=== PATIENT | male | born 1950 | race Caucasian/White ===

== ENCOUNTER 2016-11-29 18:50 | Emergency (ER) | payer OTHER, MEDICARE ==
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
--- NOTE | 2016-11-29 19:01 | CPEKG ---
Heart Rate: 78 RR Interval: 769 P-R Interval: 180 QRSD Interval: 124 QT Interval: 420 QTC Interval: 479 P [place]: 47 QRS [place]: -71 T Wave [place]: 99 EKG Severity - ABNORMAL ECG - EKG Impression: SINUS RHYTHM EKG Impression: LVH WITH IVCD, LAD AND SECONDARY REPOL ABNRM Electronically Signed By: Marie Terry 29-Nov-2016 21:36:01
[2016-11-29 19:08] LABS: % IMMATURE GRANULYOCYTES 0.2 % (0.0-1.1); ABSOLUTE IMMATURE GRANULOCYTES 0.01 10^3/uL (0.00-0.10); ADD DIFF? NO; ADD MORPH? NO; ADD SCAN? NO; ATYPICAL LYMPHOCYTE FLAG 0 (0-99); FRAGMENT RBC FLAG 0 (0-99); HEMATOCRIT 33.8 % (40.0-51.0); HEMOGLOBIN 10.9 g/dL (13.7-17.5); LEFT SHIFT FLG 0 (0-99); LIPEMIA HEMOLYSIS FLAG 80 (0-99); MEAN CELL HEMOGLOBIN 28.7 pg (27.9-34.1); MEAN CELL HEMOGLOBIN CONCENTR. 32.2 g/dL (32.4-36.7); MEAN CELL VOLUME 88.9 fL (81.5-99.8); MEAN PLATELET VOLUME 9.6 fL (8.7-11.7); PLATELET CLUMPS FLAG 20 (0-99); PLATELET COUNT 210 10^3/uL (150-400); RED CELL DISTRIBUTION WIDTH 14.6 % (11.5-15.2)
[2016-11-29 19:20] VITALS: RESP 16
[2016-11-29 19:22] LABS: ANION GAP 10 mEq/L (8-16); CALCIUM 8.4 mg/dL (8.5-10.4); CARBON DIOXIDE 24 mEq/l (22-31); CHLORIDE 105 mEq/L (97-110); CREATININE 3.5 mg/dL (0.7-1.3); GLOMERULAR FILTRATION RATE 18; GLUCOSE 154 mg/dL (70-100); POTASSIUM 4.8 mEq/L (3.5-5.2); SODIUM 139 mEq/L (134-144)
[2016-11-29] MEDS ORDERED: CYCLOBENZAPRINE 10 MG TAB PO ONE (19:53)
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
[2016-11-29 21:27] VITALS: BP 166/76; PULSE 68; TEMP 98.1; O2SAT 97
== END 2016-11-29 21:31 | disposition home or self-care (01) ==
LOC: EDUNIT#
DX: S09.90XA Unspecified injury of head, initial encounter (principal); E11.649 Type 2 diabetes mellitus with hypoglycemia without coma; I25.810 Atherosclerosis of coronary artery bypass graft(s) without angina pectoris; N18.9 Chronic kidney disease, unspecified; Z86.73 Personal history of transient ischemic attack (TIA), and cerebral infarction without residual deficits; Z87.891 Personal history of nicotine dependence; Z79.82 Long term (current) use of aspirin; Z79.4 Long term (current) use of insulin; V89.2XXA Person injured in unspecified motor-vehicle accident, traffic, initial encounter; Y92.410 Unspecified street and highway as the place of occurrence of the external cause
CPT/HCPCS: 82947-QW

== ENCOUNTER 2017-01-16 15:14 | Emergency (ER) | payer OTHER ==
[2017-01-16 15:29] VITALS: RESP 16; TEMP 97.9
--- NOTE | 2017-01-16 15:36 | EDPHY ---
H & P Stated Complaint: HIGH BLOOD SUGAR AND SOB FOR 5 DAYS HPI/ROS: CHIEF COMPLAINT: Short of breath HISTORY OF PRESENT ILLNESS: The patient is a 66-year-old man who comes to the emergency department by EMS complaining of dyspnea as well as ascites. He is convinced that he has Jeanie infection in his bloodstream. He states that he has [facility] to treat him for this and they did. He has a history of dementia, CVA, 4 vessel CABG, bioprosthetic aortic valve, chronic renal disease , hypertension, type 2 diabetes, hep C as well as and admission 6 months ago for Streptococcus mitis bacteremia and pneumonia. He denies recent fevers. He denies vomiting or diarrhea. He does complain of mild abdominal distention but no tenderness. He has a difficult time focusing and explaining with his chief complaint is. He does not appear to be in any distress but is saturating 87% on room air. REVIEW OF SYSTEMS: Constitutional: denies: chills, fever, recent illness, recent injury EENTM: denies: blurred vision, double vision, nose congestion Respiratory: See HPI Cardiac: denies: chest pain, irregular heart rate, lightheadedness, palpitations Gastrointestinal/Abdominal: distensiondenies: abdominal pain, diarrhea, nausea , vomiting, blood streaked stools Genitourinary: denies: dysuria, frequency, hematuria, pain Musculoskeletal: denies: joint pain, muscle pain Skin: denies: lesions, rash, jaundice, bruising Neurological: denies: headache, numbness, paresthesia, tingling, dizziness, weakness Hematologic/Lymphatic: denies: blood clots, easy bleeding, easy bruising Immunologic/allergic: denies: HIV/AIDS, transplant EXAM: GENERAL: Well-appearing, well-nourished and in no acute distress. HEAD: Atraumatic, normocephalic. EYES: Pupils equal round and reactive to light, extraocular movements intact, sclera anicteric, conjunctiva are normal. ENT: TMs normal, nares patent, oropharynx clear without exudates. Moist mucous membranes. NECK: Normal range of motion, supple without lymphadenopathy or JVD. LUNGS: Bilateral crackles HEART: Regular rate and rhythm without murmurs, rubs or gallops. ABDOMEN: distended, nontender, normoactive bowel sounds. No guarding, no rebound. No masses appreciated. BACK: No CVA tenderness, no spinal tenderness, step-offs or deformities EXTREMITIES: Normal range of motion, no pitting or edema. No clubbing or cyanosis. NEUROLOGICAL: Cranial nerves II through XII grossly intact. Normal speech, normal gait. 5/5 strength, normal movement in all extremities, normal sensation PSYCH: Normal mood, normal affect. SKIN: Warm, dry, normal turgor, no visible rashes or lesions. Source: Patient Exam Limitations: No limitations - Personal History Current Tetanus Diphtheria and Acellular Pertussis (TDAP): Unsure - Medical/Surgical History Hx Asthma: No Hx Chronic Respiratory Disease: Yes Hx Diabetes: Yes Hx Cardiac Disease: Yes Hx Renal Disease: Yes Hx Cirrhosis: Yes Hx Alcoholism: No Hx HIV/AIDS: No Hx Splenectomy or Spleen Trauma: No Other PMH: 1. Hepatitis C. 2. Coronary artery disease with bypass graft. 3. Aortic valve replacement. 4. Chronic kidney disease. 5. Diabetes. 6. CVA. 7. Vertigo. 8. Hospitalization for pneumonia in January of 2016 - Family History Significant Family History: Hypertension - Social History Smoking Status: Former smoker Alcohol Use: Sober Drug Use: None Constitutional: Initial Vital Signs Temperature (C) 36.6 C 01/16/17 15:15 Heart Rate 74 01/16/17 15:15 Respiratory Rate 16 01/16/17 15:15 Blood Pressure 161/91 H 01/16/17 15:15 O2 Sat (%) 96 01/16/17 15:15 O2 Delivery Mode Nasal Cannula O2 (L/minute) 2 Allergies/Adverse Reactions: Sulfa (Sulfonamide Antibiotics) [Sulfa(Sulfonamide Antibiotics)] Allergy (Severe , Verified 01/16/17 15:25) Hives furosemide [From Lasix] Allergy (Verified 01/16/17 15:25) Rash sulfamethoxazole [From Septra] Allergy (Verified 01/16/17 15:25) Other-Enter Comments trimethoprim [From Septra] Allergy (Verified 01/16/17 15:25) Other-Enter Comments Home Medications: Medication Instructions Recorded Cholecalciferol Vit D3 [Vitamin D3 5,000 units PO HS 07/01/15 2000 units] Omeprazole [Prilosec] 40 mg PO DAILY PRN 07/01/15 Vitamin B Complex [B Complex] 1 each PO DAILY 08/13/15 Aspirin EC [Aspirin EC 81 mg (*)] 81 mg PO DAILY 11/21/15 Ethacrynic Acid [Edecrin 25 MG (*)] 75 mg PO DAILY 11/21/15 Febuxostat [ULORIC] 40 mg PO HS 11/21/15 Labetalol HCl [Trandate 100 mg (*)] 200 mg PO BID 11/21/15 Atorvastatin Calcium [Lipitor 20 10 mg PO BID 01/27/16 mg (*)] Ascorbic Acid [Vitamin C 500 mg 500 mg PO DAILY 07/12/16 (*)] Insulin Lispro [Humalog] 0 - 14 unit SQ ACHS 07/12/16 Meclizine HCl [Meclizine HCl 25 mg 12.5 - 26 mg PO Q4 PRN #30 tab 07/13/16 (RX,OTC)] Cyclobenzaprine [Flexeril 10 MG 15 mg PO DAILY PRN 01/16/17 (*)] Ethacrynic Acid [Edecrin 25 MG (*)] 25 mg PO HS 01/16/17 Herbals/Supplements -Info Only 1 ea PO DAILY 01/16/17 Insulin Glargine [Lantus 100 12 units SC BID 01/16/17 UNITS/ML (*)] Mupirocin 2% [Bactroban 2%] 1 karlos TP DAILY 01/16/17 hydrALAZINE [Apresoline 50 mg (*)] 25 mg PO BID 01/16/17 levOFLOXACIN [levAQUIN] 750 mg PO DAILY #10 tab 01/16/17 oxyCODONE IR [Oxycodone Ir (*)] 5 mg PO DAILY PRN 01/16/17 Medical Decision Making - Diagnostics EKG Interpretation: An EKG obtained and was read and documented in trace view. Please see trace view for full reading and report. Sinus rhythm, LVH similar to previous Imaging: X-ray: chest x-ray was obtained. I viewed the images myself on the PACS system. My interpretation of the images is: Right lower lobe infiltrate. The radiologist interpretation is right lower lobe infiltrate. Procedures: Bedside ultrasound performed. Patient's proximal IVC identified and measured during inspiration at rest. No significant collapse. ED Course/Re-evaluation: Patient's x-ray has a new infiltrate in the right lower lobe. I will start him on antibiotics and initiate the sepsis workup. He is requiring oxygen to stay above 90% and will require admission. Chemistry still pending. The patient's elevated creatinine compared to baseline. He has pneumonia. He is not hypotensive or tachycardic. I will treat him with fluids and observed but will be cautious because of his chronic renal insufficiency status I will not give him the full 30 per kilos bolus if he meets criteria for severe sepsis. 4:45 p.m. I discussed the case with Dr. Alok Farah who will admit. We agreed to hold IV fluids at this point. Patient's IVC does not show evidence of dehydration On ultrasound. He has moist mucous membranes. 7:10 p.m. after being admitted and seen by the hospitalist physician the patient became angry because he did not like the food given to him his diet tray. He also is concerned because we are going to give him Humulin instead of Humalog. He stormed up and started getting dressed and leaving. I tried to have a discussion with him and have him sign an AMA form but he refused. I spoke with Dr. Farah. States the patient does not have pneumonia on CT scan and does not need antibiotic prescription only to continue taking his diuretic and follow up with his primary care doctor. Differential Diagnosis: Partial list of the Differential diagnosis considered include but were not limited to; pneumonia, CHF exacerbation pulmonary edema, pulmonary fusion and although unlikely based on the history and physical exam, I also considered PE, acute coronary disease, sepsis. - Data Points Laboratory Results: Laboratory Results 01/16/17 15:40 01/16/17 15:40 01/16/17 01/16/17 01/16/17 16:59 15:40 15:40 WBC RBC Hgb Hct MCV MCH MCHC RDW Plt Count MPV Neut % (Auto) Lymph % (Auto) Snyder % (Auto) Eos % (Auto) Baso % (Auto) Nucleat RBC Rel Count Absolute Neuts (auto) Absolute Lymphs (auto) Absolute Monos (auto) Absolute Eos (auto) Absolute Basos (auto) Absolute Nucleated RBC Immature Gran % Immature Gran # PT INR APTT VBG Lactic Acid 1.2 mmol/L mmol/L (0.7-2.1) Sodium 135 mEq/L mEq/L (134-144) Potassium 5.7 mEq/L H mEq/L (3.5-5.2) Chloride 102 mEq/L mEq/L (97-110) Carbon Dioxide 21 mEq/l L mEq/l (22-31) Anion Gap 12 mEq/L mEq/L (8-16) BUN 106 mg/dL H* mg/dL (7-23) Creatinine 4.4 mg/dL H mg/dL (0.7-1.3) Estimated GFR 14 Glucose 294 mg/dL H mg/dL (70-100) Calcium 7.9 mg/dL L mg/dL (8.5-10.4) Total Bilirubin 0.6 mg/dL mg/dL (0.1-1.4) Troponin I 0.050 ng/mL H ng/mL (0-0.034) NT-Pro-B Natriuret Pep 26296 pg/mL H pg/mL (0-125) Beta-Hydroxybutyrate 0.15 mmol/L mmol/L (0.02-0.27) 01/16/17 01/16/17 15:40 15:40 WBC 8.89 10^3/uL 10^3/uL (3.80-9.50) RBC 3.73 10^6/uL L 10^6/uL (4.40-6.38) Hgb 10.7 g/dL L g/dL (13.7-17.5) Hct 34.0 % L % (40.0-51.0) MCV 91.2 fL fL (81.5-99.8) MCH 28.7 pg pg (27.9-34.1) MCHC 31.5 g/dL L g/dL (32.4-36.7) RDW 14.0 % % (11.5-15.2) Plt Count 181 10^3/uL 10^3/uL (150-400) MPV 11.3 fL fL (8.7-11.7) Neut % (Auto) 81.0 % H % (39.3-74.2) Lymph % (Auto) 10.8 % L % (15.0-45.0) Snyder % (Auto) 6.7 % % (4.5-13.0) Eos % (Auto) 0.7 % % (0.6-7.6) Baso % (Auto) 0.1 % L % (0.3-1.7) Nucleat RBC Rel Count 0.0 % % (0.0-0.2) Absolute Neuts (auto) 7.20 10^3/uL H 10^3/uL (1.70-6.50) Absolute Lymphs (auto) 0.96 10^3/uL L 10^3/uL (1.00-3.00) Absolute Monos (auto) 0.60 10^3/uL 10^3/uL (0.30-0.80) Absolute Eos (auto) 0.06 10^3/uL 10^3/uL (0.03-0.40) Absolute Basos (auto) 0.01 10^3/uL L 10^3/uL (0.02-0.10) Absolute Nucleated RBC 0.00 10^3/uL 10^3/uL (0-0.01) Immature Gran % 0.7 % % (0.0-1.1) Immature Gran # 0.06 10^3/uL 10^3/uL (0.00-0.10) PT 14.9 SEC SEC (12.0-15.0) INR 1.17 H (0.83-1.16) APTT 27.1 SEC SEC (23.0-38.0) VBG Lactic Acid Sodium Potassium Chloride Carbon Dioxide Anion Gap BUN Creatinine Estimated GFR Glucose Calcium Total Bilirubin Troponin I NT-Pro-B Natriuret Pep Beta-Hydroxybutyrate Medications Given: Discontinued Medications Levofloxacin/Dextrose (Levaquin 750 Mg (Premix)) 150 mls @ 100 mls/hr IV EDNOW ONE PRN Reason: Protocol Stop: 01/16/17 17:51 Last Admin: 01/16/17 17:05 Dose: 150 mls Sodium Chloride (Ns) 1,000 mls @ 0 mls/hr IV ONCE ONE PRN Reason: Wide Open Stop: 01/16/17 16:34 Last Admin: 01/16/17 17:14 Dose: Not Given Insulin Human Regular (Humulin R) 10 unit IVP ONCE ONE Stop: 01/16/17 18:05 Last Admin: 01/16/17 18:30 Dose: Not Given Sodium Polystyrene Sulfonate (Kayexalate) 30 gm PO ONCE ONE Stop: 01/16/17 18:05 Last Admin: 01/16/17 18:30 Dose: Not Given Departure - Departure Disposition: Against Medical Advice Clinical Impression: Pulmonary edema Qualifiers: Chronicity: acute Qualified Code(s): J81.0 - Acute pulmonary edema Condition: Fair Referrals: Patient,NotPresent [Unknown] - As per Instructions Prescriptions: levOFLOXACIN [levAQUIN] 750 mg PO DAILY #10 tab
[2017-01-16 16:16] LABS: % IMMATURE GRANULYOCYTES 0.7 % (0.0-1.1); ABSOLUTE IMMATURE GRANULOCYTES 0.06 10^3/uL (0.00-0.10); ADD DIFF? NO; ADD MORPH? NO; ADD SCAN? NO; ATYPICAL LYMPHOCYTE FLAG 0 (0-99); FRAGMENT RBC FLAG 40 (0-99); HEMOGLOBIN 10.7 g/dL (13.7-17.5); LEFT SHIFT FLG 0 (0-99); LIPEMIA HEMOLYSIS FLAG 80 (0-99); MEAN CELL HEMOGLOBIN 28.7 pg (27.9-34.1); MEAN CELL HEMOGLOBIN CONCENTR. 31.5 g/dL (32.4-36.7); MEAN CELL VOLUME 91.2 fL (81.5-99.8); MEAN PLATELET VOLUME 11.3 fL (8.7-11.7); PLATELET CLUMPS FLAG 10 (0-99); PLATELET COUNT 181 10^3/uL (150-400); RED BLOOD CELL COUNT 3.73 10^6/uL (4.40-6.38)
--- NOTE | 2017-01-16 16:20 | CPEKG ---
Heart Rate: 72 RR Interval: 833 P-R Interval: 180 QRSD Interval: 122 QT Interval: 424 QTC Interval: 465 P [place]: 41 QRS [place]: -70 T Wave [place]: 109 EKG Severity - ABNORMAL ECG - EKG Impression: SINUS RHYTHM EKG Impression: NONSPECIFIC IVCD WITH LAD EKG Impression: SIMILAR TO PREVIOUS Electronically Signed By: Ba Pacheco 16-Jan-2017 16:21:04
[2017-01-16 16:23] LABS: ANION GAP 12 mEq/L (8-16); CALCIUM 7.9 mg/dL (8.5-10.4); CARBON DIOXIDE 21 mEq/l (22-31); CHLORIDE 102 mEq/L (97-110); CREATININE 4.4 mg/dL (0.7-1.3); GLOMERULAR FILTRATION RATE 14; GLUCOSE 294 mg/dL (70-100); POTASSIUM 5.7 mEq/L (3.5-5.2); SODIUM 135 mEq/L (134-144)
[2017-01-16 16:33] LABS: APTT 27.1 SEC (23.0-38.0)
[2017-01-16] MEDS ORDERED: NS 1,000 ML IV ONE (16:33)
[2017-01-16 16:40] LABS: INR 1.17 (0.83-1.16); PROTIME(PATIENT) 14.9 SEC (12.0-15.0)
[2017-01-16 16:49] LABS: BILIRUBIN,TOTAL 0.6 mg/dL (0.1-1.4)
[2017-01-16 16:59] LABS: B-HYDROXYBUTYRATE 0.15 mmol/L (0.02-0.27)
[2017-01-16] MEDS ORDERED: ONDANSETRON DISINTEGRATING 4 MG TAB PO PRN (17:40)
[2017-01-16] MEDS ORDERED: ACETAMINOPHEN 325 MG TAB PO PRN (17:40)
[2017-01-16] MEDS ORDERED: ONDANSETRON 4 MG/2 ML VIAL IVP PRN (17:40)
--- NOTE | 2017-01-16 17:49 | PDGENHP ---
History and Physical - Chief Complaint Acute shortness of breath - History of Present Illness PCP: [facility] HPI: 66-year-old male presenting with acute shortness of breath characterized as difficulty breathing with any level of physical activity, exacerbated with ambulation, with associated general myalgias as well as edema located in his abdomen and bilateral legs. Patient reports onset of symptoms approximately 4 days ago and duration has been persistent worsening thereafter. He reports that he has been adherent to his echarynic acid which she takes as his scheduled diuretic. He reports that he has also had experienced significant hyperglycemia for the past 4 days has been "slamming" insulin, although he is unable to objectively tell me exactly how much insulin he has been taking. He is unable to tell me exactly what his blood glucose levels have been. He reports that he has urinated on the day of presentation but he is unable to further characterize whether he has been oliguric. The patient is notably distraught, perseverating on how he perceives he has been unfairly treated by past medical providers at the [facility] as well as [facility]. He otherwise denies any fevers chills, endorses nonproductive cough. History Information - Allergies/Home Medication List Allergies/Adverse Reactions: Sulfa (Sulfonamide Antibiotics) [Sulfa(Sulfonamide Antibiotics)] Allergy (Severe , Verified 01/16/17 15:25) Hives furosemide [From Lasix] Allergy (Verified 01/16/17 15:25) Rash sulfamethoxazole [From Septra] Allergy (Verified 01/16/17 15:25) Other-Enter Comments trimethoprim [From Septra] Allergy (Verified 01/16/17 15:25) Other-Enter Comments Home Medications: Cholecalciferol Vit D3 [Vitamin D3 2000 units] 2,000 units PO HS 07/01/15 [Last Taken 01/26/16] Omeprazole [Prilosec] 40 mg PO DAILY 07/01/15 [Last Taken 01/26/16] Vitamin B Complex [B Complex] 1 each PO DAILY 07/01/15 [Last Taken 01/26/16] Aspirin EC [Aspirin EC 81 mg (*)] 81 mg PO HS 11/21/15 [Last Taken 01/26/16] Ethacrynic Acid [Edecrin 25 MG (*)] 50 mg PO BID 11/21/15 [Last Taken 01/26/16] Febuxostat [ULORIC] 40 mg PO HS 11/21/15 [Last Taken 01/26/16] Labetalol HCl [Trandate 100 mg (*)] 200 mg PO BID 11/21/15 [Last Taken 01/26/16] hydrALAZINE [Apresoline] 37.5 mg PO BID 11/21/15 [Last Taken 01/26/16] Atorvastatin Calcium [Lipitor 20 mg (*)] 10 mg PO HS 01/27/16 [Last Taken ] oxyCODONE HCL/ACETAMINOPHEN [Oxycodone-Acetaminophen 5-325] 1 - 2 tab PO DAILY PRN 01/27/16 [Last Taken 01/26/16] Ascorbic Acid [Vitamin C 500 mg (*)] 500 mg PO DAILY 07/12/16 [Last Taken Unknown] Insulin Detemir [Levemir] 25 unit SQ HS 07/12/16 [Last Taken Unknown] Insulin Lispro [Humalog] 0 unit SQ AC 07/12/16 [Last Taken Unknown] I have personally reviewed and updated: family history, medical history, social history, surgical history - Past Medical History coronary artery disease ( Status post CABG 4 vessel), CHF ( diastolic with last known echocardiogram June of 2016), CVA ( without known physical deficit) , hypertension, pneumonia ( left lower lobe) Additional medical history: Chronic kidney disease stage 4 baseline creatinine 3.5 x 3.7. Hepatitis-C virus. Previous episodes of streptococcal bacteremia - Surgical History Reports: coronary bypass surgery ( 4 vessel) Additional surgical history: Bioprosthetic aortic valve June of 2015. Fistula placement - Family History Additional family history: mother with aortic stenosis - Social History Smoking Status: Former smoker Alcohol Use: Sober Drug Use: None Additional social history: reportedly homeless, patient reports he lives in [place] Review of Systems ROS: 10pt was reviewed & negative except for what was stated in HPI & below Constitutional: Reports: weakness Cardiac: Reports: edema Respiratory: Reports: cough, shortness of breath Gastrointestinal: Reports: abdominal distention Muscolosketal: Reports: other ( myalgias) Physical Exam Temp Pulse Resp BP Pulse Ox 36.6 C 74 16 138/89 H 100 01/16/17 15:15 01/16/17 17:13 01/16/17 17:13 01/16/17 17:13 01/16/17 17:13 O2 (L/minute) 2 Constitutional: chronically ill appearing, obese, uncomfortable, No no apparent distress ( moderately distressed), No not in pain Eyes: PERRL, anicteric sclera, EOMI Ears, Nose, Mouth, Throat: moist mucous membranes, hearing normal, ears appear normal, no oral mucosal ulcers Cardiovascular: systolic murmur ( 2/6 systolic murmur at the right sternal border), JVD, edema ( 2+ bilateral lower extremity), No irregularly irregular, No tachycardia Respiratory: inspiratory crackles ( bilateral bases), No reduced air movement, No expiratory wheeze, No bronchial breath sounds, No respiratory distress Gastrointestinal: normoactive bowel sounds, tenderness ( mild to moderate palpation), distension ( moderately distended) Skin: other ( chronic stasis dermatitis bilateral lower extremities without open wounds) Musculoskeletal: other ( patient unwilling to perform musculoskeletal exam) Neurologic: AAOx3, sensation intact bilaterally, No facial droop Psychiatric: not encephalopathic, thought process linear, anxious, agitated, other ( concentration 7/7, intermittently tearful and irrate) Lab Data & Imaging Review 01/16/17 15:40 01/16/17 15:40 WBC 8.89 10^3/uL (3.80-9.50) 01/16/17 15:40 RBC 3.73 10^6/uL (4.40-6.38) L 01/16/17 15:40 Hgb 10.7 g/dL (13.7-17.5) L 01/16/17 15:40 Hct 34.0 % (40.0-51.0) L 01/16/17 15:40 MCV 91.2 fL (81.5-99.8) 01/16/17 15:40 MCH 28.7 pg (27.9-34.1) 01/16/17 15:40 MCHC 31.5 g/dL (32.4-36.7) L 01/16/17 15:40 RDW 14.0 % (11.5-15.2) 01/16/17 15:40 Plt Count 181 10^3/uL (150-400) 01/16/17 15:40 MPV 11.3 fL (8.7-11.7) 01/16/17 15:40 Neut % (Auto) 81.0 % (39.3-74.2) H 01/16/17 15:40 Lymph % (Auto) 10.8 % (15.0-45.0) L 01/16/17 15:40 [place] % (Auto) 6.7 % (4.5-13.0) 01/16/17 15:40 Eos % (Auto) 0.7 % (0.6-7.6) 01/16/17 15:40 Baso % (Auto) 0.1 % (0.3-1.7) L 01/16/17 15:40 Nucleat RBC Rel Count 0.0 % (0.0-0.2) 01/16/17 15:40 Absolute Neuts (auto) 7.20 10^3/uL (1.70-6.50) H 01/16/17 15:40 Absolute Lymphs (auto) 0.96 10^3/uL (1.00-3.00) L 01/16/17 15:40 Absolute Monos (auto) 0.60 10^3/uL (0.30-0.80) 01/16/17 15:40 Absolute Eos (auto) 0.06 10^3/uL (0.03-0.40) 01/16/17 15:40 Absolute Basos (auto) 0.01 10^3/uL (0.02-0.10) L 01/16/17 15:40 Absolute Nucleated RBC 0.00 10^3/uL (0-0.01) 01/16/17 15:40 Immature Gran % 0.7 % (0.0-1.1) 01/16/17 15:40 Immature Gran # 0.06 10^3/uL (0.00-0.10) 01/16/17 15:40 PT 14.9 SEC (12.0-15.0) 01/16/17 15:40 INR 1.17 (0.83-1.16) H 01/16/17 15:40 APTT 27.1 SEC (23.0-38.0) 01/16/17 15:40 VBG Lactic Acid 1.2 mmol/L (0.7-2.1) 01/16/17 16:59 Sodium 135 mEq/L (134-144) 01/16/17 15:40 Potassium 5.7 mEq/L (3.5-5.2) H 01/16/17 15:40 Chloride 102 mEq/L (97-110) 01/16/17 15:40 Carbon Dioxide 21 mEq/l (22-31) L 01/16/17 15:40 Anion Gap 12 mEq/L (8-16) 01/16/17 15:40 BUN 106 mg/dL (7-23) H* 01/16/17 15:40 Creatinine 4.4 mg/dL (0.7-1.3) H 01/16/17 15:40 Estimated GFR 14 01/16/17 15:40 Glucose 294 mg/dL (70-100) H 01/16/17 15:40 Calcium 7.9 mg/dL (8.5-10.4) L 01/16/17 15:40 Total Bilirubin 0.6 mg/dL (0.1-1.4) 01/16/17 15:40 Troponin I 0.050 ng/mL (0-0.034) H 01/16/17 15:40 NT-Pro-B Natriuret Pep 54199 pg/mL (0-125) H 01/16/17 15:40 Beta-Hydroxybutyrate 0.15 mmol/L (0.02-0.27) 01/16/17 15:40 Visualized and Interpreted Chest x-ray results: Yes Chest X-Ray results: other ( increased interstitial markings, possible right lower lobe infiltrate) Visualized and Interpreted EKG results: Yes EKG Interpretation: Positive for: other ( normal sinus rhythm, intraventricular conduction delay, Q-wave in lead V2) Assessment & Plan Assessment: 66-year-old male presenting with acute shortness of breath in the setting of suspected acute diastolic congestive heart failure exacerbation Plan: 1. Suspected acute diastolic congestive heart failure exacerbation. New problem this provider, further workup indicated. Suspect this is the cause of patient's symptoms as opposed to pneumonia is the patient does not have any fevers chills leukocytosis, although he may have a right lower lobe infiltrate - get noncontrast CT of the chest to either confirm or deny right lower lobe infiltrate (d/w Dr. Pacheco, he has reported to me that the patient has received 1 dose of IV levofloxacin in the emergency department, will hold on further antibiotics until chest [place] [address] which is lehman contrast to patient's most recent BMP of 9500 on 11/15/2016 - most recent echocardiogram June 2016 demonstrating diastolic dysfunction - get repeat echocardiogram at this time given his history of significant CAD and marginally elevated troponin level - the patient reports that he is allergic to Lasix and he has had anaphylaxis to this medication in the past, will consequently not use Lasix - the patient reports that he has experienced significant muscular cramps with torsemide in the past, patient is declining use of this medication at this time - I have offered the patient Bumex and since the patient has not heard of this medication before he is refusing at this time - I have offered to increase the patient's home Ecchrynic acid and the patient is declining any dose adjustments from at this time - consequently, the patient may require hemodialysis given his significant renal impairment, to remove volume and I have consulted with Nephrology to discuss with the patient further 2. Hyperkalemia. Secondary to renal impairment, will provide the patient with IV insulin and Kayexalate and then repeat level this evening - monitor on telemetry 3. Chronic kidney disease stage 4-5. Review of outside records demonstrates patient's baseline creatinine level is 3.5-3.7, his rise in creatinine level of 4.4 with a BUN of 106 and hyperkalemia 5.7 may be indication for initiation of dialysis - I have consulted with Dr. Heredia from Nephrology 4. Chronic coronary artery disease. Status post CABG, continue patient's home medications, suspect that marginally elevated troponin level is secondary to heart strain from CHF 5. Diabetes mellitus type 2 with hyperglycemia. Patient has had difficult to control hyperglycemia in the past, partially secondary to his retic usage of insulin and his insistence on dosing based on his own personal belief as well as his dietary intake - patient requesting regular diet at this time - will initiate patient's home dosing of insulin when available Diet. Regular Prophylaxis. High risk patient, heparin subcu Code status. Full per patient, the patient declined to have a medical power of personal injury attorney and if situation calls for, he would like a court-appointed MPOA Disposition. Anticipated discharge uncertain this time, anticipated length stay is greater than 48 hours warranting inpatient admission status for acute diastolic CHF exacerbation requiring further workup and inpatient treatment as outlined above. He has a high risk Patient with high risk medical comorbidities.
[2017-01-16] MEDS ORDERED: SODIUM POLY SULF 15 GM/60 ML BOTTLE PO ONE (18:04)
[2017-01-16] MEDS ORDERED: INSULIN REGULAR HUMAN 100 UNIT/ML IVP ONE (18:04)
[2017-01-16] MEDS ORDERED: D50W 25 GM/50 ML SYR IVP PRN (18:04)
[2017-01-16 18:38] VITALS: BP 169/82; PULSE 70; O2SAT 99
[2017-01-16] MEDS ORDERED: INSULIN LISPRO 100 UNIT/ML SC PRN (18:56)
[2017-01-16] MEDS ORDERED: INSULIN REGULAR HUMAN 100 UNIT/ML SC SCH (21:00)
[2017-01-16] MEDS ORDERED: HEPARIN 5,000 UNIT/0.5 ML SYR SC SCH (22:00)
== END 2017-01-16 19:27 | disposition left against medical advice (07) ==
LOC: EDUNIT# → UNDOADMOB 16:43
DX: J81.0 Acute pulmonary edema (principal); E11.9 Type 2 diabetes mellitus without complications; I25.810 Atherosclerosis of coronary artery bypass graft(s) without angina pectoris; Z79.82 Long term (current) use of aspirin; Z79.4 Long term (current) use of insulin; Z87.891 Personal history of nicotine dependence
CPT/HCPCS: 71020; 71250; 93005; 96374; 99285; J1815; J1956

== ENCOUNTER 2017-05-10 08:43 | Inpatient (IN) | payer OTHER ==
--- NOTE | 2017-05-10 09:36 | EDPHY ---
H & P Time Seen by Provider: 05/10/17 09:11 HPI/ROS: Chief complaint. Shortness of breath HPI. 66-year-old male here requesting thoracentesis. He has been short of breath for 2 months and he feels this is secondary to fluid buildup in his lungs. His breathing has been worse over the past month. His breathing is worse especially with exertion. Previous thoracentesis 6 months ago. His legs have been swollen for the past several month. No fever or cough. No chest discomfort. Patient also receives Sunday dialysis and his last dialysis was yesterday. ROS Constitutional. no fever/chills, no weakness Eyes. no problems with vision ENT. no sore throat, no nasal drainage Cardiovascular. no chest pain Respiratory. Shortness of breath Abdominal. no abdominal pain, no nausea/vomiting, no diarrhea . no problems urinating MS. Swollen legs Skin. no rash Lymph. no swollen glands Neuro. no headache, no dizziness, no difficulty walking or with speech Past Medical/Surgical History: Past medical history is significant for hepatitis-C, coronary artery disease with CABG, aortic valve replacement, chronic renal insufficiency, diabetes, CVA , vertigo, pneumonia Social History: Single, nonsmoker, no alcohol Smoking Status: Former smoker Physical Exam: General Appearance: Alert well-developed male mild distress vital signs stable. O2 saturation 94% room air Eyes: Pupils equal and round no pallor or injection. ENT, Mouth: Mucous membranes are moist. Respiratory: There are no retractions, lungs are clear to auscultation. Cardiovascular: Regular rate and rhythm. Gastrointestinal: Decreased breath sounds on the left Neurological: Awake and alert, sensory and motor exams grossly normal. Skin: Warm and dry, no rashes. Musculoskeletal: Neck is supple nontender. Extremities symmetrical, full range of motion. 2 to 3+ pedal edema both legs Psychiatric: Patient is oriented X 3, there is no agitation. Constitutional: Initial Vital Signs Temperature (C) 36.7 C 05/10/17 08:47 Heart Rate 75 05/10/17 08:47 Respiratory Rate 20 05/10/17 08:47 Blood Pressure 136/72 H 05/10/17 08:47 O2 Sat (%) 94 05/10/17 08:47 O2 Delivery Mode Room Air Allergies/Adverse Reactions: Sulfa (Sulfonamide Antibiotics) [Sulfa(Sulfonamide Antibiotics)] Allergy (Severe , Verified 05/10/17 08:45) Hives furosemide [From Lasix] Allergy (Verified 05/10/17 08:45) Rash sulfamethoxazole [From Septra] Allergy (Verified 05/10/17 08:45) Other-Enter Comments trimethoprim [From Septra] Allergy (Verified 05/10/17 08:45) Other-Enter Comments Home Medications: Medication Instructions Recorded Cholecalciferol Vit D3 [Vitamin D3 5,000 units PO HS 07/01/15 2000 units] Vitamin B Complex [B Complex] 1 each PO DAILY 07/01/15 Aspirin EC [Aspirin EC 81 mg (*)] 81 mg PO DAILY 11/21/15 Febuxostat [ULORIC] 40 mg PO HS 11/21/15 Labetalol HCl [Trandate 100 mg (*)] 200 mg PO DAILY PRN 11/21/15 Atorvastatin Calcium [Lipitor 20 10 mg PO BID 01/27/16 mg (*)] Ascorbic Acid [Vitamin C 500 mg 500 mg PO Q3D 07/12/16 (*)] Insulin Lispro [Humalog] 5 - 20 unit SQ TIDMEAL 07/12/16 Cyclobenzaprine [Flexeril 10 MG 15 mg PO DAILY PRN 01/16/17 (*)] Ethacrynic Acid [Edecrin 25 MG (*)] 25 - 75 mg PO DAILY PRN 01/16/17 Herbals/Supplements -Info Only 1 ea PO DAILY 01/16/17 Mupirocin 2% [Bactroban 2%] 1 karlos TP HS PRN 01/16/17 Omeprazole [Prilosec 20 mg] 20 mg PO DAILY 05/10/17 oxyCODONE IR [Oxycodone Ir (*)] 5 mg PO DAILY PRN 05/10/17 Medical Decision Making - Diagnostics EKG Interpretation: EKG reviewed by me shows normal sinus rhythm with normal interval. There is left axis deviation. QRS shows a left anterior fascicular block. No significant ST elevation. No significant depression. No arrhythmia. The rate is 71. EKG is unchanged from previous EKG 01/16/2017 Imaging Results: Imaging Impressions Chest X-Ray 05/10/17 09:11 Impression: 1. Suspect low-grade congestive heart failure without matthew pulmonary edema. 2. Persistent left pleural effusion and left basilar atelectasis or pleural- parenchymal change. 3. Lobular opacity in the periphery of the left lower lung is probably a loculated pleural fluid collection versus focal consolidation. Chest x-ray interpreted by me shows left pleural effusion. Procedures: IV normal saline, O2 monitor. ED Course/Re-evaluation: On re-evaluation patient remained stable. The patient and I discussed EKG, laboratory, imaging studies. We discussed treatment plan and recommendation for admission due to shortness of breath with pleural effusion as well as elevated troponin. He expresses understanding and agreement I consulted and discussed case with Dr. Farah, hospitalist, who agrees to the admission Differential Diagnosis: Patient has extensive coronary artery disease with coronary artery bypass graft. Elevated troponin. Chronic left pleural effusion that appears to be worsening as the patient is becoming more symptomatic. - Data Points Laboratory Results: Laboratory Results 05/10/17 09:37 05/10/17 09:37 05/10/17 05/10/17 05/10/17 09:37 09:37 09:37 WBC 6.74 10^3/uL 10^3/uL (3.80-9.50) RBC 4.23 10^6/uL L 10^6/uL (4.40-6.38) Hgb 10.8 g/dL L g/dL (13.7-17.5) Hct 35.9 % L % (40.0-51.0) MCV 84.9 fL fL (81.5-99.8) MCH 25.5 pg L pg (27.9-34.1) MCHC 30.1 g/dL L g/dL (32.4-36.7) RDW 19.0 % H % (11.5-15.2) Plt Count 173 10^3/uL 10^3/uL (150-400) MPV 10.5 fL fL (8.7-11.7) Neut % (Auto) 65.2 % % (39.3-74.2) Lymph % (Auto) 17.7 % % (15.0-45.0) [place] % (Auto) 15.0 % H % (4.5-13.0) Eos % (Auto) 1.0 % % (0.6-7.6) Baso % (Auto) 1.0 % % (0.3-1.7) Nucleat RBC Rel Count 0.0 % % (0.0-0.2) Absolute Neuts (auto) 4.39 10^3/uL 10^3/uL (1.70-6.50) Absolute Lymphs (auto) 1.19 10^3/uL 10^3/uL (1.00-3.00) Absolute Monos (auto) 1.01 10^3/uL H 10^3/uL (0.30-0.80) Absolute Eos (auto) 0.07 10^3/uL 10^3/uL (0.03-0.40) Absolute Basos (auto) 0.07 10^3/uL 10^3/uL (0.02-0.10) Absolute Nucleated RBC 0.00 10^3/uL 10^3/uL (0-0.01) Immature Gran % 0.1 % % (0.0-1.1) Immature Gran # 0.01 10^3/uL 10^3/uL (0.00-0.10) PT 15.3 SEC H SEC (12.0-15.0) INR 1.21 H (0.83-1.16) D-Dimer 1.66 ug/mLFEU H ug/mLFEU (0.00-0.50) Sodium 135 mEq/L mEq/L (134-144) Potassium 3.9 mEq/L mEq/L (3.5-5.2) Chloride 99 mEq/L mEq/L (97-110) Carbon Dioxide 26 mEq/l mEq/l (22-31) Anion Gap 10 mEq/L mEq/L (8-16) BUN 38 mg/dL H mg/dL (7-23) Creatinine 3.1 mg/dL H mg/dL (0.7-1.3) Estimated GFR 20 Glucose 182 mg/dL H mg/dL (70-100) Calcium 8.7 mg/dL mg/dL (8.5-10.4) Troponin I 0.054 ng/mL H ng/mL (0-0.034) NT-Pro-B Natriuret Pep 00726 pg/mL H pg/mL (0-125) Departure - Departure Disposition: [facility] Acute Clinical Impression: Pleural effusion, Elevated troponin Condition: Fair
--- NOTE | 2017-05-10 09:40 | CPEKG ---
Heart Rate: 71 RR Interval: 845 P-R Interval: 192 QRSD Interval: 120 QT Interval: 440 QTC Interval: 479 P [place]: 21 QRS [place]: -76 T Wave [place]: 111 EKG Severity - ABNORMAL ECG - EKG Impression: SINUS RHYTHM EKG Impression: LEFT ANTERIOR FASCICULAR BLOCK Electronically Signed By: Victor Manuel Mayer 10-May-2017 16:02:19
[2017-05-10 09:56] LABS: % IMMATURE GRANULYOCYTES 0.1 % (0.0-1.1); ABSOLUTE IMMATURE GRANULOCYTES 0.01 10^3/uL (0.00-0.10); ADD DIFF? NO; ADD MORPH? NO; ADD SCAN? NO; ATYPICAL LYMPHOCYTE FLAG 0 (0-99); FRAGMENT RBC FLAG 20 (0-99); HEMATOCRIT 35.9 % (40.0-51.0); HEMOGLOBIN 10.8 g/dL (13.7-17.5); LEFT SHIFT FLG 0 (0-99); LIPEMIA HEMOLYSIS FLAG 80 (0-99); MEAN CELL HEMOGLOBIN 25.5 pg (27.9-34.1); MEAN CELL HEMOGLOBIN CONCENTR. 30.1 g/dL (32.4-36.7); MEAN CELL VOLUME 84.9 fL (81.5-99.8); MEAN PLATELET VOLUME 10.5 fL (8.7-11.7); PLATELET CLUMPS FLAG 0 (0-99); PLATELET COUNT 173 10^3/uL (150-400); RED BLOOD CELL COUNT 4.23 10^6/uL (4.40-6.38)
[2017-05-10 10:06] LABS: INR 1.21 (0.83-1.16); PROTIME(PATIENT) 15.3 SEC (12.0-15.0)
[2017-05-10 10:14] LABS: TROPONIN I 0.054 ng/mL (0-0.034)
[2017-05-10 10:21] LABS: ANION GAP 10 mEq/L (8-16)
[2017-05-10 10:22] LABS: SODIUM 135 mEq/L (134-144)
[2017-05-10 10:23] LABS: CALCIUM 8.7 mg/dL (8.5-10.4); CARBON DIOXIDE 26 mEq/l (22-31); CHLORIDE 99 mEq/L (97-110); CREATININE 3.1 mg/dL (0.7-1.3); GLOMERULAR FILTRATION RATE 20; GLUCOSE 182 mg/dL (70-100); POTASSIUM 3.9 mEq/L (3.5-5.2)
--- NOTE | 2017-05-10 13:26 | WOCRNPDOC ---
[facility] Advanced Assessment Note - Skin Integrity Problem, Advanced Assess Right Anterior Lower Leg Dressing Type: Band Aid Dressing Description: Clean/Dry, Intact Exudate Amount: None Integumentary Issue Intervention: Dressing Removed Tania Wound Tissue: Lipodermatosclerosis, Hemosiderin Staining, Venous Dermatitis , Shiny, Taught Wound Bed Color: Yellow Wound Bed Constitution: Adhered Slough Wound Edges: Attached, Irregular Site Measurement - Head-to-Toe Length X Width X Depth (cm): 1.8x1x0.2 Skin Integrity Problem Comment: Wound surrounded by scar tissue from unknown etiology. May have been a traumatic wound originally that has become chronic. Advised RN to clean wound well with gauze and NS to mechanically debride wound. Patient had a tubigrip on one leg but did not know what size. When asked why he only had one compression sock on, he reported it being too difficult for him to put the other one on when he is wearing his knee brace. Right calf circumference 39 cm and left is 41.5. Tubigrip E will be sent down for medium compression for staff to apply to bilateral lower legs during the day. Jeanette WU in room for care. Left Pedal Foot Diabetic Ulcer Dressing Type: Coban, Kerlix, Non-Bordered Foam, Optilock Dressing Description: Clean/Dry, Intact Exudate Amount: Scant Exudate Characteristic(s): Serosanguinous Integumentary Issue Intervention: Dressing Removed Tania Wound Tissue: Macerated, Hyperkeratotic Wound Bed Color: [place] Site Measurement - Head-to-Toe Length X Width X Depth (cm): 1.7x1x0.3 Skin Integrity Problem Comment: Dressing was not placed correctly as aquacel that was at the base of the wound had been placed upside down (pink side to wound bed). Patient upset as he reports having changed the dressing today himself but that he didnt have adequete directions. 50% non granulating tissue/ 50% granulation. Will follow outpatient wound care plan to give patient continuity of care, and it is appropriate for his wounds. Alerted wound healing center that pateint has been admitted and will not be able to attend his 2 pm appointment today. Wound care will follow up in one week. Left Lateral Pedal Foot Dressing Type: [place], Kerlix, Non-Bordered Foam, Optilock Dressing Description: Clean/Dry, Intact Integumentary Issue Intervention: Dressing Removed Wound Bed Constitution: Granulation Tissue (100%) Site Measurement - Head-to-Toe Length X Width X Depth (cm): 1.5x1x0.2 Skin Integrity Problem Comment: Patient reports that wound is from a tape tear when he was changing his foot dressing.
[2017-05-10] MEDS ORDERED: ONDANSETRON 4 MG/2 ML VIAL IVP PRN (13:47)
[2017-05-10] MEDS ORDERED: ONDANSETRON DISINTEGRATING 4 MG TAB PO PRN (13:47)
[2017-05-10] MEDS ORDERED: ACETAMINOPHEN 325 MG TAB PO PRN (13:47)
[2017-05-10] MEDS ORDERED: LABETALOL HCL 100 MG TAB PO PRN (13:52)
[2017-05-10] MEDS ORDERED: CYCLOBENZAPRINE 10 MG TAB PO PRN (13:52)
[2017-05-10] MEDS ORDERED: MUPIROCIN 2% 22 GM OINT TP PRN (13:52)
[2017-05-10] MEDS ORDERED: HEPARIN 5,000 UNIT/0.5 ML SYR SC SCH (14:00)
--- NOTE | 2017-05-10 14:04 | PDGENHP ---
History and Physical - Chief Complaint Acute shortness of breath - History of Present Illness Primary care provider: Dr. hughes HPI: 66-year-old male presents with acute shortness of breath characterized as difficulty breathing, exacerbated by exertion and lying supine, associated with bilateral lower extremity edema, onset of symptoms approximately 2 months ago but progressively worsening over the past month and resulting in him being completely unable to sleep on the evening prior to this presentation. He reports that he has otherwise been afebrile, but he does experience a nonproductive cough, chest pain exacerbated by deep inspiration, and his symptoms are alleviated by sitting upright, resulting in him being completely unable to sleep on the evening prior. He has otherwise been going to hemodialysis 3 times weekly and he reports that he is consistently asking the dialysis center to pull off more volume. He is unclear as to what medications he is currently taking, revealing that he only has Tylenol and oxycodone in his bag. He reports that he has a pill box at home which contains all of his other medications. He is currently not taking any long-acting insulin secondary to cost restraints. He is also not seeing any doctors other than his primary care provider because he has become distrustful of them. History Information - Allergies/Home Medication List Allergies/Adverse Reactions: Sulfa (Sulfonamide Antibiotics) [Sulfa(Sulfonamide Antibiotics)] Allergy (Severe , Verified 05/10/17 08:45) Hives furosemide [From Lasix] Allergy (Verified 05/10/17 08:45) Rash sulfamethoxazole [From Septra] Allergy (Verified 05/10/17 08:45) Other-Enter Comments trimethoprim [From Septra] Allergy (Verified 05/10/17 08:45) Other-Enter Comments Home Medications: Cholecalciferol Vit D3 [Vitamin D3 2000 units] 5,000 units PO HS 07/01/15 [Last Taken 05/09/17] Vitamin B Complex [B Complex] 1 each PO DAILY 07/01/15 [Last Taken 01/16/17] Aspirin EC [Aspirin EC 81 mg (*)] 81 mg PO DAILY 11/21/15 [Last Taken 05/09/17] Febuxostat [ULORIC] 40 mg PO HS 11/21/15 [Last Taken 01/26/16] Labetalol HCl [Trandate 100 mg (*)] 200 mg PO DAILY PRN 11/21/15 [Last Taken ] Atorvastatin Calcium [Lipitor 20 mg (*)] 10 mg PO BID 01/27/16 [Last Taken 05/09 21:00] Ascorbic Acid [Vitamin C 500 mg (*)] 500 mg PO Q3D 07/12/16 [Last Taken 01/16/17 ] Insulin Lispro [Humalog] 5 - 20 unit SQ TIDMEAL 07/12/16 [Last Taken 05/10/17 20 units] Cyclobenzaprine [Flexeril 10 MG (*)] 15 mg PO DAILY PRN 01/16/17 [Last Taken ] Ethacrynic Acid [Edecrin 25 MG (*)] 25 - 75 mg PO DAILY PRN 01/16/17 [Last Taken 01/15/17] Herbals/Supplements -Info Only 1 ea PO DAILY 01/16/17 [Last Taken 01/16/17] Mupirocin 2% [Bactroban 2%] 1 karlos TP HS PRN 01/16/17 [Last Taken 01/16/17] Omeprazole [Prilosec 20 mg] 20 mg PO DAILY 05/10/17 [Last Taken 05/09/17] oxyCODONE IR [Oxycodone Ir (*)] 5 mg PO DAILY PRN 05/10/17 [Last Taken 05/09/17] I have personally reviewed and updated: family history, medical history, social history, surgical history - Past Medical History coronary artery disease ( Status post CABG 4 vessel), CHF ( diastolic with last known echocardiogram June of 2016), CVA ( without known physical deficit) , hypertension, pneumonia ( left lower lobe) Additional medical history: End-stage renal disease on Sunday hemodialysis, currently oliguric. Hepatitis-C virus. Previous episodes of streptococcal bacteremia - Surgical History Reports: coronary bypass surgery ( 4 vessel) Additional surgical history: Bioprosthetic aortic valve June of 2015. Fistula placement - Family History Additional family history: mother with aortic stenosis - Social History Smoking Status: Former smoker Additional social history: Patient reports that he lives in [facility] Review of Systems ROS: 10pt was reviewed & negative except for what was stated in HPI & below Cardiac: Reports: chest pain, edema Respiratory: Reports: cough, shortness of breath Physical Exam Temp Pulse Resp BP Pulse Ox 36.5 C 78 12 149/78 H 96 06/22/17 13:02 05/10/17 13:02 05/10/17 13:02 05/10/17 13:02 05/10/17 13:02 Constitutional: appears nourished, not in pain, chronically ill appearing, uncomfortable Eyes: PERRL, anicteric sclera, EOMI Ears, Nose, Mouth, Throat: moist mucous membranes, hearing normal, ears appear normal, no oral mucosal ulcers Cardiovascular: systolic murmur (106 at the sternum), JVD, edema (2+ bilateral lower extremities), No irregularly irregular, No tachycardia Respiratory: reduced air movement (Left base), inspiratory crackles (Bilateral lateral segment), No expiratory wheeze, No bronchial breath sounds Gastrointestinal: normoactive bowel sounds, soft, non-tender abdomen, no palpable masses, distension (Mildly) Skin: other (Small skin tears on his bilateral shins, hyperpigmentation distal lower extremities), No erythema Musculoskeletal: other (Mild tenderness to palpation over the sternum, sternal deformity) Neurologic: AAOx3, sensation intact bilaterally, No weakness (Motor 5/5 bilateral lower extremities) Psychiatric: not encephalopathic, thought process linear, anxious, agitated ( Easily), other (Very suspicious individual) Lab Data & Imaging Review 05/10/17 09:37 05/10/17 09:37 WBC 6.74 10^3/uL (3.80-9.50) 05/10/17 09:37 RBC 4.23 10^6/uL (4.40-6.38) L 05/10/17 09:37 Hgb 10.8 g/dL (13.7-17.5) L 05/10/17 09:37 Hct 35.9 % (40.0-51.0) L 05/10/17 09:37 MCV 84.9 fL (81.5-99.8) 05/10/17 09:37 MCH 25.5 pg (27.9-34.1) L 05/10/17 09:37 MCHC 30.1 g/dL (32.4-36.7) L 05/10/17 09:37 RDW 19.0 % (11.5-15.2) H 05/10/17 09:37 Plt Count 173 10^3/uL (150-400) 05/10/17 09:37 MPV 10.5 fL (8.7-11.7) 05/10/17 09:37 Neut % (Auto) 65.2 % (39.3-74.2) 05/10/17 09:37 Lymph % (Auto) 17.7 % (15.0-45.0) 05/10/17 09:37 [place] % (Auto) 15.0 % (4.5-13.0) H 05/10/17 09:37 Eos % (Auto) 1.0 % (0.6-7.6) 05/10/17 09:37 Baso % (Auto) 1.0 % (0.3-1.7) 05/10/17 09:37 Nucleat RBC Rel Count 0.0 % (0.0-0.2) 05/10/17 09:37 Absolute Neuts (auto) 4.39 10^3/uL (1.70-6.50) 05/10/17 09:37 Absolute Lymphs (auto) 1.19 10^3/uL (1.00-3.00) 05/10/17 09:37 Absolute Monos (auto) 1.01 10^3/uL (0.30-0.80) H 05/10/17 09:37 Absolute Eos (auto) 0.07 10^3/uL (0.03-0.40) 05/10/17 09:37 Absolute Basos (auto) 0.07 10^3/uL (0.02-0.10) 05/10/17 09:37 Absolute Nucleated RBC 0.00 10^3/uL (0-0.01) 05/10/17 09:37 Immature Gran % 0.1 % (0.0-1.1) 05/10/17 09:37 Immature Gran # 0.01 10^3/uL (0.00-0.10) 05/10/17 09:37 PT 15.3 SEC (12.0-15.0) H 05/10/17 09:37 INR 1.21 (0.83-1.16) H 05/10/17 09:37 D-Dimer 1.66 ug/mLFEU (0.00-0.50) H 05/10/17 09:37 Sodium 135 mEq/L (134-144) 05/10/17 09:37 Potassium 3.9 mEq/L (3.5-5.2) 05/10/17 09:37 Chloride 99 mEq/L (97-110) 05/10/17 09:37 Carbon Dioxide 26 mEq/l (22-31) 05/10/17 09:37 Anion Gap 10 mEq/L (8-16) 05/10/17 09:37 BUN 38 mg/dL (7-23) H 05/10/17 09:37 Creatinine 3.1 mg/dL (0.7-1.3) H 05/10/17 09:37 Estimated GFR 20 05/10/17 09:37 Glucose 182 mg/dL (70-100) H 05/10/17 09:37 POC Glucose 249 mg/dL (70-100) H 05/10/17 13:12 Calcium 8.7 mg/dL (8.5-10.4) 05/10/17 09:37 Troponin I 0.054 ng/mL (0-0.034) H 05/10/17 09:37 NT-Pro-B Natriuret Pep 83737 pg/mL (0-125) H 05/10/17 09:37 Visualized and Interpreted Chest x-ray results: Yes Chest X-Ray results: other (Left lower lobe effusion, atelectasis, mild pulmonary edema) Visualized and Interpreted EKG results: Yes EKG Interpretation: Positive for: other (Normal sinus mechanism, Q-wave in lead V2 and V3, left anterior fascicular block) Assessment & Plan Assessment: 66-year-old male presenting with worsening shortness of breath in the setting of acute diastolic congestive heart failure exacerbation and end-stage renal disease Plan: 1. Diastolic congestive heart failure exacerbation. Acute, new problem this provider, further workup indicated. Evidenced by pulmonary edema and effusion present on chest x-ray, visible hypovolemia and JVD, most likely secondary to end-stage renal disease and resultant hypovolemia. -get echocardiogram given that most recent 1 was in June of 2016 -get V/Q scan given elevated D-dimer, pleuritic chest pain component comma ensure that he has not developed DVT/PE -discussed with Dr. Cabrera, she agrees w/ volume removal w/ HD -the patient is averse to any diuretics outside of echycrinic acid, he is not familiar with acetazolamide and that may be alternative if the patient declines to use any of the other loop diuretics since he has had a severe allergic reaction to torsemide -although the patient is currently requesting a thoracentesis, there is inadequate volume in order to provide this procedure safely, review of outside records and discharge summary by Dr. French from 07/18/2016 demonstrates that the patient's left lower lobe effusion was actually therapeutically and diagnostically tapped to evaluate for parapneumonic effusion at that time 2. End-stage renal disease. Sunday hemodialysis, most likely dialyze tomorrow with volume removal 3. Diabetes mellitus type 2. Insulin dependent, the patient has responded well to Lantus in the past but he is not able to continue using this medication due to financial constraints, he has responded poorly to Levemir in the past and he is not willing to utilize this agent or NPH at this time -the patient is very particular about his Humalog dosing, recommend that nursing staff work with patient by providing him with his glucometer check number and then agreeing on a dosage between 5 and 20 units a.c. and HS 4. Coronary artery disease. Chronic, no ischemic changes on EKG, did not believe that his pleuritic chest component is her ischemic coronary disease but rather from CHF -continue aspirin and statin -patient is taking a beta-haily as needed, continue this unusual dosing 5. Atelectasis. Most likely secondary to chest discomfort with a poor inspiratory effort secondary to CHF, will encourage incentive spirometer if volume removal is successful 6. Chronic pain with continuous opiate dependency. The only medications that it is clear that the patient is currently taking are Tylenol and oxycodone, continue his once daily as needed oxycodone for pain relief in his right knee -placed on bowel regimen given constipation has been an issue for this patient Diet. Diabetic Prophylaxis. High risk patient, heparin subcu Code. Full code per patient, his mother is his MPOA Dispo. Anticipated discharge is uncertain this time, anticipated length stay is greater than 48 hours warranting inpatient admission status for acute diastolic CHF exacerbation in the setting of high risk comorbid end-stage renal disease and coronary artery disease. Of note, the patient's primary care provider has also requested that we evaluate the patient for decisional capacity and I will continue to include this in my daily encounters with the patient's that I am able to provide a well rounded assessment. Will also have a 2nd opinion rendered by the ethics team, order placed.
--- NOTE | 2017-05-10 14:50 | PDCONSULT ---
Orthotics Technician Note: Assessment/Plan: ESRD: on HD MWF. - Will do HD tomorrow per routine. - May need HD again on Sunday for more volume removal. Hypervolemia: marked swelling in both legs. - Will modulate with HD, may need additional HD on Sunday for more volume removal as he limits fluid removal due to cramping on HD. - Agree with obtaining Echo and r/o PE. Anemia: Hgb at goal at 10.8, will continue to monitor. Thank you for the interesting consult. Nephrology will continue to follow, please call if you have any additional questions or concerns. H & P Stated Complaint: pt thinks he needs a paracentesis/fluid removal by dr reagan/pcp won't schedul Time Seen by Provider: 05/10/17 09:11 HPI/ROS: Mr. Ritter is a 66 yo M with h/o ESRD on HD MWF at [facility] under Dr. Cueto who presents with dyspnea. Pt states that he has had progressive dyspnea for the past 2 months, seems to be getting much worse lately and has trouble sleeping as a result. He has also had edema in his legs in that time, is only able to get 3-3.4L off on HD because of cramping, not sure how much was being taken off at dialysis unit. He is on diuretics but notes that he takes them only on non-dialysis days due to cramping, which he decided to do on his own. He otherwise is not sure what meds he is supposed to be on. ROS: positive per HPI, rest of 10-point ROS negative Source: Patient Exam Limitations: No limitations - Personal History Current Tetanus/Diphtheria Vaccine: Yes - Medical/Surgical History Hx Asthma: No Hx Chronic Respiratory Disease: Yes Hx Diabetes: Yes Hx Cardiac Disease: Yes Hx Renal Disease: Yes Hx Cirrhosis: Yes Hx Alcoholism: No Hx HIV/AIDS: No Hx Splenectomy or Spleen Trauma: No Other PMH: 1. Hepatitis C. 2. Coronary artery disease with bypass graft. 3. Aortic valve replacement. 4. Chronic kidney disease. 5. Diabetes. 6. CVA. 7. Vertigo. 8. Hospitalization for pneumonia in January of 2016 - Family History Significant Family History: No pertinent family hx - Social History Smoking Status: Former smoker - Physical Exam Exam: General: alert and oriented, no acute distress Eyes; EOMI, PERRL OP: Clear, MMM Neck: supple, no thyromegaly CV: RRR, +3 edema BLE Resp: nonlabored respirations on RA, reduced air movement at bilateral bases, slight crackles bilateral bases Abd; Soft, NT Neuro: CN II-XII grossly intact, no asterixis Psych: cooperative, appropriate mood and affect Skin: C/D/I, no rash Access: LUE AVF with thrill and bruit appreciated Constitutional: Initial Vital Signs Temperature (C) 36.7 C 05/10/17 08:47 Heart Rate 75 05/10/17 08:47 Respiratory Rate 20 05/10/17 08:47 Blood Pressure 136/72 H 05/10/17 08:47 O2 Sat (%) 94 05/10/17 08:47 O2 Delivery Mode Room Air Allergies/Adverse Reactions: Sulfa (Sulfonamide Antibiotics) [Sulfa(Sulfonamide Antibiotics)] Allergy (Severe , Verified 05/10/17 08:45) Hives furosemide [From Lasix] Allergy (Verified 05/10/17 08:45) Rash sulfamethoxazole [From Septra] Allergy (Verified 05/10/17 08:45) Other-Enter Comments trimethoprim [From Septra] Allergy (Verified 05/10/17 08:45) Other-Enter Comments Home Medications: Medication Instructions Recorded Cholecalciferol Vit D3 [Vitamin D3 5,000 units PO HS 07/01/15 2000 units] Vitamin B Complex [B Complex] 1 each PO DAILY 07/01/15 Aspirin EC [Aspirin EC 81 mg (*)] 81 mg PO DAILY 11/21/15 Febuxostat [ULORIC] 40 mg PO HS 11/21/15 Labetalol HCl [Trandate 100 mg (*)] 200 mg PO DAILY PRN 11/21/15 Atorvastatin Calcium [Lipitor 20 10 mg PO BID 01/27/16 mg (*)] Ascorbic Acid [Vitamin C 500 mg 500 mg PO Q3D 07/12/16 (*)] Insulin Lispro [Humalog] 5 - 20 unit SQ TIDMEAL 07/12/16 Cyclobenzaprine [Flexeril 10 MG 15 mg PO DAILY PRN 01/16/17 (*)] Ethacrynic Acid [Edecrin 25 MG (*)] 25 - 75 mg PO DAILY PRN 01/16/17 Herbals/Supplements -Info Only 1 ea PO DAILY 01/16/17 Mupirocin 2% [Bactroban 2%] 1 karlos TP HS PRN 01/16/17 Omeprazole [Prilosec 20 mg] 20 mg PO DAILY 05/10/17 oxyCODONE IR [Oxycodone Ir (*)] 5 mg PO DAILY PRN 05/10/17 Lab and Imaging 05/10/17 09:37 05/10/17 09:37 WBC 6.74 10^3/uL (3.80-9.50) 05/10/17 09:37 RBC 4.23 10^6/uL (4.40-6.38) L 05/10/17 09:37 Hgb 10.8 g/dL (13.7-17.5) L 05/10/17 09:37 Hct 35.9 % (40.0-51.0) L 05/10/17 09:37 MCV 84.9 fL (81.5-99.8) 05/10/17 09:37 MCH 25.5 pg (27.9-34.1) L 05/10/17 09:37 MCHC 30.1 g/dL (32.4-36.7) L 05/10/17 09:37 RDW 19.0 % (11.5-15.2) H 05/10/17 09:37 Plt Count 173 10^3/uL (150-400) 05/10/17 09:37 MPV 10.5 fL (8.7-11.7) 05/10/17 09:37 Neut % (Auto) 65.2 % (39.3-74.2) 05/10/17 09:37 Lymph % (Auto) 17.7 % (15.0-45.0) 05/10/17 09:37 [place] % (Auto) 15.0 % (4.5-13.0) H 05/10/17 09:37 Eos % (Auto) 1.0 % (0.6-7.6) 05/10/17 09:37 Baso % (Auto) 1.0 % (0.3-1.7) 05/10/17 09:37 Nucleat RBC Rel Count 0.0 % (0.0-0.2) 05/10/17 09:37 Absolute Neuts (auto) 4.39 10^3/uL (1.70-6.50) 05/10/17 09:37 Absolute Lymphs (auto) 1.19 10^3/uL (1.00-3.00) 05/10/17 09:37 Absolute Monos (auto) 1.01 10^3/uL (0.30-0.80) H 05/10/17 09:37 Absolute Eos (auto) 0.07 10^3/uL (0.03-0.40) 05/10/17 09:37 Absolute Basos (auto) 0.07 10^3/uL (0.02-0.10) 05/10/17 09:37 Absolute Nucleated RBC 0.00 10^3/uL (0-0.01) 05/10/17 09:37 Immature Gran % 0.1 % (0.0-1.1) 05/10/17 09:37 Immature Gran # 0.01 10^3/uL (0.00-0.10) 05/10/17 09:37 PT 15.3 SEC (12.0-15.0) H 05/10/17 09:37 INR 1.21 (0.83-1.16) H 05/10/17 09:37 D-Dimer 1.66 ug/mLFEU (0.00-0.50) H 05/10/17 09:37 Sodium 135 mEq/L (134-144) 05/10/17 09:37 Potassium 3.9 mEq/L (3.5-5.2) 05/10/17 09:37 Chloride 99 mEq/L (97-110) 05/10/17 09:37 Carbon Dioxide 26 mEq/l (22-31) 05/10/17 09:37 Anion Gap 10 mEq/L (8-16) 05/10/17 09:37 BUN 38 mg/dL (7-23) H 05/10/17 09:37 Creatinine 3.1 mg/dL (0.7-1.3) H 05/10/17 09:37 Estimated GFR 20 05/10/17 09:37 Glucose 182 mg/dL (70-100) H 05/10/17 09:37 POC Glucose 249 mg/dL (70-100) H 05/10/17 13:12 Calcium 8.7 mg/dL (8.5-10.4) 05/10/17 09:37 Troponin I 0.054 ng/mL (0-0.034) H 05/10/17 09:37 NT-Pro-B Natriuret Pep 77179 pg/mL (0-125) H 05/10/17 09:37
[2017-05-10] MEDS ORDERED: POLYETHYLENE GLYCOL 3350 17 GM PKT PO PRN (15:43)
[2017-05-10] MEDS ORDERED: HEPARIN 10,000 UNIT/10 ML MDV IVP ONE (15:43)
[2017-05-10] MEDS ORDERED: BISACODYL 10 MG SUPP PR PRN (15:43)
[2017-05-10] MEDS ORDERED: LACTULOSE 20 GM/30 ML UDCUP PO PRN (15:43)
[2017-05-10] MEDS ORDERED: HEPARIN 10,000 UNIT/10 ML MDV IVP PRN (15:43)
[2017-05-10] MEDS ORDERED: HEPARIN/DEXTROSE 500 ML IV SCH (15:45)
[2017-05-10] MEDS: SENNOSIDES/DOCUSATE SODIUM TAB PO SCH ×2 (16:04→22:09)
--- NOTE | 2017-05-10 16:40 | ECHO ---
[id number] + + [address] : : [place] [address] : : [phone] + + Adult Echocardiographic Report + -+ :Name: FAISAL WYNN Date: 05/10/2017 02:17 PM : : Hospital Admission Number: [id number] : :: 1950 Gender: Male Height: 68 in : :Age: 66 yrs Race: WH Weight: 169 lb : :Reason For Study: Eval LV Fx : : BSA: 1.9 meters 2: :History: SOB, Positive Troponins, Fluid retention, Dialysis : + -+ MMode/2D Measurements \T\ Calculations IVSd: 1.4 cm LVIDd: 3.8 cm FS: 37.9 % Ao root diam: 2.6 cm LVPWd: 1.5 cm LVIDs: 2.4 cm EDV(Teich): 61.8 ml ACS: 2.1 cm ESV(Teich): 19.3 ml EF(Teich): 68.8 % LVOT diam: 2.1 cm LVOT area: 3.5 cm2 Normal Measurement Values: + + :LVIDd (3.5-5.7cm) IVSd (0.6-1.1cm) LVPWd (0.6-1.1cm) Aortic Root (2.0-3.7cm)Left Atrium (1.5-4.0cm): :LV Vol(d) (76-115ml) LV Vol(s) (29-48ml) Ejec Fraction (50-65%)PV Eris (0.6- 1.2m/s) TV Eris (0.4-1.0m/s) : :MV E Eris (0.8-1.0m/s)MV A Eris (0.3-1.0m/s)LVOT Eris (0.7-1.2m/s) Asc Ao Eris ( 0.9-1.8m/s) : + + Doppler Measurements \T\ Calculations MV E max eris: Ao mean PG: LV V1 mean PG: SV(LVOT): 170.3 cm/sec 17.1 mmHg 3.5 mmHg 98.8 ml MV A max eris: Ao V2 mean: LV V1 mean: 140.7 cm/sec 189.3 cm/sec 85.3 cm/sec MV E/A: 1.2 Ao V2 VTI: 61.3 cm LV V1 VTI: 28.5 cm LEN(I,D): 1.6 cm2 PA V2 max: TR max eris: 149.3 cm/sec 384.6 cm/sec PA max P.9 mmHg TR max P.2 mmHg RAP systole: 5.0 mmHg RVSP(TR): 64.2 mmHg Left Ventricle The left ventricle is normal in size. There is moderate concentric left ventricular hypertrophy. The left ventricular ejection fraction is normal. There is Doppler evidence for diastolic dysfunction. Ejection Fraction = 68%. There is subtle basilar inferolateral hypokinesis. Flattened septum is consistent with RV pressure/volume overload. Right Ventricle The right ventricle is mildly dilated. The right ventricular systolic function is mild to moderately reduced. Atria The left atrial size is normal. Right atrial size is normal. Mitral Valve The posterior mitral valve is heavily calcified and immobile. There is no mitral valve stenosis. There is mild mitral regurgitation. Tricuspid Valve There is mild tricuspid regurgitation. Right ventricular systolic pressure is 65mmHg. There is Doppler evidence for moderate to severe pulmonary hypertension. Aortic Valve There is a bioprosthetic aortic valve. The gradient is normal for this prosthetic aortic valve. Pulmonic Valve The pulmonic valve is normal in structure and function. There is no pulmonic valvular regurgitation. Great Vessels The aortic root is normal size. Pericardium/Pleural There is no pericardial effusion. Conclusion A complete two-dimensional transthoracic echocardiogram was performed (2D, M-mode, Doppler and color flow Doppler). There is moderate concentric left ventricular hypertrophy. The left ventricular ejection fraction is normal. There is Doppler evidence for diastolic dysfunction. Ejection Fraction = 68%. There is subtle basilar inferolateral hypokinesis. Flattened septum is consistent with RV pressure/volume overload. The right ventricle is mildly dilated. The right ventricular systolic function is mild to moderately reduced. The left atrial size is normal. The posterior mitral valve is heavily calcified and immobile. There is mild mitral regurgitation. There is mild tricuspid regurgitation. Right ventricular systolic pressure is 65mmHg. There is Doppler evidence for moderate to severe pulmonary hypertension. There is a bioprosthetic aortic valve. The gradient is normal for this prosthetic aortic valve. There is no pericardial effusion. Final Reading Physician: Geovanni Barrios signed on 05/10/2017 04:39 PM Ordering Physician: Catracho Farah Performed By: Turner Walter RDCS
[2017-05-10] MEDS: INSULIN LISPRO 100 UNIT/ML SC SCH ×2 (17:00→22:08)
[2017-05-10 17:14] LABS: INR 1.26 (0.83-1.16); PROTIME(PATIENT) 15.8 SEC (12.0-15.0)
[2017-05-10] MEDS ORDERED: NON-FORMULARY NEW DRUG (Insulin Lispro [Humalog] 0 UNIT) SQ SCH (17:30)
[2017-05-10] MEDS: oxyCODONE IR 5 MG TAB PO PRN (17:37)
[2017-05-10 17:46] LABS: APTT 30.3 SEC (23.0-38.0)
[2017-05-10] MEDS ORDERED: NON-FORMULARY NEW DRUG (Febuxostat [Uloric] 40 MG) PO SCH (21:00)
[2017-05-10] MEDS: ATORVASTATIN CALCIUM 20 MG TAB PO SCH (22:07)
[2017-05-10] MEDS: CHOLECALCIFEROL VIT D3 1,000 UNITS TAB PO SCH (22:08)
[2017-05-10] MEDS: (Febuxostat [Uloric] 40 MG) PO SCH (22:25)
[2017-05-11 04:25] LABS: ANION GAP 10 mEq/L (8-16); CALCIUM 8.5 mg/dL (8.5-10.4); CARBON DIOXIDE 24 mEq/l (22-31); CHLORIDE 98 mEq/L (97-110); CREATININE 3.3 mg/dL (0.7-1.3); GLOMERULAR FILTRATION RATE 19; GLUCOSE 241 mg/dL (70-100); MAGNESIUM 2.2 mg/dL (1.6-2.3); POTASSIUM 4.1 mEq/L (3.5-5.2); SODIUM 132 mEq/L (134-144)
[2017-05-11 04:37] LABS: TROPONIN I 0.033 ng/mL (0-0.034)
[2017-05-11] MEDS: INSULIN LISPRO 100 UNIT/ML SC SCH ×4 (08:55→21:37)
[2017-05-11] MEDS ORDERED: ETHACRYNIC ACID 25 MG TAB PO SCH (09:00)
[2017-05-11] MEDS ORDERED: Herbals/Supplements -Info Only PO SCH (09:00)
[2017-05-11] MEDS ORDERED: VITAMIN B COMPLEX 1 EA CAP/TAB PO SCH (09:00)
[2017-05-11] MEDS ORDERED: PANTOPRAZOLE SODIUM 40 MG TAB PO SCH (09:00)
[2017-05-11] MEDS ORDERED: NON-FORMULARY NEW DRUG (Omeprazole [Prilosec 20 Mg] 20 MG) PO SCH (09:00)
[2017-05-11] MEDS: ATORVASTATIN CALCIUM 20 MG TAB PO SCH ×2 (13:40→21:34)
[2017-05-11] MEDS: SENNOSIDES/DOCUSATE SODIUM TAB PO SCH ×2 (13:40→21:34)
[2017-05-11] MEDS: VITAMIN B COMPLEX 1 EA CAP/TAB PO SCH (13:46)
[2017-05-11] MEDS: ASPIRIN EC 81 MG TAB PO SCH (13:53)
[2017-05-11] MEDS: CHOLECALCIFEROL VIT D3 1,000 UNITS TAB PO SCH (13:53)
--- NOTE | 2017-05-11 14:35 | SOAPPROG ---
[facility] Progress Note Assessment/Plan: Assessment: ESRD Volume overload SOB Plan: HD today Ultrafiltration tomorrow Next HD on Sunday05/11/17 14:32 Subjective: Frustrated SOB better after HD today no cp nausea vomiting or pain eating OK energy OK Objective: Vital Signs Temp Pulse Resp BP Pulse Ox 36.4 C 72 13 138/72 H 98 05/11/17 12:00 05/11/17 12:00 05/11/17 12:00 05/11/17 12:00 05/11/17 12:00 Laboratory Results 05/11/17 03:46 05/10/17 05/11/17 05/12/17 05:59 05:59 05:59 Intake Total 900 Balance 900 PT 15.8 SEC (12.0-15.0) H 05/10/17 16:51 INR 1.26 (0.83-1.16) H 05/10/17 16:51 Physical Exam - Physical Exam General Appearance: alert, no apparent distress Respiratory: other (no rh or wh, occasional rales) Cardiac/Chest: regular rate, rhythm, edema (trace-+1) Abdomen: normal bowel sounds, non-tender, soft Skin: normal color Extremities: swelling Neuro/Psych: alert, oriented x 3 ICD10 Worksheet Patient Problems: Problems Problem Status Onset Elevated troponin Acute Pleural effusion Acute CODY (acute kidney injury) Acute Acute on chronic renal failure Acute CAD, multiple vessel Acute Chronic Disease Mgmt/Transitional Care Acute Coagulopathy Acute Decubitus ulcer of heel, stage 1 Acute Dehiscence of closure of skin Acute Elevated troponin Acute Fever Acute Hyperkalemia Acute Hypoglycemia Acute Moderate aortic valve stenosis Acute Pleural effusion on left Acute Pneumonia Acute Renal insufficiency Acute S/P CABG x 4 Acute S/P aortic valve replacement with bioprosthetic valve Acute Shortness of breath Acute Shortness of breath on exertion Acute CKD (chronic kidney disease) Chronic Diabetes Chronic Osteomyelitis Chronic Posterior circulation stroke Chronic
--- NOTE | 2017-05-11 16:40 | HOSPPROG ---
Hospitalist Progress Note Assessment/Plan: Assessment: 66-year-old male presenting with worsening shortness of breath in the setting of acute diastolic congestive heart failure exacerbation and end-stage renal disease, c/b suspected personality disorder vs. mood disorder Plan: 1. Systolic (right) and Diastolic (left) congestive heart failure exacerbation. Acute, evidenced by pulmonary edema and effusion present on chest x-ray, visible hypovolemia and JVD, most likely secondary to end-stage renal disease and resultant hypovolemia. -Echo w/ significant RV dilation and moderately reduced function, likely 2/2 untreated SASHA (pt refuses to wear CPAP) and dCHF -VQ w/o PE -symptomatically improving w/ volume removal HD, UF tomorrow -counseled patient that diuretics would also be of added value, and he has agreed to take HCTZ (patient averse to loop diuretics) on NON-HD days 2. End-stage renal disease. Sunday hemodialysis, HD today, UF tomorrow 3. Diabetes mellitus type 2. Insulin dependent, the patient has responded well to Lantus in the past but he is not able to continue using this medication due to financial constraints, he has responded poorly to Levemir in the past and he is not willing to utilize this agent or NPH at this time -the patient is very particular about his Humalog dosing, recommend that nursing staff work with patient by providing him with his glucometer check number and then agreeing on a dosage between 5 and 20 units a.c. and HS 4. Coronary artery disease. Chronic -continue aspirin and statin -patient is taking a beta-haily as needed, continue this unusual dosing 5. Atelectasis. Most likely secondary to chest discomfort with a poor inspiratory effort secondary to CHF, will encourage incentive spirometer if volume removal is successful 6. Chronic pain with continuous opiate dependency. The only medications that it is clear that the patient is currently taking are Tylenol and oxycodone, continue his once daily as needed oxycodone for pain relief in his right knee -placed on bowel regimen given constipation has been an issue for this patient 7. 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 Also potential mood disorder, patient is quite contrary, particular, and controlling - evaluated w/ Ethics application development consultant, patient seems to demonstrate decisional capacity - he appears to have a strong behavioral component - PCP office requested psych consult b/c it has been very difficult to get patient triaged to a behavioral health provider, due to his lack of insight - psych consult by Dr. Robertson appreciated today Diet. Diabetic Prophylaxis. High risk patient, heparin subcu declined by patient, SCDs Code. Full code per patient, his mother is his MPOA Dispo. Anticipated discharge is uncertain this time, possibly 05/12 if euvolemic Subjective: Patient is angry and suspicious, does not want to answer questions Objective: Vital Signs Temp Pulse Resp BP Pulse Ox 36.6 C 75 22 H 145/74 H 100 05/11/17 15:32 05/11/17 15:32 05/11/17 15:32 05/11/17 15:32 05/11/17 15:32 Laboratory Results 05/11/17 03:46 05/10/17 05/11/17 05/12/17 05:59 05:59 05:59 Intake Total 900 Balance 900 PT 15.8 SEC (12.0-15.0) H 05/10/17 16:51 INR 1.26 (0.83-1.16) H 05/10/17 16:51 - Time Spent With Patient Time Spent with Patient: greater than 35 minutes Time Spent with Patient: Greater than 35 minutes spent on this patients care, greater than 50% of time spent counseling, educating, and coordinating care regarding the above mentioned plan. - Pending Discharge Pending Discharge Within 24 Hours: Yes Pending Discharge Date: 05/12/17 Pending Discharge Time: 11:00 - Physical Exam Constitutional: not in pain, chronically ill appearing, No uncomfortable Cardiovascular: systolic murmur (106 at the sternum), edema (1+ bilateral lower extremity), No irregularly irregular Respiratory: inspiratory crackles (Bilateral bases), No expiratory wheeze, No bronchial breath sounds Psychiatric: flat affect, agitated, other (Suspicious, easily agitated, able to answer questions appropriately if he so chooses) ICD10 Worksheet Patient Problems: Problems Problem Status Onset Posterior circulation stroke Chronic Diabetes Chronic Shortness of breath Acute Osteomyelitis Chronic Chronic Disease Mgmt/Transitional Care Acute CAD, multiple vessel Acute Moderate aortic valve stenosis Acute CODY (acute kidney injury) Acute CKD (chronic kidney disease) Chronic S/P CABG x 4 Acute S/P aortic valve replacement with bioprosthetic valve Acute Coagulopathy Acute Hypoglycemia Acute Dehiscence of closure of skin Acute Decubitus ulcer of heel, stage 1 Acute Shortness of breath on exertion Acute Renal insufficiency Acute Pleural effusion on left Acute Hyperkalemia Acute Fever Acute Pneumonia Acute Elevated troponin Acute Acute on chronic renal failure Acute Pleural effusion Acute Elevated troponin Acute
[2017-05-11] MEDS: (Febuxostat [Uloric] 40 MG) PO SCH (21:35)
[2017-05-12 04:38] LABS: ANION GAP 10 mEq/L (8-16); CALCIUM 8.4 mg/dL (8.5-10.4); CARBON DIOXIDE 23 mEq/l (22-31); CHLORIDE 100 mEq/L (97-110); CREATININE 2.4 mg/dL (0.7-1.3); GLOMERULAR FILTRATION RATE 27; GLUCOSE 160 mg/dL (70-100); MAGNESIUM 2.2 mg/dL (1.6-2.3); SODIUM 133 mEq/L (134-144)
[2017-05-12] MEDS: INSULIN LISPRO 100 UNIT/ML SC SCH ×2 (07:31→12:12)
[2017-05-12] MEDS: VITAMIN B COMPLEX 1 EA CAP/TAB PO SCH (08:35)
[2017-05-12] MEDS: ASPIRIN EC 81 MG TAB PO SCH (08:36)
[2017-05-12] MEDS: ATORVASTATIN CALCIUM 20 MG TAB PO SCH (08:36)
[2017-05-12] MEDS: oxyCODONE IR 5 MG TAB PO PRN (08:50)
[2017-05-12] MEDS ORDERED: CHOLECALCIFEROL VIT D3 1,000 UNITS TAB PO SCH (09:00)
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
[2017-05-12 11:51] VITALS: BP 148/79; PULSE 77; RESP 11; TEMP 97.8; O2SAT 96
[2017-05-12] MEDS: SENNOSIDES/DOCUSATE SODIUM TAB PO SCH (11:53)
--- NOTE | 2017-05-12 14:48 | PDDCSUM ---
Discharge Summary Discharge Summary: DISCHARGE SUMMARY FOLLOW-UP ITEMS: Arrange outpatient mental health follow-up DATE OF ADMISSION: 05/10/2017 DATE OF DISCHARGE: 05/12/2017 DISCHARGE DIAGNOSES: 1. Acute systolic and diastolic congestive heart failure exacerbation 2. End-stage renal disease 3. Diabetes mellitus type 2 4. Chronic coronary artery disease 5. Acute atelectasis 6. Chronic pain with continuous opiate dependency 7. Depressive disorder NOS 8. Probable primary anxiety disorder CONSULTATIONS: Psychiatry, ethics, Nephrology PROCEDURES / IMAGING: Echocardiogram demonstrating mild to moderate reduced systolic function of right ventricle with moderate dilation of right ventricle and elevated RVSP, V/ Q scan demonstrating low probability of pulmonary embolism CHIEF COMPLAINT: Acute shortness of breath SUBJECTIVE: Patient reports he is feeling well, he would like to get on a flight to [place] PHYSICAL EXAM ON DISCHARGE: Systolic blood pressure is 120-150, heart rate 80 to 90, afebrile overnight, satting well on room air, freed ultrafiltrate weight is 74.8 kg, alert awake oriented x3, mood is good, patient is interactive and cooperative, lower extremity edema is mild bilaterally LABS ON DISCHARGE: Sodium 133, potassium 4, creatinine 2.4 HOSPITAL COURSE BY PROBLEM: 1. Acute systolic and diastolic congestive heart failure exacerbation. Patient has a combination of right-sided and left-sided heart failure notably with systolic dysfunction in the right ventricle and diastolic dysfunction in the left ventricle as confirmed on echocardiogram. His presenting symptoms were shortness of breath, paroxysmal nocturnal dyspnea, as well as signs including elevated BNP and pulmonary edema and effusion on chest x-ray. Most likely cause is patient's refusal to utilize diuretics as well as possible under treatment at hemodialysis. The patient reports that he is consistently debating with his dialysis nursing team the concept volume removal. The patient refuses to take any diuretics other than ethnacrynic acid and he will only take this medication on non hemodialysis days. Given the elevated right- sided heart pressures V/Q scan was performed to rule out pulmonary embolism, which it did. I suspect the patient has underlying sleep apnea which warrants further workup the patient would ultimately object to CPAP therapy, so the utility of such testing may be somewhat limited. Attempted to strength and conditioning coach the patient to utilize other diuretics other than his home 1 but he remains adamant that he will only take it on non hemodialysis days and he will not adjust to any other diuretic. After receiving volume removal and ultrafiltrate, the patient's symptoms have improved and he is safe for discharge home. 2. End-stage renal disease. Patient will resume regular Sunday hemodialysis. 3. Diabetes mellitus type 2. Patient is insulin dependent and he has responded well to Lantus in the past but is not able to continue using this medication due to financial constraints. He is able to access Levemir [address] [place] [address] the patient is not 1 utilize this medication secondary to an episode of hypoglycemia in the past. Consequently, the patient uses only Humalog insulin and his blood sugar management is suboptimal but this is all the patient is willing to perform at this time. 4. Coronary artery disease. Chronic, continue patient's aspirin and statin patient is taking a beta-haily as needed and he not amenable to scheduled dosing. 5. Acute atelectasis. Secondary to poor inspiratory effort in the setting of CHF, patient utilize incentive spirometer. 6. Chronic pain with continuous opiate dependency. Patient will continue taking as needed oxycodone and Tylenol for his arthritic pains. 7. Depressive disorder NOS and probable primary anxiety disorder. Patient was seen in consultation by Dr. Elizabeth Robertson from Psychiatry as well as our ethics consult. The patient was deemed to have capacity to make medical decisions and psychiatric evaluation revealed the possibility of underlying, under treated depression and anxiety. He also has strong personality traits which are expressed as fear and distress, resulting in challenges receiving appropriate care. Dr. Robertson discussed pharmacotherapy with the patient and the patient would like to hold off on initiating pharmacotherapy until he is able to establish outpatient psychiatric care. This seems very reasonable. Dr. Robertson will reach out to the Dr. Akbar's school social worker Sunday in an attempt to establish care for this patient. DISCHARGE MEDICATIONS: Please see official discharge medication reconciliation sheet in chart , all home medications no changes. DISCHARGE INSTRUCTIONS: Please follow up Dr. akbar next week. TIME SPENT: Greater than 30 minutes were spent on direct patient care, as well as discharge planning and preparation.
[2017-05-13] MEDS ORDERED: ASCORBIC ACID 500 MG TAB PO SCH (08:00)
[2017-05-13] MEDS ORDERED: HYDROCHLOROTHIAZIDE 25 MG TAB PO SCH (09:00)
== END 2017-05-12 16:38 | disposition home or self-care (01) | DRG 291 ==
LOC: F2W 12:50
PROVIDERS: ADMIT Internal Medicine; ATTEND Internal Medicine
PROC: 5A1D60Z (ICD-10-PCS; principal; 2017-05-11)
DX: I50.41 Acute combined systolic (congestive) and diastolic (congestive) heart failure (principal); N18.6 End stage renal disease; E11.22 Type 2 diabetes mellitus with diabetic chronic kidney disease; J98.11 Atelectasis; G89.29 Other chronic pain; F11.20 Opioid dependence, uncomplicated; F32.9 Major depressive disorder, single episode, unspecified; F41.9 Anxiety disorder, unspecified; B19.20 Unspecified viral hepatitis C without hepatic coma; I25.10 Atherosclerotic heart disease of native coronary artery without angina pectoris; Z95.1 Presence of aortocoronary bypass graft; Z95.2 Presence of prosthetic heart valve
CPT/HCPCS: A9540; A9558; J1815

== ENCOUNTER 2017-05-17 10:35 | Inpatient (IN) | payer OTHER ==
--- NOTE | 2017-05-17 11:21 | EDPHY ---
HPI/HX/ROS/PE/MDM Narrative: CHIEF COMPLAINT: Left foot infection. HPI: The patient is a 66-year-old male with history of diabetes, CHF, and is dialysis dependent, who complains of left foot infection. The patient has a diabetic ulcer to his left foot. He reports increased pain and swelling of the foot. He was able to drain "two jiggers of pus" from his left index toe this morning. However, he continues to have severe pain. He missed his appointment with his line repairer tower because he was recently admitted for CHF. He has not been taking his prescribed oxycodone for pain. He spoke to his clin application specialist this morning who told him to come to the ED for further assessment. He denies fever, abdominal pain, nausea, vomiting, or diarrhea. REVIEW OF SYSTEMS: Aside from elements discussed in the HPI, a comprehensive 10-point review of systems was reviewed and is negative. PMH: Hepatitis C, CAD with bypass graft, Aortic valve replacement, CKD, DM, CVA , Vertigo. SOCIAL HISTORY: Single. Lives in [place]. PHYSICAL EXAM: General: Patient is alert, in no acute distress. ENT: Eyes are normal to inspection. ENT inspection normal. Neck: Normal inspection. Full range of motion. Respiratory: No respiratory distress. Breath sounds normal bilaterally. Cardiovascular: Regular rate and rhythm. Strong peripheral pulses. Abdomen: The abdomen is nontender to palpation. There are no peritoneal signs. There are normal bowel sounds. Back: Normal to inspection. No tenderness to palpation. Skin: Normal color. No rash. Warm and dry. Extremities: Left foot index toe is inflamed, fluctuant, and red with purulent discharge. Left diabetic foot ulcer packed on plantar surface. Neuro: Oriented x3. Normal motor function. Normal sensory function. ED Course: Lab work and foot x-ray ordered. 1120: I spoke to Dr. Sanjana Lowe, General surgery. 1140: I spoke to Dr. Molina, Podiatry, he recommends admission and will consult on the patient. I spoke to the hospitalist team, the patient will be admitted to Dr. Bowen. MDM: This patient presents with multiple chronic medical issues and what appears to be severe acute on chronic active foot infection. I spoke to the patient's line repairer tower who recommends admission so we will proceed with that plan. The patient is afebrile, so I will withhold antibiotics at this time pending definitive plan of treatment. - Data Points Imaging Results: Imaging Impressions Foot X-Ray 05/17/17 11:45 Impression: New large cyst in the proximal phalanx of the great toe. Chronic osteomyelitis cannot be excluded. Recommend MRI without and with contrast for further evaluation. Imaging: Discussed imaging studies w/ call center manager Radiologist Laboratory Results: Laboratory Results 05/17/17 11:36 05/17/17 11:36 05/17/17 05/17/17 11:36 11:36 WBC 10.03 10^3/uL H 10^3/uL (3.80-9.50) RBC 4.51 10^6/uL 10^6/uL (4.40-6.38) Hgb 11.7 g/dL L g/dL (13.7-17.5) Hct 37.2 % L % (40.0-51.0) MCV 82.5 fL fL (81.5-99.8) MCH 25.9 pg L pg (27.9-34.1) MCHC 31.5 g/dL L g/dL (32.4-36.7) RDW 18.0 % H % (11.5-15.2) Plt Count 195 10^3/uL 10^3/uL (150-400) MPV 11.1 fL fL (8.7-11.7) Neut % (Auto) 79.6 % H % (39.3-74.2) Lymph % (Auto) 7.3 % L % (15.0-45.0) Irwin % (Auto) 11.2 % % (4.5-13.0) Eos % (Auto) 0.7 % % (0.6-7.6) Baso % (Auto) 0.4 % % (0.3-1.7) Nucleat RBC Rel Count 0.0 % % (0.0-0.2) Absolute Neuts (auto) 7.99 10^3/uL H 10^3/uL (1.70-6.50) Absolute Lymphs (auto) 0.73 10^3/uL L 10^3/uL (1.00-3.00) Absolute Monos (auto) 1.12 10^3/uL H 10^3/uL (0.30-0.80) Absolute Eos (auto) 0.07 10^3/uL 10^3/uL (0.03-0.40) Absolute Basos (auto) 0.04 10^3/uL 10^3/uL (0.02-0.10) Absolute Nucleated RBC 0.00 10^3/uL 10^3/uL (0-0.01) Immature Gran % 0.8 % % (0.0-1.1) Immature Gran # 0.08 10^3/uL 10^3/uL (0.00-0.10) Sodium 132 mEq/L L mEq/L (134-144) Potassium 4.5 mEq/L mEq/L (3.5-5.2) Chloride 96 mEq/L L mEq/L (97-110) Carbon Dioxide 21 mEq/l L mEq/l (22-31) Anion Gap 15 mEq/L mEq/L (8-16) BUN 46 mg/dL H mg/dL (7-23) Creatinine 3.7 mg/dL H mg/dL (0.7-1.3) Estimated GFR 17 Glucose 131 mg/dL H mg/dL (70-100) Calcium 8.9 mg/dL mg/dL (8.5-10.4) Medications Given: Discontinued Medications Hydromorphone HCl (Dilaudid) 0.5 mg IVP EDNOW ONE Stop: 05/17/17 11:45 Last Admin: 05/17/17 11:45 Dose: 0.5 mg Meclizine HCl (Meclizine Hcl) 12.5 mg PO EDNOW ONE Stop: 05/17/17 12:11 Last Admin: 05/17/17 12:12 Dose: 12.5 mg Ondansetron HCl (Zofran) 4 mg IVP EDNOW ONE Stop: 05/17/17 11:50 Last Admin: 05/17/17 12:06 Dose: 4 mg General Time Seen by Provider: 05/17/17 10:53 Initial Vital Signs: Initial Vital Signs Temperature (C) 37 C 05/17/17 10:42 Heart Rate 92 05/17/17 10:42 Respiratory Rate 18 05/17/17 10:42 Blood Pressure 131/75 H 05/17/17 10:42 O2 Sat (%) 91 L 05/17/17 10:42 O2 Delivery Mode Nasal Cannula O2 (L/minute) 2 Allergies/Adverse Reactions: Sulfa (Sulfonamide Antibiotics) [Sulfa(Sulfonamide Antibiotics)] Allergy (Severe , Verified 05/17/17 10:41) Hives torsemide Allergy (Severe, Verified 05/17/17 10:41) Other-Enter Comments furosemide [From Lasix] Allergy (Verified 05/17/17 10:41) Rash sulfamethoxazole [From Septra] Allergy (Verified 05/17/17 10:41) Other-Enter Comments trimethoprim [From Septra] Allergy (Verified 05/17/17 10:41) Other-Enter Comments Home Medications: Medication Instructions Recorded Cholecalciferol Vit D3 [Vitamin D3 2,000 units PO HS 07/01/15 2000 units] Vitamin B Complex [B Complex] 1 each PO DAILY 07/01/15 Aspirin EC [Aspirin EC 81 mg (*)] 81 mg PO DAILY 11/21/15 Febuxostat [ULORIC] 40 mg PO HS 11/21/15 Ascorbic Acid [Vitamin C 500 mg 500 mg PO Q3D 07/12/16 (*)] Insulin Lispro [Humalog] 5 - 20 unit SQ TIDMEAL 07/12/16 Cyclobenzaprine [Flexeril 10 MG 15 mg PO DAILY PRN 01/16/17 (*)] Herbals/Supplements -Info Only 1 ea PO DAILY 01/16/17 Mupirocin 2% [Bactroban 2%] 1 karlos TP HS PRN 01/16/17 Omeprazole [Prilosec 20 mg] 40 mg PO DAILY 05/10/17 oxyCODONE IR [Oxycodone Ir (*)] 5 mg PO BID PRN 05/10/17 Atorvastatin Calcium [Lipitor 10 10 mg PO BID 05/17/17 mg (*)] Ethacrynic Acid [Edecrin 25 MG (*)] 125 mg PO SUTUTHSA 05/17/17 Departure - Departure Disposition: [facility] Acute Clinical Impression: Cellulitis of foot Diabetic foot ulcer Qualifiers: Diabetic foot ulcer location: midfoot Diabetes mellitus type: type 1 Laterality : left Non-pressure ulcer stage: unspecified non-pressure ulcer stage Qualified Code(s): E10.621 - Type 1 diabetes mellitus with foot ulcer Condition: Fair Report Scribed for: Obinna Martin Report Scribed by: Jocelyn Jones Date of Report: 05/17/17 Time of Report: 11:15 Physician Review and Approval Statement: Portions of this note were transcribed by a pediatrician/medical doctor. I personally performed a history, physical exam, medical decision making, and confirmed accuracy of information the transcribed note.
[2017-05-17 11:44] LABS: % IMMATURE GRANULYOCYTES 0.8 % (0.0-1.1); ABSOLUTE IMMATURE GRANULOCYTES 0.08 10^3/uL (0.00-0.10); ADD DIFF? NO; ADD MORPH? NO; ADD SCAN? NO; ATYPICAL LYMPHOCYTE FLAG 0 (0-99); FRAGMENT RBC FLAG 20 (0-99); HEMATOCRIT 37.2 % (40.0-51.0); HEMOGLOBIN 11.7 g/dL (13.7-17.5); LEFT SHIFT FLG 10 (0-99); LIPEMIA HEMOLYSIS FLAG 80 (0-99); MEAN CELL HEMOGLOBIN 25.9 pg (27.9-34.1); MEAN CELL HEMOGLOBIN CONCENTR. 31.5 g/dL (32.4-36.7); MEAN CELL VOLUME 82.5 fL (81.5-99.8); MEAN PLATELET VOLUME 11.1 fL (8.7-11.7); PLATELET CLUMPS FLAG 10 (0-99); PLATELET COUNT 195 10^3/uL (150-400); RED BLOOD CELL COUNT 4.51 10^6/uL (4.40-6.38)
[2017-05-17] MEDS ORDERED: HYDROmorphONE/DILAUDID 1 MG/ML SYR IVP ONE (11:44)
[2017-05-17] MEDS ORDERED: ONDANSETRON 4 MG/2 ML VIAL IVP ONE (11:49)
[2017-05-17] MEDS ORDERED: MECLIZINE HCL 25 MG TAB ONE (11:54)
[2017-05-17 12:03] LABS: ANION GAP 15 mEq/L (8-16); CALCIUM 8.9 mg/dL (8.5-10.4); CARBON DIOXIDE 21 mEq/l (22-31); CHLORIDE 96 mEq/L (97-110); CREATININE 3.7 mg/dL (0.7-1.3); GLOMERULAR FILTRATION RATE 17; GLUCOSE 131 mg/dL (70-100); POTASSIUM 4.5 mEq/L (3.5-5.2); SODIUM 132 mEq/L (134-144)
[2017-05-17] MEDS ORDERED: MECLIZINE HCL 25 MG TAB PO ONE (12:10)
[2017-05-17 12:12] VITALS: RESP 20
[2017-05-17] MEDS ORDERED: oxyCODONE IR 5 MG TAB PO PRN ×2 (14:19→14:30)
[2017-05-17] MEDS ORDERED: ONDANSETRON 4 MG/2 ML VIAL IVP PRN (14:30)
[2017-05-17] MEDS ORDERED: ACETAMINOPHEN 325 MG TAB PO PRN (14:30)
--- NOTE | 2017-05-17 14:32 | WOCRNPDOC ---
WOCRN Advanced Assessment Note - Skin Integrity Problem, Advanced Assess Left Foot Dressing Type: Open to Air Exudate Characteristic(s): Purulent Tania Wound Tissue: Erythema, Hot, Macerated Site Odor: Moderate, Foul Skin Integrity Problem Comment: Patient with diabetic foot ulcer on left plantar foot which is approx 1.5x1.5x0.1. Area was not palpated, nor assessed in depth as surgical consultation is pending. Left second digit is also swollen with pus, purple and grossly infected. Wound care will follow up tomorrow.
[2017-05-17] MEDS ORDERED: D50W 25 GM/50 ML SYR IVP PRN (14:33)
--- NOTE | 2017-05-17 15:15 | GHP ---
[f rep st] HISTORY AND PHYSICAL DATE OF ADMISSION: 05/17/2017 CHIEF COMPLAINT: Pus draining from foot. HISTORY: The patient is a 66-year-old male who has had an ulceration on the bottom of his left foot for many months for which [facility]. This has been doing well until 2 days ago. It acutely developed worsening pain and swelling. It suddenly blew up like a balloon and is now draining pus. He squeezed a shot glass and a half of pus out of it this morning. He has no t had any fever. He has otherwise not felt systemically ill. He is still able to ambulate. He is agitated regarding his need to come into the hospital as he does not understand why he cannot just g o home and deal with this as an outpatient since he is still able to ambulate. PAST MEDICAL HISTORY: 1. End-stage renal disease; Sunday, Sunday, Sunday dialysis. 2. Congestive heart failure. 3. Diabetes type 2. 4. Coronary artery disease, status post CABG. 5. Anxiety. 6. Bioprosthetic aortic valve replacement. 7. Hepatitis C, status post treatment. MEDICATIONS: Please see computer record for full detailed list. ALLERGIES: Sulfa, torsemide, furosemide. SOCIAL HISTORY: No smoking. No alcohol. He lives in an apartment. He was previously homeless. REVIEW OF SYSTEMS: Complete review of systems obtained. Review of systems is negative on constitut ional, HEENT, GI, pulmonary, cardiovascular, , hematology, skin, musculoskeletal, endocrine, psych except for positives and negatives as noted in HPI. FAMILY HISTORY: Reviewed, noncontributory to presenting complaint. PHYSICAL EXAMINATION: GENERAL: Well-developed, well-nourished male, in no acute distress. VITAL S IGNS: Temperature is 37.9, pulse 104, blood pressure 97/78, satting 92% on 2 L. EYES: Normal conj unctivae. Pupils equal and reactive to light. ENT: Normal ears and nose. Hearing intact. Normal lips and teeth. Oropharynx moist. NECK: Trachea midline. No thyromegaly. CHEST: Normal respir atory effort. Lungs clear to auscultation bilaterally. CARDIOVASCULAR: Regular rate and rhythm. No murmur. No lower extremity edema. ABDOMEN: Soft, nontender. No hepatosplenomegaly. SKIN: Wa rm, dry, intact. He has minimal surrounding cellulitis around this toe although the 2nd toe on the left is massively swollen, distended with visible pus under the skin. MUSCULOSKELETAL: No cyanosis or clubbing. Strength 5/5 upper and lower extremities. NEUROLOGIC: Cranial nerves intact. Marcelina l sensation to light touch. PSYCH ASSESSMENT: Alert and oriented x3. He is easily agitated, seems quite impatient, limited insight, good memory. LABORATORY DATA: White count 10.03, hematocrit 37.2, platelets 195. Sodium 132, potassium 4.5, chl oride 96, bicarb 21, BUN 46, creatinine 3.7, glucose 131. X-ray of the left foot shows a cyst in th e left great toe and concerns for osteomyelitis. ASSESSMENT/PLAN: 1. Diabetic foot infection, draining large amounts of pus, very high suspicion for underlying acute osteomyelitis. Surgery has been consulted as well as Podiatry, and he will need some kind of surgi karyna debridement. I have also spoken with Dr. Sonali Pal of Infectious Disease. He does not have m uch in the way of surrounding cellulitis, and he is otherwise nontoxic-appearing without any signs o r symptoms of sepsis, so we will hold off on antibiotics at this time so we can get good culture stefani a. Infectious Disease will see him in consultation and start antibiotics when appropriate. We will check an MRI of his foot to see how deep the pus goes and to confirm extensive osteomyelitis. 2. End-stage renal disease. I have spoken with Dr. Garcia and notified Nephrology regarding admiss ion. He will be due for his usual hemodialysis in the morning. 3. Coronary artery disease, status post previous CABG and bioprosthetic aortic valve. This is stab le. 4. Diabetes type 2. We will place him on insulin sliding scale. He does not appear to be on much in the way of diabetes medication. We will check a hemoglobin A1c. CODE STATUS: Full. ADMISSION STATUS: We will admit to inpatient. Clearly greater than 2 midnights will be required fo r management of this severe infection. DVT PROPHYLAXIS: He is high risk. We will place him on subcu heparin. /[id number]/MODL
[2017-05-17] MEDS ORDERED: VANCOMYCIN HCL/NORMAL SALINE 250 ML IV ONE (15:38)
[2017-05-17] MEDS: ETHACRYNIC ACID 25 MG TAB PO SCH ×2 (15:56→16:01)
--- NOTE | 2017-05-17 16:02 | PCMIDPN ---
Assessment/Plan: Assessment/Plan: * Left-sided diabetic foot infection: Suspect has underlying osteomyelitis of the 2nd toe and likely metatarsal based on chronic ulceration. Does have mild superimposed cellulitis. Most likely will be due to Gram-positive arsen such as Staphylococcus aureus or beta-hemolytic streptococci. Will give vancomycin 1 g IV x1 given presence of cellulitis. Likely to require debridement or amputation as part of definitive therapy. MRI of the foot has been ordered and this will help guide further treatment. Follow up blood cultures as available. Was not able to express any purulence for culture at time of examination. Time spent, greater than 35 minutes, of which greater than half was spent in education/counseling/coordination of care related to left-sided diabetic foot infection, further diagnostic evaluation, and continued plan of care including antibiotics and possibly surgery. 05/17/17 15:56 Subjective: Asked to see patient for left-sided diabetic foot infection. Patient previously seen by our service in 2016 for Streptococcus oralis/Mitis bacteremia. Received treatment with 2 weeks of ceftriaxone at that point in time with probable source felt to be pneumonia. Patient recently seen [facility] by Dr. Molina for chronic left plantar ulceration. Difficult for patient to recall duration of ulceration. Recent hospitalization for CHF also reviewed. Patient notes that he developed rapid swelling, erythema and tenderness of the 2nd toe yesterday. He describes having a shot glass and a half of pus drain from the toe. No associated fever or chills. Does not recall any injury to his foot. Does feel like his foot wrap was too tight recently. Patient with notable sulfa allergy which he states "will kill me" and describes having throat swelling and rash. He is now seen for further infectious disease care. Objective: Vital Signs Temp Pulse Resp BP Pulse Ox 37.4 C 95 20 97/78 L 92 05/17/17 13:18 05/17/17 13:18 05/17/17 13:18 05/17/17 13:18 05/17/17 13:18 05/16/17 05/17/17 05/18/17 05:59 05:59 05:59 Intake Total 20 Balance 20 Laboratory Tests 05/17/17 05/17/17 05/17/17 11:36 11:36 15:47 WBC 10.03 H Neut % (Auto) 79.6 H Creatinine 3.7 H POC Glucose 292 H X-ray of foot showing large cystic lesion in proximal phalanx of great toe - Physical Exam General Appearance: alert, no apparent distress, non-toxic EENT: No scleral icterus, No thrush Respiratory: lungs clear, No respiratory distress Cardiac/Chest: regular rate, rhythm, systolic murmur (1/6 left and right upper sternal borders) Extremities: inflammation (Left foot showing 2nd toe with sausage digit deformity; superficial ulceration present at base of toe; no expressible purulence currently; no ulceration of great toe or erythema; erythema with edema at base of toes across foot; chronic plantar ulceration present at base of 2nd metatarsal without expressible purulence or surrounding erythema) Abdomen: non-tender, No distended ICD10 Worksheet Patient Problems: Problems Problem Status Onset Cellulitis of foot Acute Diabetic foot ulcer Acute CODY (acute kidney injury) Acute Acute on chronic renal failure Acute CAD, multiple vessel Acute Chronic Disease Mgmt/Transitional Care Acute Coagulopathy Acute Decubitus ulcer of heel, stage 1 Acute Dehiscence of closure of skin Acute Elevated troponin Acute Elevated troponin Acute Fever Acute Hyperkalemia Acute Hypoglycemia Acute Moderate aortic valve stenosis Acute Pleural effusion Acute Pleural effusion on left Acute Pneumonia Acute Renal insufficiency Acute S/P CABG x 4 Acute S/P aortic valve replacement with bioprosthetic valve Acute Shortness of breath Acute Shortness of breath on exertion Acute CKD (chronic kidney disease) Chronic Diabetes Chronic Osteomyelitis Chronic Posterior circulation stroke Chronic
[2017-05-17] MEDS ORDERED: INSULIN REGULAR HUMAN 100 UNIT/ML SC SCH (17:30)
[2017-05-17 17:54] VITALS: BP 126/67; PULSE 80; TEMP 98; O2SAT 89
--- NOTE | 2017-05-17 20:16 | GCON ---
[f rep st] CONSULTATION DATE OF CONSULTATION: 05/17/2017 REFERRING PHYSICIAN: Christina Bowen MD REQUESTING PHYSICIAN: Dr. Christina Bowen. REASON FOR CONSULTATION: Osteomyelitis. HISTORY OF PRESENT ILLNESS: The patient is a 66-year-old man, who is a patient of Dr. Molina. He has been followed for a foot ulcer. He developed worsening pain and swelling about 2 days ago. He reports that it blew up and has drained "a shot glass and a half of pus this morning." He reports that there was some blood mixed in it. He denies fevers. He presented to the hospital. He reports that he has had difficulty being seen. PAST MEDICAL HISTORY: End-stage renal disease, congestive heart failure, type 2 diabetes, coronary artery disease, anxiety, aortic valve replacement, hepatitis C. MEDICATIONS: Available on [employer]. ALLERGIES: Sulfa, torsemide, furosemide. SOCIAL HISTORY: Denies tobacco or alcohol use. He currently lives in an apartment. FAMILY HISTORY: Not contributory to osteomyelitis. REVIEW OF SYSTEMS: Is negative for weight loss, weight gain, fevers, chills, shortness of breath, chest pain, bowel or bladder changes. PHYSICAL EXAMINATION: VITAL SIGNS: 37.4, 95, 97/78, 92 on 2 L nasal cannula. GENERAL: Initially pleasant well-groomed, well-nourished man sitting on bed. Throughout the interview and exam he became agitated. PSYCH: Upset. HEENT: Normocephalic. No gross hearing deficits. Mucous membranes moist. Pupils equal and round. No scleral icterus. LUNGS: No increased work of breathing. CARDIAC: He does not have palpable pulses. His feet are edematous. ABDOMEN: Deferred. SKIN: The 2nd left toe is markedly edematous and there is an ulceration on the plantar surface of the foot. In between the digits, there was also a small pinpoint hole that when I palpate the toe, purulent material is expressed. RESULTS: Reviewed. He had an x-ray obtained this afternoon, which showed chronic osteomyelitis and a cyst in the proximal phalanx of the great toe. MRI results are pending. His white count is 10,000. Creatinine 3.7, glucose 292. IMPRESSION AND PLAN: The patient is a 66-year-old with purulent material and a very edematous 2nd toe. He has an ulcer on the plantar aspect of the foot. I believe he has osteomyelitis and I do not think that this will improve without any surgical intervention, whether that start with an incision and drainage and/ or amputation of the toe. As I was discussing this with him, he became very agitated and began cursing and explaining how dissatisfied he was with his treatment and access to medical care. I explained to him that we would not do any surgical treatment this evening, but that I thought it was important for me to be honest with what my assessment was. Due to him raising his voice and expressing dissatisfaction, I then asked the patient sales training representative to speak with him about his areas where he has been dissatisfied with his care. I will continue to follow. This is a patient of Dr. Molina who is out of town ( possibly back tomorrow). I will continue to follow or someone from my group unless Dr. Molina is available. Addendum: Patient left AMA. If represents, see if Dr. Molina is available or call surgeon general production worker /[id number]/MODL MTDD
[2017-05-17] MEDS ORDERED: Febuxostat [Uloric] 40 MG PO SCH (21:00)
[2017-05-17] MEDS ORDERED: ATORVASTATIN CALCIUM 10 MG TAB PO SCH (21:00)
[2017-05-17] MEDS ORDERED: HEPARIN 5,000 UNIT/0.5 ML SYR SC SCH (22:00)
--- NOTE | 2017-05-18 08:11 | HOSPPROG ---
Hospitalist Progress Note Assessment/Plan: patient left AMA last itzel i was informed of high grade staph bacteremia this AM called patient ([phone]) no answer, and not clearly his phone so no message left called [place] police, explained life threatening nature of his illness and asked they do a a welfare check and encourage him to come to hospital I will call him again this AM Objective: Vital Signs Temp Pulse Resp BP Pulse Ox 36.7 C 80 20 126/67 H 89 L 05/17/17 17:52 05/17/17 17:52 05/17/17 17:52 05/17/17 17:52 05/17/17 17:52 05/17/17 05/18/17 05/19/17 05:59 05:59 05:59 Output Total 0 Balance 0 ICD10 Worksheet Patient Problems: Problems Problem Status Onset CODY (acute kidney injury) Acute Acute on chronic renal failure Acute CAD, multiple vessel Acute Cellulitis of foot Acute Chronic Disease Mgmt/Transitional Care Acute Coagulopathy Acute Decubitus ulcer of heel, stage 1 Acute Dehiscence of closure of skin Acute Diabetic foot ulcer Acute Elevated troponin Acute Elevated troponin Acute Fever Acute Hyperkalemia Acute Hypoglycemia Acute Moderate aortic valve stenosis Acute Pleural effusion Acute Pleural effusion on left Acute Pneumonia Acute Renal insufficiency Acute S/P CABG x 4 Acute S/P aortic valve replacement with bioprosthetic valve Acute Shortness of breath Acute Shortness of breath on exertion Acute CKD (chronic kidney disease) Chronic Diabetes Chronic Osteomyelitis Chronic Posterior circulation stroke Chronic
[2017-05-18] MEDS ORDERED: ASPIRIN EC 81 MG TAB PO SCH (09:00)
[2017-05-18] MEDS ORDERED: PANTOPRAZOLE SODIUM 40 MG TAB PO SCH (09:00)
[2017-05-18] MEDS ORDERED: NON-FORMULARY NEW DRUG (Omeprazole [Prilosec 20 Mg] 40 MG) PO SCH (09:00)
== END 2017-05-17 19:35 | disposition left against medical advice (07) | DRG 638 ==
LOC: F3E 13:13 → OBSVTOIN 14:30
PROVIDERS: ADMIT Internal Medicine; ATTEND Internal Medicine
DX: E11.621 Type 2 diabetes mellitus with foot ulcer (principal); E11.69 Type 2 diabetes mellitus with other specified complication; M86.172 Other acute osteomyelitis, left ankle and foot; E11.22 Type 2 diabetes mellitus with diabetic chronic kidney disease; N18.6 End stage renal disease; I50.9 Heart failure, unspecified; I25.10 Atherosclerotic heart disease of native coronary artery without angina pectoris; B19.20 Unspecified viral hepatitis C without hepatic coma; Z99.2 Dependence on renal dialysis; Z79.4 Long term (current) use of insulin; Z95.2 Presence of prosthetic heart valve; Z95.1 Presence of aortocoronary bypass graft
CPT/HCPCS: 96374; J1170; J1815; J2405; J3370

== ENCOUNTER 2017-05-18 13:30 | Inpatient (IN) | payer OTHER ==
--- NOTE | 2017-05-18 14:00 | EDPHY ---
H & P Stated Complaint: "I went to dialysis and doctor told me to be admitted" D/D'd [facility] 05/17/17 HPI/ROS: CHIEF COMPLAINT: "I went to dialysis and doctor told me to be admitted" HISTORY OF PRESENT ILLNESS: This patient is a 66 year old male with end stage renal disease on dialysis presenting today with multiple complaints. He states that he was advised by his dialysis facility to come to the emergency department for hospitalization. He was admitted yesterday for management of a left foot ulceration, but left yesterday evening against medical advice. He states this is due to lack of proper renal menu options. He reports he went for his routine dialysis this morning, but was refused and instructed to return to the hospital. He states he is having hiccoughs currently as well, and that this is his primary concern. No fever, chills, nausea, vomiting, or other associated symptoms reported. REVIEW OF SYSTEMS: A ten point review of systems was performed and is negative with the exception of the items mentioned in the HPI. He was only minimally cooperative with my questioning. I had to question him several times to obtain information from him. Source: Patient, Old records - Personal History Current Tetanus Diphtheria and Acellular Pertussis (TDAP): Unsure - Medical/Surgical History PMH: 1. End-stage renal disease 2. Congestive heart failure 3. Type II diabetes 4. Coronary artery disease, CABG 5. Anxiety 6. Bioprosthetic aortic valve replacement 7. Hepatitis C Hx Asthma: No Hx Chronic Respiratory Disease: Yes Hx Diabetes: Yes Hx Cardiac Disease: Yes Hx Renal Disease: Yes Hx Cirrhosis: Yes Hx Alcoholism: No Hx HIV/AIDS: No Hx Splenectomy or Spleen Trauma: No Other PMH: 1. Hepatitis C. 2. Coronary artery disease with bypass graft. 3. Aortic valve replacement. 4. Chronic kidney disease. 5. Diabetes. 6. CVA. 7. Vertigo. 8. Hospitalization for pneumonia in January of 2016 - Social History Smoking Status: Former smoker Additional Social History: Lives in apartment in [place]. Dr. Cueto is his digital media analyst. Former smoker. - Physical Exam Exam: General Appearance: Alert. Vital signs reviewed. He has not had coping. Eyes: Pupils equal and round, no conjunctival injection, no discharge. Anicteric. ENT, Mouth: Mucous membranes are moist, no oropharyngeal erythema or edema. Neck: No lymphadenopathy, supple. Respiratory: Lungs are clear to auscultation; no wheezes, rales, or rhonchi. Cardiovascular: Regular rate and rhythm; no murmur, rub, or gallop. Gastrointestinal: Abdomen is soft and nontender, no masses or organomegaly, bowel sounds normal. Skin: Warm and dry, no rashes on exposed skin, normal color. Back: Nontender to palpation over the thoracolumbar spine. No CVAT. Extremities: Left foot with purulent drainage on the plantar aspect and ulceration of the 2nd digit. Dorsum of the foot is warm and erythematous. No lower extremity edema, no calf tenderness or swelling. Neurological: Alert and oriented. Moving all four extremities easily and equally. Psychiatric: Slightly agitated and uncooperative. Constitutional: Initial Vital Signs Temperature (C) 36.5 C 05/18/17 13:33 Heart Rate 65 05/18/17 13:33 Respiratory Rate 18 05/18/17 13:33 Blood Pressure 120/76 05/18/17 13:33 O2 Sat (%) 92 05/18/17 13:33 O2 Delivery Mode Room Air Allergies/Adverse Reactions: Sulfa (Sulfonamide Antibiotics) [Sulfa(Sulfonamide Antibiotics)] Allergy (Severe , Verified 05/19/17 14:26) Hives torsemide Allergy (Severe, Verified 05/18/17 13:33) Other-Enter Comments heparin Allergy (Unknown, Unverified 05/19/17 14:26) furosemide [From Lasix] Allergy (Verified 05/18/17 13:33) Rash sulfamethoxazole [From Septra] Allergy (Verified 05/18/17 13:33) Other-Enter Comments trimethoprim [From Septra] Allergy (Verified 05/18/17 13:33) Other-Enter Comments Home Medications: Medication Instructions Recorded Cholecalciferol Vit D3 [Vitamin D3 2,000 units PO HS 07/01/15 2000 units] Vitamin B Complex [B Complex] 1 each PO DAILY 07/01/15 Aspirin EC [Aspirin EC 81 mg (*)] 81 mg PO DAILY 11/21/15 Febuxostat [ULORIC] 40 mg PO HS 11/21/15 Ascorbic Acid [Vitamin C 500 mg 500 mg PO Q3D 07/12/16 (*)] Insulin Lispro [Humalog] 5 - 20 unit SQ TIDMEAL 07/12/16 Cyclobenzaprine [Flexeril 10 MG 15 mg PO DAILY PRN 01/16/17 (*)] Herbals/Supplements -Info Only 1 ea PO DAILY 01/16/17 Mupirocin 2% [Bactroban 2%] 1 karlos TP HS PRN 01/16/17 Omeprazole [Prilosec 20 mg] 40 mg PO DAILY 05/10/17 oxyCODONE IR [Oxycodone Ir (*)] 5 mg PO BID PRN 05/10/17 Atorvastatin Calcium [Lipitor 10 10 mg PO BID 05/17/17 mg (*)] Ethacrynic Acid [Edecrin 25 MG (*)] 125 mg PO SUTUTHSA 05/17/17 Medical Decision Making ED Course/Re-evaluation: Plan to readmit for continued management of foot infection as well as dialysis. 14:43 Spoke with Nephrology. Church Secretary will review his labs and determine timing of in-hospital dialysis. He is being admitted to the hospitalist service. He will require IV antibiotics for treatment of his foot ulceration/ cellulitis and bacteremia that was discovered during yesterday's evaluation. He is known to be somewhat difficult in terms of his behavior but has agreed to hospitalization today. Differential Diagnosis: I considered a differential diagnosis that includes but is not limited to cellulitis, abscess, bacteremia, and sepsis. - Data Points Medications Given: Discontinued Medications Cefazolin Sodium/Dextrose (Ancef 1 Gm (Premix)) 50 mls @ 200 mls/hr IV DAILY YEMI PRN Reason: Protocol Stop: 06/17/17 16:59 Last Admin: 05/19/17 15:33 Dose: Not Given Departure - Departure Disposition: [facility] Acute Clinical Impression: Bacteremia, Foot infection Condition: Fair Report Scribed for: Sarita Bey Report Scribed by: Patito Sandhu Date of Report: 05/18/17 Time of Report: 14:15 Physician Review and Approval Statement: 05/18/17 13:59 Portions of this note were transcribed by the medical professionals. I, Dr. Sarita Bey, personally performed the history, physical exam, and medical decision- making; and confirmed the accuracy of the information in the transcribed note.
[2017-05-18] MEDS ORDERED: ACETAMINOPHEN 325 MG TAB PO PRN (14:20)
[2017-05-18] MEDS ORDERED: ONDANSETRON DISINTEGRATING 4 MG TAB PO PRN (14:20)
[2017-05-18] MEDS ORDERED: ONDANSETRON 4 MG/2 ML VIAL IVP PRN (14:20)
[2017-05-18 14:56] LABS: HEMATOCRIT 36.1 % (40.0-51.0); HEMOGLOBIN 10.9 g/dL (13.7-17.5); MEAN CELL HEMOGLOBIN 25.3 pg (27.9-34.1); MEAN CELL HEMOGLOBIN CONCENTR. 30.2 g/dL (32.4-36.7); MEAN CELL VOLUME 83.8 fL (81.5-99.8); RED BLOOD CELL COUNT 4.31 10^6/uL (4.40-6.38); RED CELL DISTRIBUTION WIDTH 17.4 % (11.5-15.2)
[2017-05-18 15:13] LABS: ANION GAP 18 mEq/L (8-16); CALCIUM 8.8 mg/dL (8.5-10.4); CARBON DIOXIDE 19 mEq/l (22-31); CHLORIDE 92 mEq/L (97-110); CREATININE 5.9 mg/dL (0.7-1.3); GLOMERULAR FILTRATION RATE 10; GLUCOSE 238 mg/dL (70-100); POTASSIUM 5.3 mEq/L (3.5-5.2); SODIUM 129 mEq/L (134-144)
[2017-05-18] MEDS ORDERED: MUPIROCIN 2% 22 GM OINT TP PRN (15:52)
[2017-05-18] MEDS ORDERED: D50W 25 GM/50 ML SYR IVP PRN (16:01)
--- NOTE | 2017-05-18 16:28 | GHP ---
[f rep st] HISTORY AND PHYSICAL DATE OF ADMISSION: 05/18/2017 CHIEF COMPLAINT: Needs dialysis. HISTORY OF PRESENT ILLNESS: A 66-year-old male who was admitted on 05/17/2017 with concerns for pus draining from his foot on the left. The patient was admitted, initiated on IV antibiotics, seen by Infectious Disease, General Medicine and anticipating hemodialysis when the patient decided that he would leave against medical advice because he did not like the diet he was being offered. The bijal ent left, prepared himself some food at home, took care of what he describes as some necessary paper work, and then presented to his outpatient dialysis facility, who refused to dialyze him and told ricardo sotelo to return to the emergency department for rehospitalization for his previous complaints. The bijal ent was brought to the emergency department and is in a very disagreeable mood during my evaluation. He reports that oxycodone is adequately treating his left lower extremity. He denies any nausea o r vomiting. Denies any changes in his scant urination. Denies any new diarrhea, new blood in his s tools. Denies any headaches, any vision changes, any difficulty swallowing. Does report pain of th e left lower extremity which has been adequately treated with pain medications. Denies any chest pa in. Denies any shortness of breath but does describe a sensation of his air flap closing on him int ermittently. PAST MEDICAL HISTORY: 1. End-stage renal disease, hemodialysis dependent on Sunday, Sunday, Sunday. 2. Chronic heart failure. 3. Diabetes type 2. 4. Coronary artery disease, status post CABG. 5. Anxiety. 6. Bioprosthetic aortic valve replacement. 7. Hepatitis C. SOCIAL HISTORY: Negative for tobacco, alcohol or illicit drugs. He lives in an apartment. FAMILY HISTORY: His mother had aortic stenosis. REVIEW OF SYSTEMS: A 10-point review of systems is negative with the exception of that reported in the HPI. ADVANCED DIRECTIVES: Patient is full cor, full tube. His mother is his MD ALCARAZ. PHYSICAL EXAMINATION: VITAL SIGNS: Blood pressure 120/76, heart rate 65, respiratory rate 18, 92% on room air, 36.5. GENERAL: This is a middle-aged male, in mild distress. HEENT: Notable for norbert st mucous membranes. Eye exam is negative for any icterus. CARDIAC: Patient is regular rate and r hythm. A systolic murmur is appreciated. PULMONARY: Good respiratory effort. Clear to auscultati on bilaterally. GASTROINTESTINAL: Positive bowel sounds. Abdomen is soft and nontender. MUSCULOS KELETAL: Negative for any lower extremity edema. SKIN: Patient has very large infected appearing 2nd digit of the left foot. He has an open wound on the sole of that left foot that is draining pus . Clear base is seen, it is quite deep, has associated cellulitis on the dorsum of the foot which i s warm to the touch. NEUROLOGIC: He is alert and oriented x3. PSYCHIATRIC: He is agitated. DATA: MRI of the lower extremity, which I personally reviewed and interpreted, shows cellulitis, pr obable abscess around the 2nd toe, as well as osteomyelitis of the 2nd metatarsal head. LABORATORY: White count 10.6, hematocrit 36.1, platelets of 191. Sodium 129, creatinine 5.9, blood glucose of 238, phosphorus is 7.1. ASSESSMENT AND PLAN: This is a 66-year-old male with end-stage renal disease and serious infection of the left foot, gram-positive cocci bacteremia, certainly concerning for Staph aureus. 1. Acute osteomyelitis of the left lower extremity. The patient had been seen and initiated on van comycin. We will order a random vancomycin level now to make decisions related to re-dosing. Blood cultures which were drawn 05/17/2017 are growing a gram-positive cocci in clusters. We will restar t vancomycin and make Infectious Disease aware the patient is back. It appears that this may be met hicillin-susceptible and the patient can be started on something different than vancomycin. 2. End-stage renal disease. The patient requires hemodialysis today. I have ordered basic labs, N ephrology has been made aware from the emergency department. 3. Coronary artery disease. Patient is without chest pain complaints at this time. We will reinit iate his home medications without change. 4. Diabetes. Patient's glycemic control is poor. We will continue sliding scale insulin and follo w blood sugars a.c. and h.s.; suspect hyperglycemia in the setting of an acute infection as we are s eeing. 5. Vitamin D deficiency. Will continue patient's supplementation. 6. Prophylaxis with heparin subcu. 7. Diet: Renal. DISPOSITION: I am expecting greater than 2 midnights as the patient is presenting with gram-positiv e cocci bacteremia and osteomyelitis/cellulitis of the left lower extremity. I have discussed the c ase with the emergency room physician. Patient will be triaged to the medical-surgical floor for ca re. /[id number]/MODL
[2017-05-18] MEDS: oxyCODONE IR 5 MG TAB PO PRN (17:08)
[2017-05-18] MEDS: INSULIN LISPRO 100 UNIT/ML SC SCH (19:24)
[2017-05-18] MEDS ORDERED: NON-FORMULARY NEW DRUG (Febuxostat [Uloric] 40 MG) PO SCH (21:00)
[2017-05-18] MEDS: ATORVASTATIN CALCIUM 10 MG TAB PO SCH (21:28)
[2017-05-18] MEDS: CHOLECALCIFEROL VIT D3 1,000 UNITS TAB PO SCH (21:28)
[2017-05-18] MEDS: FEBUXOSTAT 40 MG PO SCH (22:07)
[2017-05-18] MEDS: HEPARIN 5,000 UNIT/0.5 ML SYR SC SCH (22:07)
[2017-05-18] MEDS: PANTOPRAZOLE SODIUM 40 MG TAB PO SCH (23:27)
[2017-05-19 04:46] LABS: % IMMATURE GRANULYOCYTES 0.4 % (0.0-1.1); ABSOLUTE IMMATURE GRANULOCYTES 0.03 10^3/uL (0.00-0.10); ADD DIFF? NO; ADD MORPH? NO; ADD SCAN? NO; ATYPICAL LYMPHOCYTE FLAG 80 (0-99); FRAGMENT RBC FLAG 20 (0-99); HEMATOCRIT 35.4 % (40.0-51.0); HEMOGLOBIN 10.9 g/dL (13.7-17.5); LEFT SHIFT FLG 0 (0-99); LIPEMIA HEMOLYSIS FLAG 80 (0-99); MEAN CELL HEMOGLOBIN 25.5 pg (27.9-34.1); MEAN CELL HEMOGLOBIN CONCENTR. 30.8 g/dL (32.4-36.7); MEAN CELL VOLUME 82.9 fL (81.5-99.8); MEAN PLATELET VOLUME 11.2 fL (8.7-11.7); PLATELET CLUMPS FLAG 10 (0-99); PLATELET COUNT 177 10^3/uL (150-400); RED BLOOD CELL COUNT 4.27 10^6/uL (4.40-6.38); RED CELL DISTRIBUTION WIDTH 17.6 % (11.5-15.2)
[2017-05-19 04:51] LABS: ANION GAP 20 mEq/L (8-16); CALCIUM 8.5 mg/dL (8.5-10.4); CARBON DIOXIDE 17 mEq/l (22-31); CHLORIDE 95 mEq/L (97-110); CREATININE 6.5 mg/dL (0.7-1.3); GLOMERULAR FILTRATION RATE 9; GLUCOSE 180 mg/dL (70-100); POTASSIUM 5.1 mEq/L (3.5-5.2); SODIUM 132 mEq/L (134-144)
[2017-05-19] MEDS: HEPARIN 5,000 UNIT/0.5 ML SYR SC SCH ×3 (06:25→21:48)
[2017-05-19] MEDS: INSULIN LISPRO 100 UNIT/ML SC SCH ×4 (08:43→21:46)
[2017-05-19] MEDS ORDERED: Herbals/Supplements -Info Only PO SCH (09:00)
[2017-05-19] MEDS ORDERED: PANTOPRAZOLE SODIUM 40 MG TAB PO SCH (09:00)
[2017-05-19] MEDS ORDERED: NON-FORMULARY NEW DRUG (Omeprazole [Prilosec 20 Mg] 40 MG) PO SCH (09:00)
[2017-05-19] MEDS: oxyCODONE IR 5 MG TAB PO PRN (09:49)
--- NOTE | 2017-05-19 13:46 | PCMIDPN ---
Assessment/Plan: Assessment/Plan: 1. MSSA bacteremia/sepsis likely secondary to 2nd toe abscess/Osteomyelitis: - MRI reviewed: 2nd MT head/phalanges/OM with likely absces --Currently on renal dose Ancef. -Previous surgical consult noted. patient regularly follows with Dr. 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 They recommend general surgery consult. spoke with surgery - Patient likely needs amputation but at the very least some I &d done to help with source control. -had TTE on 05/10/17 and at that time, no obvious vegetations noted. Pt has hx of bioprosthetic AV. -will check f/u blood cx in AM. -plan of care reivewed with patient ,along with culture data, etc. Explained difficulty in treating bone infection with antibiotics alone and discussed principles behind co medical surgical care. Meds ancef 1g daily- 05/18/17 Subjective: Afebrile. seen in HD today. Denies sob, abd pain or diarrhea. pt would does not want amputation. Objective: Vital Signs Temp Pulse Resp BP Pulse Ox 36.3 C 71 12 158/85 H 94 05/19/17 12:00 05/19/17 12:00 05/19/17 12:00 05/19/17 12:00 05/19/17 12:00 Laboratory Results 05/19/17 03:38 05/19/17 03:38 05/18/17 05/19/17 05/20/17 05:59 05:59 05:59 Intake Total 555 Balance 555 - Physical Exam General Appearance: alert, no apparent distress Respiratory: lungs clear Cardiac/Chest: regular rate, rhythm Extremities: swelling (left leg/foot/2nd toe swelling. fluctuance appreciated in 2nd toe. maceration of 2nd toe. plantar ulcer with some serous drainage noted. nontender. ) - Time Spent With Patient Time Spent with Patient: greater than 35 minutes Time Spent with Patient: Greater than 35 minutes spent on this patients care, greater than 50% of time spent counseling, educating, and coordinating care regarding the above mentioned plan. ICD10 Worksheet Patient Problems: Problems Problem Status Onset Bacteremia Acute Foot infection Acute CODY (acute kidney injury) Acute Acute on chronic renal failure Acute CAD, multiple vessel Acute Cellulitis of foot Acute Chronic Disease Mgmt/Transitional Care Acute Coagulopathy Acute Decubitus ulcer of heel, stage 1 Acute Dehiscence of closure of skin Acute Diabetic foot ulcer Acute Elevated troponin Acute Elevated troponin Acute Fever Acute Hyperkalemia Acute Hypoglycemia Acute Moderate aortic valve stenosis Acute Pleural effusion Acute Pleural effusion on left Acute Pneumonia Acute Renal insufficiency Acute S/P CABG x 4 Acute S/P aortic valve replacement with bioprosthetic valve Acute Shortness of breath Acute Shortness of breath on exertion Acute CKD (chronic kidney disease) Chronic Diabetes Chronic Osteomyelitis Chronic Posterior circulation stroke Chronic
--- NOTE | 2017-05-19 14:11 | PDCONSULT ---
[employer] Dean Note: Assessment/Plan: ESRD: on HD MWF, missed HD yesterday. - HD done today off schedule. - Next HD on Sunday per routine. Hyperkalemia; will modulate on HD. Metabolic acidosis; will modulate on HD. Anemia: Hgb at goal, no need for epo at this time. Bacteremia: likely due to foot ulcer, appreciate ID and surgery involvement. Thank you for the interesting consult. Nephrology will continue to follow, please call if you have any additional questions or concerns. H & P Stated Complaint: "I went to dialysis and doctor told me to be admitted" D/D'd [facility] 05/17/17 Time Seen by Provider: 05/18/17 13:52 HPI/ROS: HPI: Mr. Ritter is a 66 yo M with ESRD on HD MWF at [facility] under Dr. Cueto, who was admitted after being sent in from dialysis center yesterday. He was in ER on Sunday night with complaints about drainage from foot. He states that the foot had a blister on it that was being treated for weeks, then started to get worse and then had pus drainage from it. He was admitted for IV abx and even saw surgery to discuss possibility of amputation. He left AMA due to being put on a renal diet. He went to dialysis on Sunday for his routine HD , was not dialyzed and sent back to ER. He states he feels frustrated about his care. He had HD today with no issues. Blood cultures already growing GPCs. ROS: Positive per HPI and for gasping intermittently, rest of 10-point ROS negative - Personal History Current Tetanus Diphtheria and Acellular Pertussis (TDAP): Unsure - Medical/Surgical History Hx Asthma: No Hx Chronic Respiratory Disease: Yes Hx Diabetes: Yes Hx Cardiac Disease: Yes Hx Renal Disease: Yes Hx Cirrhosis: Yes Hx Alcoholism: No Hx HIV/AIDS: No Hx Splenectomy or Spleen Trauma: No Other PMH: 1. Hepatitis C. 2. Coronary artery disease with bypass graft. 3. Aortic valve replacement. 4. Chronic kidney disease. 5. Diabetes. 6. CVA. 7. Vertigo. 8. Hospitalization for pneumonia in January of 2016 - Family History Significant Family History: No pertinent family hx - Social History Smoking Status: Former smoker - Physical Exam Exam: General: alert and oriented, no acute distress Eyes; EOMI, PERRL OP: Clear, MMM Neck: supple, no thyromegaly CV: RRR, +1 edema BLE Resp: CTA bilat, on room air, intermittent gasping for air Abd; Soft, NT/ND Neuro; CN II-XII grossly intact, no asterixis Psych: cooperative, appropriate mood and affect Skin: ulceration on L foot bandaged Access: LUE AVF with thrill and bruit appreciated Constitutional: Initial Vital Signs Temperature (C) 36.5 C 05/18/17 13:33 Heart Rate 65 05/18/17 13:33 Respiratory Rate 18 05/18/17 13:33 Blood Pressure 120/76 05/18/17 13:33 O2 Sat (%) 92 05/18/17 13:33 O2 Delivery Mode Room Air Allergies/Adverse Reactions: Sulfa (Sulfonamide Antibiotics) [Sulfa(Sulfonamide Antibiotics)] Allergy (Severe , Verified 05/18/17 13:33) Hives torsemide Allergy (Severe, Verified 05/18/17 13:33) Other-Enter Comments furosemide [From Lasix] Allergy (Verified 05/18/17 13:33) Rash sulfamethoxazole [From Septra] Allergy (Verified 05/18/17 13:33) Other-Enter Comments trimethoprim [From Septra] Allergy (Verified 05/18/17 13:33) Other-Enter Comments Home Medications: Medication Instructions Recorded Cholecalciferol Vit D3 [Vitamin D3 2,000 units PO HS 07/01/15 2000 units] Vitamin B Complex [B Complex] 1 each PO DAILY 07/01/15 Aspirin EC [Aspirin EC 81 mg (*)] 81 mg PO DAILY 11/21/15 Febuxostat [ULORIC] 40 mg PO HS 11/21/15 Ascorbic Acid [Vitamin C 500 mg 500 mg PO Q3D 07/12/16 (*)] Insulin Lispro [Humalog] 5 - 20 unit SQ TIDMEAL 07/12/16 Cyclobenzaprine [Flexeril 10 MG 15 mg PO DAILY PRN 01/16/17 (*)] Herbals/Supplements -Info Only 1 ea PO DAILY 01/16/17 Mupirocin 2% [Bactroban 2%] 1 karlos TP HS PRN 01/16/17 Omeprazole [Prilosec 20 mg] 40 mg PO DAILY 05/10/17 oxyCODONE IR [Oxycodone Ir (*)] 5 mg PO BID PRN 05/10/17 Atorvastatin Calcium [Lipitor 10 10 mg PO BID 05/17/17 mg (*)] Ethacrynic Acid [Edecrin 25 MG (*)] 125 mg PO SUTUTHSA 05/17/17 Lab and Imaging 05/19/17 03:38 05/19/17 03:38 WBC 8.41 10^3/uL (3.80-9.50) 05/19/17 03:38 RBC 4.27 10^6/uL (4.40-6.38) L 05/19/17 03:38 Hgb 10.9 g/dL (13.7-17.5) L 05/19/17 03:38 Hct 35.4 % (40.0-51.0) L 05/19/17 03:38 MCV 82.9 fL (81.5-99.8) 05/19/17 03:38 MCH 25.5 pg (27.9-34.1) L 05/19/17 03:38 MCHC 30.8 g/dL (32.4-36.7) L 05/19/17 03:38 RDW 17.6 % (11.5-15.2) H 05/19/17 03:38 Plt Count 177 10^3/uL (150-400) 05/19/17 03:38 MPV 11.2 fL (8.7-11.7) 05/19/17 03:38 Neut % (Auto) 72.8 % (39.3-74.2) 05/19/17 03:38 Lymph % (Auto) 14.4 % (15.0-45.0) L 05/19/17 03:38 [place] % (Auto) 10.6 % (4.5-13.0) 05/19/17 03:38 Eos % (Auto) 1.4 % (0.6-7.6) 05/19/17 03:38 Baso % (Auto) 0.4 % (0.3-1.7) 05/19/17 03:38 Nucleat RBC Rel Count 0.0 % (0.0-0.2) 05/19/17 03:38 Absolute Neuts (auto) 6.13 10^3/uL (1.70-6.50) 05/19/17 03:38 Absolute Lymphs (auto) 1.21 10^3/uL (1.00-3.00) 05/19/17 03:38 Absolute Monos (auto) 0.89 10^3/uL (0.30-0.80) H 05/19/17 03:38 Absolute Eos (auto) 0.12 10^3/uL (0.03-0.40) 05/19/17 03:38 Absolute Basos (auto) 0.03 10^3/uL (0.02-0.10) 05/19/17 03:38 Absolute Nucleated RBC 0.00 10^3/uL (0-0.01) 05/19/17 03:38 Immature Gran % 0.4 % (0.0-1.1) 05/19/17 03:38 Immature Gran # 0.03 10^3/uL (0.00-0.10) 05/19/17 03:38 Sodium 132 mEq/L (134-144) L 05/19/17 03:38 Potassium 5.1 mEq/L (3.5-5.2) 05/19/17 03:38 Chloride 95 mEq/L (97-110) L 05/19/17 03:38 Carbon Dioxide 17 mEq/l (22-31) L 05/19/17 03:38 Anion Gap 20 mEq/L (8-16) H 05/19/17 03:38 BUN 83 mg/dL (7-23) H 05/19/17 03:38 Creatinine 6.5 mg/dL (0.7-1.3) H 05/19/17 03:38 Estimated GFR 9 05/19/17 03:38 Glucose 180 mg/dL (70-100) H 05/19/17 03:38 POC Glucose 136 mg/dL (70-100) H 05/19/17 12:16 Calcium 8.5 mg/dL (8.5-10.4) 05/19/17 03:38 Phosphorus 7.1 mg/dL (2.5-4.5) H 05/18/17 14:47 Random Vancomycin 13.1 mcg/mL (0.0-40.0) 05/18/17 14:47
[2017-05-19] MEDS: ASPIRIN EC 81 MG TAB PO SCH (15:15)
[2017-05-19] MEDS: ATORVASTATIN CALCIUM 10 MG TAB PO SCH ×2 (15:15→21:40)
[2017-05-19] MEDS: ETHACRYNIC ACID 25 MG TAB PO SCH (15:16)
[2017-05-19] MEDS: VITAMIN B COMPLEX 1 EA CAP/TAB PO SCH (15:16)
[2017-05-19] MEDS: CHOLECALCIFEROL VIT D3 1,000 UNITS TAB PO SCH (15:21)
--- NOTE | 2017-05-19 18:18 | HOSPPROG ---
Hospitalist Progress Note Assessment/Plan: 1. MSSA bacteremia/sepsis likely secondary to 2nd toe abscess/osteomyelitis: - MRI reviewed with him at length: 2nd MT head/phalanges/OM with abscess -renal dose Ancef per ID, appreciate assistance and discussed care plan -regularly follows with Dr. Molina (DPM). Dr Lowe saw him prior to his leaving AMA yesterday, spoke with Dr Miller- he will eval pt in AM, pt is agreeable to surgery at this point. -had TTE on 05/10/17 and at that time, no obvious vegetations noted. Pt has hx of bioprosthetic AV, + blood cx, repeat cultures planned per ID 2. ESRD: on HD MWF - HD done today off schedule. - Next HD on Sunday per routine. -appreciate nephrology assistance 3. Hyperkalemia/met acidosis -per renal/HD. 4. Anemia -Hgb at goal/no need for epo at this time per nephro 5. DM -SSI for now, add long acting depending upon trends (?takes 25u at home per reports) 6. hx hep C -s/p treatment at [facility] per his report 7. hx CAD, s/p CABG and bioprosthetic aortic valve -no acute cardiac issues, has seen [facility] prev but fired them per outpt records at new PCP Dr Akbar 8. DVT prophy -heparin FULL CODE, PCP Dr Yazan Akbar DISPO- > 2 mdnts due to complexity of care, bacteremia, pending surgery Subjective: Pretty upset re possibility of amputation, but willing to discuss with Dr Miller. Denies CP/SOB. No n/v/d. Objective: Vital Signs Temp Pulse Resp BP Pulse Ox 97.4 F 89 11 L 104/75 94 05/19/17 15:26 05/19/17 15:26 05/19/17 15:26 05/19/17 15:26 05/19/17 15:26 Laboratory Results 05/19/17 03:38 05/19/17 03:38 05/18/17 05/19/17 05/20/17 11:59 11:59 11:59 Intake Total 555 460 Balance 555 460 - Time Spent With Patient Time Spent with Patient: greater than 35 minutes Time Spent with Patient: Greater than 35 minutes spent on this patients care, greater than 50% of time spent counseling, educating, and coordinating care regarding the above mentioned plan. - Pending Discharge Pending Discharge Within 24 Hours: No Pending Discharge Within 48 Hours: No - Physical Exam Constitutional: no apparent distress, appears nourished Eyes: PERRL, anicteric sclera, EOMI Ears, Nose, Mouth, Throat: moist mucous membranes, hearing normal Cardiovascular: regular rate and rhythym, no murmur, rub, or gallop, edema (B JH) Respiratory: no respiratory distress, no rales or rhonchi, clear to auscultation Gastrointestinal: normoactive bowel sounds, soft, non-tender abdomen, no palpable masses Skin: other (L foot with open ulceration at 2nd MTP plantar surface, swollen/ fluctuant L 2nd toe, marked erythema/edema) Neurologic: other (non focal) Psychiatric: anxious, agitated, poor insight, poor judgement ICD10 Worksheet Patient Problems: Problems Problem Status Onset Bacteremia Acute Foot infection Acute CODY (acute kidney injury) Acute Acute on chronic renal failure Acute CAD, multiple vessel Acute Cellulitis of foot Acute Chronic Disease Mgmt/Transitional Care Acute Coagulopathy Acute Decubitus ulcer of heel, stage 1 Acute Dehiscence of closure of skin Acute Diabetic foot ulcer Acute Elevated troponin Acute Elevated troponin Acute Fever Acute Hyperkalemia Acute Hypoglycemia Acute Moderate aortic valve stenosis Acute Pleural effusion Acute Pleural effusion on left Acute Pneumonia Acute Renal insufficiency Acute S/P CABG x 4 Acute S/P aortic valve replacement with bioprosthetic valve Acute Shortness of breath Acute Shortness of breath on exertion Acute CKD (chronic kidney disease) Chronic Diabetes Chronic Osteomyelitis Chronic Posterior circulation stroke Chronic
[2017-05-19] MEDS: PANTOPRAZOLE SODIUM 40 MG TAB PO SCH (21:40)
[2017-05-19] MEDS: FEBUXOSTAT 40 MG PO SCH (21:48)
[2017-05-20 04:38] LABS: HEMATOCRIT 36.6 % (40.0-51.0); MEAN CELL HEMOGLOBIN 25.1 pg (27.9-34.1); MEAN CELL HEMOGLOBIN CONCENTR. 30.1 g/dL (32.4-36.7); MEAN CELL VOLUME 83.4 fL (81.5-99.8); RED BLOOD CELL COUNT 4.39 10^6/uL (4.40-6.38); RED CELL DISTRIBUTION WIDTH 17.6 % (11.5-15.2)
[2017-05-20 04:45] LABS: ANION GAP 15 mEq/L (8-16); CALCIUM 8.1 mg/dL (8.5-10.4); CARBON DIOXIDE 23 mEq/l (22-31); CHLORIDE 96 mEq/L (97-110); CREATININE 5.1 mg/dL (0.7-1.3); GLOMERULAR FILTRATION RATE 11; GLUCOSE 176 mg/dL (70-100); POTASSIUM 4.3 mEq/L (3.5-5.2); SODIUM 134 mEq/L (134-144)
[2017-05-20] MEDS: HEPARIN 5,000 UNIT/0.5 ML SYR SC SCH ×3 (06:15→22:09)
[2017-05-20] MEDS: oxyCODONE IR 5 MG TAB PO PRN ×4 (07:35→21:46)
[2017-05-20] MEDS: INSULIN LISPRO 100 UNIT/ML SC SCH ×3 (09:00→16:32)
[2017-05-20] MEDS ORDERED: BUPIVACAINE 0.5% 30 ML SDV ONE (09:23)
[2017-05-20] MEDS ORDERED: ceFAZolin 2 GM/DEXTROSE 100 ML IV ONE (11:15)
--- NOTE | 2017-05-20 11:19 | SOAPPROG ---
SOAP Progress Note Assessment/Plan: Assessment: 66-YEAR-OLD MALE DIABETIC WITH OSTEOMYELITIS OF HIS 2ND METATARSAL HEAD ON HIS LEFT FOOT/RECENTLY DRAINING PUS/CULTURE SHOWED STAPH AUREUS PAST HISTORY INCLUDES DIABETES, CHRONIC RENAL FAILURE, CORONARY ARTERY DISEASE. HE HAS HAD A PREVIOUS TOE AMPUTATION ON HIS OTHER FOOT RISKS AND OPTIONS BEEN FULLY DISCUSSED AND HE AGREES WITH PROCEEDING WITH A LEFT 2ND TOE RAY AMPUTATION AND POSSIBLE WOUND VAC PLACED Plan: 2ND TOE RAY AMPUTATION LEFT FOOT 05/20/17 11:17 Objective: Vital Signs Temp Pulse Resp BP Pulse Ox 35.5 C L 74 16 116/70 91 L 05/20/17 06:59 05/20/17 06:59 05/20/17 06:59 05/20/17 06:59 05/20/17 06:59 Laboratory Results 05/20/17 04:05 05/20/17 04:05 05/19/17 05/20/17 05/21/17 05:59 05:59 05:59 Intake Total 555 760 Output Total 2500 Balance 555 -4128 ICD10 Worksheet Patient Problems: Problems Problem Status Onset Bacteremia Acute Foot infection Acute CODY (acute kidney injury) Acute Acute on chronic renal failure Acute CAD, multiple vessel Acute Cellulitis of foot Acute Chronic Disease Mgmt/Transitional Care Acute Coagulopathy Acute Decubitus ulcer of heel, stage 1 Acute Dehiscence of closure of skin Acute Diabetic foot ulcer Acute Elevated troponin Acute Elevated troponin Acute Fever Acute Hyperkalemia Acute Hypoglycemia Acute Moderate aortic valve stenosis Acute Pleural effusion Acute Pleural effusion on left Acute Pneumonia Acute Renal insufficiency Acute S/P CABG x 4 Acute S/P aortic valve replacement with bioprosthetic valve Acute Shortness of breath Acute Shortness of breath on exertion Acute CKD (chronic kidney disease) Chronic Diabetes Chronic Osteomyelitis Chronic Posterior circulation stroke Chronic
[2017-05-20] MEDS: ASPIRIN EC 81 MG TAB PO SCH (11:48)
[2017-05-20] MEDS: ETHACRYNIC ACID 25 MG TAB PO SCH (11:48)
[2017-05-20] MEDS: VITAMIN B COMPLEX 1 EA CAP/TAB PO SCH (11:48)
[2017-05-20] MEDS: ATORVASTATIN CALCIUM 10 MG TAB PO SCH ×2 (11:48→21:41)
--- NOTE | 2017-05-20 11:57 | GCON ---
[f rep st] CONSULTATION DATE OF CONSULTATION: 05/20/2017 HPI: A 66-year-old male diabetic, who presents with a pus-draining infection of his left 2nd toe. MRI is consistent with osteomyelitis of the metatarsal head. He has a chronic plantar ulcer over th at metatarsal head, although he does not appear to have a dense neuropathy. Risks and options have been fully discussed, and he agrees with left 2nd toe ray amputation. PAST MEDICAL HISTORY: Includes: 1. Coronary artery disease. 2. Diabetes, insulin dependent. 3. Chronic renal failure, on dialysis. 4. Hepatitis C. 5. Anxiety. 6. Aortic valve replacement. REVIEW OF SYSTEMS: Reveals no other major problems on a 10-point review of systems. SOCIAL HISTORY: He does not smoke. FAMILY HISTORY: Noncontributory. PHYSICAL EXAMINATION: GENERAL: An alert, cooperative, 66-year-old male, in no acute distress. HEA D AND NECK: No icterus. No adenopathy. No bruits. CHEST: Clear and symmetric. CARDIAC: Regula r rhythm. ABDOMEN: Soft, and nontender. EXTREMITIES: Decreased pedal pulses. On the left foot, he has a plantar ulcer over the metatarsal head, with gross purulence and some erythema extending up over the metatarsal head. NEUROLOGIC: Physiologic. IMPRESSION: Osteomyelitis, left 2nd metatarsal. PLAN: Ray amputation. Risks and options have been fully discussed, including failure to heal, hemo rrhage, infection, and other problems, and requests that we proceed. His vascularity has not been f ully evaluated at this point, but he has no other option, other than long-term antibiotics, for his foot infection. /[id number]/MODL
[2017-05-20] MEDS ORDERED: CEFAZOLIN 2 GM/DEXTROSE/100 ML BAG IV ONE (12:39)
[2017-05-20] MEDS ORDERED: MIDAZOLAM 2 MG/2 ML VIAL IVP ONE ×2 (13:07→13:15)
[2017-05-20] MEDS ORDERED: MIDAZOLAM 2 MG/2 ML VIAL ONE (13:10)
[2017-05-20] MEDS ORDERED: PROPOFOL 200 MG/20 ML VIAL ONE (13:11)
[2017-05-20] MEDS ORDERED: NALOXONE HCL 0.4 MG/ML INJ IVP PRN (13:56)
--- NOTE | 2017-05-20 13:56 | PDANEPAE ---
ANE History of Present Illness infected second toe left foot, diabetes ANE Past Medical History - Cardiovascular History Hx Hypertension: Yes Hx Arrhythmias: No Hx CHF / Valvular Disease: Yes - Pulmonary History Hx COPD: No Hx Asthma/Reactive Airway Disease: No Hx Oxygen in Use at Home: Yes Hx Sleep Apnea: No Sleep Apnea Screening Result - Last Documented: Positive Pulmonary History Comment: vocal cord disfunction status post stroke - Chronic Pain History Chronic Pain: Yes (right shoulder) ANE Patient History - Allergies Allergies/Adverse Reactions: Sulfa (Sulfonamide Antibiotics) [Sulfa(Sulfonamide Antibiotics)] Allergy (Severe , Verified 05/19/17 14:26) Hives torsemide Allergy (Severe, Verified 05/18/17 13:33) Other-Enter Comments heparin Allergy (Unknown, Unverified 05/19/17 14:26) furosemide [From Lasix] Allergy (Verified 05/18/17 13:33) Rash sulfamethoxazole [From Septra] Allergy (Verified 05/18/17 13:33) Other-Enter Comments trimethoprim [From Septra] Allergy (Verified 05/18/17 13:33) Other-Enter Comments - Home Medications Home Medications: Cholecalciferol Vit D3 [Vitamin D3 2000 units] 2,000 units PO HS 07/01/15 [Last Taken 05/09/17] Vitamin B Complex [B Complex] 1 each PO DAILY 07/01/15 [Last Taken 01/16/17] Aspirin EC [Aspirin EC 81 mg (*)] 81 mg PO DAILY 11/21/15 [Last Taken 05/16/17] Febuxostat [ULORIC] 40 mg PO HS 11/21/15 [Last Taken 01/26/16] Ascorbic Acid [Vitamin C 500 mg (*)] 500 mg PO Q3D 07/12/16 [Last Taken 01/16/17 ] Insulin Lispro [Humalog] 5 - 20 unit SQ TIDMEAL 07/12/16 [Last Taken 05/17/17 14 UNITS] Cyclobenzaprine [Flexeril 10 MG (*)] 15 mg PO DAILY PRN 01/16/17 [Last Taken ] Herbals/Supplements -Info Only 1 ea PO DAILY 01/16/17 [Last Taken 01/16/17] Mupirocin 2% [Bactroban 2%] 1 karlso TP HS PRN 01/16/17 [Last Taken 01/16/17] Omeprazole [Prilosec 20 mg] 40 mg PO DAILY 05/10/17 [Last Taken 05/16/17] oxyCODONE IR [Oxycodone Ir (*)] 5 mg PO BID PRN 05/10/17 [Last Taken 05/16/17] Atorvastatin Calcium [Lipitor 10 mg (*)] 10 mg PO BID 05/17/17 [Last Taken 05/16 21:00] Ethacrynic Acid [Edecrin 25 MG (*)] 125 mg PO SUTUTHSA 05/17/17 [Last Taken ] - NPO status NPO Since - Liquids (Date): 05/20/17 NPO Since - Liquids (Time): 00:01 NPO Since - Solids (Date): 05/20/17 NPO Since - Solids (Time): 00:01 - Smoking Hx Smoking Status: Former smoker ANE Labs/Vital Signs - Labs Result Diagrams: 05/20/17 04:05 05/20/17 04:05 - Vital Signs Blood Pressure: 138/91 Heart Rate: 89 Respiratory Rate: 12 O2 Sat (%): 94 Height: 172.72 cm Weight: 69.1 kg
[2017-05-20] MEDS ORDERED: THROMBIN (BOVINE) 5,000 UNIT VIAL TP ONE (13:59)
--- NOTE | 2017-05-20 13:59 | PCMIDPN ---
Assessment/Plan: Assessment/Plan: 1. MSSA bacteremia/sepsis likely secondary to 2nd toe abscess/Osteomyelitis: - MRI reviewed: 2nd MT head/phalanges/OM with likely absces --Currently on renal dose Ancef. -Appreciate Dr. Paul chan. -Pt in surgery at present for amputation. labs reviewed. -had TTE on 05/10/17 and at that time, no obvious vegetations noted. Pt has hx of bioprosthetic AV. -will check f/u blood cx in AM. -plan of care reveiwed with patient yesterday ,along with culture data, etc. Explained difficulty in treating bone infection with antibiotics alone and discussed principles behind co medical surgical care. Meds ancef 1g daily- 05/18/17 Subjective: pt in surgery. Objective: Vital Signs Temp Pulse Resp BP Pulse Ox 36.3 C 89 12 138/91 H 94 05/20/17 12:30 05/20/17 13:56 05/20/17 13:56 05/20/17 13:56 05/20/17 13:56 Laboratory Results 05/20/17 04:05 05/20/17 04:05 05/19/17 05/20/17 05/21/17 05:59 05:59 05:59 Intake Total 555 760 Output Total 2500 Balance 555 -2892 ICD10 Worksheet Patient Problems: Problems Problem Status Onset Bacteremia Acute Foot infection Acute CODY (acute kidney injury) Acute Acute on chronic renal failure Acute CAD, multiple vessel Acute Cellulitis of foot Acute Chronic Disease Mgmt/Transitional Care Acute Coagulopathy Acute Decubitus ulcer of heel, stage 1 Acute Dehiscence of closure of skin Acute Diabetic foot ulcer Acute Elevated troponin Acute Elevated troponin Acute Fever Acute Hyperkalemia Acute Hypoglycemia Acute Moderate aortic valve stenosis Acute Pleural effusion Acute Pleural effusion on left Acute Pneumonia Acute Renal insufficiency Acute S/P CABG x 4 Acute S/P aortic valve replacement with bioprosthetic valve Acute Shortness of breath Acute Shortness of breath on exertion Acute CKD (chronic kidney disease) Chronic Diabetes Chronic Osteomyelitis Chronic Posterior circulation stroke Chronic
[2017-05-20] MEDS ORDERED: FLUMAZENIL 0.5 MG/5 ML MDV IVP ONE (14:09)
[2017-05-20] MEDS ORDERED: HYDROCODONE/APAP 5/325 TAB ONE (14:39)
[2017-05-20] MEDS ORDERED: oxyCODONE IR 5 MG TAB ONE (14:43)
--- NOTE | 2017-05-20 14:46 | POSTOPPROG ---
Post Op Note Date of Operation: 05/20/17 Surgeon: Evan Miller Anesthesiologist: GABRIEL Anesthesia: IV Sedation, Local (Specify) Pre-op Diagnosis: OSTEOMYELITIS LEFT 2CD TOE Post-op Diagnosis: SAME Indication: INFECTION, SEPSIS Procedure: RAY AMPUTATION LEFT SECOND TOE Findings: OSTEO AND PURULENCE IN JOINT Inf/Abcess present in the surg proc area at time of surgery?: Yes Depth: Deep Incisional (Fascial) EBL: Minimal Complications: 0 Specimen(s): LEFT 2CD TOE AND METETARSAL HEAD
[2017-05-20] MEDS ORDERED: HYDROmorphONE/DILAUDID 1 MG/ML SYR IVP PRN (15:35)
--- NOTE | 2017-05-20 18:08 | SOAPPROG ---
SOAP Progress Note Assessment/Plan: Assessment/Plan: ESRD: on HD MWF, last dialyzed on Sunday off schedule. - Will do HD on Sunday per routine. Anemia: Hgb 11.0 at goal, no need for inpatient epo, will monitor. Subjective: No acute events overnight. Pt went for toe amputation today, pain controlled with pain meds currently. Objective: Vital Signs Temp Pulse Resp BP Pulse Ox 35.3 C L 62 17 120/70 100 05/20/17 15:16 05/20/17 15:16 05/20/17 15:16 05/20/17 15:16 05/20/17 15:16 Laboratory Results 05/20/17 04:05 05/20/17 04:05 05/19/17 05/20/17 05/21/17 05:59 05:59 05:59 Intake Total 555 760 400 Output Total 2500 25 Balance 555 -7670 375 General: alert and oriented, no acute distress Eyes; EOMI, pERRL OP: clear CV: RRR Resp: nonlabored respirations Abd; Soft, NT/ND Ext: +1 edema BLE, s/p L 2nd toe amputation with wound vac in place Neuro; CN II-XII grossly intact, no asterixis Psych; cooperative, appropriate mood and affect ICD10 Worksheet Patient Problems: Problems Problem Status Onset Bacteremia Acute Foot infection Acute CODY (acute kidney injury) Acute Acute on chronic renal failure Acute CAD, multiple vessel Acute Cellulitis of foot Acute Chronic Disease Mgmt/Transitional Care Acute Coagulopathy Acute Decubitus ulcer of heel, stage 1 Acute Dehiscence of closure of skin Acute Diabetic foot ulcer Acute Elevated troponin Acute Elevated troponin Acute Fever Acute Hyperkalemia Acute Hypoglycemia Acute Moderate aortic valve stenosis Acute Pleural effusion Acute Pleural effusion on left Acute Pneumonia Acute Renal insufficiency Acute S/P CABG x 4 Acute S/P aortic valve replacement with bioprosthetic valve Acute Shortness of breath Acute Shortness of breath on exertion Acute CKD (chronic kidney disease) Chronic Diabetes Chronic Osteomyelitis Chronic Posterior circulation stroke Chronic
--- NOTE | 2017-05-20 19:01 | GOP ---
[f rep st] OPERATIVE REPORT DATE OF OPERATION: 05/20/2017 SURGEON: Evan Miller MD FOREST ECONOMIST: There was no assistant athletic trainer. ANESTHESIOLOGIST: Dr. Calderon. PREOPERATIVE DIAGNOSIS: Osteomyelitis of the left 2nd metatarsal head. POSTOPERATIVE DIAGNOSIS: Osteomyelitis of the left 2nd metatarsal head. PROCEDURE PERFORMED: A ray amputation of the 2nd toe and metatarsal head of the left foot. FINDINGS: Patient was found to have purulent material coming out of the joint space and adjacent to the head of the 2nd metatarsal. DESCRIPTION OF PROCEDURE: The patient was taken to the operating room where he received satisfactor y general endotracheal anesthesia, made a satisfactory ankle block by Dr. Calderon and some IV sedatio n. He was prepped and draped in the usual sterile fashion. The ankle block was supplemented with s ome additional Marcaine infiltration. A tennis racquet type incision was made around the base of th e 2nd toe extending on the dorsum of the foot. Dissection extended down through the soft tissue and to the head of the metatarsal. This was divided with a saw and a 2nd toe and distal metatarsal wer e removed. Hemostasis was carefully obtained with electrocautery. He did have adequate blood flow and good vascularity. Wound was further debrided. The plantar ulcer was included in the previous e xcision. The wound was partially closed with interrupted 3-0 nylon sutures. The end of the metatars al head had been trimmed back further with a rongeur and smoothed out with a rasp. The tissue over the metatarsal was partially closed with interrupted 3-0 nylon sutures. A wound VAC system was esta blished for the foot. This was dressed and appeared to operate normally with a minimal leak. The w ound was further infiltrated with 0.5% Marcaine prior to placement of a wound VAC. He tolerated the procedure well. He was taken to the recovery room in good condition. There were no complications. /[id number]/MODL
--- NOTE | 2017-05-20 20:32 | HOSPPROG ---
Hospitalist Progress Note Assessment/Plan: 1. MSSA bacteremia/sepsis likely secondary to 2nd toe abscess/osteomyelitis: - 2nd MT head/phalanges/OM with abscess, s/p amputation Dr Miller this AM, pain meds adjusted, discussed care plan with Dr Miller -renal dose Ancef per ID, appreciate assistance and discussed care plan with Dr Ayala -regularly follows with Dr. Molina ([facility]) as outpatient -had TTE on 05/10/17 and at that time, no obvious vegetations noted. Pt has hx of bioprosthetic AV, + blood cx, repeat cultures pending, may need repeat echo if pos 2. ESRD: on HD MWF - Next HD tomorrow per routine. -appreciate nephrology assistance 3. Hyperkalemia/met acidosis -per renal/HD. 4. Anemia -Hgb at goal/no need for epo at this time per nephro 5. DM -SSI , add long acting depending upon trends (?takes 25u at home per reports) 6. hx hep C -s/p treatment at [facility] per his report 7. hx CAD, s/p CABG and bioprosthetic aortic valve -no acute cardiac issues, has seen [facility] prev but fired them per outpt records at new PCP Dr Akbar -says take B haily, started po med, watch BP closely 8. DVT prophy -heparin FULL CODE, PCP Dr Yazan Akbar DISPO- > 2 mdnts due to complexity of care, bacteremia, post op surgery Subjective: Starting to have more pain, hungry (seeing him post-op). Denies n/v/ CP/SOB/abd pain. Objective: Vital Signs Temp Pulse Resp BP Pulse Ox 97.9 F 88 18 120/70 90 L 05/20/17 20:00 05/20/17 20:00 05/20/17 20:00 05/20/17 20:00 05/20/17 20:00 Laboratory Results 05/20/17 04:05 05/20/17 04:05 05/19/17 05/20/17 05/21/17 11:59 11:59 11:59 Intake Total 555 745 600 Output Total 2500 25 Balance [phone] -[phone] - Time Spent With Patient Time Spent with Patient: greater than 35 minutes Time Spent with Patient: Greater than 35 minutes spent on this patients care, greater than 50% of time spent counseling, educating, and coordinating care regarding the above mentioned plan. - Pending Discharge Pending Discharge Within 24 Hours: No Pending Discharge Within 48 Hours: No - Physical Exam Constitutional: no apparent distress, appears nourished Eyes: PERRL, anicteric sclera, EOMI Ears, Nose, Mouth, Throat: moist mucous membranes Cardiovascular: regular rate and rhythym, no murmur, rub, or gallop, edema Respiratory: no respiratory distress, no rales or rhonchi, clear to auscultation Gastrointestinal: normoactive bowel sounds, soft, non-tender abdomen, no palpable masses Skin: other (wound drain/post surgical dressings in place L foot) Musculoskeletal: other (MOORE) Neurologic: other (non focal) Psychiatric: interacting appropriately, not encephalopathic, poor insight ICD10 Worksheet Patient Problems: Problems Problem Status Onset Bacteremia Acute Foot infection Acute CODY (acute kidney injury) Acute Acute on chronic renal failure Acute CAD, multiple vessel Acute Cellulitis of foot Acute Chronic Disease Mgmt/Transitional Care Acute Coagulopathy Acute Decubitus ulcer of heel, stage 1 Acute Dehiscence of closure of skin Acute Diabetic foot ulcer Acute Elevated troponin Acute Elevated troponin Acute Fever Acute Hyperkalemia Acute Hypoglycemia Acute Moderate aortic valve stenosis Acute Pleural effusion Acute Pleural effusion on left Acute Pneumonia Acute Renal insufficiency Acute S/P CABG x 4 Acute S/P aortic valve replacement with bioprosthetic valve Acute Shortness of breath Acute Shortness of breath on exertion Acute CKD (chronic kidney disease) Chronic Diabetes Chronic Osteomyelitis Chronic Posterior circulation stroke Chronic
[2017-05-20] MEDS: PANTOPRAZOLE SODIUM 40 MG TAB PO SCH (21:41)
[2017-05-20] MEDS: LABETALOL HCL 100 MG TAB PO SCH (21:42)
[2017-05-20] MEDS: FEBUXOSTAT 40 MG PO SCH (21:49)
[2017-05-21] MEDS: oxyCODONE IR 5 MG TAB PO PRN ×2 (05:07→18:16)
[2017-05-21] MEDS: HEPARIN 5,000 UNIT/0.5 ML SYR SC SCH ×3 (05:09→20:12)
[2017-05-21 05:56] LABS: HEMATOCRIT 35.3 % (40.0-51.0); HEMOGLOBIN 10.5 g/dL (13.7-17.5); MEAN CELL HEMOGLOBIN 25.1 pg (27.9-34.1); MEAN CELL HEMOGLOBIN CONCENTR. 29.7 g/dL (32.4-36.7); MEAN CELL VOLUME 84.4 fL (81.5-99.8); RED BLOOD CELL COUNT 4.18 10^6/uL (4.40-6.38); RED CELL DISTRIBUTION WIDTH 17.7 % (11.5-15.2)
[2017-05-21 06:05] LABS: APTT 29.1 SEC (23.0-38.0); INR 1.21 (0.83-1.16); PROTIME(PATIENT) 15.3 SEC (12.0-15.0)
[2017-05-21 06:08] LABS: ANION GAP 18 mEq/L (8-16); CARBON DIOXIDE 23 mEq/l (22-31); CHLORIDE 93 mEq/L (97-110); CREATININE 6.5 mg/dL (0.7-1.3); GLOMERULAR FILTRATION RATE 9; GLUCOSE 297 mg/dL (70-100); MAGNESIUM 2.2 mg/dL (1.6-2.3); POTASSIUM 4.8 mEq/L (3.5-5.2); SODIUM 134 mEq/L (134-144)
[2017-05-21] MEDS ORDERED: ASCORBIC ACID 500 MG TAB PO SCH (08:00)
[2017-05-21 08:23] LABS: GLUCOSE 355 mg/dL (70-100)
[2017-05-21] MEDS ORDERED: INSULIN LISPRO 100 UNIT/ML SC ONE (08:30)
[2017-05-21] MEDS: CHOLECALCIFEROL VIT D3 2,000 UNITS TAB/CAP PO SCH (08:52)
[2017-05-21] MEDS: VITAMIN B COMPLEX 1 EA CAP/TAB PO SCH (08:57)
[2017-05-21] MEDS: ASPIRIN EC 81 MG TAB PO SCH (08:57)
[2017-05-21] MEDS: ASCORBIC ACID 500 MG TAB PO SCH (08:58)
[2017-05-21] MEDS: ATORVASTATIN CALCIUM 10 MG TAB PO SCH ×2 (08:58→20:09)
--- NOTE | 2017-05-21 09:03 | PCMIDPN ---
Assessment/Plan: Assessment: Left foot 2nd toe abscess with met head osteomyelitis status post resection. Resection date on 05/20/2017. Patient states that incision site is healing well. Patient also has bacteremia with methicillin sensitive Staph aureus. He does receive dialysis through a fistula on his left upper extremity. This is not been causing him any problems. The fistula is quite functional. He is receiving cefazolin once daily. Plan: 1. Continue daily cefazolin (renally adjusted dose) 2. Follow repeat blood cultures. 3. Follow left amp site wound healing. Subjective: Patient resting in his hospital room. He is ambulatory at times. Denies any pain in his left lower extremity. Denies any fevers or chills. Tolerating cefazolin without issue. Objective: Cefazolin # 3 Vital Signs Temp Pulse Resp BP Pulse Ox 36.8 C 73 18 95/49 L 93 05/21/17 04:00 05/21/17 07:39 05/21/17 07:39 05/21/17 07:39 05/21/17 07:39 Laboratory Results 05/21/17 04:55 05/21/17 Unknown 05/20/17 05/21/17 05/22/17 05:59 05:59 05:59 Intake Total 760 950 Output Total 2500 25 Balance -3417 925 - Physical Exam General Appearance: WD/WN, alert, no apparent distress, non-toxic Respiratory: lungs clear, normal breath sounds, No respiratory distress Cardiac/Chest: regular rate, rhythm, No tachycardia Extremities: non-tender, No normal inspection Skin: normal color, warm/dry, No rash Neuro/Psych: alert, normal mood/affect, oriented x 3 ICD10 Worksheet Patient Problems: Problems Problem Status Onset Bacteremia Acute Foot infection Acute CODY (acute kidney injury) Acute Acute on chronic renal failure Acute CAD, multiple vessel Acute Cellulitis of foot Acute Chronic Disease Mgmt/Transitional Care Acute Coagulopathy Acute Decubitus ulcer of heel, stage 1 Acute Dehiscence of closure of skin Acute Diabetic foot ulcer Acute Elevated troponin Acute Elevated troponin Acute Fever Acute Hyperkalemia Acute Hypoglycemia Acute Moderate aortic valve stenosis Acute Pleural effusion Acute Pleural effusion on left Acute Pneumonia Acute Renal insufficiency Acute S/P CABG x 4 Acute S/P aortic valve replacement with bioprosthetic valve Acute Shortness of breath Acute Shortness of breath on exertion Acute CKD (chronic kidney disease) Chronic Diabetes Chronic Osteomyelitis Chronic Posterior circulation stroke Chronic
[2017-05-21] MEDS: LABETALOL HCL 100 MG TAB PO SCH ×2 (11:23→20:09)
[2017-05-21] MEDS: INSULIN GLARGINE 100 UNITS/ML SYRINGE SC SCH (11:23)
[2017-05-21] MEDS: INSULIN LISPRO 100 UNIT/ML SC SCH ×3 (11:31→18:20)
[2017-05-21] MEDS ORDERED: NON-FORMULARY NEW DRUG (Insulin Lispro [Humalog] 0 UNIT) SQ SCH (12:00)
--- NOTE | 2017-05-21 14:31 | HOSPPROG ---
Hospitalist Progress Note Assessment/Plan: 66 yo M w esrd, dm admitted w mssa bacteremia from LE wound 1. MSSA bacteremia/sepsis likely secondary to 2nd toe abscess/osteomyelitis: 2nd MT head/phalanges/OM with abscess, s/p amputation Dr Miller this 05/20 renal dose Ancef per ID, appreciate assistance and discussed care plan with Dr Ayala regularly follows with Dr. Molina ([facility]) as outpatient had TTE on 05/10/17 and at that time, no obvious vegetations noted. Pt has hx of bioprosthetic AV, + blood cx, cx neg thus far 2. ESRD: on HD MWF Next HD tomorrow per routine. 3. Hyperkalemia/met acidosis resolved w hd 4. Anemia Hgb at goal/no need for epo at this time per nephro 5. DM SSI sugars > goal i advised he would benefit from long acting insulin, he refused 6. hx hep C s/p treatment at [facility] per his report 7. hx CAD, s/p CABG and bioprosthetic aortic valve no acute cardiac issues, has seen [facility] prev but fired them per outpt records at new PCP Dr Akbar says take B haily, started po med, watch BP closely 8. DVT prophy -heparin FULL CODE, PCP Dr Yazan Akbar DISPO- > 2 mdnts due to complexity of care, bacteremia, post op surgery Subjective: tele: no events (interp by me). case d/w dr natarajan Objective: Vital Signs Temp Pulse Resp BP Pulse Ox 36.8 C 73 18 95/49 L 93 05/21/17 04:00 05/21/17 07:39 05/21/17 07:39 05/21/17 07:39 05/21/17 07:39 Microbiology 05/18/17 17:25 Blood Culture - Final Blood Staphylococcus Aureus Laboratory Results 05/21/17 04:55 05/21/17 Unknown 05/20/17 05/21/17 05/22/17 05:59 05:59 05:59 Intake Total 760 950 Output Total 2500 25 Balance -1740 925 PT 15.3 SEC (12.0-15.0) H 05/21/17 04:55 INR 1.21 (0.83-1.16) H 05/21/17 04:55 - Physical Exam Constitutional: no apparent distress, appears nourished Eyes: PERRL, anicteric sclera Ears, Nose, Mouth, Throat: moist mucous membranes, hearing normal Cardiovascular: regular rate and rhythym, no murmur, rub, or gallop Respiratory: no respiratory distress, no rales or rhonchi Gastrointestinal: normoactive bowel sounds, soft, non-tender abdomen Genitourinary: no bladder fullness, No uriarte in urethra Skin: warm, normal color Musculoskeletal: other (L foot bandaged w wound vac) Neurologic: AAOx3 ICD10 Worksheet Patient Problems: Problems Problem Status Onset Bacteremia Acute Foot infection Acute CODY (acute kidney injury) Acute Acute on chronic renal failure Acute CAD, multiple vessel Acute Cellulitis of foot Acute Chronic Disease Mgmt/Transitional Care Acute Coagulopathy Acute Decubitus ulcer of heel, stage 1 Acute Dehiscence of closure of skin Acute Diabetic foot ulcer Acute Elevated troponin Acute Elevated troponin Acute Fever Acute Hyperkalemia Acute Hypoglycemia Acute Moderate aortic valve stenosis Acute Pleural effusion Acute Pleural effusion on left Acute Pneumonia Acute Renal insufficiency Acute S/P CABG x 4 Acute S/P aortic valve replacement with bioprosthetic valve Acute Shortness of breath Acute Shortness of breath on exertion Acute CKD (chronic kidney disease) Chronic Diabetes Chronic Osteomyelitis Chronic Posterior circulation stroke Chronic
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
--- NOTE | 2017-05-21 18:51 | SOAPPROG ---
SOAP Progress Note Assessment/Plan: Assessment: 1. esrd: cont hd on typical [facility] schedule. 2. bacteremia: on ancef, afebrile, repeat cx pending. 3. anemia: hgb in range. Plan: 05/21/17 18:49 Subjective: S/p hd earlier today, uneventful. Upset over possible loss of housing. Objective: Vital Signs Temp Pulse Resp BP Pulse Ox 36.7 C 72 14 126/63 H 90 L 05/21/17 15:38 05/21/17 15:38 05/21/17 15:38 05/21/17 15:38 05/21/17 15:38 Microbiology 05/18/17 17:25 Blood Culture - Final Blood Staphylococcus Aureus Laboratory Results 05/21/17 04:55 05/21/17 Unknown 05/20/17 05/21/17 05/22/17 05:59 05:59 05:59 Intake Total 760 950 600 Output Total 2500 25 Balance -1740 925 600 PT 15.3 SEC (12.0-15.0) H 05/21/17 04:55 INR 1.21 (0.83-1.16) H 05/21/17 04:55 Physical Exam - Physical Exam General Appearance: no apparent distress Respiratory: lungs clear Cardiac/Chest: regular rate, rhythm Extremities: pedal edema, other (+patent LUE avf) ICD10 Worksheet Patient Problems: Problems Problem Status Onset Bacteremia Acute Foot infection Acute CODY (acute kidney injury) Acute Acute on chronic renal failure Acute CAD, multiple vessel Acute Cellulitis of foot Acute Chronic Disease Mgmt/Transitional Care Acute Coagulopathy Acute Decubitus ulcer of heel, stage 1 Acute Dehiscence of closure of skin Acute Diabetic foot ulcer Acute Elevated troponin Acute Elevated troponin Acute Fever Acute Hyperkalemia Acute Hypoglycemia Acute Moderate aortic valve stenosis Acute Pleural effusion Acute Pleural effusion on left Acute Pneumonia Acute Renal insufficiency Acute S/P CABG x 4 Acute S/P aortic valve replacement with bioprosthetic valve Acute Shortness of breath Acute Shortness of breath on exertion Acute CKD (chronic kidney disease) Chronic Diabetes Chronic Osteomyelitis Chronic Posterior circulation stroke Chronic
[2017-05-21] MEDS: PANTOPRAZOLE SODIUM 40 MG TAB PO SCH (20:10)
[2017-05-21] MEDS: FEBUXOSTAT 40 MG PO SCH (20:10)
[2017-05-22] MEDS: oxyCODONE IR 5 MG TAB PO PRN ×3 (00:02→21:11)
[2017-05-22] MEDS: CYCLOBENZAPRINE 10 MG TAB PO PRN ×3 (00:04→21:10)
[2017-05-22] MEDS: HEPARIN 5,000 UNIT/0.5 ML SYR SC SCH ×3 (06:23→22:15)
[2017-05-22] MEDS: INSULIN LISPRO 100 UNIT/ML SC SCH ×3 (10:57→17:53)
[2017-05-22] MEDS: ASCORBIC ACID 500 MG TAB PO SCH (10:58)
[2017-05-22] MEDS: CHOLECALCIFEROL VIT D3 2,000 UNITS TAB/CAP PO SCH (10:59)
[2017-05-22] MEDS: VITAMIN B COMPLEX 1 EA CAP/TAB PO SCH (10:59)
[2017-05-22] MEDS: ASPIRIN EC 81 MG TAB PO SCH (11:00)
[2017-05-22] MEDS: ATORVASTATIN CALCIUM 10 MG TAB PO SCH ×2 (11:00→21:10)
[2017-05-22] MEDS: INSULIN GLARGINE 100 UNITS/ML SYRINGE SC SCH (11:00)
[2017-05-22] MEDS: LABETALOL HCL 100 MG TAB PO SCH ×2 (11:01→21:12)
--- NOTE | 2017-05-22 14:10 | PCMIDPN ---
Assessment/Plan: Assessment/Plan: 1. MSSA bacteremia/sepsis likely secondary to 2nd toe abscess/Osteomyelitis: - MRI reviewed: 2nd MT head/phalanges/OM with likely abscess --Currently on renal dose Ancef. -s/p left 2nd toe ray amputation along with head of MT.. -had TTE on 05/10/17 and at that time, no obvious vegetations noted. Pt has hx of bioprosthetic AV. -wif/u blood cx form 05/19/17 ngtd -continue current antibiotics. Meds ancef 1g daily- 05/18/17 Subjective: pt feels ok. patient did not want to answer any questions at this time. he is searching for some letter which the nurses are helping him with. Objective: Vital Signs Temp Pulse Resp BP Pulse Ox 36.8 C 62 16 124/65 H 91 L 05/22/17 12:00 05/22/17 12:00 05/22/17 12:00 05/22/17 12:00 05/22/17 12:00 Microbiology 05/18/17 17:25 Blood Culture - Final Blood Staphylococcus Aureus Laboratory Results 05/21/17 04:55 05/21/17 Unknown 05/21/17 05/22/17 05/23/17 05:59 05:59 05:59 Intake Total 950 900 Output Total 25 0 Balance 925 900 - Physical Exam General Appearance: alert, no apparent distress, other (patient refused exam) ICD10 Worksheet Patient Problems: Problems Problem Status Onset Bacteremia Acute Foot infection Acute CODY (acute kidney injury) Acute Acute on chronic renal failure Acute CAD, multiple vessel Acute Cellulitis of foot Acute Chronic Disease Mgmt/Transitional Care Acute Coagulopathy Acute Decubitus ulcer of heel, stage 1 Acute Dehiscence of closure of skin Acute Diabetic foot ulcer Acute Elevated troponin Acute Elevated troponin Acute Fever Acute Hyperkalemia Acute Hypoglycemia Acute Moderate aortic valve stenosis Acute Pleural effusion Acute Pleural effusion on left Acute Pneumonia Acute Renal insufficiency Acute S/P CABG x 4 Acute S/P aortic valve replacement with bioprosthetic valve Acute Shortness of breath Acute Shortness of breath on exertion Acute CKD (chronic kidney disease) Chronic Diabetes Chronic Osteomyelitis Chronic Posterior circulation stroke Chronic
--- NOTE | 2017-05-22 14:23 | HOSPPROG ---
Hospitalist Progress Note Assessment/Plan: 66 yo M w esrd, dm admitted w mssa bacteremia from LE wound 1. MSSA bacteremia/sepsis likely secondary to 2nd toe abscess/osteomyelitis: 2nd MT head/phalanges/OM with abscess, s/p amputation Dr Miller this 05/20 renal dose Ancef per ID, appreciate assistance and discussed care plan with Dr Early regularly follows with Dr. Molina ([facility]) as outpatient had TTE on 05/10/17 and at that time, no obvious vegetations noted. Pt has hx of bioprosthetic AV, + blood cx, cx neg thus far (05/22) 2. ESRD: on HD MWF Next HD tomorrow per routine. 3. Hyperkalemia/met acidosis resolved w hd 4. Anemia Hgb at goal/no need for epo at this time per nephro 5. DM SSI sugars > goal i advised he would benefit from long acting insulin, he refused 6. hx hep C s/p treatment at [facility] per his report 7. hx CAD, s/p CABG and bioprosthetic aortic valve no acute cardiac issues, has seen [facility] prev but fired them per outpt records at new PCP Dr Akbar says take B haily, started po med, watch BP closely 8. DVT prophy -heparin FULL CODE, PCP Dr Yazan Akbar DISPO- > 2 mdnts due to complexity of care, bacteremia, post op surgery I told him leaving AMA would be limb threatening Subjective: case d/w dr early. threatening to leave AMA 12/21 some rent issues that appear to have been adequately addressed Objective: Vital Signs Temp Pulse Resp BP Pulse Ox 36.8 C 62 16 124/65 H 91 L 05/22/17 12:00 05/22/17 12:00 05/22/17 12:00 05/22/17 12:00 05/22/17 12:00 Microbiology 05/18/17 17:25 Blood Culture - Final Blood Staphylococcus Aureus Laboratory Results 05/21/17 04:55 05/21/17 Unknown 05/21/17 05/22/17 05/23/17 05:59 05:59 05:59 Intake Total 950 900 Output Total 25 0 Balance 925 900 PT 15.3 SEC (12.0-15.0) H 05/21/17 04:55 INR 1.21 (0.83-1.16) H 05/21/17 04:55 - Physical Exam Constitutional: no apparent distress, appears nourished Eyes: PERRL, anicteric sclera Ears, Nose, Mouth, Throat: moist mucous membranes, hearing normal Cardiovascular: regular rate and rhythym, no murmur, rub, or gallop Respiratory: no respiratory distress, no rales or rhonchi Gastrointestinal: normoactive bowel sounds, soft, non-tender abdomen Genitourinary: No uriarte in urethra Skin: warm, normal color Musculoskeletal: full muscle strength, no muscle tenderness, other (wound vac lower extremity) Neurologic: AAOx3 Psychiatric: interacting appropriately ICD10 Worksheet Patient Problems: Problems Problem Status Onset Bacteremia Acute Foot infection Acute CODY (acute kidney injury) Acute Acute on chronic renal failure Acute CAD, multiple vessel Acute Cellulitis of foot Acute Chronic Disease Mgmt/Transitional Care Acute Coagulopathy Acute Decubitus ulcer of heel, stage 1 Acute Dehiscence of closure of skin Acute Diabetic foot ulcer Acute Elevated troponin Acute Elevated troponin Acute Fever Acute Hyperkalemia Acute Hypoglycemia Acute Moderate aortic valve stenosis Acute Pleural effusion Acute Pleural effusion on left Acute Pneumonia Acute Renal insufficiency Acute S/P CABG x 4 Acute S/P aortic valve replacement with bioprosthetic valve Acute Shortness of breath Acute Shortness of breath on exertion Acute CKD (chronic kidney disease) Chronic Diabetes Chronic Osteomyelitis Chronic Posterior circulation stroke Chronic
[2017-05-22] MEDS: ETHACRYNIC ACID 25 MG TAB PO SCH ×2 (17:10→17:24)
--- NOTE | 2017-05-22 18:13 | SOAPPROG ---
SOAP Progress Note Assessment/Plan: Assessment: 1. esrd: hd tomorrow on typical [facility] schedule. 2. bacteremia: on ancef, afebrile, repeat cx ngtd. 3. anemia: hgb in range. Plan: 05/21/17 18:49 05/22/17 18:09 Subjective: Eating dinner, no particular c/o. Objective: Vital Signs Temp Pulse Resp BP Pulse Ox 36.6 C 62 16 120/58 L 93 05/22/17 15:49 05/22/17 15:49 05/22/17 15:49 05/22/17 15:49 05/22/17 15:49 Laboratory Results 05/21/17 04:55 05/21/17 Unknown 05/21/17 05/22/17 05/23/17 05:59 05:59 05:59 Intake Total 950 900 500 Output Total 25 0 Balance 925 900 500 PT 15.3 SEC (12.0-15.0) H 05/21/17 04:55 INR 1.21 (0.83-1.16) H 05/21/17 04:55 Physical Exam - Physical Exam General Appearance: no apparent distress Respiratory: lungs clear Cardiac/Chest: regular rate, rhythm Extremities: pedal edema, other (wound vac L foot) ICD10 Worksheet Patient Problems: Problems Problem Status Onset Bacteremia Acute Foot infection Acute CODY (acute kidney injury) Acute Acute on chronic renal failure Acute CAD, multiple vessel Acute Cellulitis of foot Acute Chronic Disease Mgmt/Transitional Care Acute Coagulopathy Acute Decubitus ulcer of heel, stage 1 Acute Dehiscence of closure of skin Acute Diabetic foot ulcer Acute Elevated troponin Acute Elevated troponin Acute Fever Acute Hyperkalemia Acute Hypoglycemia Acute Moderate aortic valve stenosis Acute Pleural effusion Acute Pleural effusion on left Acute Pneumonia Acute Renal insufficiency Acute S/P CABG x 4 Acute S/P aortic valve replacement with bioprosthetic valve Acute Shortness of breath Acute Shortness of breath on exertion Acute CKD (chronic kidney disease) Chronic Diabetes Chronic Osteomyelitis Chronic Posterior circulation stroke Chronic
[2017-05-22] MEDS: PANTOPRAZOLE SODIUM 40 MG TAB PO SCH (21:11)
[2017-05-22] MEDS: FEBUXOSTAT 40 MG PO SCH (22:15)
[2017-05-23] MEDS: HEPARIN 5,000 UNIT/0.5 ML SYR SC SCH ×3 (05:43→20:28)
[2017-05-23 07:43] LABS: ANION GAP 18 mEq/L (8-16); CARBON DIOXIDE 20 mEq/l (22-31); CHLORIDE 99 mEq/L (97-110); CREATININE 6.6 mg/dL (0.7-1.3); GLOMERULAR FILTRATION RATE 8; GLUCOSE 246 mg/dL (70-100); POTASSIUM 4.7 mEq/L (3.5-5.2); SODIUM 137 mEq/L (134-144)
[2017-05-23] MEDS: INSULIN LISPRO 100 UNIT/ML SC SCH ×3 (08:45→17:46)
--- NOTE | 2017-05-23 09:30 | SOAPPROG ---
SOAP Progress Note Assessment/Plan: Assessment: 1. ESRD Seen on HD today. Stable. May need to back off on UF due to cramping 2. Staph Aureus Bacteremia ID following. 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 3. Anemia This is at [place] 4. L 1st MT abscess s/p amputation 5. HTN BP ok 05/23/17 10:21 Objective: Vital Signs Temp Pulse Resp BP Pulse Ox 36.5 C 63 16 121/61 H 92 05/23/17 00:00 05/23/17 00:00 05/23/17 00:00 05/23/17 00:00 05/23/17 00:00 Laboratory Results 05/21/17 04:55 05/23/17 07:06 05/22/17 05/23/17 05/24/17 05:59 05:59 05:59 Intake Total 900 500 Output Total 0 Balance 900 500 PT 15.3 SEC (12.0-15.0) H 05/21/17 04:55 INR 1.21 (0.83-1.16) H 05/21/17 04:55 Physical Exam - Physical Exam General Appearance: other (a bit agitated) Respiratory: lungs clear Cardiac/Chest: regular rate, rhythm Extremities: pedal edema Neuro/Psych: oriented x 3 ICD10 Worksheet Patient Problems: Problems Problem Status Onset Bacteremia Acute Foot infection Acute CODY (acute kidney injury) Acute Acute on chronic renal failure Acute CAD, multiple vessel Acute Cellulitis of foot Acute Chronic Disease Mgmt/Transitional Care Acute Coagulopathy Acute Decubitus ulcer of heel, stage 1 Acute Dehiscence of closure of skin Acute Diabetic foot ulcer Acute Elevated troponin Acute Elevated troponin Acute Fever Acute Hyperkalemia Acute Hypoglycemia Acute Moderate aortic valve stenosis Acute Pleural effusion Acute Pleural effusion on left Acute Pneumonia Acute Renal insufficiency Acute S/P CABG x 4 Acute S/P aortic valve replacement with bioprosthetic valve Acute Shortness of breath Acute Shortness of breath on exertion Acute CKD (chronic kidney disease) Chronic Diabetes Chronic Osteomyelitis Chronic Posterior circulation stroke Chronic
[2017-05-23] MEDS ORDERED: HYDROmorphONE/DILAUDID 2 MG/ML INJ IVP PRN (11:29)
[2017-05-23] MEDS: HYDROmorphONE/DILAUDID 1 MG/ML SYR IVP PRN (11:56)
[2017-05-23] MEDS: INSULIN GLARGINE 100 UNITS/ML SYRINGE SC SCH (12:01)
--- NOTE | 2017-05-23 12:04 | HOSPPROG ---
Hospitalist Progress Note Assessment/Plan: 66 yo M w esrd, dm admitted w mssa bacteremia from LE wound 1. MSSA bacteremia/sepsis likely secondary to 2nd toe abscess/osteomyelitis: 2nd MT head/phalanges/OM with abscess, s/p amputation Dr Miller this 05/20 renal dose Ancef per ID, appreciate assistance and discussed care plan with Dr Ayala regularly follows with Dr. Molina (DPM) as outpatient had TTE on 05/10/17 and at that time, no obvious vegetations noted. Pt has hx of bioprosthetic AV, + blood cx, cx neg thus far (05/23) 2. ESRD: on HD MWF Next HD tomorrow per routine. 3. Hyperkalemia/met acidosis resolved w hd 4. Anemia Hgb at goal/no need for epo at this time per nephro 5. DM SSI sugars > goal i advised he would benefit from long acting insulin, he refused 6. hx hep C s/p treatment at [facility] per his report 7. hx CAD, s/p CABG and bioprosthetic aortic valve no acute cardiac issues, has seen [facility] prev but fired them per outpt records at new PCP Dr Akbar says take B haily, started po med, watch BP closely 8. DVT prophy -heparin FULL CODE, PCP Dr Yazan Akbar DISPO- > 2 mdnts due to complexity of care, bacteremia, post op surgery I told him leaving AMA would be limb threatening Subjective: wound vac change today. case d/w dr hager Objective: Vital Signs Temp Pulse Resp BP Pulse Ox 36.5 C 60 16 122/61 H 94 05/23/17 00:00 05/23/17 11:38 05/23/17 00:00 05/23/17 11:38 05/23/17 11:38 Laboratory Results 05/21/17 04:55 05/23/17 07:06 05/22/17 05/23/17 05/24/17 05:59 05:59 05:59 Intake Total 900 500 Output Total 0 2800 Balance 900 -2300 PT 15.3 SEC (12.0-15.0) H 05/21/17 04:55 INR 1.21 (0.83-1.16) H 05/21/17 04:55 - Physical Exam Constitutional: no apparent distress, appears nourished Eyes: PERRL, anicteric sclera Ears, Nose, Mouth, Throat: moist mucous membranes, hearing normal Cardiovascular: regular rate and rhythym, no murmur, rub, or gallop, systolic murmur Respiratory: no respiratory distress, no rales or rhonchi Gastrointestinal: normoactive bowel sounds, soft, non-tender abdomen Genitourinary: no bladder fullness, No uriarte in urethra Skin: warm, normal color Musculoskeletal: full muscle strength, no muscle tenderness Neurologic: AAOx3 ICD10 Worksheet Patient Problems: Problems Problem Status Onset Bacteremia Acute Foot infection Acute CODY (acute kidney injury) Acute Acute on chronic renal failure Acute CAD, multiple vessel Acute Cellulitis of foot Acute Chronic Disease Mgmt/Transitional Care Acute Coagulopathy Acute Decubitus ulcer of heel, stage 1 Acute Dehiscence of closure of skin Acute Diabetic foot ulcer Acute Elevated troponin Acute Elevated troponin Acute Fever Acute Hyperkalemia Acute Hypoglycemia Acute Moderate aortic valve stenosis Acute Pleural effusion Acute Pleural effusion on left Acute Pneumonia Acute Renal insufficiency Acute S/P CABG x 4 Acute S/P aortic valve replacement with bioprosthetic valve Acute Shortness of breath Acute Shortness of breath on exertion Acute CKD (chronic kidney disease) Chronic Diabetes Chronic Osteomyelitis Chronic Posterior circulation stroke Chronic
--- NOTE | 2017-05-23 12:16 | WOCRNPDOC ---
WOCRN Advanced Assessment Note - Skin Integrity Problem, Advanced Assess Left Second Toe Surgical Wound/Incision Dressing Type: Black Vac Foam (x1), Wound Vac Dressing Description: Intact, Saturated Closure Description: Sutures (covered with contact layer), Approximated Exudate Amount: Moderate Exudate Characteristic(s): Bloody Integumentary Issue Intervention: Dressing Changed, Silver Nitrate Application ( to tissue area around 9 oclock to acheive hemostasis) Sue Wound Tissue: Macerated (under drape), Altered Sensitivity Wound Bed Constitution: Granulation Tissue (50%), Smooth Tissue (50%), Subcutaneous Fat Site Measurement - Head-to-Toe Length X Width X Depth (cm): 3.5x1.5x1 Skin Integrity Problem Comment: Flushed with ns and gauze. Drape applied sue wound. One piece of black foam applied to wound bed and a second above it where the bridge suction attached. Bridge dressing used and tubing/extension extended to below the knee. Vac restarted at -125 mm Hg continuous suction with no leaks. Patient tolerated procedure well and seemed to have quite a bit of neuropathy in the area. Huy Deal in room for care. Next vac change Sunday. Reported to [facility] J[facility]NSON.
[2017-05-23] MEDS: CHOLECALCIFEROL VIT D3 2,000 UNITS TAB/CAP PO SCH (12:19)
[2017-05-23] MEDS: ATORVASTATIN CALCIUM 10 MG TAB PO SCH ×2 (12:19→20:07)
[2017-05-23] MEDS: ASCORBIC ACID 500 MG TAB PO SCH (12:19)
[2017-05-23] MEDS: ASPIRIN EC 81 MG TAB PO SCH (12:19)
[2017-05-23] MEDS: VITAMIN B COMPLEX 1 EA CAP/TAB PO SCH (12:20)
[2017-05-23] MEDS: LABETALOL HCL 100 MG TAB PO SCH ×2 (12:20→20:07)
[2017-05-23] MEDS: oxyCODONE IR 5 MG TAB PO PRN ×2 (14:26→20:06)
[2017-05-23] MEDS: CYCLOBENZAPRINE 10 MG TAB PO PRN (14:27)
[2017-05-23] MEDS ORDERED: ceFAZolin 2 GM/DEXTROSE 100 ML IV SCH (17:00)
--- NOTE | 2017-05-23 17:18 | PCMIDPN ---
Assessment/Plan: # MSSA bacteremia , source LEFT 2nd toe s/p ray amp 05/20 with obvious clinic osteo and purulence in joint, wound without purulence, erythema today, healthy bleeding tissue. Blood cx 05/21 demonstrate clearance --plan 2 weeks (06/04) or 4 weeks (06/18) IV cefazolin. Duration depends on ECHO. --Change to outpatient renal dosing cefazolin 2gm after HD MWF. --h/o prosthetic AV and Ca++ of MV, will repeat TTE in light of bacteremia. # ESRD microbiology 05/17, 05/18: blood cx (2/2) MSSA 05/21: blood cx (2) NGTD Meds, Abx #7 cefazolin 1gm IV daily #6 Subjective: denies diarrhea chronic itching no foot pain Objective: Vital Signs Temp Pulse Resp BP Pulse Ox 36.5 C 60 16 122/61 H 94 05/23/17 00:00 05/23/17 11:38 05/23/17 00:00 05/23/17 11:38 05/23/17 11:38 Laboratory Results 05/21/17 04:55 05/23/17 07:06 05/22/17 05/23/17 05/24/17 05:59 05:59 05:59 Intake Total 900 500 Output Total 0 2800 Balance 900 -2300 - Physical Exam General Appearance: alert, no apparent distress Respiratory: lungs clear, No accessory muscle use Cardiac/Chest: regular rate, rhythm, systolic murmur Extremities: other (pictures of wound examined: size 3.5x1.5x1cm, healthy appearing granulation tissue in base , no erythema, no purulence, some mild bleeding) ICD10 Worksheet Patient Problems: Problems Problem Status Onset Bacteremia Acute Foot infection Acute CODY (acute kidney injury) Acute Acute on chronic renal failure Acute CAD, multiple vessel Acute Cellulitis of foot Acute Chronic Disease Mgmt/Transitional Care Acute Coagulopathy Acute Decubitus ulcer of heel, stage 1 Acute Dehiscence of closure of skin Acute Diabetic foot ulcer Acute Elevated troponin Acute Elevated troponin Acute Fever Acute Hyperkalemia Acute Hypoglycemia Acute Moderate aortic valve stenosis Acute Pleural effusion Acute Pleural effusion on left Acute Pneumonia Acute Renal insufficiency Acute S/P CABG x 4 Acute S/P aortic valve replacement with bioprosthetic valve Acute Shortness of breath Acute Shortness of breath on exertion Acute CKD (chronic kidney disease) Chronic Diabetes Chronic Osteomyelitis Chronic Posterior circulation stroke Chronic
--- NOTE | 2017-05-23 17:50 | SOAPPROG ---
SOAP Progress Note Assessment/Plan: Assessment: 66-YEAR-OLD MALE DIABETIC WITH OSTEOMYELITIS OF HIS 2ND METATARSAL HEAD ON HIS LEFT FOOT/RECENTLY DRAINING PUS/CULTURE SHOWED STAPH AUREUS PAST HISTORY INCLUDES DIABETES, CHRONIC RENAL FAILURE, CORONARY ARTERY DISEASE. HE HAS HAD A PREVIOUS TOE AMPUTATION ON HIS OTHER FOOT RISKS AND OPTIONS BEEN FULLY DISCUSSED AND HE AGREES WITH PROCEEDING WITH A LEFT 2ND TOE RAY AMPUTATION AND POSSIBLE WOUND VAC PLACED Plan: 2ND TOE RAY AMPUTATION LEFT FOOT 05/20/17 11:17 05/23/17 17:49 WOUND GRANULATING WELL/ VAC CHANGED/ TO SNF SOON Objective: Vital Signs Temp Pulse Resp BP Pulse Ox 36.5 C 60 16 122/61 H 94 05/23/17 00:00 05/23/17 11:38 05/23/17 00:00 05/23/17 11:38 05/23/17 11:38 Laboratory Results 05/21/17 04:55 05/23/17 07:06 05/22/17 05/23/17 05/24/17 05:59 05:59 05:59 Intake Total 900 500 500 Output Total 0 2800 Balance 900 -2300 500 PT 15.3 SEC (12.0-15.0) H 05/21/17 04:55 INR 1.21 (0.83-1.16) H 05/21/17 04:55 ICD10 Worksheet Patient Problems: Problems Problem Status Onset Bacteremia Acute Foot infection Acute CODY (acute kidney injury) Acute Acute on chronic renal failure Acute CAD, multiple vessel Acute Cellulitis of foot Acute Chronic Disease Mgmt/Transitional Care Acute Coagulopathy Acute Decubitus ulcer of heel, stage 1 Acute Dehiscence of closure of skin Acute Diabetic foot ulcer Acute Elevated troponin Acute Elevated troponin Acute Fever Acute Hyperkalemia Acute Hypoglycemia Acute Moderate aortic valve stenosis Acute Pleural effusion Acute Pleural effusion on left Acute Pneumonia Acute Renal insufficiency Acute S/P CABG x 4 Acute S/P aortic valve replacement with bioprosthetic valve Acute Shortness of breath Acute Shortness of breath on exertion Acute CKD (chronic kidney disease) Chronic Diabetes Chronic Osteomyelitis Chronic Posterior circulation stroke Chronic
[2017-05-23] MEDS: PANTOPRAZOLE SODIUM 40 MG TAB PO SCH (20:07)
[2017-05-23] MEDS: FEBUXOSTAT 40 MG PO SCH (20:28)
[2017-05-24] MEDS: HEPARIN 5,000 UNIT/0.5 ML SYR SC SCH ×3 (07:14→21:43)
[2017-05-24] MEDS: VITAMIN B COMPLEX 1 EA CAP/TAB PO SCH (07:52)
[2017-05-24] MEDS: CHOLECALCIFEROL VIT D3 2,000 UNITS TAB/CAP PO SCH (07:52)
[2017-05-24] MEDS: ASPIRIN EC 81 MG TAB PO SCH (07:52)
[2017-05-24] MEDS: ATORVASTATIN CALCIUM 10 MG TAB PO SCH ×2 (07:52→21:39)
[2017-05-24] MEDS: INSULIN LISPRO 100 UNIT/ML SC SCH ×3 (07:52→16:19)
[2017-05-24] MEDS: ASCORBIC ACID 500 MG TAB PO SCH (07:52)
[2017-05-24] MEDS: LABETALOL HCL 100 MG TAB PO SCH ×2 (07:56→21:39)
[2017-05-24] MEDS ORDERED: ETHACRYNIC ACID 25 MG TAB PO SCH (09:00)
--- NOTE | 2017-05-24 09:40 | SOAPPROG ---
SOAP Progress Note Assessment/Plan: Assessment:Plan: ESRD-stable -for Hd tomorrow -typically on MWF at [facility] under the care of Dr. Cueto, [facility] Fluid overload-had cramping with attempts to take 3kg off yesterday, will reduce goal to 2.5 -may need PUF to help with edema and wound healing Access-patient LUE AVF s/p surgery-wound vac in place MSSA-on abx -Cefazolin Dispo-pending 05/24/17 09:39 Subjective: stable overnite Objective: Vital Signs Temp Pulse Resp BP Pulse Ox 36.3 C 61 17 116/62 91 L 05/24/17 07:18 05/24/17 07:18 05/24/17 07:18 05/24/17 07:18 05/24/17 07:18 Microbiology 05/18/17 17:05 Blood Culture - Final Blood Staphylococcus Aureus Laboratory Results 05/21/17 04:55 05/23/17 07:06 05/23/17 05/24/17 05/25/17 05:59 05:59 05:59 Intake Total 500 675 Output Total 2800 Balance -2300 675 PT 15.3 SEC (12.0-15.0) H 05/21/17 04:55 INR 1.21 (0.83-1.16) H 05/21/17 04:55 Physical Exam - Physical Exam General Appearance: WD/WN, alert, no apparent distress EENT: normal ENT inspection Neck: normal inspection Respiratory: lungs clear, normal breath sounds, No respiratory distress Cardiac/Chest: regular rate, rhythm, systolic murmur Abdomen: normal bowel sounds, non-tender Extremities: swelling (2-3+ edema to thighs) ICD10 Worksheet Patient Problems: Problems Problem Status Onset Bacteremia Acute Foot infection Acute CODY (acute kidney injury) Acute Acute on chronic renal failure Acute CAD, multiple vessel Acute Cellulitis of foot Acute Chronic Disease Mgmt/Transitional Care Acute Coagulopathy Acute Decubitus ulcer of heel, stage 1 Acute Dehiscence of closure of skin Acute Diabetic foot ulcer Acute Elevated troponin Acute Elevated troponin Acute Fever Acute Hyperkalemia Acute Hypoglycemia Acute Moderate aortic valve stenosis Acute Pleural effusion Acute Pleural effusion on left Acute Pneumonia Acute Renal insufficiency Acute S/P CABG x 4 Acute S/P aortic valve replacement with bioprosthetic valve Acute Shortness of breath Acute Shortness of breath on exertion Acute CKD (chronic kidney disease) Chronic Diabetes Chronic Osteomyelitis Chronic Posterior circulation stroke Chronic
[2017-05-24] MEDS: INSULIN GLARGINE 100 UNITS/ML SYRINGE SC SCH (10:44)
[2017-05-24] MEDS: oxyCODONE IR 5 MG TAB PO PRN ×2 (10:52→23:05)
--- NOTE | 2017-05-24 12:08 | ECHO ---
[id number] + + [address] : : [place] [address] : : [phone] + + Adult Echocardiographic Report + ------+ :Name: FAISAL WYNN Date: 05/24/2017 09:32 AM : : Hospital Admission Number: [id number] Locatio n: 220: :: 1950 Gender: Male Height: 68 in : :Age: 66 yrs Race: WH Weight: 154 lb : :Reason For Study: MSSA bacteremia/eval for endocarditis : : BSA: 1.8 meters 2 : :History: Prosthetic AV/Ca++MV : + ------+ MMode/2D Measurements \\T\\ Calculations IVSd: 1.2 cm LVIDd: 4.9 cm FS: 23.2 % Ao root diam: 3.1 cm LVPWd: 1.2 cm LVIDs: 3.8 cm EDV(Teich): 112.2 ml LA dimension: 4.8 cm ESV(Teich): 60.3 ml EF(Teich): 46.3 % LVOT diam: 2.0 cm LVOT area: 3.3 cm2 Normal Measurement Values: + + :LVIDd (3.5-5.7cm) IVSd (0.6-1.1cm) LVPWd (0.6-1.1cm) Aortic Root (2.0-3.7cm)Left Atrium (1.5-4.0cm): :LV Vol(d) (76-115ml) LV Vol(s) (29-48ml) Ejec Fraction (50-65%)PV Eris (0.6- 1.2m/s) TV Eris (0.4-1.0m/s) : :MV E Eris (0.8-1.0m/s)MV A Eris (0.3-1.0m/s)LVOT Eris (0.7-1.2m/s) Asc Ao Eris ( 0.9-1.8m/s) : + + Doppler Measurements \\T\\ Calculations MV E max eris: Ao mean PG: LV V1 mean PG: MR max eris: 177.7 cm/sec 16.2 mmHg 3.1 mmHg 518.3 cm/sec MV A max eris: Ao V2 mean: LV V1 mean: MR max P.2 cm/sec 188.0 cm/sec 80.5 cm/sec 107.4 mmHg MV E/A: 1.9 Ao V2 VTI: 62.9 cm LV V1 VTI: 28.3 cm MV dec time: 0.32 sec LEN(I,D): 1.5 cm2 SV(LVOT): 93.2 ml TR max eris: 318.4 cm/sec TR max P.5 mmHg RAP systole: 10.0 mmHg RVSP(TR): 50.5 mmHg Left Ventricle The left ventricle is normal in size. There is mild to moderate concentric left ventricular hypertrophy. There is Doppler evidence for diastolic dysfunction. Ejection Fraction = 65-70%. Septal motion is consistent with post-operative state. Right Ventricle The right ventricle is mildly dilated. Atria The left atrium is mildly dilated. The right atrium is moderately dilated. Mitral Valve The posterior mitral leaflet is heavily calcified and immobile. There is moderate mitral regurgitation. Tricuspid Valve Normal tricuspid valve. There is moderate tricuspid regurgitation. Right ventricular systolic pressure is 51mmHg. There is Doppler evidence for mild pulmonary hypertension. Aortic Valve Trace aortic regurgitation. There is a bioprosthetic aortic valve. AV mean PG is 17mmHG. The gradient is normal for this prosthetic aortic valve. Pulmonic Valve The pulmonic valve is not well visualized. There is no pulmonic valvular regurgitation. Great Vessels The aortic root is normal size. Pericardium/Pleural There is no pericardial effusion. Conclusion A complete two-dimensional transthoracic echocardiogram was performed (2D, M-mode, Doppler and color flow Doppler). Compared to the echo of 05/10/17, the amount of mitral regurgitation has increased. Also an echodensity possible visualized in the region of the LVOT. (1) Left ventricular systolic ejection fraction was normal (65-70%) - septal wall motion suggestive of post operative state (2) Mild to moderate concentric left ventricular hypertrophy (3) Diastolic dysfunction was present (4) Mild dilation of the right ventricular chamber (5) Mild left atrial dilation with moderate right atrial dilation (6) Moderate mitral regurgitation (7) Bioprosthetic aortic valve with mean gradient of 17 mm Hg. Physiologic insufficiency was noted (8) Moderate tricuspid regurgitation - RVSP was estimated to be 50-55 mm Hg (9) Poor visualization of the pulmonic valve (10) No pericardial effusion (11) In comparison to prior echocardiogram from 05-10-17, there has been some progression to both the mitral and tricuspid regurgitation (from "mild" to more "moderate"), and the RVSP is 10-15 mm Hg LESS than than noted on prior). Final Reading Physician: Geovanni Delong signed on 05/24/2017 12:07 PM Ordering Physician: Sonali Pal Performed By: Christina Ortega RDCS
--- NOTE | 2017-05-24 13:01 | HOSPPROG ---
Hospitalist Progress Note Assessment/Plan: 66 yo M w esrd, dm admitted w mssa bacteremia from LE wound 1. MSSA bacteremia/sepsis likely secondary to 2nd toe abscess/osteomyelitis: 2nd MT head/phalanges/OM with abscess, s/p amputation Dr Miller this 05/20 renal dose Ancef per ID, appreciate assistance and discussed care plan with Dr Ayala regularly follows with Dr. Molina (DP) as outpatient had TTE on 05/10/17 and at that time, no obvious vegetations noted. Pt has hx of bioprosthetic AV, + blood cx, cx neg thus far (05/23) repeat TTE (05/23) w possibility of echodensity in LVOT 2. ESRD: on HD MWF Next HD tomorrow per routine. 3. Hyperkalemia/met acidosis resolved w hd 4. Anemia Hgb at goal/no need for epo at this time per nephro 5. DM SSI sugars > goal i advised he would benefit from long acting insulin, he refused 6. hx hep C s/p treatment at [facility] per his report 7. hx CAD, s/p CABG and bioprosthetic aortic valve no acute cardiac issues, has seen [facility] prev but fired them per outpt records at new PCP Dr Akbar says take B haily, started po med, watch BP closely 8. DVT prophy refusng sc heparin daily (. constipation- add senna FULL CODE, PCP Dr Yazan Akbar DISPO- best served by SNF adamantly refusing I suspect he would be dc'd from SNF given frequent yelling outbursts and verbal abuse of staff will pursue outpt wound vac Subjective: case d/w dr natarajan. no events tele (interp by me). yelling and angry when dc to snf mentioned Objective: Vital Signs Temp Pulse Resp BP Pulse Ox 36.5 C 62 18 118/57 L 93 05/24/17 11:04 05/24/17 11:04 05/24/17 11:04 05/24/17 11:04 05/24/17 11:04 Microbiology 05/18/17 17:05 Blood Culture - Final Blood Staphylococcus Aureus Laboratory Results 05/21/17 04:55 05/23/17 07:06 05/23/17 05/24/17 05/25/17 05:59 05:59 05:59 Intake Total 500 675 Output Total 2800 Balance -2300 675 PT 15.3 SEC (12.0-15.0) H 05/21/17 04:55 INR 1.21 (0.83-1.16) H 05/21/17 04:55 - Physical Exam Constitutional: no apparent distress, appears nourished Eyes: PERRL, anicteric sclera Ears, Nose, Mouth, Throat: moist mucous membranes, hearing normal Cardiovascular: regular rate and rhythym, no murmur, rub, or gallop, systolic murmur Respiratory: no respiratory distress, no rales or rhonchi Gastrointestinal: normoactive bowel sounds, soft, non-tender abdomen Genitourinary: no bladder fullness, No uriarte in urethra Skin: warm, normal color Musculoskeletal: full muscle strength, no muscle tenderness Neurologic: AAOx3 ICD10 Worksheet Patient Problems: Problems Problem Status Onset Bacteremia Acute Foot infection Acute CODY (acute kidney injury) Acute Acute on chronic renal failure Acute CAD, multiple vessel Acute Cellulitis of foot Acute Chronic Disease Mgmt/Transitional Care Acute Coagulopathy Acute Decubitus ulcer of heel, stage 1 Acute Dehiscence of closure of skin Acute Diabetic foot ulcer Acute Elevated troponin Acute Elevated troponin Acute Fever Acute Hyperkalemia Acute Hypoglycemia Acute Moderate aortic valve stenosis Acute Pleural effusion Acute Pleural effusion on left Acute Pneumonia Acute Renal insufficiency Acute S/P CABG x 4 Acute S/P aortic valve replacement with bioprosthetic valve Acute Shortness of breath Acute Shortness of breath on exertion Acute CKD (chronic kidney disease) Chronic Diabetes Chronic Osteomyelitis Chronic Posterior circulation stroke Chronic
[2017-05-24] MEDS: SENNOSIDES 1 TAB PO SCH ×3 (13:07→21:43)
[2017-05-24] MEDS: HYDROmorphONE/DILAUDID 1 MG/ML SYR IVP PRN (17:44)
--- NOTE | 2017-05-24 17:47 | PCMIDPN ---
Assessment/Plan: Assessment: Left foot 2nd toe abscess with met head osteomyelitis status post resection. Resection date on 05/20/2017. Patient states that incision site is healing well. Patient also has bacteremia with methicillin sensitive Staph aureus. He does receive dialysis through a fistula on his left upper extremity. This is not been causing him any problems. The fistula is quite functional. he is receiving cefazolin but will transition to cefazolin dosed after dialysis 3 times a week. Plan: 1. Transition to 3 times weekly cefazolin (renally adjusted dose) 2. Follow repeat blood cultures. 3. Follow left amp site wound healing. 05/24/17 19:37 Subjective: patient is resting comfortably in his hospital room. No new complaints. Objective: Cefazolin # 7 Vital Signs Temp Pulse Resp BP Pulse Ox 36.6 C 63 17 138/68 H 91 L 05/24/17 15:16 05/24/17 15:16 05/24/17 15:16 05/24/17 15:16 05/24/17 15:16 Microbiology 05/18/17 17:05 Blood Culture - Final Blood Staphylococcus Aureus Laboratory Results 05/21/17 04:55 05/23/17 07:06 05/23/17 05/24/17 05/25/17 05:59 05:59 05:59 Intake Total 642 399 4439 Output Total 2800 Balance -2300 675 1250 - Physical Exam General Appearance: WD/WN, alert, no apparent distress, non-toxic Respiratory: lungs clear, normal breath sounds, No respiratory distress Cardiac/Chest: regular rate, rhythm, No tachycardia Skin: normal color, warm/dry, No rash Neuro/Psych: alert, normal mood/affect, oriented x 3 ICD10 Worksheet Patient Problems: Problems Problem Status Onset Bacteremia Acute Foot infection Acute CODY (acute kidney injury) Acute Acute on chronic renal failure Acute CAD, multiple vessel Acute Cellulitis of foot Acute Chronic Disease Mgmt/Transitional Care Acute Coagulopathy Acute Decubitus ulcer of heel, stage 1 Acute Dehiscence of closure of skin Acute Diabetic foot ulcer Acute Elevated troponin Acute Elevated troponin Acute Fever Acute Hyperkalemia Acute Hypoglycemia Acute Moderate aortic valve stenosis Acute Pleural effusion Acute Pleural effusion on left Acute Pneumonia Acute Renal insufficiency Acute S/P CABG x 4 Acute S/P aortic valve replacement with bioprosthetic valve Acute Shortness of breath Acute Shortness of breath on exertion Acute CKD (chronic kidney disease) Chronic Diabetes Chronic Osteomyelitis Chronic Posterior circulation stroke Chronic
--- NOTE | 2017-05-24 19:03 | SOAPPROG ---
SOAP Progress Note Assessment/Plan: Assessment: 66-YEAR-OLD MALE DIABETIC WITH OSTEOMYELITIS OF HIS 2ND METATARSAL HEAD ON HIS LEFT FOOT/RECENTLY DRAINING PUS/CULTURE SHOWED STAPH AUREUS PAST HISTORY INCLUDES DIABETES, CHRONIC RENAL FAILURE, CORONARY ARTERY DISEASE. HE HAS HAD A PREVIOUS TOE AMPUTATION ON HIS OTHER FOOT RISKS AND OPTIONS BEEN FULLY DISCUSSED AND HE AGREES WITH PROCEEDING WITH A LEFT 2ND TOE RAY AMPUTATION AND POSSIBLE WOUND VAC PLACED Plan: 2ND TOE RAY AMPUTATION LEFT FOOT 05/20/17 11:17 05/23/17 17:49 WOUND GRANULATING WELL/ VAC CHANGED/ TO SNF SOON 05/24/17 19:02 WOUND IS CLEAN AND GRANULATING WELL/AFEBRILE/PROBABLE SNF SOON FOLLOW-UP IN THE OFFICE NEXT WEEK/WOUND SHOULD BE ABLE TO BE CLOSED ALMOST DIRECTLY NEXT WEEK Objective: Vital Signs Temp Pulse Resp BP Pulse Ox 36.6 C 63 17 138/68 H 91 L 05/24/17 15:16 05/24/17 15:16 05/24/17 15:16 05/24/17 15:16 05/24/17 15:16 Microbiology 05/18/17 17:05 Blood Culture - Final Blood Staphylococcus Aureus Laboratory Results 05/21/17 04:55 05/23/17 07:06 05/23/17 05/24/17 05/25/17 05:59 05:59 05:59 Intake Total 312 554 8745 Output Total 2800 Balance -2300 675 1250 PT 15.3 SEC (12.0-15.0) H 05/21/17 04:55 INR 1.21 (0.83-1.16) H 05/21/17 04:55 ICD10 Worksheet Patient Problems: Problems Problem Status Onset Bacteremia Acute Foot infection Acute CODY (acute kidney injury) Acute Acute on chronic renal failure Acute CAD, multiple vessel Acute Cellulitis of foot Acute Chronic Disease Mgmt/Transitional Care Acute Coagulopathy Acute Decubitus ulcer of heel, stage 1 Acute Dehiscence of closure of skin Acute Diabetic foot ulcer Acute Elevated troponin Acute Elevated troponin Acute Fever Acute Hyperkalemia Acute Hypoglycemia Acute Moderate aortic valve stenosis Acute Pleural effusion Acute Pleural effusion on left Acute Pneumonia Acute Renal insufficiency Acute S/P CABG x 4 Acute S/P aortic valve replacement with bioprosthetic valve Acute Shortness of breath Acute Shortness of breath on exertion Acute CKD (chronic kidney disease) Chronic Diabetes Chronic Osteomyelitis Chronic Posterior circulation stroke Chronic
[2017-05-24] MEDS: PANTOPRAZOLE SODIUM 40 MG TAB PO SCH (21:39)
[2017-05-24] MEDS: FEBUXOSTAT 40 MG PO SCH (21:43)
[2017-05-25 04:47] LABS: ALBUMIN 2.8 g/dL (3.5-5.0); ANION GAP 12 mEq/L (8-16); CALCIUM 8.4 mg/dL (8.5-10.4); CARBON DIOXIDE 22 mEq/l (22-31); CHLORIDE 100 mEq/L (97-110); CREATININE 5.6 mg/dL (0.7-1.3); GLOMERULAR FILTRATION RATE 10; GLUCOSE 165 mg/dL (70-100); POTASSIUM 4.7 mEq/L (3.5-5.2); SODIUM 134 mEq/L (134-144)
[2017-05-25 05:57] VITALS: O2SAT 91
[2017-05-25] MEDS: HEPARIN 5,000 UNIT/0.5 ML SYR SC SCH ×2 (06:26→13:58)
[2017-05-25] MEDS: INSULIN LISPRO 100 UNIT/ML SC SCH ×2 (07:34→13:56)
[2017-05-25] MEDS: ATORVASTATIN CALCIUM 10 MG TAB PO SCH (07:37)
[2017-05-25] MEDS: ASPIRIN EC 81 MG TAB PO SCH (07:37)
[2017-05-25] MEDS: CHOLECALCIFEROL VIT D3 2,000 UNITS TAB/CAP PO SCH (07:37)
[2017-05-25] MEDS: ASCORBIC ACID 500 MG TAB PO SCH (07:37)
[2017-05-25] MEDS: INSULIN GLARGINE 100 UNITS/ML SYRINGE SC SCH (07:38)
[2017-05-25] MEDS: LABETALOL HCL 100 MG TAB PO SCH (07:39)
[2017-05-25] MEDS: SENNOSIDES 1 TAB PO SCH (07:40)
[2017-05-25] MEDS: VITAMIN B COMPLEX 1 EA CAP/TAB PO SCH (07:40)
--- NOTE | 2017-05-25 08:57 | SOAPPROG ---
SOAP Progress Note Assessment/Plan: Assessment: 66-YEAR-OLD MALE DIABETIC WITH OSTEOMYELITIS OF HIS 2ND METATARSAL HEAD ON HIS LEFT FOOT/RECENTLY DRAINING PUS/CULTURE SHOWED STAPH AUREUS PAST HISTORY INCLUDES DIABETES, CHRONIC RENAL FAILURE, CORONARY ARTERY DISEASE. HE HAS HAD A PREVIOUS TOE AMPUTATION ON HIS OTHER FOOT RISKS AND OPTIONS BEEN FULLY DISCUSSED AND HE AGREES WITH PROCEEDING WITH A LEFT 2ND TOE RAY AMPUTATION AND POSSIBLE WOUND VAC PLACED Plan: 2ND TOE RAY AMPUTATION LEFT FOOT 05/20/17 11:17 05/23/17 17:49 WOUND GRANULATING WELL/ VAC CHANGED/ TO SNF SOON 05/24/17 19:02 WOUND IS CLEAN AND GRANULATING WELL/AFEBRILE/PROBABLE SNF SOON FOLLOW-UP IN THE OFFICE NEXT WEEK/WOUND SHOULD BE ABLE TO BE CLOSED ALMOST DIRECTLY NEXT WEEK 05/25/17 08:57 WOUND OK/ HOME TODAY WITH VAC/ OFFICE NEXT WEEK Objective: Vital Signs Temp Pulse Resp BP Pulse Ox 36.6 C 70 16 138/78 H 91 L 05/25/17 04:00 05/25/17 04:00 05/25/17 04:00 05/25/17 04:00 05/25/17 04:00 Microbiology 05/18/17 17:05 Blood Culture - Final Blood Staphylococcus Aureus Laboratory Results 05/21/17 04:55 05/25/17 03:37 05/24/17 05/25/17 05/26/17 05:59 05:59 05:59 Intake Total 675 1500 Balance 675 1500 PT 15.3 SEC (12.0-15.0) H 05/21/17 04:55 INR 1.21 (0.83-1.16) H 05/21/17 04:55 ICD10 Worksheet Patient Problems: Problems Problem Status Onset Bacteremia Acute Foot infection Acute CODY (acute kidney injury) Acute Acute on chronic renal failure Acute CAD, multiple vessel Acute Cellulitis of foot Acute Chronic Disease Mgmt/Transitional Care Acute Coagulopathy Acute Decubitus ulcer of heel, stage 1 Acute Dehiscence of closure of skin Acute Diabetic foot ulcer Acute Elevated troponin Acute Elevated troponin Acute Fever Acute Hyperkalemia Acute Hypoglycemia Acute Moderate aortic valve stenosis Acute Pleural effusion Acute Pleural effusion on left Acute Pneumonia Acute Renal insufficiency Acute S/P CABG x 4 Acute S/P aortic valve replacement with bioprosthetic valve Acute Shortness of breath Acute Shortness of breath on exertion Acute CKD (chronic kidney disease) Chronic Diabetes Chronic Osteomyelitis Chronic Posterior circulation stroke Chronic
[2017-05-25 09:07] VITALS: BP 134/73; PULSE 69; RESP 18; TEMP 97.5
--- NOTE | 2017-05-25 09:12 | SOAPPROG ---
SOAP Progress Note Assessment/Plan: Assessment: 1. ESRD Dialysis Today. 2. Staph Aureus Bacteremia ID following. MSSA. Recent cultures negative. Will discuss length of treatment with dialysis unit. 3. Anemia Stable. 4. L 1st MT abscess s/p amputation. Plan is to go to SNF then come back for wound closure. 5. HTN BP ok Subjective: Doing ok this am Objective: Vital Signs Temp Pulse Resp BP Pulse Ox 36.6 C 70 16 138/78 H 91 L 05/25/17 04:00 05/25/17 04:00 05/25/17 04:00 05/25/17 04:00 05/25/17 04:00 Microbiology 05/18/17 17:05 Blood Culture - Final Blood Staphylococcus Aureus Laboratory Results 05/21/17 04:55 05/25/17 03:37 05/24/17 05/25/17 05/26/17 05:59 05:59 05:59 Intake Total 675 1500 Balance 675 1500 PT 15.3 SEC (12.0-15.0) H 05/21/17 04:55 INR 1.21 (0.83-1.16) H 05/21/17 04:55 Physical Exam - Physical Exam General Appearance: no apparent distress Respiratory: lungs clear Cardiac/Chest: regular rate, rhythm, systolic murmur, extra beats Extremities: pedal edema (L foot wrapped, wound vac in place on L juares) Neuro/Psych: normal mood/affect, oriented x 3 ICD10 Worksheet Patient Problems: Problems Problem Status Onset Bacteremia Acute Foot infection Acute CODY (acute kidney injury) Acute Acute on chronic renal failure Acute CAD, multiple vessel Acute Cellulitis of foot Acute Chronic Disease Mgmt/Transitional Care Acute Coagulopathy Acute Decubitus ulcer of heel, stage 1 Acute Dehiscence of closure of skin Acute Diabetic foot ulcer Acute Elevated troponin Acute Elevated troponin Acute Fever Acute Hyperkalemia Acute Hypoglycemia Acute Moderate aortic valve stenosis Acute Pleural effusion Acute Pleural effusion on left Acute Pneumonia Acute Renal insufficiency Acute S/P CABG x 4 Acute S/P aortic valve replacement with bioprosthetic valve Acute Shortness of breath Acute Shortness of breath on exertion Acute CKD (chronic kidney disease) Chronic Diabetes Chronic Osteomyelitis Chronic Posterior circulation stroke Chronic
--- NOTE | 2017-05-25 09:50 | HOSPPROG ---
Hospitalist Progress Note Assessment/Plan: 66 yo M w esrd, dm admitted w mssa bacteremia from LE wound 1. MSSA bacteremia/sepsis likely secondary to 2nd toe abscess/osteomyelitis: 2nd MT head/phalanges/OM with abscess, s/p amputation Dr Miller this 05/20 renal dose Ancef per ID, appreciate assistance and discussed care plan with Dr Ayala regularly follows with Dr. Molina (DP) as outpatient had TTE on 05/10/17 and at that time, no obvious vegetations noted. Pt has hx of bioprosthetic AV, + blood cx, cx neg thus far (05/23) repeat TTE (05/23) w possibility of echodensity in LVOT 2. ESRD: on HD MWF Next HD tomorrow per routine. 3. Hyperkalemia/met acidosis resolved w hd 4. Anemia Hgb at goal/no need for epo at this time per nephro 5. DM SSI sugars > goal i advised he would benefit from long acting insulin, he refused 6. hx hep C s/p treatment at [facility] per his report 7. hx CAD, s/p CABG and bioprosthetic aortic valve no acute cardiac issues, has seen [facility] prev but fired them per outpt records at new PCP Dr Akbar says take B haily, started po med, watch BP closely 8. DVT prophy refusng sc heparin daily (. constipation- add senna FULL CODE, PCP Dr Yazan Akbar DISPO- best served by [facility] adamantly refusing I suspect he would be dc'd from SNF given frequent yelling outbursts and verbal abuse of staff will pursue outpt wound vac home today > 30 minutes Subjective: home wound vac arranged. can get cefazolin post HD. plan to dc today Objective: Vital Signs Temp Pulse Resp BP Pulse Ox 36.4 C 69 18 134/73 H 91 L 05/25/17 08:00 05/25/17 08:00 05/25/17 08:00 05/25/17 08:00 05/25/17 08:00 Microbiology 05/18/17 17:05 Blood Culture - Final Blood Staphylococcus Aureus Laboratory Results 05/21/17 04:55 05/25/17 03:37 05/24/17 05/25/17 05/26/17 05:59 05:59 05:59 Intake Total 675 1500 Balance 675 1500 PT 15.3 SEC (12.0-15.0) H 05/21/17 04:55 INR 1.21 (0.83-1.16) H 05/21/17 04:55 - Physical Exam Constitutional: no apparent distress, appears nourished Eyes: PERRL, anicteric sclera Ears, Nose, Mouth, Throat: moist mucous membranes, hearing normal Cardiovascular: regular rate and rhythym, no murmur, rub, or gallop Respiratory: no respiratory distress, no rales or rhonchi Gastrointestinal: normoactive bowel sounds, soft, non-tender abdomen Genitourinary: no bladder fullness, No uriarte in urethra Skin: warm, normal color Musculoskeletal: full muscle strength Neurologic: AAOx3 ICD10 Worksheet Patient Problems: Problems Problem Status Onset Bacteremia Acute Foot infection Acute CODY (acute kidney injury) Acute Acute on chronic renal failure Acute CAD, multiple vessel Acute Cellulitis of foot Acute Chronic Disease Mgmt/Transitional Care Acute Coagulopathy Acute Decubitus ulcer of heel, stage 1 Acute Dehiscence of closure of skin Acute Diabetic foot ulcer Acute Elevated troponin Acute Elevated troponin Acute Fever Acute Hyperkalemia Acute Hypoglycemia Acute Moderate aortic valve stenosis Acute Pleural effusion Acute Pleural effusion on left Acute Pneumonia Acute Renal insufficiency Acute S/P CABG x 4 Acute S/P aortic valve replacement with bioprosthetic valve Acute Shortness of breath Acute Shortness of breath on exertion Acute CKD (chronic kidney disease) Chronic Diabetes Chronic Osteomyelitis Chronic Posterior circulation stroke Chronic
--- NOTE | 2017-05-25 10:27 | PDIAF ---
- Diagnosis Diagnosis: MSSA bactermia Code Status: Full Code - Medication Management Discharge Medications: Medications to Continue on Transfer Cholecalciferol Vit D3 [Vitamin D3 2000 units] 2,000 units PO HS 07/01/15 [Last Taken 05/09/17] Vitamin B Complex [B Complex] 1 each PO DAILY 07/01/15 [Last Taken 01/16/17] Aspirin EC [Aspirin EC 81 mg (*)] 81 mg PO DAILY 11/21/15 [Last Taken 05/16/17] Febuxostat [ULORIC] 40 mg PO HS 11/21/15 [Last Taken 01/26/16] Ascorbic Acid [Vitamin C 500 mg (*)] 500 mg PO Q3D 07/12/16 [Last Taken 01/16/17 ] Insulin Lispro [Humalog] 5 - 20 unit SQ TIDMEAL 07/12/16 [Last Taken 05/17/17 14 UNITS] Cyclobenzaprine [Flexeril 10 MG (*)] 15 mg PO DAILY PRN 01/16/17 [Last Taken ] Herbals/Supplements -Info Only 1 ea PO DAILY 01/16/17 [Last Taken 01/16/17] Mupirocin 2% [Bactroban 2%] 1 karlos TP HS PRN 01/16/17 [Last Taken 01/16/17] Omeprazole [Prilosec 20 mg] 40 mg PO DAILY 05/10/17 [Last Taken 05/16/17] oxyCODONE IR [Oxycodone Ir (*)] 5 mg PO BID PRN 05/10/17 [Last Taken 05/16/17] Atorvastatin Calcium [Lipitor 10 mg (*)] 10 mg PO BID 05/17/17 [Last Taken 05/16 21:00] Ethacrynic Acid [Edecrin 25 MG (*)] 125 mg PO SUTUTHSA 05/17/17 [Last Taken ] Truck Terminal Manager Antibiotics: cefazolin 2gm IV MWF after HD Truck Terminal Manager Antibiotic Stop Date: 06/18/17 Discharge Medications: Refer to the Discharge Home Medication list for PRN reason. PICC Care - Routine: N/A - Labs/Radiology CBC Date: 05/28/17 (weekly Sunday) CMP Date: 05/28/17 (weekly Sunday) Call or Fax Lab and Imaging Results to: [phone] [place] - Follow Up Care Current Providers and Referrals: Evan Miller MD [Medical Doctor] - Myra Akbar MD [Primary Care Provider] - As per Instructions Gagan Núñez MD [Medical Doctor] - follow up in 10 days
--- NOTE | 2017-05-25 10:35 | PDIAF ---
- Diagnosis Diagnosis: MSSA bactermia Code Status: Full Code - Medication Management Discharge Medications: Medications to Continue on Transfer Cholecalciferol Vit D3 [Vitamin D3 2000 units] 2,000 units PO HS 07/01/15 [Last Taken 05/09/17] Vitamin B Complex [B Complex] 1 each PO DAILY 07/01/15 [Last Taken 01/16/17] Aspirin EC [Aspirin EC 81 mg (*)] 81 mg PO DAILY 11/21/15 [Last Taken 05/16/17] Febuxostat [ULORIC] 40 mg PO HS 11/21/15 [Last Taken 01/26/16] Ascorbic Acid [Vitamin C 500 mg (*)] 500 mg PO Q3D 07/12/16 [Last Taken 01/16/17 ] Insulin Lispro [Humalog] 5 - 20 unit SQ TIDMEAL 07/12/16 [Last Taken 05/17/17 14 UNITS] Cyclobenzaprine [Flexeril 10 MG (*)] 15 mg PO DAILY PRN 01/16/17 [Last Taken ] Herbals/Supplements -Info Only 1 ea PO DAILY 01/16/17 [Last Taken 01/16/17] Mupirocin 2% [Bactroban 2%] 1 karlos TP HS PRN 01/16/17 [Last Taken 01/16/17] Omeprazole [Prilosec 20 mg] 40 mg PO DAILY 05/10/17 [Last Taken 05/16/17] oxyCODONE IR [Oxycodone Ir (*)] 5 mg PO BID PRN 05/10/17 [Last Taken 05/16/17] Atorvastatin Calcium [Lipitor 10 mg (*)] 10 mg PO BID 05/17/17 [Last Taken 05/16 21:00] Ethacrynic Acid [Edecrin 25 MG (*)] 125 mg PO SUTUTHSA 05/17/17 [Last Taken ] Special Procedures Technologist Antibiotics: cefazolin 2gm IV MWF after HD Special Procedures Technologist Antibiotic Stop Date: 06/18/17 Discharge Medications: Refer to the Discharge Home Medication list for PRN reason. PICC Care - Routine: N/A - Orders Services needed: Home Care, Registered Nurse Home Care Face to Face: I certify that this patient was under my care and that I had the required [id number] encounter meeting the encounter requirements on the discharge day. My findings support the fact that the patient is homebound as defined in CMS Chapter 7 Medicare Benefits Manual 30.1.1, The condition of the patient is such that there exists a normal inability to leave home and consequently, leaving home would require a considerable and taxing effort. - Labs/Radiology CBC Date: 05/28/17 (weekly Sunday) CMP Date: 05/28/17 (weekly Sunday) Call or Fax Lab and Imaging Results to: [phone] [place] - Follow Up Care Current Providers and Referrals: Evan Miller MD [Medical Doctor] - Myra Akbar MD [Primary Care Provider] - As per Instructions Gagan Núñez MD [Medical Doctor] - follow up in 10 days
--- NOTE | 2017-05-25 11:26 | GDS ---
[f rep st] DISCHARGE SUMMARY DISCHARGE DIAGNOSES: 1. Osteomyelitis of the left 2nd metatarsal head, status post surgical resection; now with wound VA C. 2. End-stage renal disease. 3. Diabetes with poor control. 4. Medical noncompliance. 5. History of bioprosthetic aortic valve with an echocardiogram without evidence of endocarditis. 6. Coronary disease, status post coronary artery bypass graft. 7. Anxiety. 8. History of hepatitis C. Please see admission history and physical by Dr. Tiesha French. The patient was admitted on the 30t h after he had left AMA prior with positive blood cultures. He went to the operating room on the 2n d with Dr. Ranulfo Miller for resection (please see that op note for complete details). He is growin g MSSA. Blood cultures were positive on the 30th, but on the 3rd day, they remained negative. He h as been afebrile while here. The patient refuses SNF so is being sent home with a wound VAC. He wi ll be dosed cefazolin following dialysis. He has been followed by Infectious Disease who will see h im in followup. He is discharged home today. /[id number]/MODL
[2017-05-25 11:59] LABS: ALBUMIN 2.7 g/dL (3.5-5.0); BILIRUBIN,TOTAL 0.9 mg/dL (0.1-1.4); BILIRUBIN-CONJUGATED 0.7 mg/dL (0.0-0.5); BILIRUBIN-UNCONJUGATED 0.2 mg/dL (0.0-1.1); TOTAL PROTEIN 6.4 g/dL (6.3-8.2)
--- NOTE | 2017-05-25 12:25 | WOCRNPDOC ---
WOCRN Advanced Assessment Note - Skin Integrity Problem, Advanced Assess Left Second Toe Diabetic Ulcer Dressing Type: Black Vac Foam, Wound Vac Dressing Description: Intact Closure Description: Sutures (intact sutures noted on both dorsum and plantar aspect of L foot, adjacent to wound bed.) Exudate Amount: Minimal Exudate Color: Reddish/Yellow Exudate Characteristic(s): Serosanguinous Integumentary Issue Intervention: Dressing Changed Tania Wound Tissue: Erythema, Macerated, Swollen Tania Wound Swelling: Mild Wound Bed Color: Red, Yellow Wound Bed Constitution: Granulation Tissue (95%), Mixed Loose & Adhered Slough/ Eschar (5%) Site Odor: Slight Site Measurement - Head-to-Toe Length X Width X Depth (cm): [id number] Skin Integrity Problem Comment: Well-granulating surgical wound noted at amputation site of L 2nd toe, w/ 95% granulation tissue and trace scattered slough. Mild maceration noted along sutures on plantar aspect. Patient c/o 10/ 10 pain at beginning of dressing change, and was administered PRN IV Dilaudid by oxygen tank filler Monica; he reported this was effective, and tolerated remainder of dressing change w/out complaint. [employer] NPWT system applied in place of [employer]. Tania -wound skin draped for protection and one piece of green Avance foam placed into wound bed. Two additional pieces of foam used to bridge dressing onto patient's L dorsal foot. Vac set at 125mmHg, low, continuous suction, w/ no leaks. Patient to DC today w/ vac changes performed by home stager. Scheduled f /u with surgeon outpatient.
--- NOTE | 2017-05-25 14:07 | PCMIDPN ---
Assessment/Plan: # MSSA bacteremia , source LEFT 2nd toe s/p ray amp 05/20 with obvious osteo and purulence in joint in OR, wound continues to be without purulence, erythema today, healthy bleeding tissue. Blood cx 05/21 demonstrate clearance --plan 4 weeks (06/18) IV cefazolin. --outpatient renal dosing cefazolin 2gm after HD MWF. -- interagency completed H/o Prosthetic AV and Ca++MV # ESRD microbiology 05/17, 05/18: blood cx (2/2) MSSA 05/21: blood cx (2) NGTD Meds, Abx #8 cefazolin 1gm IV daily #7 Subjective: fairly conversational reports pain L foot Objective: Vital Signs Temp Pulse Resp BP Pulse Ox 36.4 C 69 18 134/73 H 91 L 05/25/17 08:00 05/25/17 08:00 05/25/17 08:00 05/25/17 08:00 05/25/17 08:00 Laboratory Results 05/21/17 04:55 05/25/17 03:37 05/24/17 05/25/17 05/26/17 05:59 05:59 05:59 Intake Total 675 1500 Balance 675 1500 - Physical Exam General Appearance: alert, no apparent distress, other ( examined in dialysis) Respiratory: lungs clear Neck: supple Cardiac/Chest: regular rate, rhythm, systolic murmur Extremities: pedal edema, other ( left foot 2nd digit wound healthy-appearing without necrotic material. Granulation in the base) Skin: No rash Neuro/Psych: alert, oriented x 3 ICD10 Worksheet Patient Problems: Problems Problem Status Onset CODY (acute kidney injury) Acute Acute on chronic renal failure Acute Bacteremia Acute CAD, multiple vessel Acute Cellulitis of foot Acute Chronic Disease Mgmt/Transitional Care Acute Coagulopathy Acute Decubitus ulcer of heel, stage 1 Acute Dehiscence of closure of skin Acute Diabetic foot ulcer Acute Elevated troponin Acute Elevated troponin Acute Fever Acute Foot infection Acute Hyperkalemia Acute Hypoglycemia Acute Moderate aortic valve stenosis Acute Pleural effusion Acute Pleural effusion on left Acute Pneumonia Acute Renal insufficiency Acute S/P CABG x 4 Acute S/P aortic valve replacement with bioprosthetic valve Acute Shortness of breath Acute Shortness of breath on exertion Acute CKD (chronic kidney disease) Chronic Diabetes Chronic Osteomyelitis Chronic Posterior circulation stroke Chronic
--- NOTE | 2017-06-15 20:06 | GPROG ---
[f rep st] PROGRESS NOTE POST ANESTHETIC EVALUATION The patient was brought to the post anesthetic care unit following an amputation of his left 2nd toe under general intravenous anesthesia. Upon arrival, his cardiovascular status was similar to his p reop condition. His respiratory status was normal and stable. His level of consciousness showed hi m able to participate in the evaluation. His pain control was adequate. He did not complain of adam sea and vomiting, and there were no complications to the anesthetic care. /[id number]/MODL
--- NOTE | 2017-06-29 16:23 | PQFORM ---
PHYSICIAN QUERY FORM Needs Your Response This query form is being sent to you to assure this patient record is coded properly. Please respond to the question below: OPERATIONS CLERK QUESTION: Dear Dr. Johnson, In reviewing this patient medical record the patient was reported to have a diagnosis of Sepsis. Diagnosed in the Infectious Disease progress notes dated 05/19-05/22 as "MSSA bacteremia/sepsis secondary to toe osteomyelitis," on Ancef but also in the Infectious Disease progress notes dated 05/21,05/23-05/25 patient had the diagnosis of 'bacteremia with MSSA.' In the H&P it is stated Patient presented with 'acute osteomyelitis' only. In the SOAP progress notes it is stated that the patient only had 'Bacteremia.' Since each of these condition are coded differently, can it be further clarified whether the patient has? Bacteremia ___Y__ Sepsis ___Y__ Other more appropriate diagnosis Unable to determine Thank you OLIVIA Ruvalcaba HIM/Coding Dept. [phone] INSTRUCTIONS FOR RESPONSE: Answer question by clicking on the "Edit Document" button. Move cursor to area below the stars. When complete, hit "Save." Click on the "Sign" button, then click "Sign" again. Type in your PIN and hit "Enter." MTDD
== END 2017-05-25 15:59 | disposition home health service (06) | DRG 853 ==
LOC: SUPCPDRO 13:30 → F2W 17:47
PROVIDERS: ADMIT Hospitalist; ATTEND Hospitalist
PROC: 5A1D60Z (ICD-10-PCS; 2017-05-19)
PROC: 0Y6N0ZB Detachment at Left Foot, Partial 2nd Ray, Open Approach (ICD-10-PCS; principal; 2017-05-20 08:54)
DX: A41.01 Sepsis due to Methicillin susceptible Staphylococcus aureus (principal); E11.69 Type 2 diabetes mellitus with other specified complication; M86.172 Other acute osteomyelitis, left ankle and foot; I12.0 Hypertensive chronic kidney disease with stage 5 chronic kidney disease or end stage renal disease; N18.6 End stage renal disease; B95.61 Methicillin susceptible Staphylococcus aureus infection as the cause of diseases classified elsewhere; F41.9 Anxiety disorder, unspecified; I25.10 Atherosclerotic heart disease of native coronary artery without angina pectoris; E11.65 Type 2 diabetes mellitus with hyperglycemia; E87.5 Hyperkalemia; E55.9 Vitamin D deficiency, unspecified; D64.9 Anemia, unspecified; Z95.1 Presence of aortocoronary bypass graft; Z95.2 Presence of prosthetic heart valve; Z79.4 Long term (current) use of insulin; Z99.2 Dependence on renal dialysis
CPT/HCPCS: 82947-QW; 97116-GP; 97162-GP; 97165-GO; 97168-GO; 97535-GO; G8978-GP-CI; G8979-GP-CI; G8980-GP-CI; G8987-GO-CI; G8988-GO-CI; G8989-GO-CI; J0690; J1170; J1815; J2250; J2704

== ENCOUNTER 2017-06-04 07:55 | Emergency (ER) | payer OTHER ==
[2017-06-04 08:02] VITALS: BP 170/81; PULSE 101; RESP 16; TEMP 97.5; O2SAT 90
--- NOTE | 2017-06-04 08:13 | EDPHY ---
H & P Time Seen by Provider: 06/04/17 08:01 HPI/ROS: CHIEF COMPLAINT: Red spot on left forearm HISTORY OF PRESENT ILLNESS: 66-year-old man has a history of end-stage renal disease on dialysis with recent admission for foot infection. He tells me that "they tore up my arm" last time he had dialysis. He presents because this morning he noted some redness on his left forearm which is now almost gone. He did put some topical Ellerbe balm ointment on it. He called dialysis and they referred him to the ER for evaluation to make sure that his fistula was not infected. REVIEW OF SYSTEMS: Denies fever or chills, denies local injury or trauma. PAST MEDICAL HISTORY: Includes hepatitis, coronary artery disease, prosthetic aortic valve, diabetes, stroke, end-stage renal disease on dialysis. General Appearance: Alert and conversant, cooperative. The patient has a 1 cm diameter slight erythema on his mid forearm on the dorsal side. This is clearly not near or adjacent to his fistula. He is not warm to the touch. There is no fluctuance or crepitus or induration. No blisters or eschar. No lymphangitis or surrounding skin abnormalities. This is the area the patient says is improving since this morning. His dialysis fistula appears intact with a thrill. There is no redness or warmth over the dialysis fistula. He is able to have sensation intact to light touch in all fingers. Normal capillary refill and normal geophysics teacher strength in the left hand. On exam is pulse appears to be 80-90 instead of 100 when he was 1st triaged. He is quite anxious. Emergency Department course/MDM: 806: Discussed with Shraddha at dialysis, the patient is currently receiving Ancef 2 g IV with each run. I think that acute cellulitis or infection of his dialysis fistula is unlikely. The local redness over his left forearm appears to be unlikely to be acute cellulitis, as it is improving spontaneously since this morning. He does not have findings to suggest high likelihood for deep space infection or fasciitis or abscess. Plan to go to dialysis, follow up clinically. Smoking Status: Former smoker Constitutional: Initial Vital Signs Temperature (C) 36.4 C 06/04/17 07:56 Heart Rate 101 H 06/04/17 07:56 Respiratory Rate 16 06/04/17 07:56 Blood Pressure 170/81 H 06/04/17 07:56 O2 Sat (%) 90 L 06/04/17 07:56 O2 Delivery Mode Room Air Allergies/Adverse Reactions: Sulfa (Sulfonamide Antibiotics) [Sulfa(Sulfonamide Antibiotics)] Allergy (Severe , Verified 05/19/17 14:26) Hives torsemide Allergy (Severe, Verified 05/18/17 13:33) Other-Enter Comments heparin Allergy (Unknown, Verified 05/20/17 22:09) "it almost killed me" furosemide [From Lasix] Allergy (Verified 05/18/17 13:33) Rash sulfamethoxazole [From Septra] Allergy (Verified 05/18/17 13:33) Other-Enter Comments trimethoprim [From Septra] Allergy (Verified 05/18/17 13:33) Other-Enter Comments Home Medications: Medication Instructions Recorded Cholecalciferol Vit D3 [Vitamin D3 2,000 units PO HS 07/01/15 2000 units] Vitamin B Complex [B Complex] 1 each PO DAILY 07/01/15 Aspirin EC [Aspirin EC 81 mg (*)] 81 mg PO DAILY 11/21/15 Febuxostat [ULORIC] 40 mg PO HS 11/21/15 Ascorbic Acid [Vitamin C 500 mg 500 mg PO Q3D 07/12/16 (*)] Insulin Lispro [Humalog] 5 - 20 unit SQ TIDMEAL 07/12/16 Cyclobenzaprine [Flexeril 10 MG 15 mg PO DAILY PRN 01/16/17 (*)] Herbals/Supplements -Info Only 1 ea PO DAILY 01/16/17 Mupirocin 2% [Bactroban 2%] 1 karlos TP HS PRN 01/16/17 Omeprazole [Prilosec 20 mg] 40 mg PO DAILY 05/10/17 Atorvastatin Calcium [Lipitor 10 10 mg PO BID 05/17/17 mg (*)] Ethacrynic Acid [Edecrin 25 MG (*)] 125 mg PO SUTUTHSA 05/17/17 ceFAZolin 2 GM/DEXTROSE [Ancef 2 1 mg IV MWF@1700 #0 bag 05/25/17 gm (Premix)] oxyCODONE IR [Oxycodone Ir (*)] 5 mg PO BID PRN #20 tab 05/25/17 Departure - Departure Disposition: Home, Routine, Self-Care Clinical Impression: Left forearm pain Condition: Good Instructions: End Stage Kidney Disease (ED) Referrals: Myra Akbar MD [Primary Care Provider] - As per Instructions
== END 2017-06-04 08:27 | disposition home or self-care (01) ==
DX: M79.632 Pain in left forearm (principal); I25.10 Atherosclerotic heart disease of native coronary artery without angina pectoris; E11.9 Type 2 diabetes mellitus without complications; Z79.82 Long term (current) use of aspirin; Z87.891 Personal history of nicotine dependence

== ENCOUNTER 2017-08-08 20:36 | Emergency (ER) | payer OTHER ==
--- NOTE | 2017-08-08 20:50 | EDPHY ---
H & P Time Seen by Provider: 08/08/17 20:42 HPI/ROS: Chief Complaint: Altered mental status HPI: 66-year-old male with a history of diabetes and end-stage renal disease was completing his dialysis with became confused. EMS was called. On arrival they found that his blood sugar was 31. EMS had a difficult time place skin IV and were only able to give about a half an amp of D50. The patient did not lose consciousness. He is awake and alert. ROS: 10 point Review of Systems is negative except as noted in the HPI. PMH: End-stage renal disease, diabetes Social History: No smoking, no alcohol, no recreational drug use Family History: non-contributory Physical Exam: Gen: Awake, Alert, No Distress HEENT: Nose: no rhinorrhea Eyes: PERRLA, EOMI Mouth: Moist mucosa Neck: Supple, no JVD Chest: nontender, lungs clear to auscultation Heart: S1, S2 normal, no murmur Abd: Soft, non-tender, no guarding Back: no CVA tenderness, no midline tenderness Ext: no edema, non-tender Skin: no rash Neuro: CN II-XII intact, Sensation grossly intact, Strength 5/5 in bilateral upper and lower extremities - Medical/Surgical History Hx Asthma: No Hx Chronic Respiratory Disease: Yes Hx Diabetes: Yes Hx Cardiac Disease: Yes Hx Renal Disease: Yes Hx Cirrhosis: Yes Hx Alcoholism: No Hx HIV/AIDS: No Hx Splenectomy or Spleen Trauma: No Other PMH: 1. Hepatitis C. 2. Coronary artery disease with bypass graft. 3. Aortic valve replacement. 4. Chronic kidney disease. 5. Diabetes. 6. CVA. 7. Vertigo. 8. Hospitalization for pneumonia in January of 2016 - Social History Smoking Status: Former smoker Constitutional: Initial Vital Signs Temperature (C) 36.4 C 08/08/17 20:51 Heart Rate 76 08/08/17 20:51 Respiratory Rate 18 08/08/17 20:51 Blood Pressure 146/76 H 08/08/17 20:51 O2 Sat (%) 94 08/08/17 20:51 O2 Delivery Mode Room Air Allergies/Adverse Reactions: Sulfa (Sulfonamide Antibiotics) [Sulfa(Sulfonamide Antibiotics)] Allergy (Severe , Verified 05/19/17 14:26) Hives torsemide Allergy (Severe, Verified 05/18/17 13:33) Other-Enter Comments heparin Allergy (Unknown, Verified 05/20/17 22:09) "it almost killed me" furosemide [From Lasix] Allergy (Verified 05/18/17 13:33) Rash sulfamethoxazole [From Septra] Allergy (Verified 05/18/17 13:33) Other-Enter Comments trimethoprim [From Septra] Allergy (Verified 05/18/17 13:33) Other-Enter Comments Home Medications: Medication Instructions Recorded Cholecalciferol Vit D3 [Vitamin D3 2,000 units PO HS 07/01/15 2000 units] Vitamin B Complex [B Complex] 1 each PO DAILY 07/01/15 Aspirin EC [Aspirin EC 81 mg (*)] 81 mg PO DAILY 11/21/15 Febuxostat [ULORIC] 40 mg PO HS 11/21/15 Ascorbic Acid [Vitamin C 500 mg 500 mg PO Q3D 07/12/16 (*)] Insulin Lispro [Humalog] 5 - 20 unit SQ TIDMEAL 07/12/16 Cyclobenzaprine [Flexeril 10 MG 15 mg PO DAILY PRN 01/16/17 (*)] Herbals/Supplements -Info Only 1 ea PO DAILY 01/16/17 Mupirocin 2% [Bactroban 2%] 1 karlos TP HS PRN 01/16/17 Omeprazole [Prilosec 20 mg] 40 mg PO DAILY 05/10/17 Atorvastatin Calcium [Lipitor 10 10 mg PO BID 05/17/17 mg (*)] Ethacrynic Acid [Edecrin 25 MG (*)] 125 mg PO SUTUTHSA 05/17/17 ceFAZolin 2 GM/DEXTROSE [Ancef 2 1 mg IV MWF@1700 #0 bag 05/25/17 gm (Premix)] oxyCODONE IR [Oxycodone Ir (*)] 5 mg PO BID PRN #20 tab 05/25/17 Medical Decision Making ED Course/Re-evaluation: Repeat blood glucose 118. Patient is eating. He is mentating normally. He is asking to go home. Will be discharged with instructions to make sure to monitor his blood glucose carefully. Departure - Departure Disposition: Home, Routine, Self-Care Clinical Impression: Hypoglycemia Condition: Good Instructions: Hypoglycemia in a Person with Diabetes (ED) Additional Instructions: Follow up with primary care physician in 2-3 days for re-evaluation. Return emergency department for weakness, fevers, chills, nausea, vomiting, or any other concerns. Referrals: Patient,NotPresent [Unknown] - As per Instructions
[2017-08-08 20:53] VITALS: BP 146/76; PULSE 76; RESP 18; TEMP 97.5; O2SAT 94
== END 2017-08-08 21:49 | disposition home or self-care (01) ==
LOC: EDUNIT#
DX: E11.649 Type 2 diabetes mellitus with hypoglycemia without coma (principal); I25.810 Atherosclerosis of coronary artery bypass graft(s) without angina pectoris; Z79.4 Long term (current) use of insulin; Z79.82 Long term (current) use of aspirin; Z87.891 Personal history of nicotine dependence

== ENCOUNTER 2017-09-02 06:39 | Inpatient (IN) | payer OTHER ==
--- NOTE | 2017-09-02 07:19 | CPEKG ---
Heart Rate: 74 RR Interval: 811 P-R Interval: 184 QRSD Interval: 116 QT Interval: 440 QTC Interval: 489 P Willard: 20 QRS Willard: -75 T Wave Willard: 116 EKG Severity - ABNORMAL ECG - EKG Impression: SINUS RHYTHM EKG Impression: LEFT ANTERIOR FASCICULAR BLOCK EKG Impression: PROBABLE LEFT VENTRICULAR HYPERTROPHY Electronically Signed By: Victor Manuel Mayer 02-Sep-2017 09:22:15
--- NOTE | 2017-09-02 07:33 | EDPHY ---
H & P Time Seen by Provider: 09/02/17 07:06 HPI/ROS: Chief complaint. Needs dialysis HPI. 66-year-old male with Sunday dialysis presents with leg swelling and requesting further dialysis. On Sunday his dialysis was interrupted because he had cramping in his legs. The dialysis apparently was accidentally not restarted and he only had partial dialysis. He has significant leg swelling. Last night he had some chest discomfort that he describes as "prickly ". Not having chest pain now. He has some shortness of breath. He called the dialysis center and physician and was referred to the emergency department for dialysis ROS Constitutional. no fever/chills, no weakness Eyes. no problems with vision ENT. no sore throat, no nasal drainage Cardiovascular. Chest pain last night Respiratory. Slight shortness of breath Abdominal. no abdominal pain, no nausea/vomiting, no diarrhea . no problems urinating MS. legs swollen Skin. no rash Lymph. no swollen glands Neuro. no headache, no dizziness, no difficulty walking or with speech Past Medical/Surgical History: Past medical history significant for hepatitis-C, coronary artery bypass graft. Aortic valve replacement, chronic kidney disease on dialysis, insulin- dependent diabetes, CVA, vertigo Social History: Single, nonsmoker, no alcohol Smoking Status: Former smoker Physical Exam: General Appearance: Alert well-developed male mild distress vital signs are stable Eyes: Pupils equal and round no pallor or injection. ENT, Mouth: Mucous membranes are moist. Respiratory: There are no retractions, lungs are clear to auscultation. Cardiovascular: Regular rate and rhythm. Gastrointestinal: Abdomen is soft and nontender, no masses, bowel sounds normal. Neurological: Awake and alert, sensory and motor exams grossly normal. Skin: Warm and dry, no rashes. Use bruising to left chest and arms from a fall about 1 week ago Musculoskeletal: Neck is supple nontender. Extremities good range of motion 4+ edema to both legs. AV fistula left upper arm that appears to be patent Psychiatric: Patient is oriented X 3, there is no agitation. Constitutional: Initial Vital Signs Temperature (C) 36.4 C 09/02/17 06:43 Heart Rate 74 09/02/17 06:43 Respiratory Rate 18 09/02/17 06:43 Blood Pressure 126/67 H 09/02/17 06:43 O2 Sat (%) 96 09/02/17 06:43 O2 Delivery Mode Room Air Allergies/Adverse Reactions: Sulfa (Sulfonamide Antibiotics) [Sulfa(Sulfonamide Antibiotics)] Allergy (Severe , Verified 05/19/17 14:26) Hives torsemide Allergy (Severe, Verified 05/18/17 13:33) Other-Enter Comments heparin Allergy (Unknown, Verified 05/20/17 22:09) "it almost killed me" furosemide [From Lasix] Allergy (Verified 05/18/17 13:33) Rash sulfamethoxazole [From Septra] Allergy (Verified 05/18/17 13:33) Other-Enter Comments trimethoprim [From Septra] Allergy (Verified 05/18/17 13:33) Other-Enter Comments Home Medications: Medication Instructions Recorded Cholecalciferol Vit D3 [Vitamin D3 2,000 units PO HS 07/01/15 2000 units] Vitamin B Complex [B Complex] 1 each PO DAILY 07/01/15 Aspirin EC [Aspirin EC 81 mg (*)] 81 mg PO DAILY 11/21/15 Febuxostat [ULORIC] 40 mg PO HS 11/21/15 Ascorbic Acid [Vitamin C 500 mg 500 mg PO Q3D 07/12/16 (*)] Insulin Lispro [Humalog] 5 - 20 unit SQ TIDMEAL 07/12/16 Cyclobenzaprine [Flexeril 10 MG 15 mg PO DAILY PRN 01/16/17 (*)] Herbals/Supplements -Info Only 1 ea PO DAILY 01/16/17 Mupirocin 2% [Bactroban 2%] 1 karlos TP HS PRN 01/16/17 Omeprazole [Prilosec 20 mg] 40 mg PO DAILY 05/10/17 Atorvastatin Calcium [Lipitor 10 10 mg PO BID 05/17/17 mg (*)] Ethacrynic Acid [Edecrin 25 MG (*)] 125 mg PO SUTUTHSA 05/17/17 ceFAZolin 2 GM/DEXTROSE [Ancef 2 1 mg IV MWF@1700 #0 bag 05/25/17 gm (Premix)] oxyCODONE IR [Oxycodone Ir (*)] 5 mg PO BID PRN #20 tab 05/25/17 Medical Decision Making - Diagnostics EKG Interpretation: EKG interpreted by me shows normal sinus rhythm with normal interval. There is left axis deviation. There is a left anterior fascicular block present. QRS is otherwise normal. There is no significant ST elevation or depression. No arrhythmia. The rate is 74 Procedures: IV normal saline, monitor ED Course/Re-evaluation: Re-evaluation 8:20 a.m.. Patient is stable. He and I discussed imaging lab EKG results. We discussed treatment plan including recommendation for admission for evaluation dialysis. He expresses understanding and agreement I consulted and discussed the case with Dr. Franklin, hospitalist, who agrees to the admission I consulted and discussed the case with Dr. Cabrera, nephrology, who will see the patient in consultation Differential Diagnosis: Patient apparently received partial dialysis. Evidence of congestive heart failure and dependent pedal edema. Also has elevated troponin which is likely is due to his renal failure. I considered electrolyte abnormalities especially hyperkalemia. Plan is admission and dialysis as well as serial cardiac enzymes - Data Points Laboratory Results: Laboratory Results 09/02/17 07:30 09/02/17 07:30 09/02/17 09/02/17 07:30 07:30 WBC 6.46 10^3/uL 10^3/uL (3.80-9.50) RBC 4.03 10^6/uL L 10^6/uL (4.40-6.38) Hgb 10.9 g/dL L g/dL (13.7-17.5) Hct 35.5 % L % (40.0-51.0) MCV 88.1 fL fL (81.5-99.8) MCH 27.0 pg L pg (27.9-34.1) MCHC 30.7 g/dL L g/dL (32.4-36.7) RDW 16.4 % H % (11.5-15.2) Plt Count 123 10^3/uL L 10^3/uL (150-400) MPV 11.2 fL fL (8.7-11.7) Neut % (Auto) 64.9 % % (39.3-74.2) Lymph % (Auto) 20.6 % % (15.0-45.0) [place] % (Auto) 11.1 % % (4.5-13.0) Eos % (Auto) 1.9 % % (0.6-7.6) Baso % (Auto) 1.2 % % (0.3-1.7) Nucleat RBC Rel Count 0.0 % % (0.0-0.2) Absolute Neuts (auto) 4.19 10^3/uL 10^3/uL (1.70-6.50) Absolute Lymphs (auto) 1.33 10^3/uL 10^3/uL (1.00-3.00) Absolute Monos (auto) 0.72 10^3/uL 10^3/uL (0.30-0.80) Absolute Eos (auto) 0.12 10^3/uL 10^3/uL (0.03-0.40) Absolute Basos (auto) 0.08 10^3/uL 10^3/uL (0.02-0.10) Absolute Nucleated RBC 0.00 10^3/uL 10^3/uL (0-0.01) Immature Gran % 0.3 % % (0.0-1.1) Immature Gran # 0.02 10^3/uL 10^3/uL (0.00-0.10) Sodium 139 mEq/L mEq/L (134-144) Potassium 4.4 mEq/L mEq/L (3.5-5.2) Chloride 99 mEq/L mEq/L (97-110) Carbon Dioxide 26 mEq/l mEq/l (22-31) Anion Gap 14 mEq/L mEq/L (8-16) BUN 44 mg/dL H mg/dL (7-23) Creatinine 5.5 mg/dL H mg/dL (0.7-1.3) Estimated GFR 10 Glucose 129 mg/dL H mg/dL (70-100) Calcium 7.6 mg/dL L mg/dL (8.5-10.4) Troponin I 0.090 ng/mL H ng/mL (0.000-0.034) NT-Pro-B Natriuret Pep 97199 pg/mL H pg/mL (0-125) Departure - Departure Disposition: [facility] Inpatient Acute Clinical Impression: Elevated troponin Congestive heart failure Qualifiers: Congestive heart failure type: combined Congestive heart failure chronicity: acute on chronic Qualified Code(s): I50.43 - Acute on chronic combined systolic (congestive) and diastolic (congestive) heart failure Condition: Fair Referrals: Myra Akbar MD [Primary Care Provider] - As per Instructions
[2017-09-02 07:37] LABS: % IMMATURE GRANULYOCYTES 0.3 % (0.0-1.1); ABSOLUTE IMMATURE GRANULOCYTES 0.02 10^3/uL (0.00-0.10); ADD DIFF? NO; ADD MORPH? NO; ADD SCAN? NO; ATYPICAL LYMPHOCYTE FLAG 0 (0-99); FRAGMENT RBC FLAG 0 (0-99); HEMATOCRIT 35.5 % (40.0-51.0); HEMOGLOBIN 10.9 g/dL (13.7-17.5); LEFT SHIFT FLG 0 (0-99); LIPEMIA HEMOLYSIS FLAG 80 (0-99); MEAN CELL HEMOGLOBIN CONCENTR. 30.7 g/dL (32.4-36.7); MEAN CELL VOLUME 88.1 fL (81.5-99.8); MEAN PLATELET VOLUME 11.2 fL (8.7-11.7); PLATELET CLUMPS FLAG 0 (0-99); PLATELET COUNT 123 10^3/uL (150-400); RED BLOOD CELL COUNT 4.03 10^6/uL (4.40-6.38); RED CELL DISTRIBUTION WIDTH 16.4 % (11.5-15.2)
[2017-09-02 07:47] LABS: ANION GAP 14 mEq/L (8-16); CALCIUM 7.6 mg/dL (8.5-10.4); CARBON DIOXIDE 26 mEq/l (22-31); CHLORIDE 99 mEq/L (97-110); CREATININE 5.5 mg/dL (0.7-1.3); GLOMERULAR FILTRATION RATE 10; GLUCOSE 129 mg/dL (70-100); POTASSIUM 4.4 mEq/L (3.5-5.2); SODIUM 139 mEq/L (134-144)
[2017-09-02] MEDS ORDERED: ONDANSETRON 4 MG/2 ML VIAL IVP PRN (08:55)
[2017-09-02] MEDS ORDERED: ONDANSETRON DISINTEGRATING 4 MG TAB PO PRN (08:55)
[2017-09-02] MEDS ORDERED: ACETAMINOPHEN 325 MG TAB PO PRN (08:55)
[2017-09-02 09:33] VITALS: BP 142/79; PULSE 71; RESP 18; TEMP 98.2; O2SAT 92
--- NOTE | 2017-09-02 12:35 | ASDISCHSUM ---
Discharge Information Plan Status: Medically Cleared to Leave:09/02/2017 Discharge Date:09/02/2017 12:13 PM CM D/C Disposition: ADT D/C Disposition:Against Medical Advice Projected Discharge Date:09/02/2017 12:00 AM Transportation at D/C: Discharge Delay Reason: Follow-Up Date:09/02/2017 12:00 AM Discharge Slot: Final Diagnosis: Placement Information Patient Contact Information Contact Name:NENA Relationship:Mother Address: Work Phone: City: [facility] Phone: State/Zip Code:[place] Email: Financial Information Financial Class:Medicare Advantage Plans Primary Plan Desc:[facility] ADVANTAGE PLANS Primary Plan Number:[id number] Secondary Plan Desc: Secondary Plan Number: Assessment Information Intervention Information
--- NOTE | 2017-09-02 12:38 | GHP ---
[f rep st] HISTORY AND PHYSICAL DATE OF ADMISSION: 09/02/2017 CHIEF COMPLAINT: Lower extremity swelling, pain. HISTORY OF PRESENT ILLNESS: A 66-year-old male with end-stage renal disease, on dialysis Sunday//Sunday, CAD status post CABG, anxiety, and aortic valve replacement, presenting with leg swelli ng and pain. He is requesting more dialysis. He said he went to dialysis on Sunday but was interrup artie because he had cramping in his legs and then dialysis was not restarted per his report. He says the swelling is significant today and very painful. He did complain of mild prickly chest pain last night that did not radiate or with associated shortness of breath, nausea, or vomiting. He does not endorse shortness of breath with me; he did to the ER physician. No nausea, vomiting, diarrhea. No dysuria. No cough, fevers, chills, or sweats. He also says he fell 2 weeks ago; he passed out in hi s shower. At that time, he developed right shoulder pain with a laceration that has persisted. REVIEW OF SYSTEMS: I completed a 10-point review of systems; negative except as noted in HPI. PAST MEDICAL HISTORY: 1. End-stage renal disease, on dialysis Sunday/Sunday/Sunday. 2. Diabetes, type 2. 3. Coronary disease, status post CABG. 4. Anxiety. 5. Bioprosthetic aortic valve. 6. Hepatitis C. 7. Osteomyelitis of the 2nd metatarsal head, status post surgical resection in April 2017. 8. Medical noncompliance. 9. Echocardiogram showed LV EF 65%, mild LVH, diastolic dysfunction, and bioprosthetic aortic valve. PAST SURGICAL HISTORY: 1. Fistula. 2. Toe amputation this year. FAMILY HISTORY: Noncontributory. SOCIAL HISTORY: Lives here in [place] alone in an apartment. No alcohol, tobacco, or illicit's. HOME MEDICATIONS: Oxycodone 5 mg twice daily p.r.n., Renagel 800 mg daily p.r.n., Renagel 2400 t.i.d . with meals, omeprazole 40 mg daily, labetalol 100 mg b.i.d., Lispro 5-20 units sliding scale over s upplement, ethacrynic acid 75 mg Sunday/Sunday//Sunday, vitamin D3 2000 units daily, atorv astatin 10 mg b.i.d., aspirin 81, vitamin C. ALLERGIES: Sulfa, torsemide, heparin, Lasix, sulfamethoxazole, trimethoprim PHYSICAL EXAMINATION: VITAL SIGNS: Temperature 36.8, blood pressure 142/79, heart rate 70, respirat ions 18, and 92% on room air. GENERAL: Sitting in chair, eating breakfast. No acute distress but m ildly agitated. HEENT: PERRLA. Moist mucous membranes. CV: Regular rate and rhythm. Soft murmur . +3 pitting edema to knees bilaterally. LUNGS: Diminished but no overt crackles or wheezing. ABD OMEN: Soft, nontender, nondistended. Positive bowel sounds. : No suprapubic tenderness. MUSCUL OSKELETAL: 5/5 upper and lower extremity strength. Right shoulder with a scabbed wound. No surroun ding erythema suggestive of cellulitis. No purulence. NEURO: 2 through 12 intact. PSYCH: Alert a nd oriented x3. Very anxious. Keeps exclaiming he needs dialysis. LABORATORY DATA: WBC 6, hemoglobin 10, hematocrit 35, platelets 123. Sodium 139, potassium 4.4, chl oride 99, creatinine 5.5, glucose 129, calcium 7.6, phos 6.5. Troponin 0.090. BNP is 26,800. IMAGING: X-ray personally reviewed by me: Mild blunting of left costophrenic angle. No diffuse lizzeth ma. Normal sinus rhythm; ST flattening inferior and anterior leads, which is more pronounced than previou s EKGs. ASSESSMENT AND PLAN: 1. Lower extremity swelling/pain: He states dialysis was cut short on Sunday. Nephrology has been consulted here for dialysis. 2. End-stage renal disease: On hemodialysis Sunday/Sunday/Sunday. Contacted Nephrology. 3. Indeterminate troponin: Chest pain-free now. Known coronary artery disease. Echocardiogram in April 2017 showing normal left ventricular ejection fraction with some diastolic dysfunction. No wall motion abnormalities. Would repeat, as slightly more ST flattening on EKG. 4. Hyperphosphatemia: Renagel. 5. Anemia of renal disease: Hemoglobin and hematocrit stable. No active bleeding. 6. Right shoulder pain secondary to fall a couple weeks ago: No evidence of infection over the scab bed lesion. Will check an x-ray. 7. History of osteomyelitis: Status post partial resection in April, as well as antibiotics. 8. Coronary artery disease: Aspirin, statin, and beta-haily. 9. Diabetes: Sliding scale insulin. 10. Bioprosthetic aortic valve. 11. History of hepatitis C. DIET: Renal cardiac. DISPOSITION: Patient warrants inpatient admission given acute lower extremity swelling on dialysis. /[id number]/MODL
--- NOTE | 2017-09-02 16:45 | PDMN ---
Medical Necessity Medical necessity: Patient meets INPT criteria per physician note and CMS guidelines: on scheduled M/W/Fr dialysis. Sunday's dialysis was interrupted/ partial dialysis d/t pt leg cramps. now c/o shortness of breath and chest pain last night, resolved, and increasing leg edema/pain. Creat 5.5/BUN 44; troponin indeterminate at 0.09; CXR shows sm L effusion consistent with mild CHF; anticipated LOS > 2 midnights for dialysis and ongoing care.
--- NOTE | 2017-09-03 04:41 | GDS ---
[f rep st] DISCHARGE SUMMARY DISCHARGE DIAGNOSES: 1. Lower extremity swelling/pain. 2. End-stage renal disease, on dialysis. 3. Type 2 diabetes. 4. Coronary artery disease, status post CABG. 5. Anxiety. 6. Bioprosthetic aortic valve. 7. Hepatitis C. 8. Osteomyelitis. 9. Medical noncompliance. 10. Diastolic dysfunction. BRIEF HISTORY OF PRESENT ILLNESS: A 66-year-old male with end-stage renal disease on dialysis Sunday , Sunday, Sunday, who is not medically compliant, presenting wanting dialysis because of chronic l eg swelling. Please see HPI dated today for full details. Patient became very agitated and angry be cause he wanted the minute he walked in the door. I explained to him that Nephrology was standing ov er nursing staff, but he was not willing to wait, so he left AMA without signing the paperwork. /[id number]/MODL
== END 2017-09-02 12:13 | disposition left against medical advice (07) | DRG 683 ==
LOC: F2W 09:28
PROVIDERS: ADMIT Internal Medicine; ATTEND Internal Medicine
DX: N18.6 End stage renal disease (principal); I50.30 Unspecified diastolic (congestive) heart failure; E11.9 Type 2 diabetes mellitus without complications; I25.10 Atherosclerotic heart disease of native coronary artery without angina pectoris; F41.9 Anxiety disorder, unspecified; B19.20 Unspecified viral hepatitis C without hepatic coma; Z91.15 Patient's noncompliance with renal dialysis; Z95.1 Presence of aortocoronary bypass graft; Z95.3 Presence of xenogenic heart valve; Z79.4 Long term (current) use of insulin; D63.1 Anemia in chronic kidney disease; M25.511 Pain in right shoulder

== ENCOUNTER 2018-01-12 21:56 | Emergency (ER) | payer OTHER ==
[2018-01-12 22:05] VITALS: PULSE 80; RESP 18; TEMP 97.9
--- NOTE | 2018-01-12 22:51 | EDPHY ---
General - History Smoking Status: Former smoker Time Seen by Provider: 01/12/18 22:29 Narrative: CHIEF COMPLAINT: Laceration to foot HISTORY OF PRESENT ILLNESS: Patient complains of an acute laceration to the top of the left foot. This is overlying the 1st metatarsal. This happened while changing the dressing from a chronic wound to the plantar surface. The plantar wound has been present for nearly 2 years. He changes the dressing daily. While doing so this evening, he accidentally toward the scan overlying the distal 1st metatarsal of the left foot. Bleeding has not stopped. It is not pulsatile. He has no change in his baseline neuropathy distal to this. No foreign body to this. He is up-to-date on his tetanus. He is currently taking Augmentin for the plantar surface ulcerations/wound. He has no complaints otherwise. No other associated complaints or modifying factors REVIEW OF SYSTEMS: Ten systems reviewed and are negative unless otherwise noted in the HPI PCP: Dr. Akbar, [facility] SPECIALISTS: None PAST MEDICAL HISTORY: Type 2 diabetic with poorly controlled glucose, chronic kidney disease on Sunday dialysis, dyslipidemia, hypertension, Hep C SOCIAL HISTORY: Nonsmoker. Lives here locally independently FAMILY HISTORY: Noncontributory EXAMINATION General Appearance: Alert, no distress Head: normocephalic, atraumatic Eyes: Pupils equal and round, no conjunctival pallor or injection Cardiovascular: Regular rate. Symmetric DP and PT pulses at 1+. Neurological: Reportedly baseline sensation to the feet bilaterally. No footdrop. Skin: Warm and dry, no rash. Chronic ulceration of the plantar surface of the left foot without signs of active infection. There is a 3 cm curvilinear laceration on the dorsum of the left foot overlying the distal 1st metatarsal. No involvement of the great toe or toenail on the great toe Extremities: Significantly tender to the bottom of the left foot and to the dorsum of the left foot overlying the laceration. Range of motion of lower extremities is symmetric. Psychiatric: Mood and affect normal DIFFERENTIAL DIAGNOSES: Including but not limited to acute laceration, superficial laceration, laceration complication, chronic non-healing wound MDM: 10:40 p.m. Acute laceration to the dorsum of the left foot overlying the 1st metatarsal. No involvement of the hallux. No pulsatile bleeding or foreign body. This is a very complex scenario as the patient is a diabetic with chronic wound to the plantar surface of the same foot. Would like to avoid suturing this given his poor wound healing, but there is no way to approximate these Wound borders are close the wound otherwise. I do not feel that Steri-Strips would stay adhere to this wound, nor do I feel this would be sufficient closure. I discussed this with Dr. Ferguson and she is in agreement. I will anesthetize the wound and proceed with irrigation. 11:10 p.m. Laceration to the top of the left foot that has been repaired without difficulty. I discussed the delicate nature of this wound given his diabetes and baseline neuropathy. We discussed mandatory 48 hr wound evaluation. He informs that he will contact his primary care physician to do so. If not he can come to this emergency department for re-evaluation of 48 hr. Sutures will need to be removed in 7-10 days. He is already on Augmentin and will continue this. Strict ED precautions for any signs of infection. He is comfortable with this plan and discharged home stable condition. PROCEDURE: Laceration repair Consent: Verbal Location: Dorsum of left foot over the 1st metatarsal Length of repair: 3 cm Complexity: Complex Layer involvement: Single Anesthesia: Local. 1% lidocaine plain. 6 mL Irrigation: Extensive Debridement: None Procedure description: Following good anesthesia, the wound was copiously irrigated. Wound bed was explored with a sterile glove, and there is no foreign body noted. No foreign body. No tendon injury. Wound borders were approximated well with good hemostasis. Tolerated well without complication. Suture/Staple material: 4-0 Prolene, 5 simple ruptured sutures Wound care: Routine as discussed Suture/Staple removal: 7-10 Days SUPERVISION: Patient was independently examined, but I discussed the case with my secondary supervising physician Dr. Ferguson ([facility]) PHYSICIAN DOCUMENTATION: The patient was evaluated and managed by the Physician Hearing Aid Fitter. My co- signature indicates that I have reviewed this chart and I agree with the findings and plan of care as documented. I am the secondary supervising physician. (Myra Ferguson) - Objective Vital Signs: Initial Vital Signs Temperature (C) 36.6 C 01/12/18 22:03 Heart Rate 80 01/12/18 22:03 Respiratory Rate 18 01/12/18 22:03 Blood Pressure 145/70 H 01/12/18 22:03 O2 Sat (%) 94 01/12/18 22:03 O2 Delivery Mode Room Air Allergies/Adverse Reactions: Sulfa (Sulfonamide Antibiotics) [Sulfa(Sulfonamide Antibiotics)] Allergy (Severe , Verified 05/19/17 14:26) Hives torsemide Allergy (Severe, Verified 05/18/17 13:33) Other-Enter Comments heparin Allergy (Unknown, Verified 05/20/17 22:09) "it almost killed me" furosemide [From Lasix] Allergy (Verified 05/18/17 13:33) Rash sulfamethoxazole [From Septra] Allergy (Verified 05/18/17 13:33) Other-Enter Comments trimethoprim [From Septra] Allergy (Verified 05/18/17 13:33) Other-Enter Comments Home Medications: Medication Instructions Recorded Cholecalciferol Vit D3 [Vitamin D3 2,000 units PO HS 07/01/15 2000 units] Aspirin EC [Aspirin EC 81 mg (*)] 81 mg PO DAILY 11/21/15 Ascorbic Acid [Vitamin C 500 mg 500 mg PO Q3D 07/12/16 (*)] Insulin Lispro [Humalog] 5 - 20 unit SQ TIDMEAL 07/12/16 Cyclobenzaprine [Flexeril 10 MG 15 mg PO DAILY PRN 01/16/17 (*)] Herbals/Supplements -Info Only 1 ea PO DAILY 01/16/17 Mupirocin 2% [Bactroban 2%] 1 karlos TP HS PRN 01/16/17 Omeprazole [Prilosec 20 mg] 40 mg PO DAILY18 PRN 05/10/17 Atorvastatin Calcium [Lipitor 10 10 mg PO BID 05/17/17 mg (*)] Ethacrynic Acid [Edecrin 25 MG (*)] 75 mg PO SUTUTHSA 05/17/17 oxyCODONE IR [Oxycodone Ir (*)] 5 mg PO BID PRN #20 tab 05/25/17 Labetalol HCl [Trandate 100 mg (*)] 100 mg PO BID 09/02/17 Sevelamer HCl [Renagel 800mg (*)] 2,400 mg PO TIDMEAL 09/02/17 Sevelamer HCl [Renagel] 800 mg PO DAILY PRN 09/02/17 oxyCODONE IR [Oxycodone Ir (*)] 5 - 10 mg PO BID PRN #11 tab 01/12/18 Departure - Departure Disposition: Home, Routine, Self-Care Clinical Impression: Laceration of dorsum of foot, Diabetic foot ulcer associated with diabetes mellitus due to underlying condition Condition: Good Instructions: Care For Your Stitches (ED), Laceration (ED), Foot Care for People with Diabetes (ED), Diabetic Foot Ulcers (ED) Additional Instructions: 1. Re-evaluation of the laceration in 48 hr with primary care physician or in this emergency department without fail 2. Suture removal in 7-10 days from primary care physician or this emergency department 3. ED precautions for return of bleeding, worsening pain, redness, warmth or signs of infection as discussed Referrals: Myra Akbar MD [Primary Care Provider] - As per Instructions Prescriptions: oxyCODONE IR [Oxycodone Ir (*)] 5 - 10 mg PO BID PRN #11 tab PRN Reason: Pain, Severe
[2018-01-12 23:43] VITALS: BP 154/85; O2SAT 90
== END 2018-01-12 23:43 | disposition home or self-care (01) ==
LOC: EDUNIT#
PROC: 0HQNXZZ Repair Left Foot Skin, External Approach (ICD-10-PCS; principal; 2018-01-12)
DX: S91.312A Laceration without foreign body, left foot, initial encounter (principal); E11.621 Type 2 diabetes mellitus with foot ulcer; L97.529 Non-pressure chronic ulcer of other part of left foot with unspecified severity; I12.9 Hypertensive chronic kidney disease with stage 1 through stage 4 chronic kidney disease, or unspecified chronic kidney disease; N18.9 Chronic kidney disease, unspecified; Z79.4 Long term (current) use of insulin; Z79.82 Long term (current) use of aspirin; Z87.891 Personal history of nicotine dependence; X58.XXXA Exposure to other specified factors, initial encounter; Y93.89 Activity, other specified

== ENCOUNTER → 2018-02-21 | Outpatient (CLI) | payer OTHER | LOC: FIMAGING 16:31 | PROVIDERS: ATTEND Surgery | DX: Z13.828 Encounter for screening for other musculoskeletal disorder (principal); M19.072 Primary osteoarthritis, left ankle and foot; M85.472 Solitary bone cyst, left ankle and foot; M77.32 Calcaneal spur, left foot; K42.9 Umbilical hernia without obstruction or gangrene; Z89.422 Acquired absence of other left toe(s) ==

== ENCOUNTER 2018-02-28 14:33 | Emergency (ER) | payer OTHER ==
--- NOTE | 2018-02-28 14:51 | EDPHY ---
H & P Stated Complaint: dizziness SOB starting a few days ago Time Seen by Provider: 02/28/18 14:44 HPI/ROS: CHIEF COMPLAINT: Dizziness HISTORY OF PRESENT ILLNESS: Patient is a 67-year-old man with history of diabetes with end-stage renal disease on dialysis Sunday also history of CHF and coronary artery disease post CABG and aortic stenosis post bioprosthetic aortic valve. He also has hepatitis C and history of anxiety. He did receive dialysis yesterday at [facility] with Dr. Villatoro. Paramedics state that he called today because he was dizzy but they found him outside of his apartment walking with his walker and was able to walk to the ambulance without difficulty. The patient tells me he has a spinning sensation and it began last night and has been constant. It does not worsen with positioning or movement. He also states that he has been slightly short of breath for the last week ever since they started raising his dry weight which they are doing because he was having muscle cramping. He has chronic edema in his lower extremities which is a baseline. No recent fevers. He denies chest pain. Denies focal weakness REVIEW OF SYSTEMS: Constitutional: denies: chills, fever, recent illness, recent injury EENTM: denies: blurred vision, double vision, nose congestion Respiratory: denies: cough, shortness of breath Cardiac: denies: chest pain, irregular heart rate, lightheadedness, palpitations Gastrointestinal/Abdominal: denies: abdominal pain, diarrhea, nausea, vomiting, blood streaked stools Genitourinary: denies: dysuria, frequency, hematuria, pain Musculoskeletal: denies: joint pain, muscle pain Skin: denies: lesions, rash, jaundice, bruising Neurological: See HPI denies: headache, numbness, paresthesia, tingling, weakness Hematologic/Lymphatic: denies: blood clots, easy bleeding, easy bruising Immunologic/allergic: denies: HIV/AIDS, transplant EXAM: GENERAL: Well-appearing, well-nourished and in no acute distress. HEAD: Atraumatic, normocephalic. EYES: Pupils equal round and reactive to light, extraocular movements intact, sclera anicteric, conjunctiva are normal. ENT: TMs normal, nares patent, oropharynx clear without exudates. Moist mucous membranes. NECK: Normal range of motion, supple without lymphadenopathy or JVD. LUNGS: Breath sounds clear to auscultation bilaterally and equal. No wheezes rales or rhonchi. HEART: Regular rate and rhythm without murmurs, rubs or gallops. ABDOMEN: Soft, nontender, normoactive bowel sounds. No guarding, no rebound. No masses appreciated. BACK: No CVA tenderness, no spinal tenderness, step-offs or deformities EXTREMITIES: Left arm fistula, Normal range of motion, significant chronic edema. No clubbing or cyanosis. NEUROLOGICAL: Cranial nerves II through XII grossly intact. Normal speech, normal gait. 5/5 strength, normal movement in all extremities, normal sensation normal finger to nose, normal cerebellar exam, no pronator drift PSYCH: Normal mood, normal affect. SKIN: Warm, dry, normal turgor, no visible rashes or lesions. Source: Patient Exam Limitations: No limitations - Personal History Current Tetanus/Diphtheria Vaccine: Unsure Current Tetanus Diphtheria and Acellular Pertussis (TDAP): Unsure - Medical/Surgical History Hx Asthma: No Hx Chronic Respiratory Disease: Yes Hx Diabetes: Yes Hx Cardiac Disease: Yes Hx Renal Disease: Yes Hx Cirrhosis: Yes Hx Alcoholism: No Hx HIV/AIDS: No Hx Splenectomy or Spleen Trauma: No Other PMH: ESRD, HTN, DM, , CABG - Social History Smoking Status: Former smoker Constitutional: Initial Vital Signs Temperature (C) 35.9 C L 02/28/18 14:33 Heart Rate 69 02/28/18 14:33 Respiratory Rate 18 02/28/18 14:33 Blood Pressure 134/74 H 02/28/18 14:33 O2 Sat (%) 91 L 02/28/18 14:33 O2 Delivery Mode Room Air Allergies/Adverse Reactions: Sulfa (Sulfonamide Antibiotics) [Sulfa(Sulfonamide Antibiotics)] Allergy (Severe , Verified 02/28/18 14:43) Hives torsemide Allergy (Severe, Verified 02/28/18 14:43) Other-Enter Comments heparin Allergy (Unknown, Verified 02/28/18 14:43) "it almost killed me" furosemide [From Lasix] Allergy (Verified 02/28/18 14:43) Rash sulfamethoxazole [From Septra] Allergy (Verified 02/28/18 14:43) Other-Enter Comments trimethoprim [From Septra] Allergy (Verified 02/28/18 14:43) Other-Enter Comments Home Medications: Medication Instructions Recorded Cholecalciferol Vit D3 [Vitamin D3 2,000 units PO HS 07/01/15 2000 units] Aspirin EC [Aspirin EC 81 mg (*)] 81 mg PO DAILY 11/21/15 Ascorbic Acid [Vitamin C 500 mg 500 mg PO Q3D 07/12/16 (*)] Insulin Lispro [Humalog] 5 - 20 unit SQ TIDMEAL 07/12/16 Cyclobenzaprine [Flexeril 10 MG 15 mg PO DAILY PRN 01/16/17 (*)] Herbals/Supplements -Info Only 1 ea PO DAILY 01/16/17 Mupirocin 2% [Bactroban 2%] 1 karlos TP HS PRN 01/16/17 Omeprazole [Prilosec 20 mg] 40 mg PO DAILY18 PRN 05/10/17 Atorvastatin Calcium [Lipitor 10 10 mg PO BID 05/17/17 mg (*)] Ethacrynic Acid [Edecrin 25 MG (*)] 75 mg PO SUTUTHSA 05/17/17 oxyCODONE IR [Oxycodone Ir (*)] 5 mg PO BID PRN #20 tab 05/25/17 Labetalol HCl [Trandate 100 mg (*)] 100 mg PO BID 09/02/17 Sevelamer HCl [Renagel 800mg (*)] 2,400 mg PO TIDMEAL 09/02/17 Sevelamer HCl [Renagel] 800 mg PO DAILY PRN 09/02/17 Aspirin EC [Aspirin EC 81 mg (*)] 81 mg PO DAILY 01/21/18 Atorvastatin Calcium [Atorvastatin 20 mg PO DAILY 01/21/18 Calcium] Cholecalciferol Vit D3 [Vitamin D3 2,000 units PO DAILY 01/21/18 (*)] Ethacrynic Acid [Edecrin 25 MG (*)] 75 mg PO MOWEFR@1800 01/21/18 Ethacrynic Acid [Edecrin 25 MG (*)] 150 mg PO SUTUTHSA@1800 01/21/18 Herbals/Supplements -Info Only 1 ea PO DAILY 01/21/18 Insulin Lispro [Humalog] 15 unit SQ TIDMEAL 01/21/18 Labetalol HCl [Trandate 100 mg (*)] 100 mg PO BID 01/21/18 Sevelamer Carbonate [Renvela] 2,400 mg PO TIDMEAL 01/21/18 Sevelamer Carbonate [Renvela] 800 mg PO TID PRN 01/21/18 oxyCODONE IR [Oxycodone Ir (*)] 5 mg PO DAILY PRN 01/21/18 Medical Decision Making - Diagnostics EKG Interpretation: An EKG obtained and was read and documented in trace view. Please see trace view for full reading and report. Sinus rhythm, no acute ischemic changes, LVH Imaging: Discussed imaging studies w/ yardage caller Radiologist ED Course/Re-evaluation: 5:20 p.m. the patient's imaging and lab work and EKG are all very reassuring. I spoke with him and offered him admission for further testing. He declines and states that he would prefer to go home. He states he is feeling much better. I asked how he poses to get home he states that he typically takes a cab. I will give him a road test . 5:30 p.m. the patient did very well and was able to ambulate without any difficulty at all. He continues to wish to go home and declines further workup testing or observation. Differential Diagnosis: Partial list of the Differential diagnosis considered include but were not limited to; vertigo, CVA, electrolyte abnormality, hypoglycemia, fluid overload and although unlikely based on the history and physical exam, I also considered acute coronary disease, CHF exacerbation, infection. I discussed these differential diagnoses and the plan with the patient as well as the usual and expected course. The patient understands that the diagnosis is provisional and that in medicine we are not always correct and that further workup is often warranted. Usual and customary warnings were given. All of the patient's questions were answered. The patient was instructed to return to the emergency department should the symptoms at all worsen or return, otherwise to followup with the physician as we discussed. - Data Points Laboratory Results: Laboratory Results 02/28/18 14:40 02/28/18 14:40 Departure - Departure Disposition: Home, Routine, Self-Care Clinical Impression: Dizziness Condition: Fair Instructions: Dizziness (ED) Referrals: Patient,NotPresent [Primary Care Provider] - As per Instructions
[2018-02-28 14:55] LABS: PLATELET COUNT 161 10^3/uL (150-400)
--- NOTE | 2018-02-28 14:58 | CPEKG ---
Heart Rate: 74 RR Interval: 811 P-R Interval: 196 QRSD Interval: 124 QT Interval: 468 QTC Interval: 520 P [place]: 36 QRS [place]: -71 T Wave [place]: 128 EKG Severity - ABNORMAL ECG - EKG Impression: SINUS RHYTHM EKG Impression: NONSPECIFIC IVCD WITH LAD EKG Impression: LEFT VENTRICULAR HYPERTROPHY Electronically Signed By: Ba Pacheco 28-Feb-2018 15:23:48
[2018-02-28 15:04] LABS: INR 1.12 (0.83-1.16); PROTIME(PATIENT) 14.6 SEC (12.0-15.0)
[2018-02-28 17:29] VITALS: BP 164/97
== END 2018-02-28 17:55 | disposition home or self-care (01) ==
LOC: EDUNIT#
DX: R42 Dizziness and giddiness (principal); I12.0 Hypertensive chronic kidney disease with stage 5 chronic kidney disease or end stage renal disease; N18.6 End stage renal disease; E11.9 Type 2 diabetes mellitus without complications; Z79.82 Long term (current) use of aspirin; Z79.4 Long term (current) use of insulin; Z95.1 Presence of aortocoronary bypass graft; Z87.891 Personal history of nicotine dependence

== ENCOUNTER → 2018-04-11 | Outpatient (CLI) | payer OTHER | LOC: FIMAGING 07:45 | PROVIDERS: ATTEND Internal Medicine | DX: M23.221 Derangement of posterior horn of medial meniscus due to old tear or injury, right knee (principal); M23.211 Derangement of anterior horn of medial meniscus due to old tear or injury, right knee; M94.8X6 Other specified disorders of cartilage, lower leg; M94.261 Chondromalacia, right knee ==

== ENCOUNTER 2018-05-10 11:57 | Inpatient (IN) | payer OTHER ==
[2018-05-10] MEDS ORDERED: LR 1,000 ML IV ONE (12:15)
--- NOTE | 2018-05-10 12:58 | PDHPUP ---
History & Physical Update H&P update statement: This history and physical update is based on an assessment of the patient which was completed after admission or registration (within 24 hours), but prior to the surgery/procedure. H&P update: H&P reviewed & patient examined, no change in patient's condition since H&P completed
--- NOTE | 2018-05-10 13:07 | PDANEPAE ---
ANE History of Present Illness lengthening of Achilles tendon ANE Past Medical History - Cardiovascular History Hx Hypertension: Yes Hx Arrhythmias: No Hx Chest Pain: No Hx Coronary Artery / Peripheral Vascular Disease: Yes Hx CHF / Valvular Disease: Yes Hx Palpitations: No Cardiovascular History Comment: CHF. SD. GABG. AORTIC VALVE REPLACEMENT - Pulmonary History Hx COPD: No Hx Asthma/Reactive Airway Disease: No Hx Recent Upper Respiratory Infection: No Hx Oxygen in Use at Home: No Hx Sleep Apnea: No Sleep Apnea Screening Result - Last Documented: Negative Pulmonary History Comment: vocal cord disfunction status post stroke - Neurologic History Hx Cerebrovascular Accident: Yes Hx Seizures: No Hx Dementia: No Neurologic History Comment: SEVERAL - Endocrine History Hx Diabetes: Yes Hypothyroid: No Hyperthyroid: No Obesity: mild - Renal History Hx Renal Disorders: Yes Renal History Comment: ESRD. DIALYSIS 3X WEEK - Liver History Hx Hepatic Disorders: Yes Hepatic History Comment: HEP C/TREATMENT PROGRAM 2016 - Neurological & Psychiatric Hx Hx Neurological and Psychiatric Disorders: No - GI History Hx Gastrointestinal Disorders: Yes Gastrointestinal History Comment: WAS ON PRIOR RX STOPPED ON HIS OWN. DYSPHAGIA - Other Health History Other Health History: LT FOOT DIABETIC ULCER NON HEALING. RASH ENTIRE BODY. RT KNEE INJECTION 05/02/18. RT SHLDR - Chronic Pain History Chronic Pain: Yes (LT LEG) - Surgical History Prior Surgeries: LT AV FISTULA. AORTIC VALVE REPAIR. GABGX4. FREDDY FOOT TOE AMPUTATION ANE Review of Systems Review of Systems: - Exercise capacity METS (RN): 3 METS ANE Patient History - Allergies Allergies/Adverse Reactions: Sulfa (Sulfonamide Antibiotics) [Sulfa(Sulfonamide Antibiotics)] Allergy (Severe , Verified 02/28/18 14:43) Hives torsemide Allergy (Severe, Verified 02/28/18 14:43) Other-Enter Comments heparin Allergy (Unknown, Verified 02/28/18 14:43) "it almost killed me" allopurinol Allergy (Verified 05/10/18 14:00) Rash furosemide [From Lasix] Allergy (Verified 02/28/18 14:43) Rash sulfamethoxazole [From Septra] Allergy (Verified 05/03/18 16:04) HYPERKALEMIA trimethoprim [From Septra] Allergy (Verified 05/03/18 16:04) HYPERKALEMIA - Home Medications Home Medications: Aspirin EC [Aspirin EC 81 mg (*)] 81 mg PO DAILY 01/03/16 [Last Taken 05/10/18 05:00] Ascorbic Acid [Vitamin C 500 mg (*)] 500 mg PO Q3D 07/12/16 [Last Taken 05/09/18 ] Insulin Lispro [Humalog] 5 - 20 unit SQ TIDMEAL 07/12/16 [Last Taken 05/10/18 4 units] Cyclobenzaprine [Flexeril 10 MG (*)] 10 - 20 mg PO TID PRN 01/16/17 [Last Taken 05/10/18 20mg] Herbals/Supplements -Info Only 1 ea PO DAILY 01/16/17 [Last Taken 05/08/18] Mupirocin 2% [Bactroban 2%] 1 karlos TP HS PRN 01/16/17 [Last Taken 05/09/18] Atorvastatin Calcium [Atorvastatin Calcium] 20 mg PO DAILY 01/21/18 [Last Taken 05/10/18] Ethacrynic Acid [Edecrin 25 MG (*)] 25 - 100 mg PO SUTUTHSA PRN 01/21/18 [Last Taken 05/09/18 50mg] Herbals/Supplements -Info Only 1 ea PO DAILY 01/21/18 [Last Taken Unknown] Labetalol HCl [Trandate 100 mg (*)] 100 - 600 mg PO TID PRN 01/21/18 [Last Taken 05/10/18 100mg] Sevelamer Carbonate [Renvela] 800 mg PO TID PRN 01/21/18 [Last Taken 05/09/18] oxyCODONE IR [Oxycodone Ir (*)] 5 - 10 mg PO DAILY PRN 01/21/18 [Last Taken 10:00 5mg] Cholecalciferol Vit D3 [Vitamin D3 (*)] 5,000 units PO DAILY 05/10/18 [Last Taken 05/10/18] - Anes Hx Anes Hx: no prior problems - Smoking Hx Smoking Status: Former smoker Marijuana use: No - Alcohol Use Alcohol Use: None - Family Anes Hx Family Anes Hx: none ANE Labs/Vital Signs - Labs Result Diagrams: 05/10/18 13:20 - Vital Signs Height: 172.72 cm Weight: 72.575 kg ANE Physical Exam - Airway Neck exam: FROM (complains of pain on R lateral rotation) Mallampati Score: Class 2 Mouth exam: poor dentition - Pulmonary Pulmonary: clear to auscultation - Cardiovascular Cardiovascular: regular rate and rhythym - ASA Status ASA Status: III ANE Anesthesia Plan Anesthesia Plan: GA w LMA
[2018-05-10] MEDS ORDERED: BUPIVACAINE 0.25% 30 ML SDV ONE ×2 (14:44→15:37)
[2018-05-10] MEDS ORDERED: CYCLOBENZAPRINE 10 MG TAB PO ONE (15:00)
[2018-05-10] MEDS ORDERED: D50W 25 GM/50 ML SYR IVP PRN (15:28)
[2018-05-10] MEDS ORDERED: D50W 25 GM/50 ML SYR IVP ONE (15:29)
[2018-05-10] MEDS ORDERED: MIDAZOLAM 2 MG/2 ML VIAL IVP ONE (15:30)
[2018-05-10] MEDS ORDERED: PROPOFOL 200 MG/20 ML VIAL ONE (15:35)
[2018-05-10] MEDS ORDERED: fentaNYL 100 MCG/2 ML INJ ONE ×2 (15:35→16:35)
[2018-05-10] MEDS ORDERED: DEXAMETHASONE 4 MG/ML VIAL ONE (15:37)
[2018-05-10] MEDS ORDERED: MIDAZOLAM 2 MG/2 ML VIAL ONE (15:39)
[2018-05-10] MEDS ORDERED: NS 1,000 ML IV ONE (15:42)
[2018-05-10] MEDS ORDERED: ceFAZolin 1 GM VIAL ONE (16:02)
[2018-05-10] MEDS ORDERED: ONDANSETRON 4 MG/2 ML VIAL ONE (16:06)
[2018-05-10] MEDS ORDERED: ONDANSETRON 4 MG/2 ML VIAL IVP PRN ×2 (16:11→16:30)
[2018-05-10] MEDS ORDERED: NALOXONE HCL 0.4 MG/ML INJ IVP PRN (16:11)
[2018-05-10] MEDS ORDERED: ETHACRYNIC ACID 25 MG TAB PO PRN (16:28)
[2018-05-10] MEDS ORDERED: oxyCODONE IR 5 MG TAB PO PRN (16:28)
[2018-05-10] MEDS ORDERED: LABETALOL HCL 100 MG TAB PO PRN ×3 (16:28→21:08)
[2018-05-10] MEDS ORDERED: MUPIROCIN 2% 22 GM OINT TP PRN (16:28)
[2018-05-10] MEDS ORDERED: CYCLOBENZAPRINE 10 MG TAB PO PRN (16:28)
--- NOTE | 2018-05-10 16:28 | POSTOPPROG ---
Post Op Note Date of Operation: 05/10/18 Surgeon: Reno Ramirez Anesthesiologist: feliciano Anesthesia: GET(General Endotracheal) Pre-op Diagnosis: Left achilles contracture and diabetic foot ulcer Post-op Diagnosis: same Indication: above Procedure: SUSY, diabetic ulcer debridement Inf/Abcess present in the surg proc area at time of surgery?: No Depth: Deep Incisional (Fascial) EBL: Minimal
[2018-05-10] MEDS ORDERED: HYDROmorphONE/DILAUDID 1 MG/ML INJ IVP PRN (16:30)
[2018-05-10] MEDS: fentaNYL 100 MCG/2 ML INJ IVP PRN ×2 (16:37→16:43)
--- NOTE | 2018-05-10 16:46 | POSTANESTH ---
Post Anesthetic Evaluation Cardiovascular Status: Similar to Pre-Op Cond Respiratory Status: Normal, Stable Level of Consciousness/Mental Status: Can Participate in Eval Pain Control: Adequate, Prn Tx Ordered Nausea/Vomiting Control: Adequate, Prn Tx Ordered Complications Possibly Related to Anesthesia: None Noted
[2018-05-10] MEDS ORDERED: HYDROmorphONE/DILAUDID 1 MG/ML INJ ONE (16:47)
[2018-05-10] MEDS: HYDROmorphONE/DILAUDID 1 MG/ML INJ IVP PRN ×3 (17:08→17:50)
--- NOTE | 2018-05-10 19:03 | GOP ---
[f rep st] OPERATIVE REPORT DATE OF OPERATION: 05/10/2018 SURGEON: Reno Ramirez MD SAND WHEELER: None. ANESTHESIA: General. PREOPERATIVE DIAGNOSIS: 1. Left diabetic forefoot ulcer stage II. 2. Achilles tendon contracture. POSTOPERATIVE DIAGNOSIS: 1. Left diabetic forefoot ulcer stage II. 2. Achilles tendon contracture. PROCEDURE PERFORMED: 1. Left tendo Achilles lengthening, percutaneous triple step cut. 2. Debridement with cultures of diabetic stage II ulcer. FINDINGS: SPECIMENS: None. ESTIMATED BLOOD LOSS: 5 mL. INDICATIONS: This is a 67-year-old male with multiple medical problems including severe diabetes, ki dney failure being on dialysis, recurrent ulcers, and diabetic forefoot problems. He had an ulcer, w hich was being treated by the wound care clinic on his left forefoot. He had previously had a 2nd ra y resection amputation. This ulcer does not appear infected, but he could not get it to heal. Diagn osed in the clinic with the ulcer and the Achilles contracture, I felt the abnormal loading of his fo refoot was contributing significantly to the ulcer. By off weighting this, did have attempt to heal the ulcer. I ordered an MRI on him, but he refused this. I thought given the superficial nature of the ulcer and the fact that it is not probed deep to bone, was not draining significantly or appearin g grossly infected, this was reasonable to proceed. He elected for surgery. He did cancel surgery; however, when I talked to him again and he better understood this, he elected for surgery again. We discussed risks of continued ulcer, worsening ulcer, and need for further procedures including ray re sections or forefoot amputations, need to off weight this, need to be nonweightbearing, the splint fo llowed by the cast that he would necessitate, as well as need for antibiotics, and he elected to proc eed. Informed consent obtained, questions answered, marked preoperatively. DESCRIPTION OF PROCEDURE: Antibiotics were held. He was taken to the operating suite. He was given general anesthesia. Sterilely prepped and draped in the usual fashion. Time-out was performed veri fying the patient, side, site, location, with agreement of the team. I began the procedure by the as sistant holding him in dorsiflexion. I performed triple step cut with a 15 blade and relieved about 15 degrees of his Achilles contracture, achieving good dorsiflexion. These were Dermabonded. I then debrided the ulcer and sent the superficial layer for culture. I got this down to bleeding healthy tissue. This did not probe deep in any place. There was no probing to bone or significant drainage. I removed the callus around the ulcer with a knife. I thoroughly irrigated this. I put a dressing with Betadine. I placed a dressing around the ulcer, leaving the ulcer free, placed him in a splint . He will be admitted to the hospital. COMPLICATIONS: None. DRAINS: None. CONDITION: Stable. /[id number]/MODL
[2018-05-10] MEDS ORDERED: HALOPERIDOL 1 MG TAB PO PRN (20:08)
[2018-05-10] MEDS: Sevelamer Carbonate [Renvela] 800 MG PO PRN (20:25)
[2018-05-10] MEDS ORDERED: HALOPERIDOL LACT 5 MG/ML INJ ONE (20:31)
[2018-05-10] MEDS: INSULIN LISPRO 100 UNIT/ML SC SCH (20:59)
[2018-05-10] MEDS ORDERED: HALOPERIDOL LACT 5 MG/ML INJ IVP PRN (21:01)
[2018-05-10] MEDS: HALOPERIDOL 1 MG TAB PO PRN (21:30)
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
[2018-05-11] MEDS: ceFAZolin 2 GM/DEXTROSE 100 ML IV SCH ×2 (01:08→06:32)
--- NOTE | 2018-05-11 07:38 | PDMN ---
Medical Necessity Medical necessity: GRG M590- delirium- 2 days post op delirium, uncertain etiology following sgy for : SUSY w/ diabetic ulcer debridement for left Achilles contracture and diabetic foot ulcer.- pt is combative and agitated, further monitoring and tx needed.
[2018-05-11 07:45] VITALS: BP 122/58
[2018-05-11] MEDS: INSULIN LISPRO 100 UNIT/ML SC SCH (07:51)
[2018-05-11] MEDS: Sevelamer Carbonate [Renvela] 800 MG PO PRN (07:53)
[2018-05-11] MEDS ORDERED: ATORVASTATIN CALCIUM 20 MG TAB PO SCH (09:00)
[2018-05-11] MEDS ORDERED: ASPIRIN EC 81 MG TAB PO SCH (09:00)
[2018-05-11] MEDS ORDERED: CHOLECALCIFEROL VIT D3 1,000 UNITS TAB PO SCH (09:00)
[2018-05-11] MEDS ORDERED: INSULIN LISPRO 100 UNIT/ML SC ONE (09:51)
--- NOTE | 2018-05-11 10:05 | SOAPPROG ---
SOAP Progress Note Assessment/Plan: Assessment: Left foot ulcer s/p SUSY and I and D delirium Plan: Extremely agitated and aggressive today with all staff demanding to leave AMA will allow him to leave with abx script for keflex as ulcer not deep and likely colonized and not infected recommend nwb though he states he will be non complaint I will still see him in my office he is leaving against medical advice 05/11/18 10:02 Subjective: agitated and agressive Objective: Vital Signs Temp Pulse Resp BP Pulse Ox 36.4 C 63 12 122/58 H 91 L 05/11/18 07:43 05/11/18 07:43 05/11/18 07:43 05/11/18 07:43 05/11/18 07:43 Microbiology 05/10/18 16:00 Gram Stain - Final Foot - Tissue 05/10/18 16:00 Gram Stain - Final Foot - Eswab 05/10/18 16:00 Mycobacterial Smear (JOSE ALFREDO) - Final Foot - Eswab Mycobacterial Culture - Final Laboratory Results 05/10/18 13:20 05/10/18 05/11/18 05/12/18 05:59 05:59 05:59 Intake Total 580 Output Total 5 Balance 575 splint intact clean and dry ICD10 Worksheet Patient Problems: Problems Problem Status Onset CODY (acute kidney injury) Acute Acute on chronic renal failure Acute Bacteremia Acute CAD, multiple vessel Acute Cellulitis of foot Acute Chronic Disease Mgmt/Transitional Care Acute Coagulopathy Acute Congestive heart failure Acute Decubitus ulcer of heel, stage 1 Acute Dehiscence of closure of skin Acute Diabetic foot ulcer Acute Elevated troponin Acute Elevated troponin Acute Fever Acute Foot infection Acute Head trauma Acute Hyperkalemia Acute Hypoglycemia Acute Hypoglycemia Acute Hypothermia Acute Moderate aortic valve stenosis Acute Pleural effusion Acute Pleural effusion on left Acute Pneumonia Acute Renal insufficiency Acute S/P CABG x 4 Acute S/P aortic valve replacement with bioprosthetic valve Acute Scalp laceration Acute Shortness of breath Acute Shortness of breath on exertion Acute CKD (chronic kidney disease) Chronic Diabetes Chronic Osteomyelitis Chronic Posterior circulation stroke Chronic
--- NOTE | 2018-05-11 10:10 | HOSPPROG ---
Hospitalist Progress Note Assessment/Plan: #Agitation: no e/o delirium on exam. He clearly explained why in hospital, his surgery #Diabetic foot ulcer: Keflex. Rec NWB #ESRD: last HD Sunday #DM: resume home insulin #Disp: left James MTZ provided abx at DC Subjective: "get me out of here" Objective: Vital Signs Temp Pulse Resp BP Pulse Ox 36.4 C 63 12 122/58 H 91 L 05/11/18 07:43 05/11/18 07:43 05/11/18 07:43 05/11/18 07:43 05/11/18 07:43 Microbiology 05/10/18 16:00 Gram Stain - Final Foot - Tissue 05/10/18 16:00 Gram Stain - Final Foot - Eswab 05/10/18 16:00 Mycobacterial Smear (JOSE ALFREDO) - Final Foot - Eswab Mycobacterial Culture - Final Laboratory Results 05/10/18 13:20 05/10/18 05/11/18 05/12/18 05:59 05:59 05:59 Intake Total 580 Output Total 5 Balance 575 - Physical Exam Constitutional: other (agitated, yelling) Eyes: PERRL Ears, Nose, Mouth, Throat: moist mucous membranes Cardiovascular: regular rate and rhythym Respiratory: no respiratory distress Gastrointestinal: normoactive bowel sounds Genitourinary: no bladder fullness, No uriarte in urethra Musculoskeletal: other (left arm fistula with good thrill) Neurologic: AAOx3, CN II-XII Intact Psychiatric: anxious, agitated, other ICD10 Worksheet Patient Problems: Problems Problem Status Onset CODY (acute kidney injury) Acute Acute on chronic renal failure Acute Bacteremia Acute CAD, multiple vessel Acute Cellulitis of foot Acute Chronic Disease Mgmt/Transitional Care Acute Coagulopathy Acute Congestive heart failure Acute Decubitus ulcer of heel, stage 1 Acute Dehiscence of closure of skin Acute Diabetic foot ulcer Acute Elevated troponin Acute Elevated troponin Acute Fever Acute Foot infection Acute Head trauma Acute Hyperkalemia Acute Hypoglycemia Acute Hypoglycemia Acute Hypothermia Acute Moderate aortic valve stenosis Acute Pleural effusion Acute Pleural effusion on left Acute Pneumonia Acute Renal insufficiency Acute S/P CABG x 4 Acute S/P aortic valve replacement with bioprosthetic valve Acute Scalp laceration Acute Shortness of breath Acute Shortness of breath on exertion Acute CKD (chronic kidney disease) Chronic Diabetes Chronic Osteomyelitis Chronic Posterior circulation stroke Chronic
--- NOTE | 2018-05-12 09:13 | GDS ---
[f rep st] DISCHARGE SUMMARY REASON FOR HOSPITALIZATION: The patient was admitted to the hospital after a tendo-Achilles lengthening and ulcer debridement for a refractory stage II diabetic forefoot ulcer. This does not appear infected at the time of surgery but was obviously colonized in his chronic wound. He got to the floor. He was initially very combative and inappropriate. Did receive some Haldol, which helped him calm down. Hospitalist was consulted. The next morning, he was again more lucid, but extremely combative, demanding to be discharged AMA. However, he was lucid state of mind. I discussed the need for further hospitalization, including continued inpatient care along with transfer for a fpc facility, so he could remain nonweightbearing on this extremity. He refused all treatment, demanded to be discharged against medical advice and we complied with this. I did give him a prescription for antibiotics for Keflex. His wound was colonized and I had performed an ID for this. I did not think he required anything further and did discuss with the case with the Infectious Disease physician. They did not have time to see him given that he left AMA. He had also refused an MRI prior. However, I think the ulcer is superficial enough that with the tendo-Achilles lengthening and staying off this, he could heal this. I discussed the importance of nonweightbearing. He stated he is not going to comply with this. He left AMA. He was given a prescription for Keflex. He was started on previous home medications. The importance of continued dialysis was made clear to him and he seemed to understand this. He will follow up with me as an outpatient still for casting. His aspirin will serve as DVT prophylaxis. He refused any other medications. /[id number]/MODL MTDD
[2018-05-13] MEDS ORDERED: ASCORBIC ACID 500 MG TAB PO SCH (08:00)
== END 2018-05-11 11:10 | disposition left against medical advice (07) | DRG 503 ==
LOC: F3N 11:57 → F2N 05-11 00:33
PROVIDERS: ADMIT Orthopaedic Surgery; ATTEND Orthopaedic Surgery
DX: M67.02 Short Achilles tendon (acquired), left ankle (principal); E11.621 Type 2 diabetes mellitus with foot ulcer; L97.529 Non-pressure chronic ulcer of other part of left foot with unspecified severity; E11.22 Type 2 diabetes mellitus with diabetic chronic kidney disease; N18.6 End stage renal disease; R41.0 Disorientation, unspecified; I25.10 Atherosclerotic heart disease of native coronary artery without angina pectoris; F41.9 Anxiety disorder, unspecified; B19.20 Unspecified viral hepatitis C without hepatic coma; Z91.19 Patient's noncompliance with other medical treatment and regimen; Z79.4 Long term (current) use of insulin; Z99.2 Dependence on renal dialysis; Z95.1 Presence of aortocoronary bypass graft; Z95.3 Presence of xenogenic heart valve
CPT/HCPCS: 97165-GO; G8987-GO-CI; G8988-GO-CI; G8989-GO-CI; J0690; J1100; J1170; J1630; J1815; J2250; J2405; J2704; J3010

== ENCOUNTER 2018-08-05 08:00 | Emergency (ER) | payer OTHER ==
--- NOTE | 2018-08-05 08:41 | EDPHY ---
H & P Time Seen by Provider: 08/05/18 08:29 HPI/ROS: CHIEF COMPLAINT: Abrasion on the left heel HISTORY OF PRESENT ILLNESS: Patient said he sustained this left heel abrasion 2 days ago because he is walking around without shoes. He is concerned because he thinks it needs a dressing to avoid becoming infected. He does not have fever or chills. He did not sustain a fall or direct blow to the wound. There is no pus or other drainage. REVIEW OF SYSTEMS: Eye: no change in vision ENT: no sore throat Cardiac: no chest pain or syncope Pulmonary: no cough or SOB Abdomen: no vomiting, diarrhea, abdominal pain Musculoskeletal: Multiple areas of chronic pain unchanged Skin: HPI Neuro: no headache Constitutional: no fever : no urinary symptoms No trauma with this heel wound. A comprehensive 10 point review of systems is otherwise negative aside from elements mentioned in the history of present illness. PAST MEDICAL HISTORY: Includes dialysis with left arm fistula, diabetes, hypertension, bypass surgery Social history: Primary care is [facility] General Appearance: Alert and conversant, cooperative. Eyes: No scleral icterus. ENT, Mouth: Normal mucous membranes. Respiratory: Normal respiratory effort, breath sounds equal, lungs are clear to auscultation. Cardiovascular: Regular rate and rhythm. Left arm fistula present. Gastrointestinal: Abdomen is soft and non tender. Neurological: Patient is alert, normal motor in all extremities. He has sensation intact to both feet. Fluent speech. Skin: Left heel has 1 cm abrasion on the plantar surface. There is no pus or drainage from the wound. There is no surrounding redness erythema swelling blister or eschar. No lymphangitis. 2mm glass fragment on surface of skin removed. Musculoskeletal: Bilateral lower extremity edema but no calf tenderness. No bony tenderness on either foot or heel. Psychiatric: Not agitated. Emergency Department course/MDM: Patient presents with a heel abrasion without clinical evidence of infection. He wants a dressing and then some assistance with staying off of it with crutches, and then wants to be discharged to go to dialysis and to see his primary care doctor, which I think is reasonable. Does not clinically have evidence of foreign body, cellulitis, osteomyelitis or abscess, or diabetic foot infection at this time. Smoking Status: Former smoker Constitutional: Initial Vital Signs Temperature (C) 36.9 C 08/05/18 08:06 Heart Rate 72 08/05/18 08:06 Respiratory Rate 18 08/05/18 08:06 Blood Pressure 139/80 H 08/05/18 08:06 O2 Sat (%) 93 08/05/18 08:06 O2 Delivery Mode Room Air Allergies/Adverse Reactions: Sulfa (Sulfonamide Antibiotics) [Sulfa(Sulfonamide Antibiotics)] Allergy (Severe , Verified 02/28/18 14:43) Hives torsemide Allergy (Severe, Verified 02/28/18 14:43) Other-Enter Comments heparin Allergy (Unknown, Verified 02/28/18 14:43) "it almost killed me" allopurinol Allergy (Unverified 05/10/18 14:00) Rash furosemide [From Lasix] Allergy (Verified 02/28/18 14:43) Rash sulfamethoxazole [From Septra] Allergy (Verified 05/03/18 16:04) HYPERKALEMIA trimethoprim [From Septra] Allergy (Verified 05/03/18 16:04) HYPERKALEMIA Home Medications: Medication Instructions Recorded Aspirin EC [Aspirin EC 81 mg (*)] 81 mg PO DAILY 11/21/15 Ascorbic Acid [Vitamin C 500 mg 500 mg PO Q3D 07/12/16 (*)] Insulin Lispro [Humalog] 5 - 20 unit SQ TIDMEAL 07/12/16 Cyclobenzaprine [Flexeril 10 MG 10 - 20 mg PO TID PRN 01/16/17 (*)] Herbals/Supplements -Info Only 1 ea PO DAILY 01/16/17 Mupirocin 2% [Bactroban 2%] 1 karlos TP HS PRN 01/16/17 Atorvastatin Calcium 20 mg PO DAILY 01/21/18 Ethacrynic Acid [Edecrin 25 MG (*)] 25 - 100 mg PO SUTUTHSA PRN 01/21/18 Herbals/Supplements -Info Only 1 ea PO DAILY 01/21/18 Labetalol HCl [Trandate 100 mg (*)] 100 - 600 mg PO TID PRN 01/21/18 Sevelamer Carbonate [Renvela] 800 mg PO TID PRN 01/21/18 oxyCODONE IR [Oxycodone Ir (*)] 5 - 10 mg PO DAILY PRN 01/21/18 Cholecalciferol Vit D3 [Vitamin D3 5,000 units PO DAILY 05/10/18 (*)] Cephalexin [Keflex (*)] 500 mg PO TID #42 cap 05/11/18 Medical Decision Making - Diagnostics Imaging Results: Imaging Impressions Foot X-Ray 08/05/18 08:59 Impression: 1. No radiopaque foreign object. 2. Additional findings as above. Imaging: I viewed and interpreted images myself Departure - Departure Disposition: Home, Routine, Self-Care Clinical Impression: Abrasion of left heel Qualifiers: Encounter type: initial encounter Qualified Code(s): S90.812A - Abrasion, left foot, initial encounter Condition: Good Instructions: Abrasion (ED) Referrals: Myra Akbar MD [Primary Care Provider] - As per Instructions
[2018-08-05 09:16] VITALS: BP 140/78
== END 2018-08-05 09:41 | disposition home or self-care (01) ==
LOC: EDUNIT#
DX: S90.812A Abrasion, left foot, initial encounter (principal); Y93.01 Activity, walking, marching and hiking; Y92.9 Unspecified place or not applicable
CPT/HCPCS: 73630; 99283; L4386

== ENCOUNTER 2018-08-05 22:01 | Inpatient (IN) | payer OTHER ==
--- NOTE | 2018-08-05 22:17 | EDPHY ---
General - History Smoking Status: Former smoker Time Seen by Provider: 08/05/18 22:07 Narrative: CHIEF COMPLAINT: Heel pain, fever HISTORY OF PRESENT ILLNESS: Patient presents by EMS with complaints of leg pain. He cannot provide any details for this. No onset, duration, severity or modifying factors. He was seen earlier today and diagnosed with a left heel wound, for which he was prescribed to have Keflex. He states that he did not know this was a prescription did not fill this. He says that he has pain in both lower extremities. He says that he has no headache, neck pain, chest pain or shortness of breath. He says that he has felt warm today. He does not have any other modifying factors. Patient is very poor historian. REVIEW OF SYSTEMS: 10 systems were reviewed and negative with the exception of the elements mentioned in the history of present illness. PCP: Dr. Akbar SPECIALISTS: Does not recall PAST MEDICAL HISTORY: End-stage renal disease, hypertension, diabetes mellitus, aortic stenosis PAST SURGICAL HISTORY: No recent surgical history SOCIAL HISTORY: Nonsmoker. Lives at home alone. Does not work FAMILY HISTORY: Noncontributory EXAMINATION: General Appearance: Alert, no distress. Ill appearing. Head: normocephalic, atraumatic Eyes: Pupils equal and round, no conjunctival pallor or injection ENT, Mouth: Mucous membranes moist Neck: Normal inspection, supple, non-tender Respiratory: Mild rhonchi. No retractions or distress. Cardiovascular: Regular rate and rhythm. No murmur. DP and PT pulses are palpable but 1+. Gastrointestinal: Abdomen is soft and nontender. No guarding. No tympany rigidity. Back: non-tender, no bony abnormalities Neurological: GCS 15. Alert to person place and time. Disoriented to details of his visit. No pronator drift. Normal [id number] Skin: Warm and dry. Extensive venous stasis to bilateral lower extremities. There is symmetric bilateral significant pitting edema. Extremities: Nontender. Psychiatric: Mood and affect normal DIFFERENTIAL DIAGNOSES: Including but not limited to sepsis, pneumonia, DVT, cellulitis, infected wound , altered mental status, hepatic encephalopathy, MDM: 10:10 p.m. Complaints of heel pain lower extremity pain without any specific descriptors. Patient is alert, but has difficulty recalling events of the day. He is not formally altered, but he has difficulty providing specific details of his HPI. He does have a fever of 101.9 F. He is not tachycardic or tachypneic. He is somewhat hypoxemic on room air. Patient does appear to be ill to me, although he is not in extremis. He does not meet SIRS criteria but sepsis is possible for this patient. I will discuss with Dr. Dietrich and transfer care to him. 10:45 p.m. At this time I discussed case with Dr. Dietrich. I have transferred care to him for the possibility of sepsis. He is currently evaluating the patient. SUPERVISION: Patient was evaluated and examined in conjunction with my secondary supervising physician as documented. We have both examined the patient. (Kristian Thorne) Medical Decision Makin: Patient initially started being evaluated by Kristian JOHNSON, however due to the complexity of the patient and concern for sepsis and fever I am taking over the patient's care. The patient is here with fever, 38.8, additionally not feeling well. He has a very poor historian. The patient is on dialysis he received 4 hr of dialysis today. Of note he was seen earlier in the emergency room for foot pain. Presents back to the emergency room feeling ill, fever, fatigue. The patient states he has pain all over his body. Denies any chest pain or shortness of breath. Does complain of bilateral lower extremity pain. Of note on exam there is some redness around the left heel, and on the plantar region of the left foot. It is warm to touch. Does not streaking up his leg. Additionally it is noted the patient is hypoxic 88%. My differential includes sepsis, bacteremia, pneumonia, soft tissue skin infection, electrolyte disturbance, acute febrile illness EKG interpretation by me on record in [facility] [employer] system. Impression time of EKG 20, sinus rhythm rate of 78 no signs of acute ischemia. 1202: Patient been given broad-spectrum antibiotics, IV vancomycin IV Zosyn. Patient here with fever, stable vital signs. Lactic acid 2.1. Blood pressure stable. I believe the source to be the bacteremia given his dialysis, or left heel, foot infection with redness. Broad-spectrum antibiotics be given IV vancomycin IV Zosyn. Blood cultures pulled. Admitted to the hospitalist service Dr. Mcdaniel. (Remigio Dietrich) - Objective Vital Signs: Initial Vital Signs Temperature (C) 38.8 C H 08/05/18 22:11 Heart Rate 78 08/05/18 22:11 Respiratory Rate 20 08/05/18 22:11 Blood Pressure 146/70 H 08/05/18 22:11 O2 Sat (%) 88 L 08/05/18 22:11 O2 Delivery Mode Room Air O2 (L/minute) 1 Allergies/Adverse Reactions: allopurinol Allergy (Severe, Verified 08/06/18 16:44) Rash Sulfa (Sulfonamide Antibiotics) [Sulfa(Sulfonamide Antibiotics)] Allergy (Severe , Verified 08/05/18 22:11) Hives torsemide Allergy (Severe, Verified 08/05/18 22:11) Other-Enter Comments heparin Allergy (Unknown, Verified 08/05/18 22:11) "it almost killed me" acetaminophen [From Tylenol] Allergy (Verified 08/05/18 23:18) furosemide [From Lasix] Allergy (Verified 08/05/18 22:11) Rash sulfamethoxazole [From Septra] Allergy (Verified 08/05/18 22:11) HYPERKALEMIA trimethoprim [From Septra] Allergy (Verified 08/05/18 22:11) HYPERKALEMIA Home Medications: Medication Instructions Recorded Aspirin EC [Aspirin EC 81 mg (*)] 81 mg PO DAILY 11/21/15 Ascorbic Acid [Vitamin C 500 mg 500 mg PO Q3D 07/12/16 (*)] Insulin Lispro [Humalog] 0 - 17 unit SQ TIDMEAL 07/12/16 Cyclobenzaprine [Flexeril 10 MG 10 - 20 mg PO TID PRN 01/16/17 (*)] Herbals/Supplements -Info Only 1 ea PO DAILY 01/16/17 Ethacrynic Acid [Edecrin 25 MG (*)] 25 - 75 mg PO SUTUTHSA PRN 01/21/18 Sevelamer Carbonate [Renvela] 2,400 mg PO TIDMEAL 01/21/18 oxyCODONE IR [Oxycodone Ir (*)] 10 mg PO TID PRN 01/21/18 Cholecalciferol Vit D3 [Vitamin D3 5,000 units PO DAILY 05/10/18 (*)] Labetalol HCl [Trandate 100 mg (*)] 50 - 100 mg PO BID PRN 08/06/18 Multivitamins [Multivitamin (*)] 1 each PO DAILY 08/06/18 Sevelamer Carbonate [Renvela] 800 mg PO AD 08/06/18 Laboratory Results: Laboratory Results 08/07/18 05:40 08/07/18 05:40 Medications Given: Discontinued Medications Acetaminophen (Tylenol) 1,000 mg PO EDNOW ONE Stop: 08/05/18 23:06 Last Admin: 08/05/18 23:15 Dose: Not Given Aspirin Buffered (Aspirin Ec) 81 mg PO DAILY YEMI Stop: 02/02/19 10:44 Last Admin: 08/10/18 08:23 Dose: 81 mg Cyclobenzaprine HCl (Flexeril) 10 mg PO TID PRN PRN Reason: Spasms Stop: 02/02/19 08:59 Last Admin: 08/09/18 17:59 Dose: 10 mg Cyclobenzaprine HCl (Flexeril) 2.5 mg PO ONCE ONE Stop: 08/09/18 00:02 Last Admin: 08/08/18 23:07 Dose: 2.5 mg Dextrose (Dextrose 50% Vial) 25 gm IVP PRN PRN PRN Reason: Hypoglycemia Stop: 02/02/19 01:34 Last Admin: 08/09/18 17:56 Dose: 12 gm Ethacrynic Acid (Edecrin) 75 mg PO DAILY PRN PRN Reason: edema Stop: 02/04/19 11:07 Last Admin: 08/08/18 12:00 Dose: 75 mg Vancomycin/Sodium Chloride (Vancomycin 1 Gm (Premix)) 250 mls @ 250 mls/hr IV EDNOW ONE PRN Reason: Protocol Stop: 08/05/18 23:51 Last Admin: 08/05/18 23:09 Dose: 250 mls Sodium Chloride (Ns) 500 mls @ 0 mls/hr IV ONCE ONE PRN Reason: Wide Open Stop: 08/05/18 23:15 Last Admin: 08/05/18 23:24 Dose: 500 mls Piperacillin/Tazobactam/Dextrose (Zosyn (Premix)) 100 mls @ 200 mls/hr IV EDNOW ONE PRN Reason: Protocol Stop: 08/05/18 23:43 Last Admin: 08/06/18 00:39 Dose: 100 mls Piperacillin/Tazobactam/Dextrose (Zosyn 2.25 Gm (Premix)) 50 mls @ 100 mls/hr IV Q12H YEMI PRN Reason: Protocol Stop: 09/05/18 12:29 Last Admin: 08/08/18 11:41 Dose: 50 mls Vancomycin/Sodium Chloride (Vancomycin 1 Gm (Premix)) 250 mls @ 250 mls/hr IV ONCE ONE Stop: 08/06/18 23:59 Last Admin: 08/06/18 22:20 Dose: 250 mls Vancomycin/Sodium Chloride (Vancomycin 1 Gm (Premix)) 250 mls @ 250 mls/hr IV ONCE ONE Stop: 08/07/18 18:29 Last Admin: 08/07/18 18:07 Dose: 250 mls Cefepime HCl 2 gm/ Sodium (Chloride) 100 mls @ 200 mls/hr IV ONCE ONE PRN Reason: Protocol Stop: 08/08/18 12:10 Last Admin: 08/08/18 12:19 Dose: 100 mls Cefepime HCl 2 gm/ Sodium (Chloride) 100 mls @ 200 mls/hr IV MWF@1200 YEMI PRN Reason: Protocol Stop: 09/08/18 11:59 Last Admin: 08/09/18 18:08 Dose: 100 mls Insulin Human Lispro (Humalog Lispro) 0 unit SC TIDMEAL YEMI PRN Reason: Protocol Stop: 02/02/19 07:59 Last Admin: 08/10/18 13:30 Dose: 4 units Insulin Human Lispro (Humalog Lispro) 0 unit SC HS YEMI PRN Reason: Protocol Stop: 02/02/19 20:59 Last Admin: 08/09/18 20:46 Dose: 2 units Insulin Human Lispro (Humalog Lispro) 2 unit SC ONCE ONE Stop: 08/08/18 09:01 Last Admin: 08/08/18 08:55 Dose: 2 units Insulin Human Lispro (Humalog Lispro) 12 unit SC ONCE ONE Stop: 08/08/18 13:16 Last Admin: 08/08/18 13:10 Dose: 12 unit Labetalol HCl (Trandate) 50 mg PO BID PRN PRN Reason: HBP Stop: 02/04/19 11:07 Last Admin: 08/10/18 08:31 Dose: 50 mg Oxycodone HCl (Oxycodone Ir) 5 mg PO Q6HRS PRN PRN Reason: Pain, Moderate Able to Take PO Stop: 08/16/18 02:10 Last Admin: 08/06/18 02:22 Dose: 5 mg Oxycodone HCl (Oxycodone Ir) 5 - 10 mg PO Q6HRS PRN PRN Reason: Pain, Moderate Able to Take PO Stop: 08/16/18 02:10 Last Admin: 08/06/18 14:33 Dose: 5 mg Oxycodone HCl (Oxycodone Ir) 5 - 10 mg PO Q4HRS PRN PRN Reason: Pain, Moderate Able to Take PO Stop: 08/16/18 02:20 Last Admin: 08/10/18 13:31 Dose: 10 mg Sevelamer HCl (Renagel) 800 mg PO AD [facility] Stop: 02/02/19 11:59 Last Admin: 08/10/18 08:22 Dose: 800 mg Sevelamer HCl (Renagel) 800 mg PO TIDMEAL [facility] Stop: 02/02/19 11:59 Last Admin: 08/09/18 09:13 Dose: Not Given Sevelamer HCl (Renagel) 2,400 mg PO TIDMEAL [facility] Stop: 02/02/19 11:59 Last Admin: 08/10/18 12:43 Dose: 2,400 mg Point of Care Test Results: Chemistry 08/07/18 08/07/18 08/06/18 11:48 07:11 21:18 POC Glucose 170 mg/dL H mg/dL 152 mg/dL H mg/dL 177 mg/dL H mg/dL (70-100) (70-100) (70-100) 08/06/18 08/06/18 08/06/18 18:53 17:56 17:11 POC Glucose 156 mg/dL H mg/dL 61 mg/dL L mg/dL 60 mg/dL L mg/dL (70-100) (70-100) (70-100) 08/06/18 08/06/18 11:01 08:06 POC Glucose 187 mg/dL H mg/dL 188 mg/dL H mg/dL (70-100) (70-100) Departure - Departure Disposition: [facility] Acute Clinical Impression: Fever, Cellulitis Condition: Good
[2018-08-05 22:48] LABS: PLATELET COUNT 190 10^3/uL (150-400)
[2018-08-05] MEDS ORDERED: VANCOMYCIN HCL/NORMAL SALINE 250 ML IV ONE (22:52)
[2018-08-05 23:02] LABS: INR 1.29 (0.83-1.16); PROTIME(PATIENT) 16.3 SEC (12.0-15.0)
[2018-08-05] MEDS ORDERED: ACETAMINOPHEN 500 MG TAB PO ONE (23:05)
[2018-08-05] MEDS ORDERED: ACETAMINOPHEN 325 MG TAB ONE (23:06)
[2018-08-05] MEDS ORDERED: PIPERACILLIN/TAZO 4.5 GM/DEX 100 ML IV ONE (23:14)
[2018-08-05] MEDS ORDERED: NS 500 ML IV ONE (23:14)
[2018-08-06] MEDS ORDERED: ONDANSETRON 4 MG/2 ML VIAL IVP PRN (00:12)
[2018-08-06] MEDS ORDERED: ONDANSETRON DISINTEGRATING 4 MG TAB PO PRN (00:12)
[2018-08-06] MEDS ORDERED: D50W 25 GM/50 ML VIAL IVP PRN (01:35)
[2018-08-06] MEDS ORDERED: oxyCODONE IR 5 MG TAB PO PRN (02:11)
--- NOTE | 2018-08-06 02:56 | PDGENHP ---
History and Physical - Chief Complaint Left heel pain - History of Present Illness Source-patient overall is quite a poor historian. When I ask him open-ended questions he can't give me any answers. Asked him why he came to the hospital he said he was not sure. EMR was reviewed and case discussed with ED provider. HPI-this is a 67-year-old gentleman with past medical history significant for poorly controlled diabetes type 2, end-stage renal disease on dialysis Sunday with Dr. Villatoro at [facility], chronic pain, diastolic CHF, chronic lower extremity edema, history of diabetic foot wounds status post toe amputation, CAD with history of CABG, HTN, HLD who presents to the ED today with complaints of left heel pain. Patient was seen earlier in the day on for similar complaint and was reassured that there was no evidence of infection. He reports that 3 days ago he stepped on some glass or sharp object on the floor. At that time he called EMS for evaluation as it was not life threatening they recommended that patient follow up with his primary care provider. Patient reports persistent pain. He was discharged in the morning without any and medications and subsequently went to dialysis. It is unclear if he did follow up with his PCP but he returned to the emergency department this morning with complaints of severe left heel pain. Patient had described those feeling a little warm. In the emergency department he had a fever to greater than 101F. Patient denies any other injuries. He has a history of admissions for falls and hypoglycemia in the past. He was most recently in the hospital for elective Achilles tendon lengthening and left diabetic foot ulcer debridement. Patient reports that he has been having increasing swelling in his left lower extremity compared to the right. He has increased pain with walking such that he has more road a wheelchair. He normally walks with a cane or a walker. He has denied any drainage of his left foot. History Information - Allergies/Home Medication List Allergies/Adverse Reactions: Sulfa (Sulfonamide Antibiotics) [Sulfa(Sulfonamide Antibiotics)] Allergy (Severe , Verified 08/05/18 22:11) Hives torsemide Allergy (Severe, Verified 08/05/18 22:11) Other-Enter Comments heparin Allergy (Unknown, Verified 08/05/18 22:11) "it almost killed me" acetaminophen [From Tylenol] Allergy (Verified 08/05/18 23:18) allopurinol Allergy (Unverified 08/05/18 22:11) Rash furosemide [From Lasix] Allergy (Verified 08/05/18 22:11) Rash sulfamethoxazole [From Septra] Allergy (Verified 08/05/18 22:11) HYPERKALEMIA trimethoprim [From Septra] Allergy (Verified 08/05/18 22:11) HYPERKALEMIA Home Medications: Aspirin EC [Aspirin EC 81 mg (*)] 81 mg PO DAILY 11/21/15 [Last Taken 05/10/18 05:00] Ascorbic Acid [Vitamin C 500 mg (*)] 500 mg PO Q3D 07/12/16 [Last Taken 05/09/18 ] Insulin Lispro [Humalog] 5 - 20 unit SQ TIDMEAL 07/12/16 [Last Taken 05/10/18 4 units] Cyclobenzaprine [Flexeril 10 MG (*)] 10 - 20 mg PO TID PRN 01/16/17 [Last Taken 05/10/18 20mg] Herbals/Supplements -Info Only 1 ea PO DAILY 01/16/17 [Last Taken 05/08/18] Mupirocin 2% [Bactroban 2%] 1 karlos TP HS PRN 01/16/17 [Last Taken 05/09/18] Atorvastatin Calcium 20 mg PO DAILY 01/21/18 [Last Taken 05/10/18] Ethacrynic Acid [Edecrin 25 MG (*)] 25 - 100 mg PO SUTUTHSA PRN 01/21/18 [Last Taken 05/09/18 50mg] Herbals/Supplements -Info Only 1 ea PO DAILY 01/21/18 [Last Taken Unknown] Labetalol HCl [Trandate 100 mg (*)] 100 - 600 mg PO TID PRN 01/21/18 [Last Taken 05/10/18 100mg] Sevelamer Carbonate [Renvela] 800 mg PO TID PRN 01/21/18 [Last Taken 05/09/18] oxyCODONE IR [Oxycodone Ir (*)] 5 - 10 mg PO DAILY PRN 01/21/18 [Last Taken 10:00 5mg] Cholecalciferol Vit D3 [Vitamin D3 (*)] 5,000 units PO DAILY 05/10/18 [Last Taken 05/10/18] I have personally reviewed and updated: family history, medical history, social history, surgical history - Past Medical History coronary artery disease ( Status post CABG 4 vessel), CHF ( diastolic with last known echocardiogram June of 2016), CVA ( without known physical deficit) , hypertension, pneumonia ( left lower lobe) Additional medical history: End-stage renal disease on Sunday hemodialysis, currently oliguric. Hepatitis-C virus. Previous episodes of streptococcal bacteremia. Dm 2, HTN, HLD, CAD status post CABG. Diastolic CHF. History of diabetic foot ulcers status post debridement and several amputations. Aortic stenosis status post aortic valve replacement bioprosthesis. Osteoarthritis. Chronic lower extremity edema - Surgical History Reports: coronary bypass surgery ( 4 vessel) Additional surgical history: Bioprosthetic aortic valve June of 2015. AV Fistula placement. Toe amputation, with additional procedures for debridement. Achilles tendon lengthening on the left 05/08/2018 - Family History Additional family history: mother with aortic stenosis. Paternal aunt- diabetes. No family history of coronary artery disease. - Social History Smoking Status: Former smoker Alcohol Use: None Drug Use: None Additional social history: Patient was previously homeless now lives in an apartment alone. Review of Systems Review of Systems: ROS: 10pt was reviewed & negative except for what was stated in HPI & below Constitutional: Reports: fever. Denies: chills, malaise EENMT: Reports: no symptoms Cardiac: Reports: no symptoms Respiratory: Reports: no symptoms Gastrointestinal: Reports: no symptoms Genitourinary: Reports: no symptoms (Patient still makes a little urine) Muscolosketal: Reports: other (Leg and foot pain see HPI) Skin: Reports: rash (Buttocks patient has itching and scratching developed some scabs.) Neurological: Reports: no symptoms Hematologic/Lymphatic: Reports: no symptoms Physical Exam Physical Exam: Selected Entries 08/05/18 08/06/18 08/06/18 22:11 01:14 01:17 Heart Rate 78 70 69 Respiratory 20 16 16 Rate O2 Sat (%) 88 L 85 L 95 Temperature (C) 38.8 C H 36.6 C Blood Pressure 146/70 H 111/54 L Mean Arterial 95 80 Pressure (MAP) O2 (L/minute) 2 Activity During At Rest At Rest Vital Signs O2 Delivery Room Air Room Air Room Air Mode Blood Pressure Right Source Upper Arm Temperature Oral Source Heart Rate Heart Rate/ Heart Rate/ Source Monitor Monitor Temp Pulse Resp BP Pulse Ox 36.6 C 69 16 111/54 L 95 08/06/18 01:14 08/06/18 01:17 08/06/18 01:17 08/06/18 01:14 08/06/18 01:17 O2 (L/minute) 2 Constitutional: no apparent distress, chronically ill appearing, uncomfortable ( With movement of the left foot), other (NAD. Chronically ill-appearing gentleman is lying in bed. In no acute distress. Patient with some underlying irritability) Eyes: PERRL, anicteric sclera Ears, Nose, Mouth, Throat: moist mucous membranes, no oral mucosal ulcers, other (White discoloration to tongue without any visible thrush plaques), No poor dentition Cardiovascular: regular rate and rhythym, systolic murmur (3/6), edema (Two to 3 + pitting on the left greater than the right significantly noticeable on the foot. Chronic bilateral lower leg skin changes) Peripheral Pulses: 0: dorsalis-pedis (R) (Limited assessment secondary to edema) , dorsalis-pedis (L) (Limited assessment secondary to edema) Respiratory: no respiratory distress, no rales or rhonchi, clear to auscultation , other (Patient with occasional nonproductive cough during interview) Gastrointestinal: normoactive bowel sounds, soft, non-tender abdomen, no palpable masses, No distension Genitourinary: no bladder tenderness, No uriarte in urethra Skin: warm, normal color, rash (Patient with multiple excoriations to his buttocks bilaterally no surrounding erythema. Chronic lower extremity skin changes as noted above.), other (abrasion and wound to the left heel. Significant tenderness and patient has complained of this to stop limits exam. I am not able to assess for any fluctuance due to patient's complaint of pain. There is no evidence of drainage. There is no active bleeding from the wound.) , No mottled, No pressure ulcer Musculoskeletal: generalized weakness Neurologic: AAOx3 (Patient is oriented x3 however when asked regarding open- ended questions or regarding his medical history he is not able to provide significant information.), other (Grossly nonfocal), No facial droop Psychiatric: not anxious, not encephalopathic, poor insight, other (During portions of the interview patient with some variable irritability/temper but redirectable.), No poor memory Lab Data & Imaging Review 08/05/18 22:05 08/05/18 22:05 WBC 10.60 10^3/uL (3.80-9.50) H 08/05/18 22:05 RBC 4.10 10^6/uL (4.40-6.38) L 08/05/18 22:05 Hgb 11.9 g/dL (13.7-17.5) L 08/05/18 22:05 Hct 37.5 % (40.0-51.0) L 08/05/18 22:05 MCV 91.5 fL (81.5-99.8) 08/05/18 22:05 MCH 29.0 pg (27.9-34.1) 08/05/18 22:05 MCHC 31.7 g/dL (32.4-36.7) L 08/05/18 22:05 RDW 16.0 % (11.5-15.2) H 08/05/18 22:05 Plt Count 190 10^3/uL (150-400) 08/05/18 22:05 MPV 10.7 fL (8.7-11.7) 08/05/18 22:05 Neut % (Auto) 84.6 % (39.3-74.2) H 08/05/18 22:05 Lymph % (Auto) 6.0 % (15.0-45.0) L 08/05/18 22:05 Graves % (Auto) 8.0 % (4.5-13.0) 08/05/18 22:05 Eos % (Auto) 0.5 % (0.6-7.6) L 08/05/18 22:05 Baso % (Auto) 0.6 % (0.3-1.7) 08/05/18 22:05 Nucleat RBC Rel Count 0.0 % (0.0-0.2) 08/05/18 22:05 Absolute Neuts (auto) 8.97 10^3/uL (1.70-6.50) H 08/05/18 22:05 Absolute Lymphs (auto) 0.64 10^3/uL (1.00-3.00) L 08/05/18 22:05 Absolute Monos (auto) 0.85 10^3/uL (0.30-0.80) H 08/05/18 22:05 Absolute Eos (auto) 0.05 10^3/uL (0.03-0.40) 08/05/18 22:05 Absolute Basos (auto) 0.06 10^3/uL (0.02-0.10) 08/05/18 22:05 Absolute Nucleated RBC 0.00 10^3/uL (0-0.01) 08/05/18 22:05 Immature Gran % 0.3 % (0.0-1.1) 08/05/18 22:05 Immature Gran # 0.03 10^3/uL (0.00-0.10) 08/05/18 22:05 ESR 52 MM/HR (0-20) H 08/05/18 22:05 PT 16.3 SEC (12.0-15.0) H 08/05/18 22:05 INR 1.29 (0.83-1.16) H 08/05/18 22:05 APTT 30.9 SEC (23.0-38.0) 08/05/18 22:05 VBG Lactic Acid 2.1 mmol/L (0.7-2.1) 08/05/18 22:05 Sodium 133 mEq/L (135-145) L 08/05/18 22:05 Potassium 4.4 mEq/L (3.3-5.0) 08/05/18 22:05 Chloride 88 mEq/L (97-110) L 08/05/18 22:05 Carbon Dioxide 30 mEq/l (22-31) 08/05/18 22:05 Anion Gap 15 mEq/L (8-16) 08/05/18 22:05 BUN 31 mg/dL (7-23) H 08/05/18 22:05 Creatinine 4.1 mg/dL (0.7-1.3) H 08/05/18 22:05 Estimated GFR 15 08/05/18 22:05 Glucose 217 mg/dL (70-100) H 08/05/18 22:05 Calcium 7.9 mg/dL (8.5-10.4) L 08/05/18 22:05 Total Bilirubin 1.8 mg/dL (0.1-1.4) H 08/05/18 22:05 Conjugated Bilirubin 1.0 mg/dL (0.0-0.5) H 08/05/18 22:05 Unconjugated Bilirubin 0.8 mg/dL (0.0-1.1) 08/05/18 22:05 AST 38 IU/L (17-59) 08/05/18 22:05 ALT 29 IU/L (21-72) 08/05/18 22:05 Alkaline Phosphatase 117 IU/L (38-126) 08/05/18 22:05 Ammonia 10.0 uMOL/L (9.0-30.0) 08/05/18 22:49 C-Reactive Protein 158.2 mg/L (<10.0) H 08/05/18 22:05 Total Protein 6.9 g/dL (6.3-8.2) 08/05/18 22:05 Albumin 3.8 g/dL (3.5-5.0) 08/05/18 22:05 Procalcitonin 1.48 ng/mL (0.02-0.10) H 08/05/18 22:05 Imaging Review: Chest, One View Portable at 2258 hours History: Hypoxemia, fever . Comparison: February 2018 Findings: Cardiac silhouette is mildly enlarged. Mediastinal clips and median sternotomy wire noted. Valvuloplasty. Mild bilateral peribronchial thickening. Pleuroparenchymal scarring the left lung base again noted. No pneumonia, congestive heart failure, pleural effusion , or pneumothorax. Impression: 1. Postsurgical changes and mild cardiomegaly. 2. Mild bronchitis/airways disease. 3. Pleural parenchymal scarring left lower lobe again noted. 4. No definite pneumonia. Dictated By: Eduardo Azul Left Foot, Three Views History: Pain. Glass in hindfoot. Comparison: Left foot February 21, 2018. Findings: Amputation of the second toe at the level of the head of the second metatarsal is again noted. There is grossly stable severe degenerative change at the first metatarsophalangeal joint with joint space irregularity and periarticular erosions/lucencies. No fracture is identified. Atherosclerosis is noted. No definite radiopaque foreign object is identified. Impression: 1. No radiopaque foreign object. 2. Additional findings as above. Dictated By: Farzad Linn MD Visualized and Interpreted Chest x-ray results: Yes Chest X-Ray results: no infiltrate Visualized and Interpreted imaging results: Yes EKG additional interpertation: NSR in the 70s. LAFB, LVH, V6 with a T-wave inversion. QTC 518. Assessment & Plan Assessment: 67-year-old gentleman with a history of uncontrolled DM 2, ESRD on HD MWF, HTN, HLD, CAD status post CABG, chronic pain, diastolic CHF who presents to the emergency department today with complaints of worsening left foot pain and swelling. Patient found to be febrile in the emergency department. #Fever - patient without any significant surrounding erythema or exudate from the left heel wound. Patient sustained an injury stating that he stepped on glass or other such sharp object at home. He does have increased tenderness and more edema on the left compared to the right. He he was afebrile in the emergency department with a minimally elevated lactate. He denies any other infectious symptoms but does undergo dialysis 3 times weekly. Patient's chest x -ray does show some bronchitis he has a remote history of tobacco abuse. There is no evidence of consolidations. Patient denied any symptoms however during my interview he did have intermittent nonproductive cough. He does have a history of diabetic foot wounds and osteo resulting in amputation of his 2nd toe and distal metatarsal. Blood cultures x2 are pending. Procalcitonin was elevated greater than 1.0. White count minimally elevated but less than 12K. Patient was started on vancomycin and Zosyn given his chronic medical problems and history of infections. Will await blood cultures and continue antibiotics. His CRP and ESR were notably elevated. X-ray of the left foot did not reveal any gas. May consider additional imaging pending blood cultures however patient has declined MRIs in the past. #Left heel wound-wound Care has been consulted. Antibiotics as noted above. #Acute on chronic pain - continue patient's home medications listed oxy in baclofen. Will not escalate narcotic therapy at this time particularly in setting of ESRD. Patient appears to be resting comfortably when not moving his lower extremity. #Hyponatremia - likely secondary to component of hypernatremia. Patient is on a fluid restricted diet at home of 32 oz daily. He underwent dialysis day prior to admission. Chronic medical issues # dm 2 uncontrolled - continue with high-dose sliding scale and a low-dose at HS. Patient has had admissions in the past for hypoglycemia will monitor closely. Patient will be placed on a ADA renal diet. # ESRD patient typically with dialysis MWF. Patient underwent dialysis yesterday. Renal consult per day team if patient should stay additional days. # diastolic CHF # chronic lower extremity edema # benign essential HTN # HLD # CAD status post CABG # anemia of chronic kidney disease # hypocalcemia - likely related to secondary hypoparathyroidism FEN - s/p 500 mls in ED. hold further IV fluids. fluid restriction. PPX - SCD. no heparin products as pt reports adverse effects on allergy list. COR - FULL. patient without advanced directives desires his mother to be proxy. Dispo - patient admitted observation status
[2018-08-06 05:14] LABS: PLATELET COUNT 154 10^3/uL (150-400)
[2018-08-06] MEDS: INSULIN LISPRO 100 UNIT/ML SC SCH ×4 (08:43→22:40)
--- NOTE | 2018-08-06 09:37 | ASMTCASEMG ---
Living Arrangements What is your living Answers: Alone arrangement? Who do you live with? Type Of Residence What kind of residence do Answers: Apartment you live in? Discharge Plan Comments Coordination Status Comments Notes: Pt is a 67 y/o man admitted for a left heel pain. Pt has a hx of poorly controlled diabetes type 2, ESRD with dialysis on MWF at [facility], chronic pain, diastolic CHF, chronic lower extremity edema, hx of diabetic foot wounds status post toe amputation, CAD w/ hx of CABG, HTN and HLD. Pt uses a walker or a cane at baseline. Wound care is involved Needs are TBD at this time. CM to follow. Plan: TBD Date Signed: 08/06/2018 09:36 AM Electronically Signed By:TRINA Rocha
[2018-08-06] MEDS: ASPIRIN EC 81 MG TAB PO SCH (11:06)
[2018-08-06] MEDS: oxyCODONE IR 5 MG TAB PO PRN ×3 (11:06→16:04)
[2018-08-06] MEDS: SEVELAMER HCL 800 MG TAB PO SCH ×3 (11:07→17:57)
--- NOTE | 2018-08-06 11:57 | HOSPPROG ---
Hospitalist Progress Note Assessment/Plan: 67-year-old gentleman with a history of uncontrolled DM 2, ESRD on HD MWF, HTN, HLD, CAD status post CABG, chronic pain, diastolic CHF who presents to the emergency department today with complaints of worsening left foot pain and swelling. Patient found to be febrile in the emergency department. #Fever - Patient without any significant surrounding erythema or exudate from the left heel wound. Patient sustained an injury stating that he stepped on glass or other such sharp object at home. He does have increased tenderness and more edema on the left compared to the right. He he was febrile in the emergency department with a minimally elevated lactate. He denies any other infectious symptoms but does undergo dialysis 3 times weekly. Patient's chest x-ray does show some bronchitis he has a remote history of tobacco abuse. There is no evidence of consolidations. Patient denied any symptoms however during my interview he did have intermittent nonproductive cough. He does have a history of diabetic foot wounds and osteo resulting in amputation of his 2nd toe and distal metatarsal. Blood cultures x2 are pending. Procalcitonin was elevated greater than 1.0. White count minimally elevated but less than 12K. Patient was started on vancomycin and Zosyn given his chronic medical problems and history of infections. - Will await blood cultures and continue antibiotics. - His CRP and ESR were notably elevated. X-ray of the left foot did not reveal any gas. - May consider additional imaging pending blood cultures however patient has declined MRIs in the past. #Left heel wound -wound Care has been consulted. - Antibiotics as noted above - Consulted Surgery this AM to evaluate foot wound for possible debridement #Acute on chronic pain - continue patient's home medications listed oxy in baclofen. - Will not escalate narcotic therapy at this time particularly in setting of ESRD. #Hyponatremia - likely secondary to component of hypernatremia. Patient is on a fluid restricted diet at home of 32 oz daily. He underwent dialysis day prior to admission. Chronic medical issues # dm 2 uncontrolled - continue with high-dose sliding scale and a low-dose at HS. Patient has had admissions in the past for hypoglycemia will monitor closely. Patient will be placed on a ADA renal diet. # ESRD patient typically with dialysis MWF. Patient underwent dialysis yesterday. Consulted Renal this AM for HD tomorrow # diastolic CHF # chronic lower extremity edema # benign essential HTN # HLD # CAD status post CABG # anemia of chronic kidney disease # hypocalcemia - likely related to secondary hypoparathyroidism FEN - s/p 500 mls in ED. hold further IV fluids. fluid restriction. PPX - SCD. no heparin products as pt reports adverse effects on allergy list. COR - FULL. patient without advanced directives desires his mother to be proxy. Dispo - patient admitted observation status, pending clinical course Subjective: Patient reports pain in L heel Objective: Vital Signs Temp Pulse Resp BP Pulse Ox 37.0 C 68 16 119/64 85 L 08/06/18 08:10 08/06/18 08:10 08/06/18 08:10 08/06/18 08:10 08/06/18 08:10 Laboratory Results 08/06/18 04:17 08/06/18 04:17 08/05/18 08/06/18 08/07/18 05:59 05:59 05:59 Intake Total 1350 Output Total 0 Balance 1350 PT 16.3 SEC (12.0-15.0) H 08/05/18 22:05 INR 1.29 (0.83-1.16) H 08/05/18 22:05 - Physical Exam Constitutional: no apparent distress, unkempt Eyes: PERRL Ears, Nose, Mouth, Throat: moist mucous membranes Cardiovascular: regular rate and rhythym Respiratory: no respiratory distress Gastrointestinal: normoactive bowel sounds, soft, non-tender abdomen Genitourinary: no bladder tenderness Skin: warm, other (ulceration on L heel with miminal surrounding erythema ) Musculoskeletal: pain with ROM Neurologic: AAOx3 Psychiatric: poor memory ICD10 Worksheet Patient Problems: Problems Problem Status Onset Cellulitis Acute Fever Acute CODY (acute kidney injury) Acute Acute on chronic renal failure Acute Bacteremia Acute CAD, multiple vessel Acute Cellulitis of foot Acute Chronic Disease Mgmt/Transitional Care Acute Coagulopathy Acute Congestive heart failure Acute Decubitus ulcer of heel, stage 1 Acute Dehiscence of closure of skin Acute Diabetic foot ulcer Acute Elevated troponin Acute Elevated troponin Acute Foot infection Acute Head trauma Acute Hyperkalemia Acute Hypoglycemia Acute Hypoglycemia Acute Hypothermia Acute Moderate aortic valve stenosis Acute Pleural effusion Acute Pleural effusion on left Acute Pneumonia Acute Renal insufficiency Acute S/P CABG x 4 Acute S/P aortic valve replacement with bioprosthetic valve Acute Scalp laceration Acute Shortness of breath Acute Shortness of breath on exertion Acute CKD (chronic kidney disease) Chronic Diabetes Chronic Osteomyelitis Chronic Posterior circulation stroke Chronic
[2018-08-06] MEDS: PIPERACILLIN/TAZO 2.25 GM/DEX 50 ML IV SCH (12:57)
--- NOTE | 2018-08-06 14:31 | CPEKG ---
Test Reason : OPEN Blood Pressure : / mmHG Vent. Rate : 078 BPM Atrial Rate : 078 BPM P-R Int : 192 ms QRS Dur : 119 ms QT Int : 454 ms P-R-T Axes : 019 -71 154 degrees QTc Int : 518 ms Sinus rhythm Left anterior fascicular block Left ventricular hypertrophy Nonspecific T abnormalities, lateral leads Confirmed by Gagan Gleason [id number]), development editor Darvin Chen ([id number]) on 08/06/2018 2:30:39 PM Referred By: Confirmed By:Gagan Gleason
--- NOTE | 2018-08-06 17:12 | SOAPPROG ---
SOAP Progress Note Assessment/Plan: Assessment: 67 MALE WITH LEFT HEEL ULCER AND QUESTIONABLE GLASS PUNCTURE WOUND NO FEVER EXCELLENT PULSES/ DIABETIC/ HEP C/ RENAL FAILURE/ CHF NEEDS HEEL SUSPENSION BOOT MAY NEED I&D Plan:WILL FOLLOW 08/06/18 17:08 Objective: Vital Signs Temp Pulse Resp BP Pulse Ox 37.1 C 88 16 136/88 H 92 08/06/18 15:49 08/06/18 15:49 08/06/18 15:49 08/06/18 15:49 08/06/18 15:49 Laboratory Results 08/06/18 04:17 08/06/18 04:17 08/05/18 08/06/18 08/07/18 05:59 05:59 05:59 Intake Total 1350 Output Total 0 Balance 1350 PT 16.3 SEC (12.0-15.0) H 08/05/18 22:05 INR 1.29 (0.83-1.16) H 08/05/18 22:05 ICD10 Worksheet Patient Problems: Problems Problem Status Onset Cellulitis Acute Fever Acute CODY (acute kidney injury) Acute Acute on chronic renal failure Acute Bacteremia Acute CAD, multiple vessel Acute Cellulitis of foot Acute Chronic Disease Mgmt/Transitional Care Acute Coagulopathy Acute Congestive heart failure Acute Decubitus ulcer of heel, stage 1 Acute Dehiscence of closure of skin Acute Diabetic foot ulcer Acute Elevated troponin Acute Elevated troponin Acute Foot infection Acute Head trauma Acute Hyperkalemia Acute Hypoglycemia Acute Hypoglycemia Acute Hypothermia Acute Moderate aortic valve stenosis Acute Pleural effusion Acute Pleural effusion on left Acute Pneumonia Acute Renal insufficiency Acute S/P CABG x 4 Acute S/P aortic valve replacement with bioprosthetic valve Acute Scalp laceration Acute Shortness of breath Acute Shortness of breath on exertion Acute CKD (chronic kidney disease) Chronic Diabetes Chronic Osteomyelitis Chronic Posterior circulation stroke Chronic
[2018-08-06] MEDS ORDERED: VANCOMYCIN HCL/NORMAL SALINE 250 ML IV ONE (23:00)
[2018-08-07] MEDS: PIPERACILLIN/TAZO 2.25 GM/DEX 50 ML IV SCH ×2 (01:05→12:17)
[2018-08-07 05:52] LABS: PLATELET COUNT 188 10^3/uL (150-400)
[2018-08-07] MEDS: ASPIRIN EC 81 MG TAB PO SCH (07:44)
[2018-08-07] MEDS: INSULIN LISPRO 100 UNIT/ML SC SCH ×4 (07:44→21:49)
[2018-08-07] MEDS: SEVELAMER HCL 800 MG TAB PO SCH ×3 (07:44→16:30)
--- NOTE | 2018-08-07 09:14 | PDCONSULT ---
Research Food Technologist Note: Renal Consult Note - Chief Complaint Foot pain - History of Present Illness The patient is a 67 y/o M who presented to the hospital after dialysis on Sunday c/o L heel pain. He is ESRD with HD MWF at [facility] with Dr. Ford Cueto. In addition, he has a h/o diabetic foot ulcers with a previous toe amputation. He reports stepping on some glass last week. He thinks he has had fevers. Ambulates with wheelchair and walker. Currently on dialysis and states he has been having no issues with his fistula or otherwise. States that the striped shirt I am wearing "reminds him of nursing home." - Allergies/Home Medication List Allergies/Adverse Reactions: Sulfa (Sulfonamide Antibiotics) [Sulfa(Sulfonamide Antibiotics)] Allergy (Severe , Verified 08/05/18 22:11) Hives torsemide Allergy (Severe, Verified 08/05/18 22:11) Other-Enter Comments heparin Allergy (Unknown, Verified 08/05/18 22:11) "it almost killed me" acetaminophen [From Tylenol] Allergy (Verified 08/05/18 23:18) allopurinol Allergy (Unverified 08/05/18 22:11) Rash furosemide [From Lasix] Allergy (Verified 08/05/18 22:11) Rash sulfamethoxazole [From Septra] Allergy (Verified 08/05/18 22:11) HYPERKALEMIA trimethoprim [From Septra] Allergy (Verified 08/05/18 22:11) HYPERKALEMIA Home Medications: Aspirin EC [Aspirin EC 81 mg (*)] 81 mg PO DAILY 11/21/15 [Last Taken 05/10/18 05:00] Ascorbic Acid [Vitamin C 500 mg (*)] 500 mg PO Q3D 07/12/16 [Last Taken 05/09/18 ] Insulin Lispro [Humalog] 5 - 20 unit SQ TIDMEAL 07/12/16 [Last Taken 05/10/18 4 units] Cyclobenzaprine [Flexeril 10 MG (*)] 10 - 20 mg PO TID PRN 01/16/17 [Last Taken 05/10/18 20mg] Herbals/Supplements -Info Only 1 ea PO DAILY 01/16/17 [Last Taken 05/08/18] Mupirocin 2% [Bactroban 2%] 1 karlos TP HS PRN 01/16/17 [Last Taken 05/09/18] Atorvastatin Calcium 20 mg PO DAILY 01/21/18 [Last Taken 05/10/18] Ethacrynic Acid [Edecrin 25 MG (*)] 25 - 100 mg PO SUTUTHSA PRN 01/21/18 [Last Taken 05/09/18 50mg] Herbals/Supplements -Info Only 1 ea PO DAILY 01/21/18 [Last Taken Unknown] Labetalol HCl [Trandate 100 mg (*)] 100 - 600 mg PO TID PRN 01/21/18 [Last Taken 05/10/18 100mg] Sevelamer Carbonate [Renvela] 800 mg PO TID PRN 01/21/18 [Last Taken 05/09/18] oxyCODONE IR [Oxycodone Ir (*)] 5 - 10 mg PO DAILY PRN 01/21/18 [Last Taken 10:00 5mg] Cholecalciferol Vit D3 [Vitamin D3 (*)] 5,000 units PO DAILY 05/10/18 [Last Taken 05/10/18] - Past Medical History coronary artery disease ( Status post CABG 4 vessel), CHF ( diastolic with last known echocardiogram June of 2016), CVA ( without known physical deficit) , hypertension, pneumonia ( left lower lobe) Additional medical history: End-stage renal disease on Sunday hemodialysis, currently oliguric. Hepatitis-C virus. Previous episodes of streptococcal bacteremia. Dm 2, HTN, HLD, CAD status post CABG. Diastolic CHF. History of diabetic foot ulcers status post debridement and several amputations. Aortic stenosis status post aortic valve replacement bioprosthesis. Osteoarthritis. Chronic lower extremity edema - Surgical History Reports: coronary bypass surgery ( 4 vessel) Additional surgical history: Bioprosthetic aortic valve June of 2015. AV Fistula placement. Toe amputation, with additional procedures for debridement. Achilles tendon lengthening on the left 05/08/2018 - Family History Additional family history: mother with aortic stenosis. Paternal aunt- diabetes. No family history of coronary artery disease. - Social History Smoking Status: Former smoker Alcohol Use: None Drug Use: None Additional social history: Patient was previously homeless now lives in an apartment alone. Review of Systems Negative except as per HPI. Objective: Temp Pulse Resp BP Pulse Ox 36.7 C 81 18 148/82 H 90 L 09/19/18 07:12 08/07/18 07:12 08/07/18 07:12 08/07/18 07:12 08/07/18 07:12 O2 (L/minute) 1 Physical Exam: Gen: A+Ox3 HEENT: EOMI, MMM Neck: Supple, no thyromegaly CV: RRR, no murmurs ABD: Soft, NT, ND PULM: No wheezing, CTA b/l EXT: 2-3+ edema with chronic venous skin changes, foot wrapped NEURO: Non-focal PSYCH: No distress, cooperative Labs: WBC 10.58 10^3/uL (3.80-9.50) H 08/07/18 05:40 RBC 4.35 10^6/uL (4.40-6.38) L 08/07/18 05:40 Hgb 12.4 g/dL (13.7-17.5) L 08/07/18 05:40 Hct 39.9 % (40.0-51.0) L 08/07/18 05:40 MCV 91.7 fL (81.5-99.8) 08/07/18 05:40 MCH 28.5 pg (27.9-34.1) 08/07/18 05:40 MCHC 31.1 g/dL (32.4-36.7) L 08/07/18 05:40 RDW 15.6 % (11.5-15.2) H 08/07/18 05:40 Plt Count 188 10^3/uL (150-400) 08/07/18 05:40 MPV 10.3 fL (8.7-11.7) 08/07/18 05:40 Neut % (Auto) 79.2 % (39.3-74.2) H 08/07/18 05:40 Lymph % (Auto) 9.6 % (15.0-45.0) L 08/07/18 05:40 Steele % (Auto) 8.3 % (4.5-13.0) 08/07/18 05:40 Eos % (Auto) 1.6 % (0.6-7.6) 08/07/18 05:40 Baso % (Auto) 0.8 % (0.3-1.7) 08/07/18 05:40 Nucleat RBC Rel Count 0.0 % (0.0-0.2) 08/07/18 05:40 Absolute Neuts (auto) 8.38 10^3/uL (1.70-6.50) H 08/07/18 05:40 Absolute Lymphs (auto) 1.02 10^3/uL (1.00-3.00) 08/07/18 05:40 Absolute Monos (auto) 0.88 10^3/uL (0.30-0.80) H 08/07/18 05:40 Absolute Eos (auto) 0.17 10^3/uL (0.03-0.40) 08/07/18 05:40 Absolute Basos (auto) 0.08 10^3/uL (0.02-0.10) 08/07/18 05:40 Absolute Nucleated RBC 0.00 10^3/uL (0-0.01) 08/07/18 05:40 Immature Gran % 0.5 % (0.0-1.1) 08/07/18 05:40 Immature Gran # 0.05 10^3/uL (0.00-0.10) 08/07/18 05:40 ESR 52 MM/HR (0-20) H 08/05/18 22:05 PT 16.3 SEC (12.0-15.0) H 08/05/18 22:05 INR 1.29 (0.83-1.16) H 08/05/18 22:05 APTT 30.9 SEC (23.0-38.0) 08/05/18 22:05 VBG Lactic Acid 1.4 mmol/L (0.7-2.1) 08/06/18 02:30 Sodium 136 mEq/L (135-145) 08/07/18 05:40 Potassium 4.6 mEq/L (3.3-5.0) 08/07/18 05:40 Chloride 90 mEq/L (97-110) L 08/07/18 05:40 Carbon Dioxide 27 mEq/l (22-31) 08/07/18 05:40 Anion Gap 19 mEq/L (8-16) H 08/07/18 05:40 BUN 56 mg/dL (7-23) H 08/07/18 05:40 Creatinine 6.2 mg/dL (0.7-1.3) H 08/07/18 05:40 Estimated GFR 9 08/07/18 05:40 Glucose 152 mg/dL (70-100) H 08/07/18 05:40 POC Glucose 152 mg/dL (70-100) H 08/07/18 07:11 Calcium 7.5 mg/dL (8.5-10.4) L 08/07/18 05:40 Phosphorus 6.7 mg/dL (2.5-4.5) H 08/06/18 04:17 Magnesium 2.1 mg/dL (1.6-2.3) 08/06/18 04:17 Total Bilirubin 1.8 mg/dL (0.1-1.4) H 08/05/18 22:05 Conjugated Bilirubin 1.0 mg/dL (0.0-0.5) H 08/05/18 22:05 Unconjugated Bilirubin 0.8 mg/dL (0.0-1.1) 08/05/18 22:05 AST 38 IU/L (17-59) 08/05/18 22:05 ALT 29 IU/L (21-72) 08/05/18 22:05 Alkaline Phosphatase 117 IU/L (38-126) 08/05/18 22:05 Ammonia 10.0 uMOL/L (9.0-30.0) 08/05/18 22:49 C-Reactive Protein 158.2 mg/L (<10.0) H 08/05/18 22:05 Total Protein 6.9 g/dL (6.3-8.2) 08/05/18 22:05 Albumin 3.8 g/dL (3.5-5.0) 08/05/18 22:05 Procalcitonin 1.48 ng/mL (0.02-0.10) H 08/05/18 22:05 Imaging: Results reviewed. Assessment/Plan: The patient is a 67 y/o M with a known h/o DM and ESRD who presented with a L foot wound now undergoing treatment for cellulitis. Per Dr. Miller may do I&D today and continue antibiotic therapy. ESRD -HD [facility] [place] -dialysis today, will continue on regular schedule -AVF intact HTN/vol -overloaded -will UF as tolerated -continue home meds Anemia: -Hb >12, hold EPO BMD: -Renal diet -continue Renvela with meals Diabetic foot ulcer -surgery appreciated -renally dose abx -no gadolinium if MRI -avoid overuse of opiates for pain control Consult appreciated, please contact if further ?'s. #[phone].
[2018-08-07] MEDS: oxyCODONE IR 5 MG TAB PO PRN ×2 (11:09→22:03)
--- NOTE | 2018-08-07 12:35 | HOSPPROG ---
Hospitalist Progress Note Assessment/Plan: 67-year-old gentleman with a history of uncontrolled DM 2, ESRD on HD MWF, HTN, HLD, CAD status post CABG, chronic pain, diastolic CHF who presents to the emergency department today with complaints of worsening left foot pain and swelling. Patient found to be febrile in the emergency department. #L Heel Cellulitis - Patient sustained an injury stating that he stepped on glass or other such sharp object at home with increased tenderness and more edema on the left compared to the right. - He was febrile in the emergency department with a minimally elevated lactate. - Patient's chest x-ray does show some bronchitis he has a remote history of tobacco abuse. - He does have a history of diabetic foot wounds and osteo resulting in amputation of his 2nd toe and distal metatarsal. - Blood cultures x2 are pending. - Patient was started on vancomycin and Zosyn given his chronic medical problems and history of infections. - Will await blood cultures and continue antibiotics. - X-ray of the left foot did not reveal any gas. - Surgery consulted on 08/06, considering I&D, will f/u on their recommendations #Left heel wound - wound Care has been consulted. - Antibiotics and management as noted above #Acute on chronic pain - continue patient's home medications listed oxy in baclofen. - Will not escalate narcotic therapy at this time particularly in setting of ESRD. #Hyponatremia - likely secondary to component of hypernatremia. Patient is on a fluid restricted diet at home of 32 oz daily. He underwent dialysis day prior to admission. Improved to 136 this AM Chronic medical issues # dm 2 uncontrolled - continue with high-dose sliding scale and a low-dose at HS. Patient has had admissions in the past for hypoglycemia will monitor closely. Patient will be placed on a ADA renal diet. # ESRD patient typically with dialysis MWF. 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 hold further IV fluids. fluid restriction. PPX - SCD. no heparin products as pt reports adverse effects on allergy list. COR - FULL. patient without advanced directives desires his mother to be proxy. Dispo -Pending clinical course Subjective: Patient reports feeling improved after dialysis session this morning Objective: Vital Signs Temp Pulse Resp BP Pulse Ox 36.7 C 81 18 148/82 H 90 L 08/07/18 07:12 08/07/18 07:12 08/07/18 07:12 08/07/18 07:12 08/07/18 07:12 Laboratory Results 08/07/18 05:40 08/07/18 05:40 08/06/18 08/07/18 08/08/18 05:59 05:59 05:59 Intake Total 1350 1700 780 Output Total 0 Balance 1350 1700 780 PT 16.3 SEC (12.0-15.0) H 08/05/18 22:05 INR 1.29 (0.83-1.16) H 08/05/18 22:05 - Physical Exam Constitutional: no apparent distress, chronically ill appearing Eyes: PERRL Ears, Nose, Mouth, Throat: moist mucous membranes Cardiovascular: regular rate and rhythym, edema Respiratory: clear to auscultation Gastrointestinal: soft, non-tender abdomen Genitourinary: no bladder tenderness Skin: warm, erythema, induration Musculoskeletal: pain with ROM Neurologic: AAOx3 Psychiatric: interacting appropriately ICD10 Worksheet Patient Problems: Problems Problem Status Onset Cellulitis Acute Fever Acute CODY (acute kidney injury) Acute Acute on chronic renal failure Acute Bacteremia Acute CAD, multiple vessel Acute Cellulitis of foot Acute Chronic Disease Mgmt/Transitional Care Acute Coagulopathy Acute Congestive heart failure Acute Decubitus ulcer of heel, stage 1 Acute Dehiscence of closure of skin Acute Diabetic foot ulcer Acute Elevated troponin Acute Elevated troponin Acute Foot infection Acute Head trauma Acute Hyperkalemia Acute Hypoglycemia Acute Hypoglycemia Acute Hypothermia Acute Moderate aortic valve stenosis Acute Pleural effusion Acute Pleural effusion on left Acute Pneumonia Acute Renal insufficiency Acute S/P CABG x 4 Acute S/P aortic valve replacement with bioprosthetic valve Acute Scalp laceration Acute Shortness of breath Acute Shortness of breath on exertion Acute CKD (chronic kidney disease) Chronic Diabetes Chronic Osteomyelitis Chronic Posterior circulation stroke Chronic
--- NOTE | 2018-08-07 13:14 | SOAPPROG ---
SOAP Progress Note Assessment/Plan: Assessment/Plan: 67 Y M c DM, hx CABG, CHF, ESRD on HD, Hep C admitted with fever, r/o sepsis. L calcaneal wound. Reviewed pt's prior ED visit and foot xray. Possibly had some glass FB involved --per notes, 2 mm superficial piece of glass removed. Patient seen and examined while in HD. May need I&D. Heel is tender and fluctuant but no redness or drainage, skin intact. Will get prevalon boot to offload pressure. Patient agreeable to MRI. 08/07/18 13:10 Objective: Vital Signs Temp Pulse Resp BP Pulse Ox 36.7 C 81 18 148/82 H 90 L 08/07/18 07:12 08/07/18 07:12 08/07/18 07:12 08/07/18 07:12 08/07/18 07:12 Laboratory Results 08/07/18 05:40 08/07/18 05:40 08/06/18 08/07/18 08/08/18 05:59 05:59 05:59 Intake Total 1350 1700 780 Output Total 0 Balance 1350 1700 780 PT 16.3 SEC (12.0-15.0) H 08/05/18 22:05 INR 1.29 (0.83-1.16) H 08/05/18 22:05 ICD10 Worksheet Patient Problems: Problems Problem Status Onset Cellulitis Acute Fever Acute CODY (acute kidney injury) Acute Acute on chronic renal failure Acute Bacteremia Acute CAD, multiple vessel Acute Cellulitis of foot Acute Chronic Disease Mgmt/Transitional Care Acute Coagulopathy Acute Congestive heart failure Acute Decubitus ulcer of heel, stage 1 Acute Dehiscence of closure of skin Acute Diabetic foot ulcer Acute Elevated troponin Acute Elevated troponin Acute Foot infection Acute Head trauma Acute Hyperkalemia Acute Hypoglycemia Acute Hypoglycemia Acute Hypothermia Acute Moderate aortic valve stenosis Acute Pleural effusion Acute Pleural effusion on left Acute Pneumonia Acute Renal insufficiency Acute S/P CABG x 4 Acute S/P aortic valve replacement with bioprosthetic valve Acute Scalp laceration Acute Shortness of breath Acute Shortness of breath on exertion Acute CKD (chronic kidney disease) Chronic Diabetes Chronic Osteomyelitis Chronic Posterior circulation stroke Chronic
--- NOTE | 2018-08-07 13:28 | ASMTCMCOM ---
CM Note CM Note Notes: PT is recommending home care for patient. OT will meet with patient later today. CM will follow. Date Signed: 08/07/2018 01:00 PM Electronically Signed By:Doreen Baker LCSW
[2018-08-07] MEDS: CYCLOBENZAPRINE 10 MG TAB PO PRN (15:36)
--- NOTE | 2018-08-07 15:48 | PDMN ---
Medical Necessity Medical necessity: MCG 325 chronic renal failure: pt underwent HD today: complex med hx : uncontrolled DM2, ESRD, HTN,CAD S/P CABG, chronic pain, diastolic CHF, complaining of worsening foot pain, swelling, febrile, L heel cellulitis, glass removed poss I/D needed will cont to monitor, > 2 [place] med nec care, further eval., and tx needed.
[2018-08-07] MEDS ORDERED: VANCOMYCIN HCL/NORMAL SALINE 250 ML IV ONE (17:30)
[2018-08-08] MEDS: CYCLOBENZAPRINE 10 MG TAB PO PRN (00:27)
[2018-08-08] MEDS: PIPERACILLIN/TAZO 2.25 GM/DEX 50 ML IV SCH ×2 (00:27→11:41)
[2018-08-08] MEDS: ASPIRIN EC 81 MG TAB PO SCH (07:54)
[2018-08-08] MEDS: SEVELAMER HCL 800 MG TAB PO SCH ×5 (07:54→18:22)
[2018-08-08] MEDS: INSULIN LISPRO 100 UNIT/ML SC SCH ×4 (07:55→23:00)
[2018-08-08] MEDS: oxyCODONE IR 5 MG TAB PO PRN ×2 (07:58→23:08)
[2018-08-08] MEDS ORDERED: INSULIN LISPRO 100 UNIT/ML SC ONE ×2 (09:00→13:15)
--- NOTE | 2018-08-08 09:50 | SOAPPROG ---
SOAP Progress Note Assessment/Plan: Assessment/Plan: ESRD: on HD MWF. - Will plan on HD tomorrow per routine. CARMELITA: pt on sevelamer, will continue to monitor phos. Hypervolemia: will modulate with fluid removal on HD. Anemia: Hgb at goal, no need for epo at this time. Subjective: No acute events overnight. Pt breathing comfortably, has pain and swelling in his legs. HD done yesterday with no issues. Objective: Vital Signs Temp Pulse Resp BP Pulse Ox 36.4 C 73 18 130/74 H 90 L 08/08/18 07:55 08/08/18 07:55 08/08/18 07:55 08/08/18 07:55 08/08/18 07:55 Laboratory Results 08/08/18 07:50 08/07/18 08/08/18 08/09/18 05:59 05:59 05:59 Intake Total 985 Output Total 150 Balance 835 PT 16.3 SEC (12.0-15.0) H 08/05/18 22:05 INR 1.29 (0.83-1.16) H 08/05/18 22:05 General: alert and oriented, no acute distress Eyes: EOMI, PERRL OP: Clear CV: RRR Resp: nonlabored respirations on RA Abd: Soft, NT Ext: +3 edema BLE Neuro: CN II-XII grossly intact, no asterixis Psych: cooperative Access: LUE AVF with thrill and bruit appreciated ICD10 Worksheet Patient Problems: Problems Problem Status Onset Cellulitis Acute Fever Acute CODY (acute kidney injury) Acute Acute on chronic renal failure Acute Bacteremia Acute CAD, multiple vessel Acute Cellulitis of foot Acute Chronic Disease Mgmt/Transitional Care Acute Coagulopathy Acute Congestive heart failure Acute Decubitus ulcer of heel, stage 1 Acute Dehiscence of closure of skin Acute Diabetic foot ulcer Acute Elevated troponin Acute Elevated troponin Acute Foot infection Acute Head trauma Acute Hyperkalemia Acute Hypoglycemia Acute Hypoglycemia Acute Hypothermia Acute Moderate aortic valve stenosis Acute Pleural effusion Acute Pleural effusion on left Acute Pneumonia Acute Renal insufficiency Acute S/P CABG x 4 Acute S/P aortic valve replacement with bioprosthetic valve Acute Scalp laceration Acute Shortness of breath Acute Shortness of breath on exertion Acute CKD (chronic kidney disease) Chronic Diabetes Chronic Osteomyelitis Chronic Posterior circulation stroke Chronic
--- NOTE | 2018-08-08 11:07 | PDCONSULT ---
[employer] Note: Assessment and Plan: #Fever due to L ankle cellulitis s/p glass injury. Exam shows swollen posterior L ankle, warmth, tenderness, but no erythema. MRI neg for abscess and OM. Staph, strep most likely but with traumatic puncture would consider GNR such as PsA as well. No h/o MRSA. Seems to be improving, AF. Blood cx negative. --Tdap up to date 01/2018 --dc vancomycin, zosyn --give cefepime 2gm after HD TIW x 1 more week --elevation LLE # Achilles rupture: discussed w Dr. Ramirez - suspects occurred mo ago after Achilles extension bc patient was non compliant Chief complaint: Left ankle cellulitis MD requested consult: Marcin Kang DO Source: patient (poor, tangential historian), records History of presents illness: 67 y/o M presents for evaluation of L-ankle cellulitis that began Sunday night when he went to bathroom around midnight and noticed that his foot was bleeding. In the morning, he presented to the ED by EMS. A nurse found a piece of glass in his foot. Glass was removed, L-foot XRay was obtained, and pt was discharged with order for Keflex. Later was seen by his PCP and went to dialysis. Returned home and felt dizzy which he attributed to lack of caloric intake. Also did not fill his Keflex Rx. Unsure of source of dizziness, called EMS and transferred to hospital for a second time in the same day. At that point , he was admitted to hospital with a fever measured at 101.9 F for further evaluation of possible sepsis. Today he complains of L-heal pain that is exacerbated with bearing weight on it. Was administered 5 mg of oxycodone today with moderate relief. Notes that he has arthritis and is Rx for Oxycodone for pain and Flexeril for muscle cramps. He spends significant time c/o about timing of medications. Admits that he LLE is more swollen compared to his baseline line and notes recent Achilles SUSY surgery. ID is asked to consult for underlying L-ankle infection. ROS: Complete 10-point review of systems conducted and negative except as noted in the HPI. - Past Medical History coronary artery disease (status post CABG 4 vessel), CHF (diastolic with last known echocardiogram June of 2016), CVA (without known physical deficit), hypertension, End-stage renal disease on MWF hemodialysis, currently oliguric. Hepatitis-C virus. streptococcal pneumoniae bacteremia in January 2016. April 2017 had MSSA bacteremia. DM 2, HTN, HLD, CAD status post CABG. Diastolic CHF. History of diabetic foot ulcers status post debridement and several amputations. Aortic stenosis status post aortic valve replacement bioprosthesis. Osteoarthritis. Chronic lower extremity edema - Surgical History Reports: 4 V CABG; Bioprosthetic aortic valve June of 2015. AV Fistula placement. Toe amputation, with additional procedures for debridement. Achilles tendon lengthening on the left 05/08/2018 - Family History Additional family history: mother with aortic stenosis. Paternal aunt- diabetes. No family history of coronary artery disease. - Social History Smoking Status: Former smoker Alcohol Use: None Drug Use: None Additional social history: Patient was previously homeless now lives in an apartment alone. Allergies: 3 Allergy/AdvReac Type Severity Reaction Status Date / Time allopurinol Allergy Severe Rash Verified 08/06/18 16:44 Sulfa (Sulfonamide Allergy Severe Hives Verified 08/05/18 22:11 Antibiotics) [Sulfa(Sulfonamide Antibiotics)] torsemide Allergy Severe Other-Enter Verified 08/05/18 22:11 Comments heparin Allergy Unknown "it almost Verified 08/05/18 22:11 killed me" acetaminophen [From Tylenol] Allergy Verified 08/05/18 23:18 furosemide [From Lasix] Allergy Rash Verified 08/05/18 22:11 sulfamethoxazole Allergy HYPERKALEMI Verified 08/05/18 22:11 [From Septra] A trimethoprim [From Septra] Allergy HYPERKALEMI Verified 08/05/18 22:11 A Medications: 3 Generic Name Dose Route Start Last Admin Trade Name Freq PRN Reason Stop Dose Admin Aspirin Buffered 81 mg 08/06/18 10:45 08/08/18 07:54 Aspirin Ec PO 02/02/19 10:44 81 mg DAILY YEMI Administration Cyclobenzaprine HCl 10 mg 08/06/18 02:20 08/08/18 00:27 Flexeril PO 02/02/19 08:59 10 mg TID PRN Administration Spasms Cyclobenzaprine HCl 2.5 mg 08/09/18 00:01 Flexeril PO 08/09/18 00:02 ONCE ONE Dextrose 25 gm 08/06/18 01:35 Dextrose 50% Vial IVP 02/02/19 01:34 PRN PRN Hypoglycemia Piperacillin/Tazobactam/Dextrose 50 mls @ 100 mls/hr 08/06/18 12:30 08/08/18 00:27 Zosyn 2.25 Gm (Premix), D#2 IV 09/05/18 12:29 50 mls Q12H YEMI Administration Protocol Vancomycin HCl 750 mg/ 150 mls @ 150 mls/hr 08/08/18 18:00 Dextrose IV 09/07/18 17:59 DAILY@1800 [facility] Insulin Human Lispro 0 unit 08/06/18 08:00 08/08/18 07:55 Humalog Lispro SC 02/02/19 07:59 Not Given TIDMEAL YEMI Protocol Insulin Human Lispro 0 unit 08/06/18 21:00 08/07/18 21:49 Humalog Lispro SC 02/02/19 20:59 Not Given HS [facility] Protocol Miscellaneous 1 each 08/06/18 01:45 Pharmacy To Dose Medication MISC 02/02/19 01:44 AD YEMI Ondansetron HCl 4 mg 08/06/18 00:12 Zofran IVP 02/02/19 00:11 Q4HRS PRN Nausea/Vomiting, Can't Take PO Ondansetron HCl 4 mg 08/06/18 00:12 Zofran Odt PO 02/02/19 00:11 Q4HRS PRN Nausea/Vomiting, Use 1st Oxycodone HCl 5 - 10 mg 08/06/18 15:55 08/08/18 07:58 Oxycodone Ir PO 08/16/18 02:20 5 mg Q4HRS PRN Administration Pain, Moderate Able to Take PO Sevelamer HCl 800 mg 08/06/18 12:00 08/08/18 07:54 Renagel PO 02/02/19 11:59 800 mg AD YEMI Administration Sevelamer HCl 800 mg 08/06/18 12:00 09/20/18 08:20 Renagel PO 02/02/19 11:59 800 mg TIDMEAL [facility] Administration Vancomycin HCl, D#3 1 each 08/06/18 01:30 Vancomycin Pharmacy To Dose, 10-15 [place] [facility] [place] 01:29 AD [facility] Protocol Vitals: 3 Temp Pulse Resp BP Pulse Ox 36.4 C 73 18 130/74 H 90 L 08/08/18 07:55 08/08/18 07:55 08/08/18 07:55 08/08/18 07:55 08/08/18 07:55 3 O2 (L/minute) 1 3 08/05/18 22:45 T Max 39 C H Physical Exam General: Well-nourished, well-developed in no acute distress. Appears nontoxic. Mischievous. HEENT: No scleral icterus, conjunctival injection. Oropharynx shows moist mucous membranes with no thrush. Neck: Supple with full [id number]. Chest: Clear to auscultation bilaterally without adventitious sounds. Respiratory effort is normal. Cardiovascular: Regular rate and rhythm. 3/6 systolic murmur with a click, no gallops or rubs. Abdomen: Soft, nontender, nondistended, no guarding. Normal bowel sounds present. Musculoskeletal: BLE hyperpigmentation consistent with chronic venous insufficiency, DP 1+. Massive B LE edema L>R; LLE: thickened skin at the bottom of L-heal, warm to touch, focal edema over Achilles/posterior ankle. healed 2nd toe amputation. RLE: R-ankle cold to touch. healed 5th toe amputation. Back: Surgical incision well healed without palpable point tenderness. Skin: Warm and dry. Normal color. No stigmata of endocarditis. Neurological: Oriented to time and place. MICROBIOLOGY 08/05/18 23:03 Blood Blood Culture - Preliminary 08/05/18 23:03 Blood Blood Culture - Preliminary Radiology: 08/07/2018 Lower extremity MRI impression: 1) Extensive subcutaneous cellulitis throughout the left ankle, without discrete abscess of osteomyelitis identified. 2) High-grade near-complete Achilles tendon tear, with retraction. 3 ) Subchondral cyst within the medical aspect of the talar dome. 4) Large plantar calcaneal spur, with mild chronic plantar fasciitis. 08/05/2018 L-foot XRay 3V findings: Amputation of the second toe at the level of the head of the second metatarsal is again noted. There is grossly stable severe degenerative change at the first metatarsophalangeal joint with joint space irregularity and periarticular erosions/lucencies. No fractures identified. No radiopaque foreign object. Laboratory Results: 3 WBC 10.58 10^3/uL (3.80-9.50) H 08/07/18 05:40 RBC 4.35 10^6/uL (4.40-6.38) L 08/07/18 05:40 Hgb 12.4 g/dL (13.7-17.5) L 08/07/18 05:40 Hct 39.9 % (40.0-51.0) L 08/07/18 05:40 MCV 91.7 fL (81.5-99.8) 08/07/18 05:40 MCH 28.5 pg (27.9-34.1) 08/07/18 05:40 MCHC 31.1 g/dL (32.4-36.7) L 08/07/18 05:40 RDW 15.6 % (11.5-15.2) H 08/07/18 05:40 Plt Count 188 10^3/uL (150-400) 08/07/18 05:40 MPV 10.3 fL (8.7-11.7) 08/07/18 05:40 Neut % (Auto) 79.2 % (39.3-74.2) H 08/07/18 05:40 Lymph % (Auto) 9.6 % (15.0-45.0) L 08/07/18 05:40 [place] % (Auto) 8.3 % (4.5-13.0) 08/07/18 05:40 Eos % (Auto) 1.6 % (0.6-7.6) 08/07/18 05:40 Baso % (Auto) 0.8 % (0.3-1.7) 08/07/18 05:40 Nucleat RBC Rel Count 0.0 % (0.0-0.2) 08/07/18 05:40 Absolute Neuts (auto) 8.38 10^3/uL (1.70-6.50) H 08/07/18 05:40 Absolute Lymphs (auto) 1.02 10^3/uL (1.00-3.00) 08/07/18 05:40 Absolute Monos (auto) 0.88 10^3/uL (0.30-0.80) H 08/07/18 05:40 Absolute Eos (auto) 0.17 10^3/uL (0.03-0.40) 08/07/18 05:40 Absolute Basos (auto) 0.08 10^3/uL (0.02-0.10) 08/07/18 05:40 Absolute Nucleated RBC 0.00 10^3/uL (0-0.01) 08/07/18 05:40 Immature Gran % 0.5 % (0.0-1.1) 08/07/18 05:40 Immature Gran # 0.05 10^3/uL (0.00-0.10) 08/07/18 05:40 ESR 52 MM/HR (0-20) H 08/05/18 22:05 PT 16.3 SEC (12.0-15.0) H 08/05/18 22:05 INR 1.29 (0.83-1.16) H 08/05/18 22:05 APTT 30.9 SEC (23.0-38.0) 08/05/18 22:05 VBG Lactic Acid 1.4 mmol/L (0.7-2.1) 08/06/18 02:30 Sodium 136 mEq/L (135-145) 08/08/18 07:50 Potassium 4.5 mEq/L (3.3-5.0) 08/08/18 07:50 Chloride 94 mEq/L (97-110) L 08/08/18 07:50 Carbon Dioxide 24 mEq/l (22-31) 08/08/18 07:50 Anion Gap 18 mEq/L (8-16) H 08/08/18 07:50 BUN 46 mg/dL (7-23) H 08/08/18 07:50 Creatinine 5.2 mg/dL (0.7-1.3) H 08/08/18 07:50 Estimated GFR 11 08/08/18 07:50 Glucose 164 mg/dL (70-100) H 08/08/18 07:50 POC Glucose 149 mg/dL (70-100) H 08/08/18 07:53 Calcium 7.5 mg/dL (8.5-10.4) L 08/08/18 07:50 Phosphorus 6.7 mg/dL (2.5-4.5) H 08/06/18 04:17 Magnesium 2.1 mg/dL (1.6-2.3) 08/06/18 04:17 Total Bilirubin 1.8 mg/dL (0.1-1.4) H 08/05/18 22:05 Conjugated Bilirubin 1.0 mg/dL (0.0-0.5) H 08/05/18 22:05 Unconjugated Bilirubin 0.8 mg/dL (0.0-1.1) 08/05/18 22:05 AST 38 IU/L (17-59) 08/05/18 22:05 ALT 29 IU/L (21-72) 08/05/18 22:05 Alkaline Phosphatase 117 IU/L (38-126) 08/05/18 22:05 Ammonia 10.0 uMOL/L (9.0-30.0) 08/05/18 22:49 C-Reactive Protein 158.2 mg/L (<10.0) H 08/05/18 22:05 Total Protein 6.9 g/dL (6.3-8.2) 08/05/18 22:05 Albumin 3.8 g/dL (3.5-5.0) 08/05/18 22:05 Procalcitonin 1.48 ng/mL (0.02-0.10) H 08/05/18 22:05 Vancomycin Trough 15.2 mcg/mL (5.0-20.0) 08/07/18 16:20 Scribe attestation: I, Kathy Rodriguez, am scribing for, and in the presence of, Sonali Pal MD I, Amie Meditz, MD, personally performed the services described in this documentation, as scribed by Kathy Rodriguez in my presence, and it is both accurate and complete. Greater than 70 minutes spent on this patients care, greater than 50% of time spent counseling, educating, and coordinating care regarding the above mentioned plan.
[2018-08-08] MEDS ORDERED: ETHACRYNIC ACID 25 MG TAB PO PRN ×2 (11:08→11:10)
--- NOTE | 2018-08-08 11:34 | HOSPPROG ---
Hospitalist Progress Note Assessment/Plan: 67-year-old gentleman with a history of uncontrolled DM 2, ESRD on HD MWF, HTN, HLD, CAD status post CABG, chronic pain, diastolic CHF who presents to the emergency department today with complaints of worsening left foot pain and swelling. Patient found to be febrile in the emergency department. #L Heel Cellulitis - Patient sustained an injury stating that he stepped on glass or other such sharp object at home with increased tenderness and more edema on the left compared to the right. - He was febrile in the emergency department with a minimally elevated lactate. - Patient's chest x-ray does show some bronchitis he has a remote history of tobacco abuse. - He does have a history of diabetic foot wounds and osteo resulting in amputation of his 2nd toe and distal metatarsal. - Blood cultures x2 are pending. - Patient was started on vancomycin and Zosyn given his chronic medical problems and history of infections. - Will consult ID today for recommendations regarding abx - X-ray of the left foot did not reveal any gas. MRI performed on 08/07 which showed extensive subQ cellulitis w/o evidence of OM or abscess - Surgery consulted on 08/06, considering I&D, will f/u on their recommendations #Left heel wound - wound Care has been consulted. - Antibiotics and management as noted above #Acute on chronic pain - continue patient's home medications listed oxy in baclofen. - Will not escalate narcotic therapy at this time particularly in setting of ESRD. #Hyponatremia - likely secondary to component of hypernatremia. Patient is on a fluid restricted diet at home of 32 oz daily. He underwent dialysis day prior to admission. Improved to 136 Chronic medical issues # dm 2 uncontrolled - continue with high-dose sliding scale and a low-dose at HS. Patient has had admissions in the past for hypoglycemia will monitor closely. Patient will be placed on a ADA renal diet. # ESRD patient typically with dialysis MWF. 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 hold further IV fluids. fluid restriction. PPX - SCD. no heparin products as pt reports adverse effects on allergy list. COR - FULL. patient without advanced directives desires his mother to be proxy. Dispo -Pending clinical course Subjective: Patient reports throbbing in his LLE Objective: Vital Signs Temp Pulse Resp BP Pulse Ox 36.4 C 73 18 130/74 H 90 L 08/08/18 07:55 08/08/18 07:55 08/08/18 07:55 08/08/18 07:55 08/08/18 07:55 Laboratory Results 08/08/18 07:50 08/07/18 08/08/18 08/09/18 05:59 05:59 05:59 Intake Total 985 Output Total 150 Balance 835 PT 16.3 SEC (12.0-15.0) H 08/05/18 22:05 INR 1.29 (0.83-1.16) H 08/05/18 22:05 - Physical Exam Constitutional: no apparent distress Eyes: PERRL Ears, Nose, Mouth, Throat: moist mucous membranes Cardiovascular: regular rate and rhythym, edema Respiratory: no respiratory distress, clear to auscultation Gastrointestinal: soft, non-tender abdomen Genitourinary: no bladder tenderness Skin: erythema, rash Musculoskeletal: pain with ROM Neurologic: AAOx3 Psychiatric: interacting appropriately ICD10 Worksheet Patient Problems: Problems Problem Status Onset Cellulitis Acute Fever Acute CODY (acute kidney injury) Acute Acute on chronic renal failure Acute Bacteremia Acute CAD, multiple vessel Acute Cellulitis of foot Acute Chronic Disease Mgmt/Transitional Care Acute Coagulopathy Acute Congestive heart failure Acute Decubitus ulcer of heel, stage 1 Acute Dehiscence of closure of skin Acute Diabetic foot ulcer Acute Elevated troponin Acute Elevated troponin Acute Foot infection Acute Head trauma Acute Hyperkalemia Acute Hypoglycemia Acute Hypoglycemia Acute Hypothermia Acute Moderate aortic valve stenosis Acute Pleural effusion Acute Pleural effusion on left Acute Pneumonia Acute Renal insufficiency Acute S/P CABG x 4 Acute S/P aortic valve replacement with bioprosthetic valve Acute Scalp laceration Acute Shortness of breath Acute Shortness of breath on exertion Acute CKD (chronic kidney disease) Chronic Diabetes Chronic Osteomyelitis Chronic Posterior circulation stroke Chronic
[2018-08-08] MEDS ORDERED: CEFEPIME HCL 2 GM in NS 100 ML IV ONE (11:41)
--- NOTE | 2018-08-08 12:02 | SOAPPROG ---
SOAP Progress Note Assessment/Plan: Assessment: 67 Y M c DM, hx CABG, CHF, ESRD on HD, Hep C admitted with fever, r/o sepsis. L calcaneal wound. MRI shows no evidence of osteomyelitis or abscess. Does show near complete Achilles tendon tear S: C/o pain. Is not bearing weight on LLE. O:Alert Afebrile No increased WOB LLE: dressings intact. severe edema and cellulitic changes. Plan: No surgical intervention indicated. Continue heel suspension boot for near complete Achilles tendon tear. Appreciate ID and medicine input. 08/08/18 11:59 Objective: Vital Signs Temp Pulse Resp BP Pulse Ox 36.4 C 73 18 130/74 H 90 L 08/08/18 07:55 08/08/18 07:55 08/08/18 07:55 08/08/18 07:55 08/08/18 07:55 Laboratory Results 08/08/18 07:50 08/07/18 08/08/18 08/09/18 05:59 05:59 05:59 Intake Total 985 Output Total 150 Balance 835 PT 16.3 SEC (12.0-15.0) H 08/05/18 22:05 INR 1.29 (0.83-1.16) H 08/05/18 22:05 ICD10 Worksheet Patient Problems: Problems Problem Status Onset Cellulitis Acute Fever Acute CODY (acute kidney injury) Acute Acute on chronic renal failure Acute Bacteremia Acute CAD, multiple vessel Acute Cellulitis of foot Acute Chronic Disease Mgmt/Transitional Care Acute Coagulopathy Acute Congestive heart failure Acute Decubitus ulcer of heel, stage 1 Acute Dehiscence of closure of skin Acute Diabetic foot ulcer Acute Elevated troponin Acute Elevated troponin Acute Foot infection Acute Head trauma Acute Hyperkalemia Acute Hypoglycemia Acute Hypoglycemia Acute Hypothermia Acute Moderate aortic valve stenosis Acute Pleural effusion Acute Pleural effusion on left Acute Pneumonia Acute Renal insufficiency Acute S/P CABG x 4 Acute S/P aortic valve replacement with bioprosthetic valve Acute Scalp laceration Acute Shortness of breath Acute Shortness of breath on exertion Acute CKD (chronic kidney disease) Chronic Diabetes Chronic Osteomyelitis Chronic Posterior circulation stroke Chronic
[2018-08-08] MEDS ORDERED: VANCOMYCIN 750 MG in D5W 150 ML IV SCH (18:00)
[2018-08-08] MEDS: LABETALOL HCL 100 MG TAB PO PRN (23:40)
[2018-08-09] MEDS ORDERED: CYCLOBENZAPRINE 10 MG TAB PO ONE (00:01)
[2018-08-09] MEDS ORDERED: CALCIUM CARBONATE 500 MG CHEWABLE TAB PO PRN (00:48)
[2018-08-09] MEDS: oxyCODONE IR 5 MG TAB PO PRN ×3 (07:31→17:59)
[2018-08-09] MEDS: ASPIRIN EC 81 MG TAB PO SCH (07:32)
[2018-08-09] MEDS: SEVELAMER HCL 800 MG TAB PO SCH ×5 (07:32→18:09)
[2018-08-09] MEDS: CYCLOBENZAPRINE 10 MG TAB PO PRN ×2 (07:39→17:59)
[2018-08-09] MEDS: INSULIN LISPRO 100 UNIT/ML SC SCH ×4 (09:01→20:46)
--- NOTE | 2018-08-09 09:41 | SOAPPROG ---
SOAP Progress Note Assessment/Plan: Assessment: 67 Y M c DM, hx CABG, CHF, ESRD on HD, Hep C admitted with fever, r/o sepsis. L calcaneal wound. MRI shows no evidence of osteomyelitis or abscess. Does show near complete Achilles tendon tear S: C/o pain. Is not bearing weight on LLE. O:Alert Afebrile No increased WOB LLE: dressings intact. severe edema and cellulitic changes. Plan: No surgical intervention indicated. Continue heel suspension boot for near complete Achilles tendon tear. Appreciate ID and medicine input. 08/08/18 11:59 Subjective: Still having LLE pain. No fevers. No other complaints. Objective: Vital Signs Temp Pulse Resp BP Pulse Ox 37.1 C 67 16 131/75 H 86 L 08/09/18 07:20 08/09/18 07:20 08/09/18 07:20 08/09/18 07:20 08/09/18 07:20 Laboratory Results 08/09/18 04:27 08/08/18 08/09/18 08/10/18 05:59 05:59 05:59 Intake Total 985 1821 Output Total 150 Balance 835 1821 PT 16.3 SEC (12.0-15.0) H 08/05/18 22:05 INR 1.29 (0.83-1.16) H 08/05/18 22:05 ICD10 Worksheet Patient Problems: Problems Problem Status Onset Cellulitis Acute Fever Acute CODY (acute kidney injury) Acute Acute on chronic renal failure Acute Bacteremia Acute CAD, multiple vessel Acute Cellulitis of foot Acute Chronic Disease Mgmt/Transitional Care Acute Coagulopathy Acute Congestive heart failure Acute Decubitus ulcer of heel, stage 1 Acute Dehiscence of closure of skin Acute Diabetic foot ulcer Acute Elevated troponin Acute Elevated troponin Acute Foot infection Acute Head trauma Acute Hyperkalemia Acute Hypoglycemia Acute Hypoglycemia Acute Hypothermia Acute Moderate aortic valve stenosis Acute Pleural effusion Acute Pleural effusion on left Acute Pneumonia Acute Renal insufficiency Acute S/P CABG x 4 Acute S/P aortic valve replacement with bioprosthetic valve Acute Scalp laceration Acute Shortness of breath Acute Shortness of breath on exertion Acute CKD (chronic kidney disease) Chronic Diabetes Chronic Osteomyelitis Chronic Posterior circulation stroke Chronic
--- NOTE | 2018-08-09 10:14 | SOAPPROG ---
SOAP Progress Note Assessment/Plan: Assessment/Plan: ESRD: on HD MWF. - Will plan on HD today per routine. CARMELITA: phos 6.5, continue Sevelamer. Hypervolemia: will modulate with fluid removal on HD. Anemia: Hgb at goal, no need for epo at this time. Cellulitis: have communicated abx plan for cefepime after dialysis on Sunday and Sunday next week, they have it in stock. Subjective: No acute events overnight. Pt states that he feels like he is not getting enough food here. He has no other complaints. Objective: Vital Signs Temp Pulse Resp BP Pulse Ox 37.1 C 67 16 131/75 H 86 L 08/09/18 07:20 08/09/18 07:20 08/09/18 07:20 08/09/18 07:20 08/09/18 07:20 Laboratory Results 08/09/18 04:27 08/08/18 08/09/18 08/10/18 05:59 05:59 05:59 Intake Total 985 1821 Output Total 150 Balance 835 1821 PT 16.3 SEC (12.0-15.0) H 08/05/18 22:05 INR 1.29 (0.83-1.16) H 08/05/18 22:05 General: alert and oriented, no acute distress Eyes: EOMI, PERRL OP: Clear CV: RRR Resp: nonlabored respirations on RA Abd: Soft, NT/ND Ext: +2 edema BLE Neuro: CN II-XII Grossly intact, no asterixis Psych: cooperative ICD10 Worksheet Patient Problems: Problems Problem Status Onset Cellulitis Acute Fever Acute CODY (acute kidney injury) Acute Acute on chronic renal failure Acute Bacteremia Acute CAD, multiple vessel Acute Cellulitis of foot Acute Chronic Disease Mgmt/Transitional Care Acute Coagulopathy Acute Congestive heart failure Acute Decubitus ulcer of heel, stage 1 Acute Dehiscence of closure of skin Acute Diabetic foot ulcer Acute Elevated troponin Acute Elevated troponin Acute Foot infection Acute Head trauma Acute Hyperkalemia Acute Hypoglycemia Acute Hypoglycemia Acute Hypothermia Acute Moderate aortic valve stenosis Acute Pleural effusion Acute Pleural effusion on left Acute Pneumonia Acute Renal insufficiency Acute S/P CABG x 4 Acute S/P aortic valve replacement with bioprosthetic valve Acute Scalp laceration Acute Shortness of breath Acute Shortness of breath on exertion Acute CKD (chronic kidney disease) Chronic Diabetes Chronic Osteomyelitis Chronic Posterior circulation stroke Chronic
--- NOTE | 2018-08-09 11:22 | ASMTCMCOM ---
CM Note CM Note Notes: Spoke w/pt, he came to ER for foot pain after possibley having stepped on glass. Pt has a hx of uncontrolled diabetes and gets dialysis MWF. PT recommends SNF and OT recommends homecare, pt is not agreeable to either. He states he goes to outpt infusion twice a week. He is ammenable to MOW and mostly wants help getting a wheelchair, he lives alone in an apt on the 5th floor that is handicapp accessible. CM encouraged pt to consider SNF but pt still refuses. RN to call PCP's office to find out info on getting wheelchair. DC Plan: TBD Date Signed: 08/09/2018 11:20 AM Electronically Signed By:Winifred Juares RN
[2018-08-09] MEDS ORDERED: CEFEPIME HCL 2 GM in NS 100 ML IV SCH (12:00)
--- NOTE | 2018-08-09 15:38 | HOSPPROG ---
Hospitalist Progress Note Assessment/Plan: 67-year-old gentleman with a history of uncontrolled DM 2, ESRD on HD MWF, HTN, HLD, CAD status post CABG, chronic pain, diastolic CHF who presents with left heel pain and swelling found to have wound and cellulitis. This is my first encounter with patient. #Left heel cellulitis: Not septic. MRI without OM/abscess. Result of stepping on glass. - Continue cefepime for 1 more week. Renal coordinating with his outpatient HD and should get cefepime with HD next Mon and Wed - Follow blood cultures - Wound care #Left achilles tendon rupture: Noted on MRI - No surgical intervention planned. Surgery recommending suspension boot - PT rec'd SNR, OT rec'd home care - CM has acquired wheelchair for patient #ESRD: Renal following. - HD today #Anemia: Of renal disease. H/H at baseline. Monitor. #T2DM: BG 150-180s. - Continue SSI #CAD s/p CABG: No angina. #Hypocalcemia: Secondary hypoparathyroidism. On phos binders. #HTN: - Labetalol PRN #Chronic LE edema: Predisposes to infection - Get ethacrynic acid PRN #Chronic pain - Continue home oxycodone and baclofen, not escalating in setting of ESRD Diet: carb controlled VTE ppx: SCDs Code: full Dispo: Remain inpatient for IV abx. Hopefully discharge tomorrow AM Subjective: Doing ok this morning. Not wanting full dose of insulin. Feels like feet are still swollen but pain improved. Hasn't noticed any drainage. Objective: Vital Signs Temp Pulse Resp BP Pulse Ox 37.1 C 67 16 131/75 H 86 L 08/09/18 07:20 08/09/18 07:20 08/09/18 07:20 08/09/18 07:20 08/09/18 07:20 Laboratory Results 08/09/18 04:27 08/08/18 08/09/18 08/10/18 05:59 05:59 05:59 Intake Total 985 1821 Output Total 150 Balance 835 1821 PT 16.3 SEC (12.0-15.0) H 08/05/18 22:05 INR 1.29 (0.83-1.16) H 08/05/18 22:05 - Physical Exam Constitutional: no apparent distress, appears nourished, not in pain Ears, Nose, Mouth, Throat: moist mucous membranes, hearing normal, ears appear normal, no oral mucosal ulcers Cardiovascular: regular rate and rhythym, no murmur, rub, or gallop Respiratory: no respiratory distress, no rales or rhonchi, clear to auscultation Gastrointestinal: normoactive bowel sounds, soft, non-tender abdomen, no palpable masses Skin: other (left heel wound with granulation tissue, no surrounding erythema or drainage) Musculoskeletal: full muscle strength, no muscle tenderness, normal joint ROM, other (AV fistula with good thrill) Neurologic: AAOx3, sensation intact bilaterally Psychiatric: interacting appropriately, not anxious, not encephalopathic, thought process linear ICD10 Worksheet Patient Problems: Problems Problem Status Onset Cellulitis Acute Fever Acute CODY (acute kidney injury) Acute Acute on chronic renal failure Acute Bacteremia Acute CAD, multiple vessel Acute Cellulitis of foot Acute Chronic Disease Mgmt/Transitional Care Acute Coagulopathy Acute Congestive heart failure Acute Decubitus ulcer of heel, stage 1 Acute Dehiscence of closure of skin Acute Diabetic foot ulcer Acute Elevated troponin Acute Elevated troponin Acute Foot infection Acute Head trauma Acute Hyperkalemia Acute Hypoglycemia Acute Hypoglycemia Acute Hypothermia Acute Moderate aortic valve stenosis Acute Pleural effusion Acute Pleural effusion on left Acute Pneumonia Acute Renal insufficiency Acute S/P CABG x 4 Acute S/P aortic valve replacement with bioprosthetic valve Acute Scalp laceration Acute Shortness of breath Acute Shortness of breath on exertion Acute CKD (chronic kidney disease) Chronic Diabetes Chronic Osteomyelitis Chronic Posterior circulation stroke Chronic
--- NOTE | 2018-08-09 18:52 | PCMIDPN ---
Assessment/Plan: Assessment/Plan: * Fever associated with left ankle cellulitis post class injury: Clinically improved with resolution of fever. Posterior ankle remains tender but no overlying cellulitis present. Completing course of cefepime which is being dosed post dialysis with plans for doses on Sunday and Sunday. Initially received 3 days of piperacillin/tazobactam. Cultures remain no growth. Continue left lower extremity elevation. 08/09/18 18:49 08/09/18 18:52 Subjective: Patient with persistent left ankle pain. Overall feels better. Objective: Vital Signs Temp Pulse Resp BP Pulse Ox 36.7 C 71 16 144/87 H 86 L 08/09/18 17:30 08/09/18 17:30 08/09/18 07:20 08/09/18 17:30 08/09/18 07:20 Laboratory Results 08/09/18 04:27 08/08/18 08/09/18 08/10/18 05:59 05:59 05:59 Intake Total 985 1821 300 Output Total 150 Balance 835 1821 300 ESR 52 MM/HR (0-20) H 08/05/18 22:05 C-Reactive Protein 139.1 mg/L (<10.0) H 08/09/18 04:27 Cefepime # 2, antibiotics # 4 Blood cultures x2 no growth MRI without evidence of abscess formation - Physical Exam General Appearance: alert, no apparent distress EENT: No scleral icterus, No conjunctival petechiae Respiratory: lungs clear, No respiratory distress Cardiac/Chest: regular rate, rhythm, systolic murmur (2/6 left and right upper sternal borders) Extremities: inflammation (Left ankle remains tender over Achilles region with edema without overlying erythema or fluctuance; edema over dorsal aspect of foot as well; mild erythema over anterior juares) ICD10 Worksheet Patient Problems: Problems Problem Status Onset Cellulitis Acute Fever Acute CODY (acute kidney injury) Acute Acute on chronic renal failure Acute Bacteremia Acute CAD, multiple vessel Acute Cellulitis of foot Acute Chronic Disease Mgmt/Transitional Care Acute Coagulopathy Acute Congestive heart failure Acute Decubitus ulcer of heel, stage 1 Acute Dehiscence of closure of skin Acute Diabetic foot ulcer Acute Elevated troponin Acute Elevated troponin Acute Foot infection Acute Head trauma Acute Hyperkalemia Acute Hypoglycemia Acute Hypoglycemia Acute Hypothermia Acute Moderate aortic valve stenosis Acute Pleural effusion Acute Pleural effusion on left Acute Pneumonia Acute Renal insufficiency Acute S/P CABG x 4 Acute S/P aortic valve replacement with bioprosthetic valve Acute Scalp laceration Acute Shortness of breath Acute Shortness of breath on exertion Acute CKD (chronic kidney disease) Chronic Diabetes Chronic Osteomyelitis Chronic Posterior circulation stroke Chronic
[2018-08-10 07:54] VITALS: BP 136/96
[2018-08-10] MEDS: SEVELAMER HCL 800 MG TAB PO SCH ×3 (08:22→12:43)
[2018-08-10] MEDS: ASPIRIN EC 81 MG TAB PO SCH (08:23)
[2018-08-10] MEDS: INSULIN LISPRO 100 UNIT/ML SC SCH ×3 (08:24→13:30)
[2018-08-10] MEDS: LABETALOL HCL 100 MG TAB PO PRN (08:31)
--- NOTE | 2018-08-10 12:52 | ASMTLACE ---
ELAINE Length of stay for Answers: 2 days current admission Acuity / Level of Answers: Yes Care: Did the patient have an inpatient admission? Comorbidities - select Answers: Cerebrovascular disease all that apply (CVA, TIA, aneurysms, vasc ular dementia) Congestive heart failure Diabetes (uncontrolled or controlled) Moderate or severe liver or renal disease Opioid dependence / Chronic pain Other Notes: HTN; Aortic stenosis; H ep C # of Emergency department Answers: 3-4 visits in the last 6 months Score: 21 Date Signed: 08/10/2018 12:51 PM Electronically Signed By:Winifred Juares RN
[2018-08-10] MEDS: oxyCODONE IR 5 MG TAB PO PRN (13:31)
--- NOTE | 2018-08-11 15:24 | PDDCSUM ---
Discharge Summary Discharge Summary: Date of Admission: 08/06/2018 Date of Discharge: 08/10/2018 Consultants: infectious disease, nephrology, general surgery Disposition: to home with IV antibiotics at upcoming HD sessions Procedures/Studies: left ankle MRI, hemodialysis Discharge Diagnoses: 1. Fever due to left heel cellulitis 2. Left achilles tendon rupture 3. ESRD 4. Anemia 5. T2DM 6. CAD s/p CABG 7. Chronic LE edema 8. Chronic pain 9. HTN Brief Hospital Course: 67-year-old gentleman with a history of uncontrolled DM 2, ESRD on HD MWF presented with left heel pain and swelling after stepping on piece of glass found to have fever in ED. MRI of ankle showed cellulitis but no abscess or OM. No surgical intervention/debridement. ID consulted and will complete course of IV cefepime. His cultures remained negative. He was given a wheelchair to help with ambulation but refused ongoing therapy services/SNF. The MRI also showed a left achilles tendon rupture, which was probably old. Surgery recommended a suspension boot for this but he refused to wear. He did receive his normal HD sessions while inpatient. Medications: Please refer to EMR for complete list. Changes this admission include addition of IV cefepime with next 2 HD sessions. Follow Up Plan: 1. Cefepime with HD on Monday 08/13 and Wednesday 08/15 Physical Exam: Vitals reviewed, afebrile and normotensive. Alert and oriented. RRR on cardiac exam. Lungs clear. Significant L>R pitting edema to knees. Left heel wound with healthy appearing tissue and no surrounding erythema or drainage.
--- NOTE | 2018-08-11 19:18 | GCON ---
Patient is a 67-year-old male. I was consulted for a left heel wound and pain. He describes a possi ble glass puncture wound and states at a different ER, they pulled some glass fragment out of that. Followup x-rays revealed no other foreign bodies. No evidence of bone infection. He presently compl ains of tenderness on the heel and has a callus over the walking surface of his heel. There is no tr ue skin breakdown and no drainage or purulent material coming out. In addition, he has good pulses. He has had some toe amputations secondary to infection and diabetic neuropathy in his feet. He has had a fever in the emergency department here of 101. ALLERGIES: Sulfa, heparin, Tylenol, allopurinol, Lasix, Septra. PRESENT MEDICATIONS: Include vitamin D, oxycodone, labetalol, Renvela, aspirin, vitamin C, Humalog, Flexeril, Lipitor, edecrin, and some other herbals. PAST MEDICAL HISTORY: Includes coronary artery disease with his coronary artery bypass, history of c ongestive heart failure, hypertension, past history of pneumonia. He had some end-stage renal diseas e and has dialysis 3 times a week. Positive for hep C. he has type 2 diabetes, hypertension. He noel s had several toe amputations. He has a history of aortic stenosis with the valve replacement, chron ic lower extremity edema. He has had an AV fistula placement. He recently had an Achilles tendon hicks rgery. FAMILY HISTORY: Positive for coronary and heart disease. SOCIAL HISTORY: Reveals he is an ex smoker. REVIEW OF SYSTEMS: Noncontributory on a 10-point review of systems. PHYSICAL EXAMINATION: GENERAL: An alert somewhat cooperative 67-year-old male in no acute distress. HEAD and NECK: Revealed no icterus, adenopathy, or oral lesions. His pupils are equal. CHEST: C lear. CARDIAC: Regular rhythm. ABDOMEN: Soft and nontender without masses. He has positive bowel sounds. GENITALIA: Normal. EXTREMITIES: Reveal excellent distal pulses. He has some chronic low er extremity stasis changes. He has a callus over his left heel, which is quite tender. I could not get any purulent drainage. It does seem to have a small puncture wound in the middle. Otherwise, h as full range of motion. NEUROLOGIC: Physiologic and symmetric. PSYCH: He appears to be oriented and alert and somewhat cooperative. IMPRESSION: Heel trauma of uncertain etiology. Possible puncture wound appears to have no evidence of abscess at the moment. RECOMMENDATIONS: Would be an MRI of his heel to rule out osteo in the face of a fever and a history of a draining wound in that area and his diabetic neuropathy. I will happily follow him with you. /[id number]/MODL
== END 2018-08-10 14:10 | disposition home or self-care (01) | DRG 602 ==
LOC: EDUNIT# → F3E 08-06 00:53 → OBSVTOIN 08-07 15:27
PROVIDERS: ADMIT Family Medicine; ATTEND Family Medicine
DX: L03.116 Cellulitis of left lower limb (principal); S86.012D Strain of left Achilles tendon, subsequent encounter; X58.XXXD Exposure to other specified factors, subsequent encounter; E87.1 Hypo-osmolality and hyponatremia; I13.2 Hypertensive heart and chronic kidney disease with heart failure and with stage 5 chronic kidney disease, or end stage renal disease; E11.22 Type 2 diabetes mellitus with diabetic chronic kidney disease; N18.6 End stage renal disease; I50.30 Unspecified diastolic (congestive) heart failure; I25.10 Atherosclerotic heart disease of native coronary artery without angina pectoris; G89.29 Other chronic pain; M19.072 Primary osteoarthritis, left ankle and foot; E83.51 Hypocalcemia; D63.1 Anemia in chronic kidney disease; E20.9 Hypoparathyroidism, unspecified; B19.20 Unspecified viral hepatitis C without hepatic coma; Z95.1 Presence of aortocoronary bypass graft; Z86.73 Personal history of transient ischemic attack (TIA), and cerebral infarction without residual deficits; Z87.01 Personal history of pneumonia (recurrent); Z95.2 Presence of prosthetic heart valve; Z87.891 Personal history of nicotine dependence; Z99.2 Dependence on renal dialysis
CPT/HCPCS: 96365; 97162-GP; 97166-GO; 97530-GO; 97530-GP; G0378; G8978-GP-CL; G8979-GP-CJ; G8987-GO-CJ; G8988-GO-CI; J0692; J1815; J2543; J3370